=== PATIENT | male | born 1945 | race Caucasian/White ===

== ENCOUNTER → 2017-11-20 11:55 | Day surgery (SDC) | payer MEDICARE ==
[~2017-11-20 11:55] MED LIST: Acetaminophen TAB* 325 MG PO PRN; Flumazenil* 0.1 MG/ML 5 ML MDV ONE; Lidocaine 1% INJ* 10 MG/ML 30 ML SDV ONE; Midazolam* 1 MG/ML 5 ML VIAL (5 MG) ONE; Naloxone* 0.4 MG/ML 1 ML VIAL ONE; ceFAZolin 2 GM in NS 0.9% 100 ml IVPB ONE; ceFAZolin VIAL 1 GM in NS *SYRINGE * * 10 ML ONE; fentaNYL* 50 MCG/ML 2 ML VIAL (100 MCG VIAL) ONE
--- NOTE | 2017-11-21 00:26 | OP ---
CC: Philomena Lyle MD * DATE OF OPERATION: 11/20/17 - [facility] CATH DATE OF : 47 SURGEON: Italo Huff MD ANESTHESIA: Local anesthesia with conscious sedation. PRE-OP DIAGNOSIS: Nonischemic cardiomyopathy, ICD had elective replacement indicator. POST-OP DIAGNOSIS: Nonischemic cardiomyopathy, ICD had elective replacement indicator. OPERATIVE PROCEDURE: Dual chamber biventricular ICD generator change. ESTIMATED BLOOD LOSS: Nil. COMPLICATIONS: None. INDICATIONS: The patient is a 72-year-old gentleman with history of aortic valve replacement, history of nonischemic cardiomyopathy, who had an ICD placed back in 2010. The patient has been followed closely in my office. His ICD reached elective replacement indicator, and generator change was recommended. DESCRIPTION OF PROCEDURE: The patient was brought to the procedure room in a fasting state. Informed consent had been obtained prior to the procedure. All labs had been reviewed. The patient remained on anticoagulation for the procedure. The patient's anterior chest was prepped and draped in the usual fashion. 1% lidocaine was used for local anesthesia. A 5 cm incision was made above the previous incision line near the ICD itself. Blunt dissection was carried down to the fiber sheath. The fiber sheath was opened and the ICD was removed from the pocket. The ICD was detached from all leads including atrial, biventricular and shock leads. A new generator was attached appropriately to the atrial and ventricular leads and tested. The explanted device is a [employer] model [id number]. The implanted device is a [employer] model [id number], serial #[id number]. P wave sensitivity was 5, impedance 560 ohms, threshold 0.75 volts at 0.5 milliseconds. Right ventricular lead had an impendence of 440 ohms, threshold 0.5 volts at 0.5 milliseconds. Left ventricular lead had an impedance of 660 ohms, threshold 0.75 volts at 1.5 milliseconds. The device was placed in the pocket. The surgical incision was closed in 3 layers. The patient tolerated the procedure well with no complications. [id number]/[facility] #: [id number] [facility]
== END | disposition home or self-care (01) ==
LOC: CHICATH 11:55
PROVIDERS: ATTEND Specialist
DX: Z45.02 Encounter for adjustment and management of automatic implantable cardiac defibrillator (principal); I42.9 Cardiomyopathy, unspecified; Z95.2 Presence of prosthetic heart valve; Z79.01 Long term (current) use of anticoagulants; E11.9 Type 2 diabetes mellitus without complications; Z79.4 Long term (current) use of insulin; J44.9 Chronic obstructive pulmonary disease, unspecified; I10 Essential (primary) hypertension; I50.9 Heart failure, unspecified; I47.2 Ventricular tachycardia
CPT/HCPCS: 33264; 88300; 99156; 99157; C1882; J0690; J2250; J2310; J3010

== ENCOUNTER 2018-06-27 18:26 | Emergency (ER) | payer MEDICARE ==
--- NOTE | 2018-06-27 18:49 | ED ---
Dizziness - HPI Summary HPI Summary: A 73 y/o M brought in by ambulance presents to ED with c/o dizziness onset this AM. Yesterday, he was at baseline. He's lost about 30 lbs and kept it off, and has been managing his sugars. His blood sugar this AM was 93-96. As he's walking around his house in the AM, about 10 ft, he became dizzy, described as room-spinning. The dizziness didn't subside throughout the day. Temp in ED is 100.1 F. He notes some medication changes in Feb 2018. He's had episodes of dizziness since the first of the year but not as bad today. The ambulance was called by [facility]. He was there to procure a wheelchair and to have the dizziness evaluated. Echo scheduled for next week, by Dr. Huff, cardio. Pt has a pacemaker. 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 - Onset/Duration: Still Present Timing: Hours Severity Initially: Moderate Severity Currently: Moderate Character: Room Spinning Alleviating Factor(s): Closing Eyes Associated Signs And Symptoms: Positive: Unsteady Gait - Allergies/Home Medications Allergies/Adverse Reactions: Allergies Allergy/AdvReac Type Severity Reaction Status Date / Time No Known Allergies Allergy Verified 06/18/18 10:35 Home Medications: Home Medications Empagliflozin [Jardiance] 10 mg PO DAILY 06/27/18 [History Confirmed 06/27/18] Insulin Glargine/Lixisenatide [Soliqua 100 Unit-33 Mcg/ml Pen] 06/27/18 [ History] PMH/Surg Hx/FS Hx/Imm Hx Previously Healthy: No Endocrine/Hematology History: Reports: Hx Diabetes Cardiovascular History: Reports: Hx Congestive Heart Failure, Hx Hypercholesterolemia, Hx Hypertension, Hx Pacemaker/ICD - X2, Hx Valvular Heart Disease - aortic valve replacement, Other Cardiovascular Problems/Disorders - HX CARDIOMYOPATHY Respiratory History: Reports: Hx Chronic Obstructive Pulmonary Disease (COPD), Hx Sleep Apnea - evaluation for 06/2013, Other Respiratory Problems/Disorders - dyspnea, hypoxemia History: Denies: Hx Renal Disease Musculoskeletal History: Reports: Other Musculoskeletal History - obesity Sensory History: Reports: Hx Cataracts - BILATERAL, Hx Contacts or Glasses - GLASSES Denies: Hx Hearing Aid Opthamlomology History: Reports: Hx Cataracts - BILATERAL, Hx Contacts or Glasses - GLASSES - Cancer History Cancer Type, Location and Year: skin CA - Surgical History Surgery Procedure, Year, and Place: Pacemaker insertion 2010 [facility], vasectomy , tonsillectomy as a child, Aortic valve replacement 2006 [facility] with aneurysm repair Hx Anesthesia Reactions: No - Immunization History Date of Tetanus Vaccine: Unknown Date of Influenza Vaccine: 2012 Infectious Disease History: No Infectious Disease History: Denies: Traveled Outside the [place] in Last 30 Days - Family History Known Family History: Positive: Other - neg: anaesthesia reaction - Social History Occupation: Retired Lives: With Family Alcohol Use: None Hx Substance Use: No Substance Use Type: Reports: None Hx Tobacco Use: No Smoking Status (MU): Never Smoked Tobacco Have You Smoked in the Last Year: No Review of Systems Positive: Fever Neurological: Other - pos: dizziness, unsteady gait All Other Systems Reviewed And Are Negative: Yes Physical Exam - Summary Physical Exam Summary: Appearance: Well-appearing, Obese male lying in bed comfortably Skin: Warm, dry, no obvious rash Eyes: sclera anicteric, no conjunctival pallor ENT: mucous membranes moist, pharynx appears normal Neck: Supple, nontender Respiratory: Clear to auscultation, no signs of respiratory distress Cardiovascular: Normal S1, S2. No murmurs. Normal distal pulses in tibial and radial bilaterally. Abdomen: Soft, nontender, normal active bowel sounds present Musculoskeletal: Normal, Strength/ROM Intact Neurological: A&Ox3, awake and alert, mentation is normal, speech is fluent and appropriate Psychiatric: affect is normal, does not appear anxious or depressed Triage Information Reviewed: Yes Vital Signs On Initial Exam: Initial Vitals Temp Pulse Resp BP Pulse Ox 100.1 F 87 20 105/73 95 06/27/18 18:36 06/27/18 18:36 06/27/18 18:36 06/27/18 18:36 06/27/18 18:36 Vital Signs Reviewed: Yes Diagnostics - Vital Signs Vital Signs Temp Pulse Resp BP Pulse Ox 06/27/18 18:36 100.1 F 87 20 105/73 95 - Laboratory Result Diagrams: 06/27/18 19:09 06/27/18 19:09 Lab Statement: Any lab studies that have been ordered have been reviewed, and results considered in the medical decision making process. - EKG 1954 Cardiac Rate: NL - 82 bpm Summary of EKG Findings: Atrial-sensed ventricular-paced rhythm. No further analysis due to paced rhythm. Dizzy Course/Dx - Course Course Of Treatment: Pt is an obese 73 y/o M presenting with dizziness onset this AM. UA shows 3+ glucose. EKG is paced. Will discharge patient home. Called patient at home after discharge, spoke to his about the abnormalities on his CBC. I also spoke to Dr. Bo, oncology. Dr. Bo felt that as long as the patient was not febrile or bleeding he could be evaluated in the office during the day. Told pt's that he should follow up in office in the next day or two. Cautioned to return to ED if pt experiences fever or bleeding. - Diagnoses Provider Diagnoses: Thrombocytopenia, Weakness, Anemia Discharge - Sign-Out/Discharge Documenting (check all that apply): Patient Departure - DC Patient Received Moderate/Deep Sedation with Procedure: No - Discharge Plan Condition: Good Disposition: HOME Patient Education Materials: Vertigo (ED) Referrals: Philomena Guadalupe MD [Primary Care Provider] - 1 Day Additional Instructions: The tests we did today did not show a cause for your vertigo, but we did notice that you have developed anemia, a drop in your red blood cell count, since the last time we have blood work on you here. This would not cause vertigo but it could cause you to feel weak. It is not bad enough to require a transfusion, but you should speak with your regular doctor about this, and he or she will likely order more tests to find out why you are anemic . - Billing Disposition and Condition Condition: GOOD Disposition: Home - Attestation Statements Document Initiated by Dilip: Yes Documenting Scribe: Carlos Mills Provider For Whom Dilip is Documenting (Include Credential): MD Claudio Sanchezibe Attestation: I, chinmay Blaired for Dr. Gareth Freeman MD on 06/30/18 at 0642. Scribe Documentation Reviewed: Yes Provider Attestation: The documentation as recorded by the Carlos corey accurately reflects the service I personally performed and the decisions made by me, Dr. Gareth Freeman MD Status of Scribe Document: Viewed
--- OUTSIDE RECORDS SUMMARY | 2018-06-27 18:49 | XMS REPORT | Continuity of Care Document ---
:1945 External Reference #:[id number] Author Name Morro Evans MD Address [address] [place] [address] Care Team Providers Name Role Phone Philomena Lyle M.D., R.D. Care Team Information Construction Checker Unavailable Philomena Lyle M.D. RHerb Primary Care Physician Unavailable Payers Date Identification Numbers Payment Provider Subscriber Effective: 2018 Policy Number: [id number] [employer] Luna PayID: [id number] [address] [address] [place] [address] Advance Directives Description No Information Available Problems Date Description Provider Status Onset: 05/17/2018 Chronic rhinitis Morro Evans MD Active Onset: 05/17/2018 Impacted cerumen Morro Evans MD Active Onset: 05/17/2018 Sensorineural hearing loss Morro Evans MD Active Family History Date Family Member(s) Observation Comments General Cancer General Diabetes General Hearing Loss General Vertigo Social History Type Date Description Comments Sex Unknown Occupation Retired Tobacco Use Start: Unknown Never Smoked Cigarettes Tobacco Use Start: Unknown Never Smoked Cigars Tobacco Use Start: Unknown Never Smoked A Pipe Smokeless Tobacco Never Used Smokeless Tobacco ETOH Use Does not drink alcohol Allergies, Adverse Reactions, Alerts Description No Known Drug Allergies Medications Medication Date Status Form Strength Qnty SIG Indications Ordering Provider Amiodarone HCL 00// Active Tablets 100mg by mouth Unknown 0000 every day Aspirin 81 Low 00/00/ Active Chewtabs 81mg daily Unknown Dose 0000 Carvedilol 00/00/ Active Tablets 12.5mg bid Unknown 0000 Coq-10 00/ Active Capsules 200mg 1 by Unknown 0000 mouth every day Vicks Dayquil 0000/ Active Tablets bid Unknown Severe Cold & Flu 0000 Furosemide / Active Tablets 40mg bid Unknown 0000 Ibuprofen / Active Tablets 200mg 2-4 daily Unknown Jardiance / Active Tablets 10mg qam Unknown Klor-Con M20 / Active Tablets ER 20Meq daily Unknown 0000 Lovastatin / Active Tablets 40mg daily Unknown 0000 Multi For Him 50+ / Active Tablets once Unknown 0000 daily Soliqua / Active Solution 100-33Unt- 55 units Unknown 0000 Pen-Inject mcg/ML QHS Diphenhydramine / Active Capsules 25mg as Unknown HCL 0000 directed Warfarin Sodium / Active Tablets 3mg 3 mg 6 Unknown 0000 days a week, 2mg one day a week Immunizations Description No Information Available Vital Signs Date Vital Result Comment 06/14/2018 9:39am Weight 300.00 lb Weight 136.080 kg Height 72 inches 6'0" Height in cm's 182.9 cm BMI (Body Mass Index) 40.7 kg/m2 05/17/2018 9:56am Weight 300.00 lb Weight 136.080 kg Height 72 inches 6'0" Height in cm's 182.9 cm BMI (Body Mass Index) 40.7 kg/m2 Results Description No Information Available Procedures Date Code Description Status 05/17/2018 80156 Tympanometry Completed 05/17/2018 98863 Removal Wax Impaction Completed 05/08/2018 32019 Tympanometry Completed 05/08/2018 83827 Comprehensive Audiogram Completed Encounters Type Date Location Provider Dx Diagnosis Office Visit 06/14/2018 [place] Morro Evans H90.5 Unspecified 9:30a 03/13/07 sensorineural hearing loss Office Visit 05/17/2018 [place] Morro Evans J31.0 Chronic rhinitis 10:00a 03/13/07 H61.23 Impacted cerumen, bilateral H90.5 Unspecified sensorineural hearing loss Plan of Treatment Future Appointment(s):07/02/2018 9:45 am - Morro Evans MD at [place] - Morro Evans MDH90.5 Unspecified sensorineural hearing lossNew Labs:Blood Urea Nitrogen BUN, Ordered: 06/14/18Creatinine, Ordered: 06/29Comments:Asymmetrical hearing loss with syncopal episode I am going to order an MRI but if this is normal I think he needs to follow-up with his primary care/cardiology for further management of his syncope
--- OUTSIDE RECORDS SUMMARY | 2018-06-27 18:52 | XMS REPORT | Continuity of Care Document ---
:1945 External Reference #:[id number] Author Name Nya Thayer Care Team Providers Name Role Phone Philomena Lyle MD Primary Care Physician Unavailable Payers Date Identification Numbers Payment Provider Subscriber Effective: 2009 Policy Number: [id number] [facility] [employer] Jon Villanueva Group Number: [id number] [address] [address] PayID: [id number] [place] [address] Advance Directives Description No Information Available Problems Date Description Provider Status Onset: 04/04/2013 Paroxysmal ventricular Ervin Huff M.D. Active tachycardia Onset: 04/04/2013 Primary cardiomyopathy Ervin Huff M.D. Active Onset: 04/04/2013 Aortic valve disorder Ervin Huff M.D. Active Onset: 04/04/2013 Congestive heart failure Ervin Huff M.D. Active Onset: 07/08/2013 Obstructive sleep apnea of adult Carmen Baig DNP, RN, Active [employer] Onset: 01/23/2015 Chronic combined systolic and Ervin Huff M.D. 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 Smoking Status Reviewed: 05/30/18 Never Smoked Cigarettes Former cigar smoker over 35 years ago, denies smoking pipe, e-cigarettes, or using chewing tobacco. ETOH Use Denies alcohol use Tobacco Use Start: Unknown Patient has never smoked Recreational Drug Use Never Used Drugs Exercise Type/Frequency Does not exercise Allergies, Adverse Reactions, Alerts Description No Known Drug Allergies Medications Medication Date Status Form Strength Qnty SIG Indications Ordering Provider Jardiance 05/30 Active Tablets 25mg 30tab Take one E11.65 Coulter s tablet by MD Praveen mouth daily. Soliqua 02/28 Active Solution 100-33Unt 30ml 60 units E11.65 Coulter Pen-Inject -mcg/ML once daily MD Praveen at night Amiodarone HCL 08/28 Active Tablets 200mg 45tab /2 by Ervin s mouth every D. johnathan Huff M.D. Coreg 10/29 Active Tablets 12.5mg 180ta 1 by mouth Ervin bs twice a day Winston Huff M.D. Nebulizer 08/04 Active Kit 1unit use as R06.02 Flores Compressor/Dualf /2015 s directed sudheer Brar/7' Tubing/Aerosol T/Mthpiece Aspirin Active Tablets DR 81mg 1 po qd Unknown /0000 Coq-10 Active Capsules 200mg 1 po qd Unknown /0000 Furosemide Active Tablets 40mg 1 po bid Unknown /0000 Am/Noon Lovastatin Active Tablets 40mg 90tab 1 po qhs Unknown / s Multi For Him Active Tablets 1 po qd Unknown 50+ /0000 Warfarin Sodium Active Tablets 3mg 5tabs 3 mg 6 days Valdo, / per week, 2 Philomena C., mg 1 day a week as directed [facility] Cpap With O2 Active Device nightly Unknown /0000 Acetaminophen 00 Active Tablets 500mg 2 tablets Unknown /0000 every 6 hours as needed for pain Potassium 00 Active Tablets ER 20Meq 1 tablet po Unknown Chloride Shannan ER /0000 daily Sleep Aid 00 Active as needed Unknown /0000 Fluticasone Active Suspension 50mcg/Act 2 sprays Unknown Propionate /0000 each nostril qd.as needed Diphenhydramine 00 Active Capsules 25mg one my Unknown HCL /0000 nouth every 6 hours as needed for sleep Ibuprofen 00 Active Tablets 200mg 2 tabs by Unknown /0000 mouth at bedtime for sleep aid Vicks Dayquil Active Capsules as needed Unknown Cold & Flu /0000 Multi-Symptom Relief Echinacea Active Capsules 400mg 2 cap by Unknown /0000 mouth every day Jardiance 02/28 Hx Tablets 10mg 30tab 10mg by E11.65 Coulter s mouth daily MD Praveen - 05/30 Cefadroxil 11/20 Hx Capsules 500mg 6caps 2 times a Ervin day DJustice Baer M.Winston 11/24 Amiodarone HCL 12/02 Hx Tablets 100mg 90tab 1 by mouth Ervin s every day Justice Cortez.Winston 08/28 Amiodarone HCL 05/31 Hx Tablets 200mg 1/2 by Ervin mouth every D. Refugio, - day M.DVictorino 12/02 Amiodarone HCL 10/25 Hx Tablets 100mg 90tab 1 by mouth Ervin s every day DJustice Baer M.Winston 05/31 Symbicort 09/01 Hx Aerosol 160-4.5mc 30.6g 2 puff Flores g/Act m twice a day Justice Brar MD 11/27 Ipratropium 08/04 Hx Solution 0.02% 125ml 1 vial in R06.02 Flores nebulizer 2 Zonia - times a day 11/27 as needed /2017 Coreg 06/18 Hx Tablets 25mg 180ta 1 by mouth Ervin bs twice a day Justice Cortez M.D. 10/29 Metoprolol 05/12 Hx Tablets ER 50mg 90tab tid Ervin Succinate ER 24HR s DJustice Baer M.D. 06/17 Amiodarone HCL 07/25 Hx Tablets 200mg 90tab 1/2 by Ervin s mouth every DVictorino Huff - day Melinda 10/25 Metoprolol 06/12 Hx Tablets ER 50mg 270ta 1 tab by Ervin Succinate ER /2012 24HR bs mouth three D. Brand, - times a day M.D. 05/12 Glyburide Hx Tablets 5mg 30tab 2 tab po Unknown /0000 s bid - 04/03 Hydrocodone/Acet 0000 Hx prn Unknown aminophen /0000 - 04/03 Lantus Insulin Hx 49 units Valdo, /0000 am, 49units Philomena Pavon, - pm 02/28 Magnesium Hx Solution 5 oz. as Unknown Citrate /0000 needed - 04/03 Methocarbamol Hx Tablets 750mg 120ta 1 by mouth Unknown /0000 bs tid as - needed 04/03 Potassium Hx Tablets ER 10Meq 30tab 1 po qd Valdo, Chloride CR /0000 s Justice Mcpherson MD 07/22 Senna Plus Hx Tablets 8.6-50mg 30tab 2 tab po Unknown /0000 s bid prn - constipatio 07/18 Trazodone HCL Hx Tablets 50mg 30tab 1 tablet at Unknown /0000 s bedtime as - needed 04/03 Glipizide Hx Tablets 10mg 180ta 1 po bid Valdo, /0000 bs Justice Mcpherson MD 02/28 Hydrocodone/Acet 00 Hx Tablets 5-500mg 1 every 4 Unknown aminophen /0000 hours as - needed for 04/03 Metolazone Hx Tablets 5mg 1 tab po Unknown /0000 every 3rd - day 07/17 Nitrostat Hx Tablets Sub 0.4mg Unknown /0000 - 07/18 Oxygen 00/00 Hx Misc 1unit 2.5 l nc Unknown /0000 s used all - day 04/03 Albuterol 00/ Hx prn Unknown Sulfate /0000 - 11/23 Linzess 00 Hx Capsules 290mcg by mouth Unknown /0000 every day - 11/23 Hydrocodone-Acet 00 Hx Tablets 5-325mg 1 by mouth Unknown aminophen /0000 every 4-6 - hours prn. 07/22 Amitiza Hx Capsules 8mcg 24 mcg Unknown /0000 total daily - as needed 11/30 Tramadol HCL Hx Tablets 50mg 1-2 tablets Unknown /0000 every 6 - hours as 07/22 Daytime Cold Hx prn Unknown - 09/11 Echinacea Hx as needed Unknown /0000 (3xs daily) - 10/01 Fluticasone Hx Suspension 50mcg/Act 2 sprays Unknown each - nostril qd. 11/27 Amoxicillin 00 Hx Tablets 875mg 1 tablet po Unknown / twice daily - x 10 days 05/29 Immunizations Description No Information Available Vital Signs Date Vital Result Comment 05/30/2018 9:15am Height 72 inches 6'0" Weight 301.00 lb w/ shoes Heart Rate 88 /min BP Systolic Sitting 132 mmHg BP Diastolic Sitting 74 mmHg BMI (Body Mass Index) 40.8 kg/m2 04/04/2018 1:12pm Height 72 inches 6'0" Weight 307.00 lb w/ shoes Heart Rate 92 /min BP Systolic Sitting 120 mmHg Rue lg cuff BP Diastolic Sitting 75 mmHg Rue lg cuff BP Systolic Standing 115 mmHg Rue lg cuff BP Diastolic Standing 70 mmHg Rue lg cuff Respiratory Rate 17 /min BMI (Body Mass Index) 41.6 kg/m2 Ejection Fraction 35-40 % 08/07/14 echo 02/28/2018 9:27am Height 72 inches 6'0" Weight 324.00 lb w/ shoes Heart Rate 85 /min BP Systolic Sitting 147 mmHg BP Diastolic Sitting 91 mmHg BMI (Body Mass Index) 43.9 kg/m2 12/05/2017 1:43pm Height 72 inches 6'0" Weight 323.38 lb Heart Rate 70 /min BP Systolic Sitting 124 mmHg Lue large cuff BP Diastolic Sitting 74 mmHg Lue large cuff Respiratory Rate 20 /min O2 % BldC Oximetry 94 % BMI (Body Mass Index) 43.9 kg/m2 12/01/2017 12:07pm Height 72 inches 6'0" Weight 226.00 lb Heart Rate 84 /min BP Systolic 112 mmHg lue lg cuff BP Diastolic 62 mmHg lue lg cuff Respiratory Rate 24 /min O2 % BldC Oximetry 94 % BMI (Body Mass Index) 30.6 kg/m2 Ejection Fraction 35-40% 08/07/14 echo 11/28/2017 1:18pm Height 72 inches 6'0" Weight 323.00 lb Heart Rate 78 /min BP Systolic Sitting 118 mmHg BP Diastolic Sitting 7428 mmHg O2 % BldC Oximetry 94 % at rest on room air BMI (Body Mass Index) 43.8 kg/m2 Ejection Fraction 35-40% 08-07-2014 echo 11/24/2017 11:15am Height 72 inches 6'0" Weight 324.00 lb Heart Rate 80 /min BP Systolic Sitting 112 mmHg BP Diastolic Sitting 60 mmHg Respiratory Rate 20 /min BMI (Body Mass Index) 43.9 kg/m2 Ejection Fraction 35-40% 08/07/14 echo 11/01/2017 3:17pm Height 72 inches 6'0" Weight 318.00 lb Heart Rate 80 /min BP Systolic Sitting 134 mmHg Rue lg cuff BP Diastolic Sitting 80 mmHg Rue lg cuff Respiratory Rate 24 /min BMI (Body Mass Index) 43.1 kg/m2 Ejection Fraction 35-40% as of 07/2014 echo 06/23/2017 7:56am Height 72 inches 6'0" Weight 304.50 lb Heart Rate 68 /min BP Systolic Sitting 108 mmHg BP Diastolic Sitting 62 mmHg BP Systolic Standing 112 mmHg BP Diastolic Standing 62 mmHg Respiratory Rate 19 /min BMI (Body Mass Index) 41.3 kg/m2 Ejection Fraction 35-40% 08/07/2014 echo 05/03/2017 9:20am Height 72 inches 6'0" Heart Rate 48 /min BP Systolic Sitting 118 mmHg Rue lg cuff BP Diastolic Sitting 72 mmHg Rue lg cuff BP Systolic Standing 112 mmHg Rue lg cuff BP Diastolic Standing 70 mmHg Rue lg cuff Ejection Fraction 08/07/2014 08/07/2014-echo 11/09/2016 11:41am Height 72 inches 6'0" Weight 323.25 lb with shoes Heart Rate 76 /min BP Systolic Sitting 114 mmHg Lue lrg cuff BP Diastolic Sitting 74 mmHg Lue lrg cuff BP Systolic Standing 116 mmHg Lue lrg cuff BP Diastolic Standing 80 mmHg Lue lrg cuff Respiratory Rate 16 /min BMI (Body Mass Index) 43.8 kg/m2 Ejection Fraction 35-40% 08/07/2014-echo 04/15/2016 1:17pm Height 72 inches 6'0" Weight 319.00 lb Heart Rate 64 /min BP Systolic Sitting 114 mmHg Rue large cuff BP Diastolic Sitting 84 mmHg Rue large cuff BP Systolic Standing 108 mmHg Rue BP Diastolic Standing 76 mmHg Rue Respiratory Rate 16 /min BMI (Body Mass Index) 43.3 kg/m2 Ejection Fraction 35-40% 08/07/14 01/13/2016 1:24pm Height 72 inches 6'0" Weight 320.00 lb with shoes Heart Rate 72 /min BP Systolic Sitting 114 mmHg Rue large cuff BP Diastolic Sitting 72 mmHg Rue large cuff BP Systolic Standing 114 mmHg Rue large cuff BP Diastolic Standing 70 mmHg Rue large cuff Respiratory Rate 20 /min BMI (Body Mass Index) 43.4 kg/m2 09/03/2015 1:43pm Height 72 inches 6'0" Weight 320.00 lb Heart Rate 78 /min BP Systolic Sitting 136 mmHg BP Diastolic Sitting 70 mmHg Respiratory Rate 18 /min O2 % BldC Oximetry 95 % BMI (Body Mass Index) 43.4 kg/m2 08/05/2015 11:47am Height 72 inches 6'0" Weight 317.00 lb Heart Rate 74 /min BP Systolic Sitting 134 mmHg BP Diastolic Sitting 72 mmHg Respiratory Rate 22 /min O2 % BldC Oximetry 97 % BMI (Body Mass Index) 43.0 kg/m2 07/24/2015 2:18pm Height 71 inches 5'11" Weight 318.00 lb Heart Rate 80 /min BP Systolic Sitting 112 mmHg Lg cuff BP Diastolic Sitting 78 mmHg Lg cuff BP Systolic Standing 110 mmHg Lg cuff BP Diastolic Standing 70 mmHg Lg cuff Respiratory Rate 17 /min BMI (Body Mass Index) 44.3 kg/m2 Ejection Fraction 35-40% date 08/07/14 ECHO 01/23/2015 11:27am Height 71 inches 5'11" Weight 322.00 lb w/ shoes Heart Rate 72 /min reg BP Systolic Sitting 116 mmHg Lue, lg cuff BP Diastolic Sitting 76 mmHg Lue, lg cuff BP Systolic Standing 112 mmHg Lue BP Diastolic Standing 76 mmHg Lue Respiratory Rate 18 /min BMI (Body Mass Index) 44.9 kg/m2 Ejection Fraction 35-40% as of 08/07/14 echo 12/10/2014 11:19am Height 71 inches 5'11" Weight 331.00 lb Pain Level 8 BMI (Body Mass Index) 46.2 kg/m2 08/01/2014 3:17pm Height 71 inches 5'11" Weight 330.00 lb w/ shoes Heart Rate 64 /min reg BP Systolic Sitting 110 mmHg Ra, reg cuff BP Diastolic Sitting 60 mmHg Ra, reg cuff BP Systolic Standing 106 mmHg Ra BP Diastolic Standing 68 mmHg Ra Respiratory Rate 18 /min BMI (Body Mass Index) 46.0 kg/m2 Ejection Fraction 35-40% as of 11/16/11 echo 04/02/2014 11:55am Height 71 inches 5'11" Weight 327.00 lb Heart Rate 61 /min BP Systolic Sitting 134 mmHg BP Diastolic Sitting 78 mmHg Respiratory Rate 22 /min Body Temperature 97.8 F O2 % BldC Oximetry 97 % BMI (Body Mass Index) 45.6 kg/m2 01/15/2014 11:27am Height 72 inches 6'0" Weight 329.25 lb w/shoes Heart Rate 66 /min BP Systolic Sitting 136 mmHg LA lg cuff BP Diastolic Sitting 80 mmHg LA lg cuff BP Systolic Standing 130 mmHg LA lg cuff BP Diastolic Standing 80 mmHg LA lg cuff Respiratory Rate 20 /min BMI (Body Mass Index) 44.6 kg/m2 08/09/2013 11:39am Weight 337.00 lb Heart Rate 64 /min BP Systolic Sitting 128 mmHg LA large cuff BP Diastolic Sitting 82 mmHg LA large cuff BP Systolic Standing 122 mmHg LA BP Diastolic Standing 78 mmHg LA Respiratory Rate 16 /min 05/08/2013 10:37am Height 73 inches 6'1" Weight 325.00 lb with shoes Heart Rate 70 /min sit and reg BP Systolic Sitting 118 mmHg LA Lg cuff BP Diastolic Sitting 72 mmHg LA Lg cuff BP Systolic Standing 120 mmHg LA lg cuff BP Diastolic Standing 70 mmHg LA lg cuff Respiratory Rate 17 /min BMI (Body Mass Index) 42.9 kg/m2 04/04/2013 9:56am Height 73 inches 6'1" Weight 318.75 lb with shoes Heart Rate 72 /min sit and reg BP Systolic Sitting 110 mmHg LA Lg cuff BP Diastolic Sitting 70 mmHg LA Lg cuff BP Systolic Standing 108 mmHg LA Lg cuff BP Diastolic Standing 70 mmHg LA Lg cuff Respiratory Rate 17 /min BMI (Body Mass Index) 42.0 kg/m2 Results Test Date Facility Test Result H/L Range Note Laboratory test finding 05/30/2018 [facility] Glucose Random 205 Hemoglobin A1c 9.0 High 5-7 Laboratory test finding 02/28/2018 [facility] Glucose Random 301 Ketones 0.2 Hemoglobin A1c 9.4 High 5-7 Laboratory test 11/20/2017 [facility] Surgical SEE RESULT [address] Pathology BELOW [place], [place] [id number] [phone] Basic Metabolic 11/17/2017 [facility] Sodium 138 mmol/L N 135- [address] [place], [place] [id number] [phone] Potassium 4.2 mmol/L N 3.5-5.0 Chloride 103 mmol/L N 101-111 Co2 Carbon Dioxide 26 mmol/L N 22-32 Anion Gap 9 mmol/L N 2-11 Glucose 260 mg/dL High 70-100 Blood Urea Nitrogen 27 mg/dL High 6-24 Creatinine 1.56 mg/dL High 0.67-1.17 BUN/Creatinine Ratio 17.3 N 8-20 Calcium 8.7 mg/dL N 8.6-10.3 Egfr Non- 44.1 >60 Egfr 53.4 >60 2 Pre Cath 11/17/2017 [facility] Partial 40.7 seconds High 26.0- 36.[address] [place] [address] PTT [phone] CBC Auto 11/17/2017 [facility] White Blood 7.1 10^3/uL N 3.5- 10.[address] [place] [address] [phone] Red Blood Count 4.94 10^6/uL N 4.00-5.40 Hemoglobin 16.0 g/dL N 14.0-18.0 Hematocrit 47 % N 42-52 Mean Corpuscular Volume 96 fL High 80-94 Mean Corpuscular Hemoglobin 33 pg High 27-31 Mean Corpuscular HGB Conc 34 g/dL N 31-36 Red Cell Distribution Width 19 % High 10.5-15 Platelet Count 108 10^3/uL Low 150-450 Mean Platelet Volume 9.4 um3 N 7.4-10.4 Abs Neutrophils 5.0 10^3/uL N 1.5-7.7 Abs Lymphocytes 1.0 10^3/uL N 1.0-4.8 Abs Monocytes 1.0 10^3/uL High 0-0.8 Abs Eosinophils 0.1 10^3/uL N 0-0.6 Abs Basophils 0.1 10^3/uL N 0-0.2 Abs Nucleated RBC 0 10^3/uL Granulocyte % 69.5 % N 38-83 Lymphocyte % 13.7 % Low 25-47 Monocyte % 13.9 % High 0-7 Eosinophil % 1.8 % N 0-6 Basophil % 1.1 % N 0-2 Nucleated Red Blood Cells % 0.3 Inr/Protime 11/17/2017 [facility] Inr 2.55 High 0.77-1.[address] [place], [place] [id number] [phone] Laboratory test 06/27/2017 [facility] TSH 1.38 N 0.34-5.[address] (Thyroid mcIU/[place] [address] Btsa Dgsi) [phone] Inr/Protime 05/30/2017 [facility] Inr 2.76 High 0.77-1.[address] [place], [place] [address] [phone] CBC Auto Diff 02/10/2017 [facility] White Blood 8.2 N 3.5- 10.[address] Count 10^3/uL [place], [place] [address] [phone] Red Blood Count 4.64 10^6/uL N 4.0-5.4 Hemoglobin 14.8 g/dL N 14.0-18.0 Hematocrit 45 % N 42-52 Mean Corpuscular Volume 96 fL High 80-94 Mean Corpuscular Hemoglobin 32 pg High 27-31 Mean Corpuscular HGB Conc 33 g/dL N 31-36 Red Cell Distribution Width 19 % High 10.5-15 Platelet Count 118 10^3/uL Low 150-450 Mean Platelet Volume 9 um3 N 7.4-10.4 Abs Neutrophils 6.1 10^3/uL N 1.5-7.7 Abs Lymphocytes 0.9 10^3/uL Low 1.0-4.8 Abs Monocytes 0.9 10^3/uL High 0-0.8 Abs Eosinophils 0.2 10^3/uL N 0-0.6 Abs Basophils 0.1 10^3/uL N 0-0.2 Abs Nucleated RBC 0.01 10^3/uL Granulocyte % 74.9 % N 38-83 Lymphocyte % 10.7 % Low 25-47 Monocyte % 11.0 % High 1-9 Eosinophil % 2.3 % N 0-6 Basophil % 1.1 % N 0-2 Nucleated Red Blood Cells % 0.1 Comp Metabolic Panel 02/10/2017 [facility] Sodium 138 mmol/L N 133-[address] [place] [address] [phone] Potassium 4.5 mmol/L N 3.5-5.0 Chloride 105 mmol/L N 101-111 Co2 Carbon Dioxide 25 mmol/L N 22-32 Anion Gap 8 mmol/L N 2-11 Glucose 205 mg/dL High 70-100 Blood Urea Nitrogen 31 mg/dL High 6-24 Creatinine 1.49 mg/dL High 0.67-1.17 BUN/Creatinine Ratio 20.8 High 8-20 Calcium 8.6 mg/dL N 8.6-10.3 Total Protein 6.5 g/dL N 6.4-8.9 Albumin 3.9 g/dL N 3.2-5.2 Globulin 2.6 g/dL N 2-4 Albumin/Globulin Ratio 1.5 N 1-3 Total Bilirubin 0.60 mg/dL N 0.2-1.0 Alkaline Phosphatase 30 U/L Low 34-104 Alt 17 U/L N 7-52 Ast 17 U/L N 13-39 Egfr Non- 46.6 >60 Egfr 60.0 >60 4 Lipid Profile 02/10/2017 [facility] Triglycerides 221 mg/dL 5 (Trig/Chol/HDL) [address] [place] [address] [phone] Cholesterol 112 mg/dL 6 HDL Cholesterol 31.5 mg/dL 7 LDL Cholesterol 36 mg/dL 8 Laboratory test 02/10/2017 [facility] Magnesium 2.4 mg/dL N 1.9-2.[address] [place] [address] [phone] Creatine Kinase(CK) 229 U/L High 10-223 10 TSH (Thyroid Stim Horm) 1.96 mcIU/mL N 0.34-5.60 11 Laboratory 11/11/2015 [facility] TSH (Thyroid 1.50 N 0.34- 5.60 [address] Stim Horm) mcIU/[place] [address] [phone] Inr/Protime 11/09/2015 [facility] Inr 2.01 High 0.89-1.11 [address] [place] [address] [phone] Laboratory 08/08/2014 [facility] TSH (Thyroid 1.54 N 0.34- 5.60 test finding [address] [place] [address] Stimulating ?IU/[place] [address] Horm) [phone] Basic 08/08/2014 [facility] Sodium 136 mmol/L N 133-145 Metabolic [address] [facility] [address] [phone] Potassium 4.3 mmol/L N 3.5-5.0 Chloride 102 mmol/L N 101-111 Co2 Carbon Dioxide 27 mmol/L N 22-32 Anion Gap 7 mmol/L N 2-11 Glucose 209 mg/dL High 70-100 Blood Urea Nitrogen 43 mg/dL High 6-24 Creatinine 2.64 mg/dL High 0.67-1.17 BUN/Creatinine Ratio 16.3 N 8-20 Calcium 9.2 mg/dL N 8.6-10.3 Egfr Non- 24.2 N >60 Egfr 31.2 N >60 13 Laboratory test 04/01/2013 [facility] Inr 2.38 High 0.85-1.[address] [place] [phone] Laboratory test 10/12/2012 [facility] Free T4 1.16 ng/mL 0.61 -1.[address] [place] [address] [phone] TSH (Thyroid Stimulating Horm) 1.24 miu/mL 0.34-5.60 MRSA/Vre Screen 01/28/2010 [facility] MRSA/Vre Culture [facility] [address] [place] [address] [phone] 1 SEE RESULT BELOW Name: JON VILLANUEVA : [address]: Ervin Huff MD Acct: [id number] Unit: [id number] AGE: 72 Location: [facility] Re11/20/17 SEX: M Status: REG SDC SPEC: [id number] ARYAN: 11/20/17- SUBM DR: Ervin Huff MD REQ: [id number] RECD: 11/20/17 STATUS: SOUT _ ORDERED: LEVEL 1 FINAL DIAGNOSIS Event monitor: Foreign body (ICD generator) (gross diagnosis) PRE-OPERATIVE DIAGNOSIS Cardiomyopathy GROSS DESCRIPTION The specimen is received fresh with no source identified and a requisition labeled, ICD Generator, and consists of a 7.7 x 4.0 x 1.4 cm neri metallic medical office administrator. The following inscription is identified: [facility] [employer] Model HS9615 -40 High Voltage Can VVED DDDRV S/N [id number]. Per established hospital medical staff protocol, no tissue is submitted. Gross only. Signed by and Reported on: Linda Jean Baptiste MD 11/23/17 1113 END OF REPORT DEPARTMENT OF PATHOLOGY, [address] [place] [address] Mahamed Bailon M.D. Director [facility] # [id number] 2 Because ethnic data is not always readily available, this report includes an eGFR for both -Americans and non- Americans. The National Kidney Disease Education Program (NKDEP) does not endorse the use of the MDRD equation for patients that are not between the ages of 18 and 70, are , have extremes of body size, muscle mass, or nutritional status, or are non- or non-. According to the National Kidney Foundation, irrespective of diagnosis, the stage of the disease is based on the level of kidney function: Stage Description GFR(mL/min/1.73 m(2)) 1 Kidney damage with normal or decreased GFR 90 2 Kidney damage with mild decrease in GFR 60-89 3 Moderate decrease in GFR 30-59 4 Severe decrease in GFR 15-29 5 Kidney failure <15 (or dialysis) 3 CALL CRITICAL RESULT [id number] 4 Because ethnic data is not always readily available, this report includes an eGFR for both -Americans and non- Americans. The National Kidney Disease Education Program (NKDEP) does not endorse the use of the MDRD equation for patients that are not between the ages of 18 and 70, are , have extremes of body size, muscle mass, or nutritional status, or are non- or non-. According to the National Kidney Foundation, irrespective of diagnosis, the stage of the disease is based on the level of kidney function: Stage Description GFR(mL/min/1.73 m(2)) 1 Kidney damage with normal or decreased GFR 90 2 Kidney damage with mild decrease in GFR 60-89 3 Moderate decrease in GFR 30-59 4 Severe decrease in GFR 15-29 5 Kidney failure <15 (or dialysis) 5 Desirable: <150 Borderline High: 150-199 High: 200-499 Very High: >500 6 Desirable: <200 Borderline High: 200-239 High: >239 7 Low: <40 Desirable: 40-60 High: >60 8 Desirable: <100 Near Optimal: 100-129 Borderline High: 130-159 High: 160-189 Very High: >189 9 [id number] Copy Result to: ERVIN HUFF ([id number]) 10 [id number] Copy Result to: ERVIN HUFF ([id number]) 11 [id number] Copy Result to: ERVIN HUFF ([id number]) 12 Copy Result to: ERVIN HUFF ([id number]) [facility] [id number] 13 Because ethnic data is not always readily available, this report includes an eGFR for both -Americans and non- Americans. The National Kidney Disease Education Program (NKDEP) does not endorse the use of the MDRD equation for patients that are not between the ages of 18 and 70, are , have extremes of body size, muscle mass, or nutritional status, or are non- or non-. According to the National Kidney Foundation, irrespective of diagnosis, the stage of the disease is based on the level of kidney function: Stage Description GFR(mL/min/1.73 m(2)) 1 Kidney damage with normal or decreased GFR 90 2 Kidney damage with mild decrease in GFR 60-89 3 Moderate decrease in GFR 30-59 4 Severe decrease in GFR 15-29 5 Kidney failure <15 (or dialysis) 14 NO MRSA ISOLATED Procedures Date Code Description Status 04/04/2018 50748 Interrogation Implant Cardiovasc Monitor System Incl Completed Analysis Int 04/04/2018 95653 Interrogation Implant Cardiovasc Monitor System Incl Completed Analysis Int 04/04/2018 70602 Icd Eval With Iterative Adjustmt Multiple Lead System Completed 04/04/2018 25079 Icd Eval With Iterative Adjustmt Multiple Lead System Completed 11/20/2017 72938 Insert/Replace Icd W/Generator Completed 11/01/2017 68449 EKG Tracing & Interpretation Completed 08/25/2017 33628 Interrogation Implant Cardiovasc Monitor System Incl Completed Analysis Int 08/25/2017 37167 Interrogation Implant Cardiovasc Monitor System Incl Completed Analysis Int 08/25/2017 85533 Icd Eval With Iterative Adjustmt Multiple Lead System Completed 08/25/2017 02966 Icd Eval With Iterative Adjustmt Multiple Lead System Completed 06/23/2017 47526 EKG Tracing & Interpretation Completed 05/30/2017 06742 Cardioversion Completed 05/03/2017 78165 Icd Eval With Iterative Adjustmt Multiple Lead System Completed 05/03/2017 69889 Icd Eval With Iterative Adjustmt Multiple Lead System Completed 05/03/2017 62244 Interrogation Implant Cardiovasc Monitor System Incl Completed Analysis Int 05/03/2017 84605 Interrogation Implant Cardiovasc Monitor System Incl Completed Analysis Int 12/22/2016 99994 Interrogation Implant Cardiovasc Monitor System Incl Completed Analysis Int 12/22/2016 61843 Icd Eval With Iterative Adjustmt Multiple Lead System Completed 11/09/2016 25251 EKG Tracing & Interpretation Completed 11/01/2016 32621 Interrogation Implant Cardiovasc Monitor System Incl Completed Analysis Int 11/01/2016 79513 Icd Eval With Iterative Adjustmt Multiple Lead System Completed 06/28/2016 08058 Icd Eval With Inerative Adjustmt Dual Lead System Completed 02/25/2016 00404 Icd Eval With Inerative Adjustmt Dual Lead System Completed 02/01/2016 81791 Icd Eval Sing,Dual,Multi Lead Remote Recpt Transm Tech Rev Completed Tech S 02/01/2016 33829 Icd Check Remote Up To 90 Days Single,Dual,Multiple Lead Completed 01/13/2016 41857 Icd Check Single,Dual Or Multiple In Person W/ Incl Completed Heart Rhyth 10/26/2015 53766 Interrogation Implant Cardiovasc Monitor System Incl Completed Analysis Int 10/26/2015 47514 Icd Eval With Iterative Adjustmt Multiple Lead System Completed 08/11/2015 09633 Pulmonary Function><Bronchodil Completed 08/11/2015 34177 Plethysmography Determination Lung Volumes & Per Airway Completed Resist 08/11/2015 34991 Diffusing Capacity Completed 07/24/2015 89971 EKG Tracing & Interpretation Completed 07/01/2015 45239 Interrogation Implant Cardiovasc Monitor System Incl Completed Analysis Int 07/01/2015 23871 Icd Eval With Iterative Adjustmt Multiple Lead System Completed 03/02/2015 89291 Interrogation Implant Cardiovasc Monitor System Incl Completed Analysis Int 03/02/2015 76749 Icd Eval With Iterative Adjustmt Multiple Lead System Completed 10/30/2014 77192 Interrogation Implant Cardiovasc Monitor System Incl Completed Analysis Int 10/30/2014 42044 Icd Check Single,Dual Or Multiple In Person W/DR Incl Completed Heart Rhyth 08/07/2014 63362 ECHO Transthoracic, Real-Time 2D With Doppler And Color Completed Flow 08/01/2014 84568 EKG Tracing & Interpretation Completed 07/29/2014 43449 Icd Check Single,Dual Or Multiple In Person W/DR Incl Completed Heart Rhyth 04/22/2014 03407 Interrogation Implant Cardiovasc Monitor System Incl Completed Analysis Int 04/22/2014 44864 Icd Eval With Iterative Adjustmt Multiple Lead System Completed 12/18/2013 31947 Icd Eval With Iterative Adjustmt Multiple Lead System Completed 12/18/2013 35128 Interrogation Implant Cardiovasc Monitor System Incl Completed Analysis Int 07/30/2013 73145 Interrogation Implant Cardiovasc Monitor System Incl Completed Analysis Int 07/30/2013 03906 Icd Check Single,Dual Or Multiple In Person W/DR Incl Completed Heart Rhyth 07/22/2013 31180 Polysomnography Sleep Staging 4+ Parameters W/Cpap Completed 07/08/2013 71391 Polysomnography Sleep Staging 4+ Parameters W/Cpap Completed 04/04/2013 18567 Icd Eval With Iterative Adjustmt Multiple Lead System Completed 12/18/2012 27932 Interrogation Implant Cardiovasc Monitor System Incl Completed Analysis Int 12/18/2012 30337 Icd Eval With Iterative Adjustmt Multiple Lead System Completed 10/12/2012 29419 EKG Tracing & Interpretation Completed 08/31/2012 77766 Icd Eval With Iterative Adjustmt Multiple Lead System Completed 04/11/2012 04383 Icd Eval With Iterative Adjustmt Multiple Lead System Completed 02/01/2012 73162 Icd Eval With Iterative Adjustmt Multiple Lead System Completed 01/30/2012 86111 Interrogation Implant Cardiovasc Monitor System Incl Completed Analysis Int 01/30/2012 06046 Icd Check Single,Dual Or Multiple In Person W/DR Incl Completed Heart Rhyth Encounters Type Date Location Provider Dx Diagnosis Office Visit 04/04/2018 [facility] Ervin Montero I42.9 Cardiomyopathy, 1:30p Of Katelyn Huff M.D. unspecified Z95.810 Presence of automatic (implantable) cardiac defibrillator I47.2 Ventricular tachycardia Z95.2 Presence of prosthetic heart valve Office Visit 02/28/2018 10:00a [place] [facility] Yfn Morton, Z79.4 longterm Endocrinology of Katelyn HOLLAND (current) use of insulin E11.65 Type 2 diabetes mellitus with hyperglycemia I48.92 Unspecified atrial flutter Z68.41 Body mass index (BMI) 40.0-44.9, adult E66.01 Morbid (severe) obesity due to excess calories Office Visit 11/01/2017 Yee Montero I42.9 Cardiomyopathy, 3:15p Cardiology Of [place]inda Huff unspecified Katelyn I48.3 Typical atrial flutter Z95.2 Presence of prosthetic heart valve Z95.810 Presence of automatic (implantable) cardiac defibrillator Office Visit 06/23/2017 Yee Montero I42.9 Cardiomyopathy, 8:30a Cardiology Of [place] Huff unspecified Katelyn Z95.810 Presence of automatic (implantable) cardiac defibrillator I47.2 Ventricular tachycardia I48.3 Typical atrial flutter Office Visit 05/03/2017 Yee Montero Z95.810 Presence of 9:45a Cardiology Erin Huff M.D. automatic Senior Safety Management Consultant (implantable) cardiac defibrillator I42.9 Cardiomyopathy, unspecified Z95.2 Presence of prosthetic heart valve I48.92 Unspecified atrial flutter Office Visit 11/09/2016 Yee Montero I42.9 Cardiomyopathy, 11:30a Cardiology Erin Huff M.D. unspecified Katelyn Z95.810 Presence of automatic (implantable) cardiac defibrillator I47.2 Ventricular tachycardia Z95.2 Presence of prosthetic heart valve Office Visit 04/15/2016 1:30p [facility] Ervin Montero I47.2 Ventricular Of Katelyn Huff M.D. tachycardia Z95.2 Presence of prosthetic heart valve I42.9 Cardiomyopathy, unspecified Z95.810 Presence of automatic (implantable) cardiac defibrillator Office Visit 01/13/2016 [place] Ervin Montero Z95.810 Presence of 1:30p Cardiology Erin Huff M.D. automatic Katelyn (implantable) cardiac defibrillator I47.2 Ventricular tachycardia Z95.2 Presence of prosthetic heart valve Office Visit 09/03/2015 1:30p Pulmonology And Flores J44.9 Chronic Sleep Services Of MD Zonia obstructive Senior Safety Management Consultant pulmonary disease, unspecified E66.01 Morbid (severe) obesity due to excess calories Office Visit 08/05/2015 11:45a Pulmonology And [place] R06.02 Shortness of Sleep Services Of MD Zonia breath Senior Safety Management Consultant J44.9 Chronic obstructive pulmonary disease, unspecified Office Visit 07/24/2015 [place] Z95.810 Presence of 2:30p Cardiology Erin Huff M.D. automatic Senior Safety Management Consultant (implantable) cardiac defibrillator I47.2 Ventricular tachycardia I35.0 Nonrheumatic aortic (valve) stenosis I48.0 Paroxysmal atrial fibrillation Z95.2 Presence of prosthetic heart valve I42.9 Cardiomyopathy, unspecified Office Visit 01/23/2015 11:45a [place] Zak Montero I47.2 Ventricular Of Katelyn Huff M.D. tachycardia I35.0 Nonrheumatic aortic (valve) stenosis I50.42 Chronic combined systolic and diastolic hrt fail Office Visit 12/10/2014 Orthopedic Dirk Sg, M16.12 Unilateral primary 11:00a Services Of Melinda osteoarthritis, left C.M.A. hip Office Visit 08/01/2014 Yee Montero 427.1 Paroxysmal 3:30p Cardiology Erin Huff M.D. Ventricular Senior Safety Management Consultant Tachycardia 424.1 Aortic Valve Disorder 425.4 Cardiomyopathy Other Prim Office Visit 04/02/2014 Pulmonology And Carmen 327.23 Obstructive Sleep 11:30a Sleep Services Of BENOIT Baig, RN, Apnea Adult & [facility] [employer]NAGER- Pediatric Office Visit 01/15/2014 [place] Zak Montero 427.1 Paroxysmal 11:15a Of Katelyn Huff M.D. Ventricular Tachycardia 424.1 Aortic Valve Disorder 428.0 Congestive Heart Failure Unspecified Office Visit 08/09/2013 11:30a [place] Zak Montero 424.1 Aortic Valve Of Katelyn Huff M.D. Disorder 428.0 Congestive Heart Failure Unspecified 427.1 Paroxysmal Ventricular Tachycardia 427.31 Atrial Fibrillation Office Visit 06/14/2013 10:45a Sleep Disorder [place]. 780.59 Sleep Disturbances Center Melinda Hanna Other 794.2 Pulmonary Study Abnormal Office Visit 05/08/2013 10:15a Yee Montero 425.4 Cardiomyopathy Other Cardiology Of Melinda Huff Prim Senior Safety Management Consultant 424.1 Aortic Valve Disorder 427.1 Paroxysmal Ventricular Tachycardia Office Visit 04/04/2013 9:45a [place] Zak Puckett Winston 427.1 Paroxysmal Of Katelyn Huff M.D. Ventricular Tachycardia 425.4 Cardiomyopathy Other Prim 424.1 Aortic Valve Disorder 428.0 Congestive Heart Failure Unspecified Office Visit 02/26/2013 8:48a [facility] Edmond Vergara 428.0 [facility] Steph Antonio, Failure Hospitalists MHerb Unspecified 289.0 Polycythemia Secondary 799.02 Hypoxemia 401.9 Hypertension Unspec Office Visit 10/12/2012 11:30a [facility] Ervin Winston 424.1 Aortic Valve Of Katelyn Huff M.D. Disorder 425.4 Cardiomyopathy Other Prim 427.1 Paroxysmal Ventricular Tachycardia Office Visit 04/11/2012 2:30p [place] Ervin D. 425.4 Cardiomyopathy Other Cardiology Of Melinda Huff Prim Senior Safety Management Consultant 424.1 Aortic Valve Disorder Office Visit 02/01/2012 9:15a [facility] Ervin Winston 427.1 Paroxysmal Of Katelyn Huff M.D. Ventricular Tachycardia 780.2 Syncope & Collapse Plan of Treatment Future Appointment(s):08/30/2018 9:40 am - Yfn Morton MD at [place] [facility]05/30/2018 - Yfn Morton MDZ68.41 Body mass index (BMI ) 40.0-44.9, kqkrcS06.4 consumer safety inspector (current) use of naccagyN30.65 Type 2 diabetes mellitus with hyperglycemiaNew Medication:Jardiance 25 mg - Take one tablet by mouth daily.Follow up:3 monthsRecommendations:Wear shoes such as house slippers to protect feet at home. Increase Jardiance to 25 mg daily. I havesent in a new prescription. Continue your good work in reducing carbohydrates in foods and drinks. See you back in 3 months.E11.65 Type 2 diabetes mellitus with hyperglycemiaNew Medication:Jardiance 25 mg - Take one tablet by mouth daily.Follow up:3 monthsRecommendations:Wear shoes such as house slippers to protect feet at home. Increase Jardiance to 25 mg daily. I havesent in a new prescription. Continue your good work in reducing carbohydrates in foods and drinks. See you back in 3 months.
[2018-06-27 19:20] LABS: Hematocrit 30 % (36-46); Hemoglobin 9.8 g/dL (14.0-18.0); Mean Corpuscular HGB Conc 33 g/dL (31-36); Mean Corpuscular Hemoglobin 33 pg (27-31); Mean Corpuscular Volume 101 fL (80-94); Red Blood Count 2.98 10^6 /uL (4.18-5.48); Red Cell Distribution Width 22 % (10.5-15); White Blood Count 4.8 10^3/uL (3.5-10.8)
[2018-06-27 19:34] LABS: Albumin/Globulin Ratio 1.5 (1-3); BUN/Creatinine Ratio 17.8 (8-20); Calcium 9.2 mg/dL (8.6-10.3); EGFR African American 50.6 (>60); EGFR Non-African American 41.8 (>60); Globulin 2.6 g/dL (2-4); Potassium 4.3 mmol/L (3.5-5.0); Total Bilirubin 1.1 mg/dL (0.2-1.0); Total Protein 6.6 g/dL (6.4-8.9)
[2018-06-27 19:58] LABS: Urine Appearance Clear; Urine Bilirubin Negative (Negative); Urine Blood Negative (Negative); Urine Color Yellow; Urine Glucose 3+(>=500 mg/dL) (Negative); Urine Ketones Negative (Negative); Urine Nitrite Negative (Negative); Urine Protein Negative (Negative); Urine Specific Gravity 1.013 (1.010-1.030); Urine Urobilinogen Negative (Negative)
[2018-06-27 20:19] LABS: Immature Granulocytes 4 % (0-9); Lymphocytes % 33 %; Monocytes % 27 %; Myelocytes % 2 % (0-1); Neutrophil % 23 %; Nucleated Red Blood Cells/100 22 (0-0); Variant Lymph % 1 % (0-6)
[2018-06-27 20:20] LABS: Polychromasia 1+
[2018-06-27 20:23] LABS: ABS Neutrophils 1.3 10^3/ul (1.5-7.7)
[2018-06-27 20:24] LABS: ABS Basophils 0 10^3/ul (0-0.2)
[2018-06-27 20:26] VITALS: BP 107/71
[2018-06-27 20:30] LABS: Mean Platelet Volume 8.2 fL (7.4-10.4); Platelet Count 26 10^3/uL (150-450)
[2018-07-02 11:09] LABS: PML/RARA Specimen Type Whole Blood
== END 2018-06-27 20:25 | disposition home or self-care (01) ==
LOC: ED 18:26
DX: D69.6 Thrombocytopenia, unspecified (principal); R53.1 Weakness; D64.9 Anemia, unspecified; I11.0 Hypertensive heart disease with heart failure; I50.9 Heart failure, unspecified; E78.00 Pure hypercholesterolemia, unspecified; E11.9 Type 2 diabetes mellitus without complications; J44.9 Chronic obstructive pulmonary disease, unspecified; R06.00 Dyspnea, unspecified; R09.02 Hypoxemia; R94.31 Abnormal electrocardiogram [ECG] [EKG]; E66.9 Obesity, unspecified; Z79.84 Long term (current) use of oral hypoglycemic drugs; Z95.810 Presence of automatic (implantable) cardiac defibrillator; Z95.2 Presence of prosthetic heart valve; Z85.828 Personal history of other malignant neoplasm of skin; Z68.39 Body mass index [BMI] 39.0-39.9, adult
CPT/HCPCS: 36415; 80053; 81003; 81315; 83605; 85025; 85060; 93005; 99283

== ENCOUNTER 2018-07-23 19:44 | Emergency (ER) | payer MEDICARE ==
--- OUTSIDE RECORDS SUMMARY | 2018-07-23 19:58 | XMS REPORT | Continuity of Care Document ---
:1945 External Reference #:[id number] Author Name Nya Thayer Care Team Providers Name Role Phone Philomena Lyle MD Primary Care Physician Unavailable Payers Date Identification Numbers Payment Provider Subscriber Effective: 2009 Policy Number: [id number] [facility] Medicare Solutions Jon Villanueva Group Number: [id number] [address] [address] PayID: [id number] [place] [address] Advance Directives Description No Information Available Problems Active Problems Provider Date Paroxysmal ventricular tachycardia Ervin Huff M.D. Onset: 04/04/2013 Primary cardiomyopathy Ervin Huff M.D. Onset: 04/04/2013 Aortic valve disorder Ervin Huff M.D. Onset: 04/04/2013 Congestive heart failure Ervin Huff M.D. Onset: 04/04/2013 Obstructive sleep apnea of adult Carmen Baig DNP RN, Onset: 07/08/2013 [facility] Chronic combined systolic and Ervin Huff M.D. 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 Smoking Status Reviewed: 07/10/18 Never Smoked Cigarettes Former cigar smoker over 35 years ago, denies smoking pipe, e-cigarettes, or using chewing tobacco. ETOH Use Denies alcohol use Tobacco Use Start: Unknown Patient has never smoked Recreational Drug Use Never Used Drugs Exercise Type/Frequency Does not exercise Allergies, Adverse Reactions, Alerts Description No Known Drug Allergies Medications Active Medications SIG Qnty Indications Ordering Date Provider Macarena Ferrell 60 units at 15ml E11.9 Yfn Morton MD 07/10/2018 100Unit/ML bedtime, mdd 70 Solution Pen-Inject units Amiodarone HCL 1/2 by mouth 45tabs Ervin Montero 08/28/2017 200mg every day BrandMelinda Tablets Coreg 1 by mouth twice 180tabs Ervin Montero 10/30/2015 12.5mg Tablets a day Melinda Huff Nebulizer use as directed 1units R06.02 Flores Brar, 08/05/2015 Compressor/Dualfilter/7 ' Tubing/Aerosol T/Mthpiece Kit Glipizide 1 by mouth twice Unknown 10mg Tablets a day Levaquin 1 by mouth every Unknown 500mg Tablets day Allopurinol 1 by mouth every Unknown 300mg Tablets day Ondansetron HCL one pill twice a Unknown 8mg Tablets day as needed for nausea Prochlorperazine Unknown Maleate 10mg Tablets Echinacea 2 cap by mouth Unknown 400mg Capsules every day Vicks Dayquil Cold & as needed Unknown Flu Multi-Symptom Relief Capsules Ibuprofen 2 tabs by mouth Unknown 200mg Tablets at bedtime for sleep aid Diphenhydramine HCL one my mouth Unknown 25mg every 6 hours as Capsules needed for sleep Fluticasone Propionate 2 sprays each Unknown nostril qd.as 50mcg/Act Suspension needed Sleep Aid as needed Unknown Potassium Chloride Shannan currently not Unknown ER taking 20Meq Tablets ER Acetaminophen 2 tablets every Unknown 500mg Tablets 6 hours as needed for pain Cpap With O2 nightly Unknown Device Warfarin Sodium currently no 5tabs Philomena Lyle 3mg Tablets taking MD Juan Pavon For Him 50+ 1 po qd Unknown Tablets Lovastatin 1 po qhs 90tabs Unknown 40mg Tablets Furosemide 1 po bid Am/Noon Unknown 40mg Tablets Coq-10 1 po qd Unknown 200mg Capsules Aspirin 1 po qd Unknown 81mg Tablets DR Shira Medications Jardiance take one tablet by 30tabs E11.65 Yfn Morton, 05/30/2018 - 25mg mouth daily. 07/09/2018 Tablets Soliqua 60 units once daily 30ml E11.9 Yfn Morton, 02/28/2018 - at night 07/10/2018 288-25Aiq-tjf/ML Solution Pen-Inject Jardiance 10mg by mouth daily 30tabs E11.65 Yfn Morton 02/28/2018 - 10mg 05/30/2018 Tablets Cefadroxil 2 times a day 6caps Ervin Montero 11/20/2017 - 500mg Melinda Huff 11/24/2017 Capsules Amiodarone HCL 1 by mouth every 90tabs Ervin Montero 12/02/2016 - 100mg day Melinda Huff 08/28/2017 Tablets Amiodarone HCL 1/2 by mouth every Ervin Montero 05/31/2016 - 200mg day Melinda Huff 12/02/2016 Tablets Amiodarone HCL 1 by mouth every 90tabs Ervin Montero 10/26/2015 - 100mg day Melinda Huff 05/31/2016 Tablets Symbicort 2 puff twice a day 30.6gm Flores 09/02/2015 - MD Zonia 11/27/2017 160-4.5mcg/Act Aerosol Ipratropium [place] 1 vial in nebulizer 125ml R06.02 Flores 08/05/2015 - 2 times a day as MD Zonia 11/27/2017 0.02% Solution needed Coreg 1 by mouth twice a 180tabs Ervin Montero 06/18/2013 - 25mg Tablets day Melinda Huff 10/30/2015 Metoprolol Succinate tid 90tabs Ervin Montero 05/12/2013 - ER Refugio JyotsnaHerb 06/17/2013 50mg Tablets ER 24HR Amiodarone HCL 1/2 by mouth every 90tabs Ervin Montero 07/25/2012 - 200mg day Camilla HuffWinston 10/26/2015 Tablets Metoprolol Succinate 1 tab by mouth 270tabs Ervin Montero 06/12/2012 - ER three times a day Refugio JyotsnaHerb 05/12/2013 50mg Tablets ER 24HR Nitrostat Unknown - 0.4mg 07/18/2013 Tablets Sub Oxygen 2.5 l nc used all 1units Unknown - Misc day 04/03/2014 Albuterol Sulfate prn Unknown - 11/23/2014 Linzess by mouth every day Unknown - 290mcg 11/23/2014 Capsules Hydrocodone-Acetamin 1 by mouth every Unknown - ophen 4-6 hours prn. 07/23/2015 5-325mg Tablets Amitiza 24 mcg total daily Unknown - 8mcg Capsules as needed 11/30/2017 Tramadol HCL 1-2 tablets every 6 Unknown - 50mg hours as needed 07/23/2015 Tablets Daytime Cold prn Unknown - Medicine 09/12/187 Echinacea as needed (3xs Unknown - daily) 10/01/2017 Fluticasone 2 sprays each Unknown - Propionate nostril qd. 11/27/2017 50mcg/Act Suspension Amoxicillin 1 tablet po twice Unknown - 875mg daily x 10 days 05/29/2018 Tablets Metolazone 1 tab po every 3rd Unknown - 5mg day 07/17/2013 Tablets Hydrocodone/Acetamin 1 every 4 hours as Unknown - ophen needed for pain 04/03/2013 5-500mg Tablets Glipizide 1 po bid 180tabs Valdo, - 10mg Philomena Pavon MD 02/28/2018 Tablets Trazodone HCL 1 tablet at bedtime 30tabs Unknown - 50mg as needed 04/03/2013 Tablets Senna Plus 2 tab po bid prn 30tabs Unknown - 8.6-50mg constipation 07/18/2013 Tablets Potassium Chloride 1 po qd 30tabs Valdo, - CR Philomena Pavon MD 07/23/2015 10Meq Tablets ER Methocarbamol 1 by mouth tid as 120tabs Unknown - 750mg needed 04/03/2013 Tablets Magnesium Citrate 5 oz. as needed Unknown - 04/03/2013 Solution Lantus Insulin 49 units am, Valdo, - 49units pm Philomena Pavon MD 02/28/2018 Hydrocodone/Acetamin prn Unknown - ophen 04/03/2013 Glyburide 2 tab po bid 30tabs Unknown - 5mg Tablets 04/03/2013 Immunizations Description No Information Available Vital Signs Date Vital Result Comment 07/10/2018 1:34pm Height 72 inches 6'0" Weight 288.00 lb with shoes Heart Rate 80 /min BP Systolic Sitting 100 mmHg Lue, regular cuff BP Diastolic Sitting 58 mmHg Lue, regular cuff BMI (Body Mass Index) 39.1 kg/m2 05/30/2018 9:15am Height 72 inches 6'0" Weight [...] Date Facility Test Result H/L Range Note CBC Auto Diff 07/09/2018 [facility] White Blood 7.6 10^3/uL N 3.5-10.[address] [place] [address] [phone] Red Blood Count 2.65 10^6/uL Low 4.18-5.48 Hemoglobin 8.6 g/dL Low 14.0-18.0 Hematocrit 26 % Low 36-46 Mean Corpuscular Volume 99 fL High 80-94 Mean Corpuscular Hemoglobin 33 pg High 27-31 Mean Corpuscular HGB Conc 33 g/dL N 31-36 Red Cell Distribution Width 26 % High 10.5-15 1 Abs Neutrophils 0.3 10^3/uL Low 1.5-7.7 2 Platelet Count 20 10^3/uL Low 150-450 Mean Platelet Volume 8.1 fL N 7.4-10.4 Manual Differential 07/09/2018 [facility] Immature 19 % High 0 -[address] [place] [address] [phone] Neutrophil % 38 % Band % 6 % N 0-8 Lymphocytes % 13 % Monocytes % 8 % Eosinophils % 1 % Basophil % 11 % Metamyelocytes % 2 % N 0-2 Myelocytes % 9 % High 0-1 Promyelocytes % 2 % Blast % 10 % High 3 Nucleated Red Blood Cells/100 17 High 0-0 RBC Morphology Normal Normal Comp Metabolic Panel 07/09/2018 [facility] Sodium 137 mmol/L N 135-[address] [place] [address] [phone] Potassium 4.1 mmol/L N 3.5-5.0 Chloride 103 mmol/L N 101-111 Co2 Carbon Dioxide 29 mmol/L N 22-32 Anion Gap 5 mmol/L N 2-11 Glucose 178 mg/dL High 70-100 Blood Urea Nitrogen 26 mg/dL High 6-24 Creatinine 1.52 mg/dL High 0.67-1.17 BUN/Creatinine Ratio 17.1 N 8-20 Calcium 8.7 mg/dL N 8.6-10.3 Total Protein 6.6 g/dL N 6.4-8.9 Albumin 3.8 g/dL N 3.2-5.2 Globulin 2.8 g/dL N 2-4 Albumin/Globulin Ratio 1.4 N 1-3 Total Bilirubin 0.80 mg/dL N 0.2-1.0 Alkaline Phosphatase 46 U/L N 34-104 Alt 15 U/L N 7-52 Ast 20 U/L N 13-39 Egfr Non- 45.3 >60 Egfr 54.8 >60 4 CBC Auto Diff 07/05/2018 [facility] White Blood 6.3 10^3/uL N 3.5-10.[address] [place] [address] [phone] Red Blood Count 2.77 10^6/uL Low 4.18-5.48 Hemoglobin 9.2 g/dL Low 14.0-18.0 Hematocrit 28 % Low 36-46 Mean Corpuscular Volume 100 fL High 80-94 Mean Corpuscular Hemoglobin 33 pg High 27-31 Mean Corpuscular HGB Conc 33 g/dL N 31-36 Red Cell Distribution Width 25 % High 10.5-15 Platelet Count 24 10^3/uL Low 150-450 5 Mean Platelet Volume 8.1 fL N 7.4-10.4 Manual Differential 07/05/2018 [facility] Immature 18 % High 0 -[address] [place] [address] [phone] Neutrophil % 29 % Band % 8 % N 0-8 Lymphocytes % 19 % Monocytes % 12 % Eosinophils % 2 % Basophil % 7 % Variant Lymph % 1 % N 0-6 Metamyelocytes % 4 % High 0-2 Myelocytes % 4 % High 0-1 Promyelocytes % 2 % Blast % 12 % High Nucleated Red Blood Cells/100 9 High 0-0 Macrocytosis 1+ Anisocytosis 2+ Abs Neutrophils 3.0 10^3/uL N 1.5-7.7 Abs Lymphocytes 1.2 10^3/uL N 1.0-4.8 Abs Monocytes 0.7 10^3/uL N 0-0.8 Abs Eosinophils 0.1 10^3/uL N 0-0.6 Abs Basophils 0.4 10^3/uL High 0-0.2 Comp Metabolic Panel 07/05/2018 [facility] Sodium 141 mmol/L N 135-[address] [place] [address] [phone] Potassium 4.7 mmol/L N 3.5-5.0 Chloride 109 mmol/L N 101-111 Co2 Carbon Dioxide 27 mmol/L N 22-32 Anion Gap 5 mmol/L N 2-11 Glucose 117 mg/dL High 70-100 Blood Urea Nitrogen 27 mg/dL High 6-24 Creatinine 1.47 mg/dL High 0.67-1.17 BUN/Creatinine Ratio 18.4 N 8-20 Calcium 8.8 mg/dL N 8.6-10.3 Total Protein 6.3 g/dL Low 6.4-8.9 Albumin 3.7 g/dL N 3.2-5.2 Globulin 2.6 g/dL N 2-4 Albumin/Globulin Ratio 1.4 N 1-3 Total Bilirubin 1.30 mg/dL High 0.2-1.0 Alkaline Phosphatase 41 U/L N 34-104 Alt 14 U/L N 7-52 Ast 18 U/L N 13-39 Egfr Non- 47.1 >60 Egfr 57.0 >60 6 Laboratory test 07/05/2018 [facility] Pathologist Review (SEE NOTE) [address] [place] [address] [phone] Hepatitis C 06/28/2018 [facility] HCV Index 0.0 Index Antibody [address] [place] [address] [phone] Hepatitis C Antibody Nonreactive Nonreactive Laboratory 06/28/2018 [facility] Hepatitis B Nonreactive Nonreactive [address] [place] [address] [phone] Hepatitis B 06/28/2018 [facility] Hepatitis B Not Immune Abnormal Immune Betty AB Titer [address] [place] [address] [phone] Hep B Surf AB Level < 3.10 mIU/mL >12 Laboratory test 06/28/2018 [facility] Erythrocyte Sed 49 mm/Hr High 0-[address] [place] [address] [phone] Pathologist Review (SEE NOTE) 9 Hepatitis B Surface Ag Nonreactive Nonreactive 10 Manual Differential 06/28/2018 [facility] Immature 14 % High 0 -[address] [place] [address] [phone] Neutrophil % 35 % Band % 7 % N 0-8 Lymphocytes % 16 % Monocytes % 21 % Eosinophils % 1 % Variant Lymph % 1 % N 0-6 Metamyelocytes % 1 % N 0-2 Myelocytes % 6 % High 0-1 Blast % 10 % High 11 Nucleated Red Blood Cells/100 15 High 0-0 RBC Morphology Normal Normal Abs Neutrophils 2.0 10^3/uL N 1.5-7.7 Abs Lymphocytes 0.7 10^3/uL Low 1.0-4.8 Abs Monocytes 0.9 10^3/uL High 0-0.8 Abs Eosinophils 0.04 10^3/uL N 0-0.6 Retic Count 06/28/2018 [facility] Retic Count 3.5 % High 0.5- 1.[address] [place] [address] [phone] Mean Retic Volume 113.1 Immature Retic Fraction 0.35 RBC Retic Count 2.89 10^6/uL Low 4.18-5.48 Corrected Retic Count 2.3 % High 0.5-1.5 Maturation Factor Retic 2.0 Retic Index 1.20 Hematocrit for Retic CNT 29 % Low 36-46 CBC Auto 06/28/2018 [facility] Red Blood 2.89 10^6/uL Low 4.18 -5.[address] [place] [address] [phone] Hemoglobin 9.8 g/dL Low 14.0-18.0 Hematocrit 29 % Low 36-46 Mean Corpuscular Volume 102 fL High 80-94 Mean Corpuscular Hemoglobin 34 pg High 27-31 Mean Corpuscular HGB Conc 33 g/dL N 31-36 Red Cell Distribution Width 22 % High 10.5-15 Abs Neutrophils 2.5 10^3/uL N 1.5-7.7 White Blood Count 4.1 10^3/uL N 3.5-10.8 Platelet Count 28 10^3/uL Low 150-450 12 Mean Platelet Volume 8.1 fL N 7.4-10.4 Laboratory test finding 06/28/2018 [facility] LDH 261 U/L N 140-[address] [place] [address] [phone] Vitamin B12 471 pg/mL N 180-914 13 Comp Metabolic Panel 06/28/2018 [facility] Sodium 140 mmol/L N 135-145 [address] [place] [address] [phone] Potassium 4.2 mmol/L N 3.5-5.0 Chloride 104 mmol/L N 101-111 Co2 Carbon Dioxide 29 mmol/L N 22-32 Anion Gap 7 mmol/L N 2-11 Glucose 195 mg/dL High 70-100 Blood Urea Nitrogen 34 mg/dL High 6-24 Creatinine 1.61 mg/dL High 0.67-1.17 BUN/Creatinine Ratio 21.1 High 8-20 Calcium 9.1 mg/dL N 8.6-10.3 Total Protein 6.8 g/dL N 6.4-8.9 Albumin 4.0 g/dL N 3.2-5.2 Globulin 2.8 g/dL N 2-4 Albumin/Globulin Ratio 1.4 N 1-3 Total Bilirubin 1.10 mg/dL High 0.2-1.0 Alkaline Phosphatase 46 U/L N 34-104 Alt 17 U/L N 7-52 Ast 19 U/L N 13-39 Egfr Non- 42.4 >60 Egfr 51.3 >60 14 Inr/Protime 06/28/2018 [facility] Inr 2.05 High 0.77-1.02 [address] [place] [address] [phone] CBC Auto Diff 06/27/2018 [facility] White Blood 4.8 N 3.5- 10.8 [address] [facility] Count 10^3/[place] [address] [phone] Red Blood Count 2.98 10^6/uL Low 4.18-5.48 Hemoglobin 9.8 g/dL Low 14.0-18.0 Hematocrit 30 % Low 36-46 Mean Corpuscular Volume 101 fL High 80-94 Mean Corpuscular Hemoglobin 33 pg High 27-31 Mean Corpuscular HGB Conc 33 g/dL N 31-36 Red Cell Distribution Width 22 % High 10.5-15 Platelet Count 26 10^3/uL Low 150-450 15 Mean Platelet Volume 8.2 fL N 7.4-10.4 Manual Differential 06/27/2018 [facility] Immature 4 % N 0-[address] [place] [address] [phone] Neutrophil % 23 % Band % 2 % N 0-8 Lymphocytes % 33 % Monocytes % 27 % Basophil % 1 % Variant Lymph % 1 % N 0-6 Myelocytes % 2 % High 0-1 Blast % 11 % High 16 Nucleated Red Blood Cells/100 22 High 0-0 Macrocytosis 1+ Polychromasia 1+ Anisocytosis 2+ Abs Neutrophils 1.3 10^3/uL Low 1.5-7.7 Abs Lymphocytes 1.6 10^3/uL N 1.0-4.8 Abs Monocytes 1.3 10^3/uL High 0-0.8 Abs Basophils 0 10^3/uL N 0-0.2 Laboratory test 06/27/2018 [facility] Pathologist (SEE NOTE) [address] Review [place] [id number] [phone] PML/Regino 06/27/2018 [facility] PML/Regino Result see interpretati 18 Quantitative PCR [address] <SEE NOTE> [place] [id number] [phone] PML/Regino Specimen Type Whole Blood PML/Regino Final Diagnosis See Comment 19 Laboratory test finding 05/30/2018 [facility] Glucose Random 205 Hemoglobin A1c 9.0 High 5-7 Laboratory test finding 02/28/2018 [facility] House Glucose Random 301 Ketones 0.2 Hemoglobin A1c 9.4 High 5-7 Laboratory test 11/20/2017 [facility] Surgical SEE RESULT [address] Pathology BELOW [place], [place] [id number] [phone] Pre Cath Panel 11/17/2017 [facility] Partial 40.7 seconds High 26.0- [address] Thrombo Time 36.3 [place] [address] PTT [phone] CBC Auto Diff 11/17/2017 [facility] White Blood 7.1 10^3/uL N 3.5-[address] Count 0.8 [place] [address] [phone] Red Blood Count 4.94 10^6/uL N 4.00-5.40 [...] Red Blood Cells % 0.3 Inr/Protime 11/17/2017 [facility] Inr 2.55 High 0.77-1.02 [address] [place] [address] [phone] Basic Metabolic 11/17/2017 [facility] Sodium 138 mmol/L N 135- 145 Panel [address] [place] [address] [phone] Potassium 4.2 mmol/L N 3.5-5.0 Chloride 103 mmol/L N 101-111 Co2 Carbon Dioxide 26 mmol/L N 22-32 Anion Gap 9 mmol/L N 2-11 Glucose 260 mg/dL High 70-100 Blood Urea Nitrogen 27 mg/dL High 6-24 Creatinine 1.56 mg/dL High 0.67-1.17 BUN/Creatinine Ratio 17.3 N 8-20 Calcium 8.7 mg/dL N 8.6-10.3 Egfr Non- 44.1 >60 Egfr 53.4 >60 21 Laboratory test 06/27/2017 [facility] TSH (Thyroid 1.38 N 0.34 -5.[address] Stim Horm) mcIU/[place] [address] [phone] Inr/Protime 05/30/2017 [facility] Inr 2.76 High 0.77-1.[address] [place] [address] [phone] CBC Auto Diff 02/10/2017 [facility] White Blood 8.2 10^3/uL N 3.5-10.[address] [place] [address] [phone] Red Blood Count 4.64 10^6/uL N 4.0-5.4 [...] Cells % 0.1 Comp Metabolic Panel 02/10/2017 [facility] Sodium 138 mmol/L N 133-[address] [place] [address] [phone] Potassium 4.5 mmol/L N 3.5-5.0 Chloride 105 [...] Egfr Non- 46.6 >60 Egfr 60.0 >60 23 Lipid Profile 02/10/2017 [facility] Triglycerides 221 mg/dL 24 (Trig/Chol/HDL) [address] [place] [address] [phone] Cholesterol 112 mg/dL 25 HDL Cholesterol 31.5 mg/dL 26 LDL Cholesterol 36 mg/dL 27 Laboratory test 02/10/2017 [facility] Magnesium 2.4 mg/dL N 1.9-2.7 28 finding [address] [place], [place] [phone] Creatine Kinase(CK) 229 U/L High 10-223 29 TSH (Thyroid Stim Horm) 1.96 mcIU/mL N 0.34-5.60 30 Laboratory 11/11/2015 [facility] TSH (Thyroid 1.50 N 0.34- 5.60 31 test finding [address] [place] [address] Stim Horm) mcIU/[place] [address] [phone] Inr/Protime 11/09/2015 [facility] Inr 2.01 High 0.89-1.11 [address] [place] [address] [phone] Laboratory 08/08/2014 [facility] TSH (Thyroid 1.54 N 0.34- 5.60 test finding [address] [place] [address] Stimulating ?IU/[place] [address] Horm) [phone] Basic 08/08/2014 [facility] Sodium 136 mmol/L N 133-145 Metabolic 101 [facility] [place] [address] [phone] Potassium 4.3 mmol/L N 3.5-5.0 Chloride 102 mmol/L N 101-111 Co2 Carbon Dioxide 27 mmol/L N 22-32 Anion Gap 7 mmol/L N 2-11 Glucose 209 mg/dL High 70-100 Blood Urea Nitrogen 43 mg/dL High 6-24 Creatinine 2.64 mg/dL High 0.67-1.17 BUN/Creatinine Ratio 16.3 N 8-20 Calcium 9.2 mg/dL N 8.6-10.3 Egfr Non- 24.2 N >60 Egfr 31.2 N >60 32 Laboratory test 04/01/2013 [facility] Inr 2.38 High 0.85-1.[address] [place] [address] [phone] Laboratory test 10/12/2012 [facility] Free T4 1.16 ng/mL 0.61 -1.24 finding [address] [place] [address] [phone] TSH (Thyroid Stimulating Horm) 1.24 miu/mL 0.34-5.60 MRSA/Vre Screen 01/28/2010 [facility] MRSA/Vre Culture [facility] [address] [place] [address] [phone] 1 Consistent with Previous Results Reported on 07/05/18. 2 Consistent with Previous Results Reported on 07/05/18. 3 Verbal to [id number] by ERROL at 1612 on 07/09/18. Results read back accurately. 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 Findings are consistent with prior results. Additional studies as clinically warranted. Reviewed by Dr. Bailon 8 06/28/18 9 Compatible with previous. Reviewed by Linda Jean Baptiste MD 10 06/28/[address] Wallace by [email or web address] at 1149 on 06/28/18. Results read back accurately. 12 Platelet count confirmed by estimate 13 Normal Range 180 to 914 Indeterminate Range 145 to 180 Deficient Range <145 14 Because ethnic data is not always readily [...] 15-29 5 Kidney failure <15 (or dialysis) 15 Platelet count confirmed by smear estimate. 16 Verbal to [id number] by [email or web address] at 2022 on 06/27/18. Results read back accurately. 17 Compatible with previous. Reviewed by Linda Jean Baptiste MD 18 see interpretation 19 Peripheral blood, PML/REGINO mRNA analysis: Negative. No PML/REGINO mRNA transcripts detected. Signing Pathologist: Jonathan Palomino M.D. ADDITIONAL INFORMATION Method Summary - PML/REGINO: PML/REGINO mRNA level was evaluated using quantitative, reverse administrative fellow PCR. The analytical sensitivity of this assay has been determined at 0.1% (see [facility] Interpretive Handbook for method details). This test can be used at diagnosis to confirm the presence of the t(15;17)/PML-REGINO fusion in patients with acute promyelocytic leukemia (APL) and for minimal residual disease monitoring after treatment. Rare cases of APL may have PML breakpoints that would not be identified by this assay, or rare variant translocations involving REGINO and a gene locus other than PML (e.g. ZBTB16 (PLZF), NUMA1, etc.) that this assay would not detect. The reproducibility of this assay is such that significant changes in result status during monitoring (e.g. change from negativity to positivity) should be verified with a subsequent specimen. This test was developed and its performance characteristics determined by [facility] in a manner consistent with CLIA requirements. This test has not been cleared or approved by the U.S. Food and Drug Administration. Test Performed by: [facility] - [address] [address] 20 SEE RESULT BELOW Name: JON VILLANUEVA : [address]: Ervin Huff MD Acct: [id number] Unit: [id number] AGE: 72 Location: [facility] Re11/20/17 SEX: M Status: REG [facility] [place] SPEC: [id number] ARYAN: 11/20/17- [facility] DR: Ervin Huff MD REQ: [id number] RECD: 11/20/17 STATUS: SOUT _ ORDERED: LEVEL 1 FINAL DIAGNOSIS Event monitor: Foreign body (ICD generator) (gross diagnosis) PRE-OPERATIVE DIAGNOSIS Cardiomyopathy GROSS DESCRIPTION The specimen is received fresh with no source identified and a requisition labeled, ICD Generator, and consists of a 7.7 x 4.0 x 1.4 cm neri metallic medical language specialist. The following inscription is identified: [facility] UNIFY Model [id number] -40 High Voltage Can VVED DDDRV S/N [id number]. Per established hospital medical staff protocol, no tissue is submitted. Gross only. Signed by and Reported on: Linda Jean Baptiste MD 11/23/17 1113 END OF REPORT DEPARTMENT OF PATHOLOGY, [address] [place] [address] Mahamed Bailon M.D. Director [facility] # [id number] 21 Because ethnic data is not always readily [...] 15-29 5 Kidney failure <15 (or dialysis) 22 CALL CRITICAL RESULT [id number] 23 Because ethnic data is not always readily [...] 15-29 5 Kidney failure <15 (or dialysis) 24 Desirable: <150 Borderline High: 150-199 High: 200-499 Very High: >500 25 Desirable: <200 Borderline High: 200-239 High: >239 26 Low: <40 Desirable: 40-60 High: >60 27 Desirable: <100 Near Optimal: 100-129 Borderline High: 130-159 High: 160-189 Very High: >189 28 [id number] Copy Result to: ERVIN HUFF ([id number]) 29 [id number] Copy Result to: ERVIN HUFF ([id number]) 30 [id number] Copy Result to: ERVIN HUFF ([id number]) 31 Copy Result to: ERVIN HUFF ([id number]) [facility] [id number] 32 Because ethnic data is not always readily [...] 15-29 5 Kidney failure <15 (or dialysis) 33 NO MRSA ISOLATED Procedures Date Code Description Status 06/20/2018 33331 Interrogation Implant Cardiovasc Monitor System Incl Completed Analysis Int 06/20/2018 24704 Interrogation Implant Cardiovasc Monitor System Incl Completed Analysis Int 06/20/2018 40317 Icd Eval With Iterative Adjustmt Multiple Lead System Completed 06/20/2018 07327 Icd Eval With Iterative Adjustmt Multiple Lead System Completed 05/25/2018 55273 Interrogation Implant Cardiovasc Monitor System Incl Completed Analysis Int 05/25/2018 22571 Interrogation Implant Cardiovasc Monitor System Incl Completed Analysis Int 05/25/2018 85268 Icd Eval With Iterative Adjustmt Multiple Lead System Completed 05/25/2018 55456 Icd Eval With Iterative Adjustmt Multiple Lead System Completed 04/04/2018 69300 Interrogation Implant Cardiovasc Monitor System Incl Completed Analysis Int 04/04/2018 43861 Interrogation Implant Cardiovasc Monitor System Incl Completed Analysis Int 04/04/2018 10663 Icd Eval With Iterative Adjustmt Multiple Lead System Completed 04/04/2018 46915 Icd Eval With Iterative Adjustmt Multiple Lead System Completed 11/20/2017 90717 Insert/Replace Icd W/Generator Completed 11/01/2017 80905 EKG Tracing & Interpretation Completed 08/25/2017 78757 Icd Eval With Iterative Adjustmt Multiple Lead System Completed 08/25/2017 14186 Icd Eval With Iterative Adjustmt Multiple Lead System Completed 08/25/2017 34224 Interrogation Implant Cardiovasc Monitor System Incl Completed Analysis Int 08/25/2017 70818 Interrogation Implant Cardiovasc Monitor System Incl Completed Analysis Int 06/23/2017 22054 EKG Tracing & Interpretation Completed 05/30/2017 22630 Cardioversion Completed 05/03/2017 68234 Interrogation Implant Cardiovasc Monitor System Incl Completed Analysis Int 05/03/2017 71668 Interrogation Implant Cardiovasc Monitor System Incl Completed Analysis Int 05/03/2017 35509 Icd Eval With Iterative Adjustmt Multiple Lead System Completed 05/03/2017 94959 Icd Eval With Iterative Adjustmt Multiple Lead System Completed 12/22/2016 76216 Icd Eval With Iterative Adjustmt Multiple Lead System Completed 12/22/2016 06276 Interrogation Implant Cardiovasc Monitor System Incl Completed Analysis Int 11/09/2016 63703 EKG Tracing & Interpretation Completed 11/01/2016 60521 Interrogation Implant Cardiovasc Monitor System Incl Completed Analysis Int 11/01/2016 16332 Icd Eval With Iterative Adjustmt Multiple Lead System Completed 06/28/2016 70202 Icd Eval With Inerative Adjustmt Dual Lead System Completed 02/25/2016 41416 Icd Eval With Inerative Adjustmt Dual Lead System Completed 02/01/2016 52438 Icd Eval Sing,Dual,Multi Lead Remote Recpt Transm Tech Rev Completed Tech S 02/01/2016 85502 Icd Check Remote Up To 90 Days Single,Dual,Multiple Lead Completed 01/13/2016 47821 Icd Check Single,Dual Or Multiple In Person W/DR Incl Completed Heart Rhyth 10/26/2015 76151 Interrogation Implant Cardiovasc Monitor System Incl Completed Analysis Int 10/26/2015 08046 Icd Eval With Iterative Adjustmt Multiple Lead System Completed 08/11/2015 12652 Diffusing Capacity Completed 08/11/2015 51277 Plethysmography Determination Lung Volumes & Per Airway Completed Resist 08/11/2015 82686 Pulmonary Function><Bronchodil Completed 07/24/2015 09294 EKG Tracing & Interpretation Completed 07/01/2015 62618 Icd Eval With Iterative Adjustmt Multiple Lead System Completed 07/01/2015 91735 Interrogation Implant Cardiovasc Monitor System Incl Completed Analysis Int 03/02/2015 92149 Interrogation Implant Cardiovasc Monitor System Incl Completed Analysis Int 03/02/2015 27660 Icd Eval With Iterative Adjustmt Multiple Lead System Completed 10/30/2014 87385 Interrogation Implant Cardiovasc Monitor System Incl Completed Analysis Int 10/30/2014 38275 Icd Check Single,Dual Or Multiple In Person W/DR Incl Completed Heart Rhyth 08/07/2014 79144 ECHO Transthoracic, Real-Time 2D With Doppler And Color Completed Flow 08/01/2014 65620 EKG Tracing & Interpretation Completed 07/29/2014 46141 Icd Check Single,Dual Or Multiple In Person W/DR Incl Completed Heart Rhyth 04/22/2014 12480 Icd Eval With Iterative Adjustmt Multiple Lead System Completed 04/22/2014 69668 Interrogation Implant Cardiovasc Monitor System Incl Completed Analysis Int 12/18/2013 97983 Interrogation Implant Cardiovasc Monitor System Incl Completed Analysis Int 12/18/2013 42295 Icd Eval With Iterative Adjustmt Multiple Lead System Completed 07/30/2013 88324 Interrogation Implant Cardiovasc Monitor System Incl Completed Analysis Int 07/30/2013 44193 Icd Check Single,Dual Or Multiple In Person W/DR Incl Completed Heart Rhyth 07/22/2013 00111 Polysomnography Sleep Staging 4+ Parameters W/Cpap Completed 07/08/2013 89949 Polysomnography Sleep Staging 4+ Parameters W/Cpap Completed 04/04/2013 30197 Icd Eval With Iterative Adjustmt Multiple Lead System Completed 12/18/2012 57254 Interrogation Implant Cardiovasc Monitor System Incl Completed Analysis Int 12/18/2012 67480 Icd Eval With Iterative Adjustmt Multiple Lead System Completed 10/12/2012 98653 EKG Tracing & Interpretation Completed 08/31/2012 32906 Icd Eval With Iterative Adjustmt Multiple Lead System Completed 04/11/2012 77271 Icd Eval With Iterative Adjustmt Multiple Lead System Completed 02/01/2012 08534 Icd Eval With Iterative Adjustmt Multiple Lead System Completed 01/30/2012 33821 Interrogation Implant Cardiovasc Monitor System Incl Completed Analysis Int 01/30/2012 52502 Icd Check Single,Dual Or Multiple In Person W/DR Incl Completed Heart Rhyth Encounters Type Date Location Provider Dx Diagnosis Office Visit 04/04/2018 [place] Zak Montero I42.9 Cardiomyopathy, 1:30p Of Katelyn Huff M.D. unspecified Z95.810 Presence of automatic (implantable) cardiac defibrillator I47.2 Ventricular tachycardia Z95.2 Presence of prosthetic heart valve Office Visit 02/28/2018 10:00a [facility] Yfn Coch, Z79.4 senior living Endocrinology of Katelyn HOLLAND (current) use of insulin E11.65 Type 2 diabetes mellitus with hyperglycemia I48.92 Unspecified atrial flutter Z68.41 Body mass index (BMI) 40.0-44.9, adult E66.01 Morbid (severe) obesity due to excess calories Office Visit 11/01/2017 Yee Montero I42.9 Cardiomyopathy, 3:15p Cardiology Erin Huff M.D. unspecified Katelyn I48.3 Typical atrial flutter Z95.2 Presence of prosthetic heart valve Z95.810 Presence of automatic (implantable) cardiac defibrillator Office Visit 06/23/2017 Yee Montero I42.9 Cardiomyopathy, 8:30a Cardiology Erin Huff M.D. unspecified Vibratory Pile Driver Z95.810 Presence of automatic (implantable) cardiac defibrillator I47.2 Ventricular tachycardia I48.3 Typical atrial flutter Office Visit 05/03/2017 Yee Montero Z95.810 Presence of 9:45a Cardiology Erin Huff M.D. automatic Vibratory Pile Driver (implantable) cardiac defibrillator I42.9 Cardiomyopathy, unspecified Z95.2 Presence of prosthetic heart valve I48.92 Unspecified atrial flutter Office Visit 11/09/2016 Yee Montero I42.9 Cardiomyopathy, 11:30a Cardiology Erin Huff M.D. unspecified Vibratory Pile Driver Z95.810 Presence of automatic (implantable) cardiac defibrillator I47.2 Ventricular tachycardia Z95.2 Presence of prosthetic heart valve Office Visit 04/15/2016 1:30p Yee Montero I47.2 Ventricular Of Katelyn Huff M.D. tachycardia Z95.2 Presence of prosthetic heart valve I42.9 Cardiomyopathy, unspecified Z95.810 Presence of automatic (implantable) cardiac defibrillator Office Visit 01/13/2016 Yee Montero Z95.810 Presence of 1:30p Cardiology Camilla SandersonD. automatic Katelyn (implantable) cardiac defibrillator I47.2 Ventricular tachycardia Z95.2 Presence of prosthetic heart valve Office Visit 09/03/2015 1:30p Pulmonology And Flores J44.9 Chronic Sleep Services Of MD Zonia obstructive Vibratory Pile Driver pulmonary disease, unspecified E66.01 Morbid (severe) obesity due to excess calories Office Visit 08/05/2015 11:45a Pulmonology And [place] R06.02 Shortness of Sleep Services Of MD Zonia breath Vibratory Pile Driver J44.9 Chronic obstructive pulmonary disease, unspecified Office Visit 07/24/2015 [place] Montero Z95.810 Presence of 2:30p Cardiology Of Melinda Huff automatic Katelyn (implantable) cardiac defibrillator I47.2 Ventricular tachycardia I35.0 Nonrheumatic aortic (valve) stenosis I48.0 Paroxysmal atrial fibrillation Z95.2 Presence of prosthetic heart valve I42.9 Cardiomyopathy, unspecified Office Visit 01/23/2015 11:45a [place] Zak Montero I47.2 Ventricular Of Katelyn Huff M.D. tachycardia I35.0 Nonrheumatic aortic (valve) stenosis I50.42 Chronic combined systolic and diastolic hrt fail Office Visit 12/10/2014 Orthopedic Dirk Sg, M16.12 Unilateral primary 11:00a Services Of Melinda osteoarthritis, left C.M.A. hip Office Visit 08/01/2014 [place] Montero 427.1 Paroxysmal 3:30p Cardiology Erin Huff M.D. Ventricular Vibratory Pile Driver Tachycardia 424.1 Aortic Valve Disorder 425.4 Cardiomyopathy Other Prim Office Visit 04/02/2014 Pulmonology And Carmen 327.23 Obstructive Sleep 11:30a Sleep Services Of BENOIT Baig, RN, Apnea Adult & [facility] RENTAL COUNTER CLERK-BC Pediatric Office Visit 01/15/2014 [place] Zak Montero 427.1 Paroxysmal 11:15a Of Katelyn Huff M.D. Ventricular Tachycardia 424.1 Aortic Valve Disorder 428.0 Congestive Heart Failure Unspecified Office Visit 08/09/2013 11:30a [place] Zak Montero 424.1 Aortic Valve Of Katelyn Huff M.D. Disorder 428.0 Congestive Heart Failure Unspecified 427.1 Paroxysmal Ventricular Tachycardia 427.31 Atrial Fibrillation Office Visit 06/14/2013 10:45a Sleep Disorder [place]. 780.59 Sleep Disturbances Center Melinda Hanna Other 794.2 Pulmonary Study Abnormal Office Visit 05/08/2013 10:15a Yee Montero 425.4 Cardiomyopathy Other Cardiology Of Melinda Huff Prim Vibratory Pile Driver 424.1 Aortic Valve Disorder 427.1 Paroxysmal Ventricular Tachycardia Office Visit 04/04/2013 9:45a [facility] Ervin Montero 427.1 Paroxysmal Of Katelyn Huff M.D. 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 Disorder 425.4 Cardiomyopathy Other Prim 427.1 Paroxysmal Ventricular Tachycardia Office Visit 04/11/2012 2:30p Yee Montero 425.4 Cardiomyopathy Other Cardiology Of Melinda Huff Prim Vibratory Pile Driver 424.1 Aortic Valve Disorder Office Visit 02/01/2012 9:15a [facility] Ervin Montero 427.1 Paroxysmal Of Katelyn Huff M.D. Ventricular Tachycardia 780.2 Syncope & Collapse Plan of Treatment Future Appointment(s):08/30/2018 9:40 am - Yfn Morton MD at [facility]07/10/2018 - Yfn Morton MDE11.9 Type 2 diabetes mellitus without complicationsNew Medication:Basaglar Kwikpen 100 Unit/ML - 60 units at bedtime, mdd 70 unitsFollow up:2 monthsInstructions:1. Stop Jardiance. 2. Stop Soliqua. 3. Start Lantus/Basaglar 60 units every day at bedtime. 4. Continue glipizide 10mg twice daily. 5. If you are seeing blood glucose over 200 , call back for instructions. 6. Check blood glucose in the morning and afternoon before you eat. 7. We will consider addition of mealtime insulin in place of glipizide. 8. Drop off your blood glucose results in 2-3 weeks. 9. Return in 2 months for a follow-up visit.C95.00 Acute leukemia of unspecified cell type not having achieved
--- NOTE | 2018-07-23 23:16 | ED ---
GI/ HPI - HPI Summary HPI Summary: Pt is a 73 y/o male who presents to the ED c/o constipation. 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 Pt is receiving chemotherapy. Today around 13:00 he had bloodwork done and his platelets were low. He subsequently received a blood transfusion. Pt has been having issues with constipation for the past few weeks, and again was constipated today after the transfusion. He currently c/o lower abdominal pain, rated a 5/10 in severity. Pt denies any fever or hematochezia. - History of Current Complaint Chief Complaint: EDAbdPain Time Seen by Provider: 07/23/18 22:53 Stated Complaint: INTESTINAL BLOCKAGE PROBLEMS PER PT Hx Obtained From: Patient Onset/Duration: Started Weeks Ago - 2-3, Still Present Timing: Constant Current Severity: Moderate Pain Intensity: 5 Location of Pain: Other - lower Associated Signs and Symptoms: Positive: Constipation, Abdominal Pain. Negative : Fever - Allergy/Home Medications Allergies/Adverse Reactions: Allergies Allergy/AdvReac Type Severity Reaction Status Date / Time No Known Allergies Allergy Verified 07/23/18 19:52 PMH/Surg Hx/FS Hx/Imm Hx Endocrine/Hematology History: Reports: Hx Diabetes Cardiovascular History: Reports: Hx Congestive Heart Failure, Hx Hypercholesterolemia, Hx Hypertension, Hx Pacemaker/ICD - X2, Hx Valvular Heart Disease - aortic valve replacement, Other Cardiovascular Problems/Disorders - HX CARDIOMYOPATHY Respiratory History: Reports: Hx Chronic Obstructive Pulmonary Disease (COPD), Hx Sleep Apnea - evaluation for 06/2013, Other Respiratory Problems/Disorders - dyspnea, hypoxemia History: Denies: Hx Renal Disease Musculoskeletal History: Reports: Other Musculoskeletal History - obesity Sensory History: Reports: Hx Cataracts - BILATERAL, Hx Contacts or Glasses - GLASSES Denies: Hx Hearing Aid Opthamlomology History: Reports: Hx Cataracts - BILATERAL, Hx Contacts or Glasses - GLASSES - Cancer History Cancer Type, 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 Hx Anesthesia Reactions: No - Immunization History Date of Tetanus Vaccine: Unknown Date of Influenza Vaccine: 2012 Infectious Disease History: No Infectious Disease History: Denies: Traveled Outside the [place] in Last 30 Days - Family History Known Family History: Positive: Other - neg: anaesthesia reaction - Social History Alcohol Use: None Hx Substance Use: No Substance Use Type: Reports: None Hx Tobacco Use: No Smoking Status (MU): Never Smoked Tobacco Have You Smoked in the Last Year: No Review of Systems Negative: Fever Positive: Abdominal Pain - lower, Other - constipation All Other Systems Reviewed And Are Negative: Yes Physical Exam - Summary Physical Exam Summary: Appearance: well appearing, no pain distress Skin: warm, dry, pallor, petechiae on BLE Head/face: normal Eyes: EOMI, MARISA ENT: mucous membranes moist Neck: supple, non-tender Respiratory: CTA, breath sounds present Cardiovascular: RRR, pulses symmetrical Abdomen: non-tender, soft Bowel Sounds: present Musculoskeletal: normal, strength/ROM intact Neuro: normal, sensory motor intact, A&Ox3 Rectal: soft stool in rectal vault Triage Information Reviewed: Yes Vital Signs On Initial Exam: Initial Vitals Temp Pulse Resp BP Pulse Ox 99.1 F 79 16 114/56 95 07/23/18 19:48 07/23/18 19:48 07/23/18 19:48 07/23/18 19:48 07/23/18 19:48 Vital Signs Reviewed: Yes Diagnostics - Vital Signs Vital Signs Temp Pulse Resp BP Pulse Ox 07/23/18 21:51 99.4 F 76 18 121/83 98 07/23/18 19:48 99.1 F 79 16 114/56 95 - Laboratory Lab Statement: Any lab studies that have been ordered have been reviewed, and results considered in the medical decision making process. - Radiology Abdomen XR Radiology Interpretation Completed By: ED Physician Summary of Radiographic Findings: Non-obstructive bowel gas pattern. Stool seen in left colon. Pending official radiology report. GIGU Course/Dx - Course Course Of Treatment: Nurse's notes reviewed. Prior laboratories from earlier today reviewed. Patient was recently transfused. He is having mild discomfort in his lower abdomen which has now resolved. He has had some constipation and x -ray here shows some left-sided stool. There is no obstruction pattern on x- rays. He was treated with MiraLAX and suppository and will follow-up with his cancer doctors. - Diagnoses Differential Diagnoses - Male: Other - Colitis, UTI, bowel obstruction, constipation Provider Diagnoses: History of acute lymphoblastic leukemia (ALL), Constipation Discharge - Sign-Out/Discharge Documenting (check all that apply): Patient Departure - Discharge Patient Received Moderate/Deep Sedation with Procedure: No - Discharge Plan Condition: Improved Disposition: HOME Prescriptions: Bisacodyl SUPP* [Dulcolax Supp*] 10 mg PO DAILY PRN #5 supp PRN Reason: Constipation Patient Education Materials: Constipation (DC), High Fiber Diet (ED), Acute Lymphocytic Leukemia (DC) Referrals: Kimmy Wallace MD [Medical Doctor] - Philomena Guadalupe MD [Primary Care Provider] - Additional Instructions: Use MiraLAX up to 3 times daily until bowel movements are soft. Return with abdominal pain despite improved constipation, fever, vomiting, worse or other concerns. Call your doctor first thing in tomorrow to schedule follow-up. - Billing Disposition and Condition Condition: IMPROVED Disposition: Home - Attestation Statements Document Initiated by Dilip: Yes Documenting Scribe: Monica Lion Provider For Whom Dilip is Documenting (Include Credential): Chidi Dhaliwal MD Scribe Attestation: IMonica, scribed for Chidi Dhaliwal MD on 07/24/18 at 0547. Scribe Documentation Reviewed: Yes Provider Attestation: The documentation as recorded by the Monica corey accurately reflects the service I personally performed and the decisions made by , Chidi Dhaliwal MD Status of Scribe Document: Viewed
[2018-07-24 00:02] VITALS: BP 117/61
== END 2018-07-23 23:30 | disposition home or self-care (01) ==
LOC: ED 19:44
DX: K59.00 Constipation, unspecified (principal); E78.00 Pure hypercholesterolemia, unspecified; I50.9 Heart failure, unspecified; I10 Essential (primary) hypertension; Z95.0 Presence of cardiac pacemaker; Z85.6 Personal history of leukemia; Z95.2 Presence of prosthetic heart valve
CPT/HCPCS: 74019; 99282

== ENCOUNTER 2018-07-25 13:01 | Inpatient (IN) | payer MEDICARE ==
[2018-07-25] MEDS ORDERED: NS 0.9% 1000 ML** 1,000 ML IV.FLUID IV ONE (13:21)
--- NOTE | 2018-07-25 13:31 | ED ---
HPI Febrile Illness - HPI Summary HPI Summary: A 73 y/o male brought in by [facility] accompanied by his presents to [facility] with a chief complaint of a febrile illness today. Temperature at triage noted to be 102.1 and the patient reports abdominal pain and N/V. The patient also c/o weakness, SOB and cough. He also reports falling on not being able to get back up today. Per , the patient was eating normally yesterday and had a BM. The patient is undergoing chemotherapy for Leukemia and had his last RBC transfusion two days ago. He is on O2 at night for his COPD. - History of Current Complaint Chief Complaint: EDFever Time Seen by Provider: 07/25/18 13:21 Hx Obtained From: Patient, Family/Convertible Sofa Bedspring Tester Onset/Duration: Started Hours Ago, Still Present Timing: Constant, Lasting Hours Initial Severity: Moderate Current Severity: Moderate Pain Intensity: 4 Pain Scale Used: 0-10 Numeric Aggravating Factors: Nothing Alleviating Factors: Nothing Associated Signs and Symptoms: Nausea, SOB, Vomiting, Weakness - Allergy/Home Medications Allergies/Adverse Reactions: Allergies Allergy/AdvReac Type Severity Reaction Status Date / Time No Known Allergies Allergy Verified 07/23/18 19:52 Home Medications: Home Medications Allopurinol TAB* [Zyloprim 300 MG TAB*] 300 mg PO DAILY 07/25/18 [History Confirmed 07/25/18] Dm/Pseudoephed/Acetaminophen [Day-Time Multi-Symptom Co] 1 cap PO BID PRN [History Confirmed 07/25/18] Doxylamine Succinate [Sleep Aid] 25 - 50 mg PO BEDTIME PRN 07/25/18 [History Confirmed 07/25/18] Insulin GLARGINE(*) [Lantus(*)] 60 units SUBCUT QPM 07/25/18 [History Confirmed 07/25/18] Levofloxacin TAB* [Levaquin 500 Tab*] 500 mg PO DAILY 07/25/18 [History Confirmed 07/25/18] Levofloxacin TAB* [Levaquin TAB*] 500 mg PO DAILY 07/25/18 [History Confirmed ] Lovastatin (NF) [Mevacor (NF)] 40 mg PO QPM 07/25/18 [History Confirmed 07/25/18 ] Multivitamins/Minerals TAB* [Theragran/minerals TAB*] 1 tab PO QAM 07/25/18 [ History Confirmed 07/25/18] Polyethylene Glycol 3350* [Miralax*] 17 gm PO DAILY PRN 07/25/18 [History Confirmed 07/25/18] Senna TAB* [Senokot TAB*] 1 tab PO DAILY PRN 07/25/18 [History Confirmed ] Ubidecarenone [Co Q-10] 200 mg PO DAILY 07/25/18 [History Confirmed 07/25/18] Venetoclax [Venclexta] 200 mg PO DAILY WITH MEAL 07/25/18 [History Confirmed ] PMH/Surg Hx/FS Hx/Imm Hx Endocrine/Hematology History: Reports: Hx Diabetes Cardiovascular History: Reports: Hx Congestive Heart Failure, Hx Hypercholesterolemia, Hx Hypertension, Hx Pacemaker/ICD - X2, Hx Valvular Heart Disease - aortic valve replacement, Other Cardiovascular Problems/Disorders - HX CARDIOMYOPATHY Respiratory History: Reports: Hx Chronic Obstructive Pulmonary Disease (COPD), Hx Sleep Apnea - evaluation for 06/2013, Other Respiratory Problems/Disorders - dyspnea, hypoxemia History: Denies: Hx Renal Disease Musculoskeletal History: Reports: Other Musculoskeletal History - obesity Sensory History: Reports: Hx Cataracts - BILATERAL, Hx Contacts or Glasses - GLASSES Denies: Hx Hearing Aid Opthamlomology History: Reports: Hx Cataracts - BILATERAL, Hx Contacts or Glasses - GLASSES - Cancer History Cancer Type, 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 [place], vasectomy , tonsillectomy as a child, Aortic valve replacement 2006 [facility] with aneurysm repair Hx Anesthesia Reactions: No - Immunization History Date of Tetanus Vaccine: Unknown Date of Influenza Vaccine: 2012 Infectious Disease History: No Infectious Disease History: Denies: Traveled Outside the [place] in Last 30 Days - Family History Known Family History: Positive: Other - neg: anaesthesia reaction - Social History Alcohol Use: None Hx Substance Use: No Substance Use Type: Reports: None Hx Tobacco Use: No Smoking Status (MU): Never Smoked Tobacco Have You Smoked in the Last Year: No Review of Systems Positive: Fever - 102.1 at triage Positive: Shortness Of Breath, Cough Positive: Abdominal Pain, Vomiting, Nausea Positive: Weakness All Other Systems Reviewed And Are Negative: Yes Physical Exam - Summary Physical Exam Summary: Appearance: Ill-appearing obese male, mild respiratory distress noted, Vital signs notable for low O2 Sat, tachycardia and fever. Skin: Warm, dry, no obvious rash Eyes: sclera anicteric, no conjunctival pallor ENT: mucous membranes moist, pharynx appears normal Neck: Supple, nontender Respiratory: Clear to auscultation, no signs of respiratory distress Cardiovascular: Normal S1, S2. No murmurs. Normal distal pulses in tibial and radial bilaterally. Abdomen: Soft, nontender, normal active bowel sounds present Musculoskeletal: Normal, Strength/ROM Intact, Petechiae in legs. Neurological: A&Ox3, awake and alert, mentation is normal, speech is fluent and appropriate Psychiatric: affect is normal, does not appear anxious or depressed Triage Information Reviewed: Yes Vital Signs On Initial Exam: Initial Vitals Temp Pulse Resp BP Pulse Ox 102.1 F 92 18 105/57 87 07/25/18 13:06 07/25/18 13:06 07/25/18 13:06 07/25/18 13:06 07/25/18 13:06 Vital Signs Reviewed: Yes Diagnostics - Vital Signs Vital Signs Temp Pulse Resp BP Pulse Ox 07/25/18 13:06 102.1 F 92 18 105/57 87 - Laboratory Result Diagrams: 07/27/18 05:50 07/27/18 05:50 Lab Statement: Any lab studies that have been ordered have been reviewed, and results considered in the medical decision making process. - Radiology CXR Radiology Interpretation Completed By: Radiologist Summary of Radiographic Findings: CARDIOMEGALY. COPD. ED physician has reviewed this imaging report. - CT chest/thorax CT Interpretation Completed By: Radiologist Summary of CT Findings: 1. NO PULMONARY ARTERIAL FILLING DEFECT TO SUGGEST PULMONARY EMBOLISM. 2. ATHEROSCLEROSIS. 3. SMALL PERICARDIAL EFFUSION. ED physician has reviewed this imaging report. - EKG 15:35 Cardiac Rate: Other Rate - Ventrcular paced complexes at 86 bpm Summary of EKG Findings: Ventricular-paced complexes at 86bpm, other complexes also detected. Course/Dx - Course Course Of Treatment: A 73 y/o male brought in by [facility] accompanied by his presents to [facility] with a chief complaint of a febrile illness today. The patient is undergoing chemotherapy for Leukemia and had his last RBC transfusion two days ago. The physical exam revealed that the patient is an Ill appearing obese male, mild respiratory distress noted, Vital signs notable for low O2 Sat, tachycardia and fever. Petechiae in legs. In the ED course the patient was given sodium chloride and Iodixanol IV. CXR impression: CARDIOMEGALY. COPD. Chest/thorax CTA impression: 1. NO PULMONARY ARTERIAL FILLING DEFECT TO SUGGEST PULMONARY EMBOLISM. 2. ATHEROSCLEROSIS. 3. SMALL PERICARDIAL EFFUSION.Bloodwork and chemistries obtained. Plt count 13, Abs Neuts 0.5, Troponin 0.75. EKG showed Ventricular-paced complexes at 86bpm, other complexes also detected. Case discussed with Dr. Wallace who recommends Cefepime and agrees with sepsis workup, she is willing to admit the patient. The patient is agreeable with admission. - Diagnoses Provider Diagnoses: Sepsis, Fever, Neutropenic - Provider Notifications Discussed Care Of Patient With: Kimmy Wallace Time Discussed With Above Provider: 13:38 Instructed by Provider To: Other - recommends Cefepime and agrees with sepsis workup, willing to admit the patient. - Critical Care Time Critical Care Time: 30-74 min Discharge - Sign-Out/Discharge Documenting (check all that apply): Patient Departure - admit All imaging exams completed and their final reports reviewed: Yes Patient Received Moderate/Deep Sedation with Procedure: No - Discharge Plan Condition: Fair Disposition: ADMITTED TO [facility] - Billing Disposition and Condition Condition: FAIR Disposition: Admitted to [facility] - Attestation Statements Document Initiated by Dilip: Yes Documenting Scribe: Jim Quintanilla Provider For Whom Dilip is Documenting (Include Credential): Gareth Freeman MD Scribe Attestation: Jim Gonzáles, scribed for Gareth Freeman MD on 07/27/18 at 1049. Scribe Documentation Reviewed: Yes Provider Attestation: The documentation as recorded by the Jim corey accurately reflects the service I personally performed and the decisions made by me, Gareth Freeman MD Status of Scrcari Document: Viewed
[2018-07-25] MEDS ORDERED: Cefepime 2 GM in Dextrose(*) 2 GM/50 ML BAG IV SCH (14:00)
[2018-07-25 14:25] LABS: Activated Partial Thrombo Time 25.6 seconds (26.0-36.3); Hematocrit 23 % (42-52); Hemoglobin 8.1 g/dL (14.0-18.0); INR 1.38 (0.82-1.09); Mean Corpuscular HGB Conc 34 g/dL (31-36); Mean Corpuscular Hemoglobin 32 pg (27-31); Mean Corpuscular Volume 92 fL (80-94); Red Blood Count 2.54 10^6 /uL (4.18-5.48); Red Cell Distribution Width 25 % (10.5-15)
[2018-07-25 14:45] LABS: Platelet Count 13 10^3/uL (150-450)
[2018-07-25 14:56] LABS: ABS Basophils 0.1 10^3/ul (0-0.2); ABS Neutrophils 0.5 10^3/ul (1.5-7.7); Polychromasia 1+
[2018-07-25 15:05] LABS: Troponin I 0.75 ng/mL (<0.04)
[2018-07-25 15:36] LABS: Albumin 3.4 g/dL (3.2-5.2); Albumin/Globulin Ratio 1.2 (1-3); BUN/Creatinine Ratio 16.9 (8-20); Calcium 8.5 mg/dL (8.6-10.3); EGFR African American 59.3 (>60); Globulin 2.8 g/dL (2-4); Potassium 4.5 mmol/L (3.5-5.0); Total Bilirubin 1.3 mg/dL (0.2-1.0); Total Protein 6.2 g/dL (6.4-8.9)
[2018-07-25] MEDS ORDERED: Ondansetron INJ* 2 MG/ML VIAL IV PRN (15:57)
[2018-07-25] MEDS ORDERED: NS 0.9% 1000 ML** 1,000 ML IV SCH (16:00)
[2018-07-25] MEDS ORDERED: Dextrose 50% Syringe 50 ML* 25 GM/50 ML SYRINGE IV PUSH PRN (16:04)
[2018-07-25] MEDS ORDERED: Iodixanol* (CONTRAST) 320 MG/ML 100 ML SDV IV ONE (16:28)
[2018-07-25] MEDS: Acetaminophen TAB* 325 MG PO PRN (17:49)
[2018-07-25] MEDS: Senna TAB PO SCH (17:49)
[2018-07-25] MEDS: Polyethylene Glycol 3350* 17 GM PACKET PO SCH (17:50)
[2018-07-25 18:12] LABS: Troponin I 0.37 ng/mL (<0.04)
[2018-07-25] MEDS: Insulin GLARGINE(*) 1 UNITS UNIT SUBCUT SCH (18:25)
[2018-07-25] MEDS: Insulin LISPRO* 1 UNITS UNIT SUBCUT SCH ×2 (18:26→20:42)
[2018-07-25] MEDS: VENETOCLAX 200 MG PO SCH (19:00)
[2018-07-25] MEDS: NS 0.9% 1000 ML** 1,000 ML IV SCH (19:31)
[2018-07-25 20:33] LABS: Troponin I 0.31 ng/mL (<0.04)
[2018-07-25] MEDS: guaiFENesin ER TAB 600 MG PO SCH (20:42)
[2018-07-25] MEDS ORDERED: Carvedilol TAB* 6.25 MG PO SCH (21:00)
[2018-07-26] MEDS: Acetaminophen TAB* 325 MG PO PRN ×4 (01:43→20:16)
[2018-07-26] MEDS: Cefepime 2 GM in Dextrose(*) 2 GM/50 ML BAG IV SCH ×2 (01:44→16:08)
[2018-07-26] MEDS ORDERED: NS 0.9% 1000 ML/HR X 1 BAG (TOTAL 1000 ML) IV ONE (02:00)
[2018-07-26 02:47] LABS: Troponin I 0.18 ng/mL (<0.04)
[2018-07-26] MEDS: NS 0.9% 1000 ML** 1,000 ML IV SCH ×3 (03:13→13:30)
[2018-07-26 06:47] LABS: Albumin 3.1 g/dL (3.2-5.2); Albumin/Globulin Ratio 1.1 (1-3); BUN/Creatinine Ratio 17.4 (8-20); Calcium 7.7 mg/dL (8.6-10.3); EGFR African American 61.3 (>60); EGFR Non-African American 50.6 (>60); Globulin 2.7 g/dL (2-4); Potassium 4.5 mmol/L (3.5-5.0); Total Bilirubin 0.8 mg/dL (0.2-1.0); Total Protein 5.8 g/dL (6.4-8.9)
--- NOTE | 2018-07-26 07:55 | PN ---
Progress Note - Progress Note Date of Service: 07/26/18 SOAP: Subjective: feels "terrible". chest pain radiating to the back. cough p/o frothy sputum. gags on the mucinex. Objective: Vital Signs Temp Pulse Resp BP Pulse Ox 99.6 F 98 20 92/54 97 07/26/18 07:00 07/26/18 07:00 07/26/18 07:29 07/26/18 07:00 07/26/18 07:28 ill appearing dry OP CTA s1 s2 nl obese nt +bs trace LE edema scattered ecchymoses globally weak, grossly nonfocal Laboratory Results - last 24 hr 07/25/18 07/25/18 07/25/18 13:58 13:58 13:58 WBC 1.0 L RBC 2.54 L Hgb 8.1 L Hct 23 L MCV 92 MCH 32 H MCHC 34 RDW 25 H Plt Count 13 L* MPV Not Reportable Neut % (Auto) Not Reportable Lymph % (Auto) Not Reportable Swift % (Auto) Not Reportable Eos % (Auto) Not Reportable Baso % (Auto) Not Reportable Absolute Neuts (auto) Not Reportable Absolute Lymphs (auto) Not Reportable Absolute Monos (auto) Not Reportable Absolute Eos (auto) Not Reportable Absolute Basos (auto) Not Reportable Absolute Nucleated RBC Not Reportable Neutrophils % 51.0 Lymphocytes % 32.0 Monocytes % 10.0 Eosinophils % 0.0 Basophils % 7.0 Nucleated RBC % Not Reportable Abs Neuts (Manual) 0.5 L* Abs Lymphs (Manual) 0.3 L Abs Monocytes (Manual) 0.1 Absolute Eos (Manual) 0.0 Abs Basophils (Manual) 0.1 Nucleated RBCs/100 WBC 48.0 H Normal RBC Morphology Not Reportable Polychromasia 1+ Hypochromasia 1+ Anisocytosis 2+ INR (Anticoag Therapy) 1.38 H APTT 25.6 L Sodium 138 Potassium 4.5 Chloride 106 Carbon Dioxide 24 Anion Gap 8 BUN 24 Creatinine 1.42 H Est GFR ( Amer) 59.3 Est GFR (Non-Af Amer) 49.0 BUN/Creatinine Ratio 16.9 Glucose 203 H POC Glucose (mg/dL) Lactic Acid Calcium 8.5 L Total Bilirubin 1.30 H AST 15 ALT 12 Alkaline Phosphatase 49 Troponin I 0.75 H* Total Protein 6.2 L Albumin 3.4 Globulin 2.8 Albumin/Globulin Ratio 1.2 07/25/18 07/25/18 07/25/18 13:58 17:36 17:36 WBC RBC Hgb Hct MCV MCH MCHC RDW Plt Count MPV Neut % (Auto) Lymph % (Auto) Swift % (Auto) Eos % (Auto) Baso % (Auto) Absolute Neuts (auto) Absolute Lymphs (auto) Absolute Monos (auto) Absolute Eos (auto) Absolute Basos (auto) Absolute Nucleated RBC Neutrophils % Lymphocytes % Monocytes % Eosinophils % Basophils % Nucleated RBC % Abs Neuts (Manual) Abs Lymphs (Manual) Abs Monocytes (Manual) Absolute Eos (Manual) Abs Basophils (Manual) Nucleated RBCs/100 WBC Normal RBC Morphology Polychromasia Hypochromasia Anisocytosis INR (Anticoag Therapy) APTT Sodium Potassium Chloride Carbon Dioxide Anion Gap BUN Creatinine Est GFR ( Amer) Est GFR (Non-Af Amer) BUN/Creatinine Ratio Glucose POC Glucose (mg/dL) Lactic Acid 2.0 1.5 Calcium Total Bilirubin AST ALT Alkaline Phosphatase Troponin I 0.37 H* Total Protein Albumin Globulin Albumin/Globulin Ratio 07/25/18 07/25/18 07/25/18 17:37 20:05 20:29 WBC RBC Hgb Hct MCV MCH MCHC RDW Plt Count MPV Neut % (Auto) Lymph % (Auto) Swift % (Auto) Eos % (Auto) Baso % (Auto) Absolute Neuts (auto) Absolute Lymphs (auto) Absolute Monos (auto) Absolute Eos (auto) Absolute Basos (auto) Absolute Nucleated RBC Neutrophils % Lymphocytes % Monocytes % Eosinophils % Basophils % Nucleated RBC % Abs Neuts (Manual) Abs Lymphs (Manual) Abs Monocytes (Manual) Absolute Eos (Manual) Abs Basophils (Manual) Nucleated RBCs/100 WBC Normal RBC Morphology Polychromasia Hypochromasia Anisocytosis INR (Anticoag Therapy) APTT Sodium Potassium Chloride Carbon Dioxide Anion Gap BUN Creatinine Est GFR ( Amer) Est GFR (Non-Af Amer) BUN/Creatinine Ratio Glucose POC Glucose (mg/dL) 201 H 241 H Lactic Acid Calcium Total Bilirubin AST ALT Alkaline Phosphatase Troponin I 0.31 H* Total Protein Albumin Globulin Albumin/Globulin Ratio 07/26/18 07/26/18 07/26/18 01:28 02:07 05:37 WBC RBC Hgb Hct MCV MCH MCHC RDW Plt Count MPV Neut % (Auto) Lymph % (Auto) Swift % (Auto) Eos % (Auto) Baso % (Auto) Absolute Neuts (auto) Absolute Lymphs (auto) Absolute Monos (auto) Absolute Eos (auto) Absolute Basos (auto) Absolute Nucleated RBC Neutrophils % Lymphocytes % Monocytes % Eosinophils % Basophils % Nucleated RBC % Abs Neuts (Manual) Abs Lymphs (Manual) Abs Monocytes (Manual) Absolute Eos (Manual) Abs Basophils (Manual) Nucleated RBCs/100 WBC Normal RBC Morphology Polychromasia Hypochromasia Anisocytosis INR (Anticoag Therapy) APTT Sodium 141 Potassium 4.5 Chloride 109 Carbon Dioxide 24 Anion Gap 8 BUN 24 Creatinine 1.38 H Est GFR ( Amer) 61.3 Est GFR (Non-Af Amer) 50.6 BUN/Creatinine Ratio 17.4 Glucose 172 H POC Glucose (mg/dL) 144 H Lactic Acid Calcium 7.7 L Total Bilirubin 0.80 AST 13 ALT 11 Alkaline Phosphatase 42 Troponin I 0.18 H* Total Protein 5.8 L Albumin 3.1 L Globulin 2.7 Albumin/Globulin Ratio 1.1 Acetaminophen (Tylenol Tab*) 650 mg PO Q4H PRN PRN Reason: FEVER/PAIN Last Admin: 07/26/18 05:55 Dose: 650 mg Allopurinol (Zyloprim Tab*) 300 mg PO DAILY [facility] Amiodarone HCl (Cordarone Tab*) 100 mg PO QAM [facility] Carvedilol (Coreg Tab*) 6.25 mg PO BID [facility] Dextrose (D50w Syringe 50 Ml*) 12.5 gm IV PUSH .FOR FS < 60 - SS PRN PRN Reason: FS < 60 Guaifenesin (Mucinex*) 600 mg PO BID [facility] Last Admin: 07/25/18 20:42 Dose: 600 mg Sodium Chloride (Ns 0.9% 1000 Ml) 1,000 mls @ 100 mls/hr IV PER RATE [facility] Last Admin: 07/26/18 03:13 Dose: 100 mls/hr Cefepime HCl (Maxipime 2 Gm In Dextrose Duplex (*)) 2 gm in 50 mls @ 100 mls/ hr IV Q12H [facility] Last Admin: 07/26/18 01:44 Dose: 100 mls/hr Sodium Chloride (Ns 0.9% 500 Ml*) 500 mls @ 1,000 mls/hr IV ONCE ONE Stop: 07/26/18 08:32 Last Admin: 07/26/18 08:15 Dose: 1,000 mls/hr Insulin Glargine (Lantus(*)) 60 units SUBCUT QPM [facility] Last Admin: 07/25/18 18:25 Dose: 60 units Insulin Human Lispro (Humalog*) 0 units SUBCUT ACHS [facility]; Protocol Last Admin: 07/25/18 20:42 Dose: 4 units Pto:* (Venetoclax [ (Venclexta] 200 Mg)) 200 mg PO DAILY@1700 [facility] Last Admin: 07/25/18 19:00 Dose: 200 mg Ondansetron HCl (Zofran Inj*) 4 mg IV Q4H PRN PRN Reason: NAUSEA/VOMITING Polyethylene Glycol/Electrolytes (Miralax*) 17 gm PO DAILY [facility] Last Admin: 07/25/18 17:50 Dose: 17 gm Potassium Chloride (Klor Con Er Tab*) 20 meq PO DAILY [facility] Senna (Senokot Tab*) 1 tab PO DAILY [facility] Last Admin: 07/25/18 17:49 Dose: 1 tab Assessment: 73 yo M w multiple medical comorbidities and newly diagnosed AML on cycle 1 of azacitidine and venetoclax admitted with febrile neutropenia, sepsis with unclear source, and chest pain. Plan: Febrile neutropenia/sepsis: unclear source cultures pending cefepime 2g IV q8 hr fluid bolus, making urine chest pain/hypotension: small pericardial effusion on CT, will get echo and cardiology consult, particularly in light of the positive troponin, though I suspect that this is demand ischemia. PE still on the differential, however with platelets of 13k we would not be able to anticoagulate AML: on AZA and venetoclax, t3C43--lnt protocol will not hold no growth factor support transfuse Hb <8, plts <10 DM: cont lantus and sliding scale no DVT prophylaxis given thrombocytopenia full code--discussed at length
[2018-07-26] MEDS ORDERED: NS 0.9% 500 ML* 500 ML IV ONE (08:03)
[2018-07-26 08:25] LABS: Albumin 2.8 g/dL (3.2-5.2); Albumin/Globulin Ratio 1.2 (1-3); BUN/Creatinine Ratio 16.7 (8-20); Calcium 7.4 mg/dL (8.6-10.3); EGFR African American 61.3 (>60); EGFR Non-African American 50.6 (>60); Globulin 2.4 g/dL (2-4); Potassium 4.3 mmol/L (3.5-5.0); Total Bilirubin 0.7 mg/dL (0.2-1.0); Total Protein 5.2 g/dL (6.4-8.9)
[2018-07-26] MEDS: Insulin LISPRO* 1 UNITS UNIT SUBCUT SCH ×4 (08:27→21:24)
[2018-07-26 08:30] LABS: Hematocrit 18 % (42-52); Hemoglobin 5.9 g/dL (14.0-18.0); Mean Corpuscular HGB Conc 33 g/dL (31-36); Mean Corpuscular Hemoglobin 31 pg (27-31); Mean Corpuscular Volume 94 fL (80-94); Red Blood Count 1.89 10^6 /uL (4.18-5.48); Red Cell Distribution Width 24 % (10.5-15); White Blood Count 0.5 10^3/uL (3.5-10.8)
[2018-07-26 09:23] LABS: Mean Platelet Volume 9.7 fL (7.4-10.4); Platelet Count 17 10^3/uL (150-450)
[2018-07-26 09:25] LABS: ABS Neutrophils 0.2 10^3/ul (1.5-7.7)
[2018-07-26 09:26] LABS: Polychromasia 2+
[2018-07-26] MEDS: Carvedilol TAB* 6.25 MG PO SCH ×2 (11:10→21:17)
--- NOTE | 2018-07-26 11:27 | ECHO ---
*[facility]* [place] [address] Fax #: [phone] Transthoracic Echocardiogram Patient: Cheryl, Height: 72 in / 182.9 Cyndi cm : 1945 Weight: 306.4 lb / Study Date: 07/26/2018 139.3 kg Age: 73 BP: 92 / 54 Gender: M BMI/BSA: 41.6 kg/m^2 / HR: 89 bpm 2.56 m^2 *Civilian Technician: * Sena Gregory [facility] *Referring Physician: * Kimmy Wallace *Reading Physician: * Gage Hartmann MD Conclusions Summary: 1. Left ventricle: Not well visualized. The cavity size is normal. Wall thickness is mildly increased. Systolic function is mildly to moderately reduced. 2. Right ventricle: The cavity size is normal. Pacer wire noted in the right ventricle. Systolic function is reduced. 3. Ventricular septum: There is abnormal interventricular septal wall motion consistent with an RV pacemaker. 4. Aortic valve: Not well visualized. There is a bioprosthetic valve. There is no significant regurgitation. The peak systolic velocity is 2.53 m/sec. The mean systolic gradient is 17.0 mm Hg. Doppler velocity/gradient grossly unchanged from 07/2014 suggesting no significant stenosis. 5. Tricuspid valve: Not well visualized. 6. Pericardium, extracardiac: There is no pericardial effusion. Recommendations: Study is non-diagnostic to evaluate LVEF and for segmental wall motion abnormalities due to poor apical endocardial visualization. Patient declined IV definity echocardiogram imaging enhancement agent. Study data: Transthoracic echocardiogram. Procedure: Transthoracic echocardiography was performed. Image quality was poor. The study was technically limited due to poor acoustic window availability. Complete 2D, spectral Doppler, and color flow Doppler. Patient status: Inpatient. Patient room number: 434. Rhythm: Paced rhythm. Findings Left ventricle: Not well visualized. The cavity size is normal. Wall thickness is mildly increased. Systolic function is mildly to moderately reduced. Left ventricular diastolic function parameters are indeterminate. Right ventricle: Not well visualized. The cavity size is normal. Pacer wire noted in the right ventricle. Systolic function is reduced. Ventricular septum: There is abnormal interventricular septal wall motion consistent with an RV pacemaker. Left atrium: The atrium is normal in size. Right atrium: Not well visualized. Pacer wire noted in right atrium. Mitral valve: The leaflets are mildly thickened. There is no evidence of stenosis. There is trivial regurgitation. Aortic valve: Not well visualized. There is a bioprosthetic valve. The leaflets are normal thickness. There is no significant regurgitation. Velocity/gradients grossly unchanged from 07/2014 no significant stenosis suspected. Tricuspid valve: Not well visualized. Pulmonic valve: Not well visualized. There is no evidence of stenosis. There is no significant regurgitation. Aorta: The aorta is well visualized. Pericardium: There is no pericardial effusion. Pulmonary arteries: Not well visualized. Systemic veins: Not well visualized. Pulmonary veins: Not well visualized. Measurements Left ventricle Value Ref Aortic valve Value Ref ROBBIN, LAX 4.8 cm 4.2 - 5.8 Thais diam, ED 2.5 cm ---- ESD, LAX (H) 4.6 cm 2.5 - 4.0 Thais diam/bsa, ED 1.0 cm/m^2 ---- FS, LAX (L) 5 % 25 - Peak v, S 2.53 m/sec ---- PW, ED, LAX (H) 1.3 cm 0.6 - 1.0 VTI, S 53.2 cm ---- FS (L) 5 % 25 - Mean grad, S 17.0 mm Hg ---- Mid-wall FS 2 % --------- Peak grad, S 26.0 mm Hg ---- PW, ED (H) 1.3 cm 0.6 - 1.0 LVOT/AV, VTI ratio 0.23 ---- PW/ID, ED 0.27 --------- SANJANA, VTI 0.96 cm^2 ---- E', lat thais, TDI (L) 6.8 cm/sec >=10.0 SANJANA, Vmax 0.36 cm^2 -- -- E/e', lat thais, TDI 19 --------- E', med thais, TDI (L) 4.9 cm/sec >=7.0 Mitral valve Value Re f E/e', med thais, TDI 27 --------- Peak E 1.3 m/sec ---- E', avg, TDI 5.9 cm/sec --------- Peak A 1.06 m/sec ---- E/e', avg, TDI (H) 22 <=14 Decel time 158 ms -- -- Peak grad, D 6.8 mm Hg ---- LVOT Value Ref Peak E/A ratio 1.2 ---- Diam, S 2.30 cm --------- Area 4.2 cm^2 --------- Pulmonic valve Value Ref Peak gildardo, S 0.22 m/sec --------- Peak v, S 0.77 m/sec ---- VTI, S 12.3 cm --------- Peak grad, S 2.0 mm Hg ---- Mean grad, S 1 mm Hg --------- SV 51 ml --------- Aortic root Value Ref SV/bsa 20 ml/m^2 --------- Root diam 4.2 cm <4.6 Root max diam, ED 4.2 cm <4.6 Ventricular septum Value Ref IVS, ED (H) 1.2 cm 0.6 - 1.0 Ascending aorta Value Ref AAo AP diam, S 4.4 cm ---- Right ventricle Value Ref AAo AP diam/bsa, S 1.7 cm/m^2 ---- ROBBIN, LAX 3.5 cm --------- Legend: (L) and (H) cyndi values outside specified reference range. Prepared and electronically signed by Gage Hartmann MD 07/26/2018 11:27
--- NOTE | 2018-07-26 11:40 | CONSULT ---
Subjective Date of Service: 07/26/18 Interval History: Date of admission: 07/25/2018 Date of consult 07/26/2018 service: Heme/Onc pmd: Dr. Lyle dairy equipment mechanic: Dr. Huff CC: near syncope reason for consult: chest pain, abnormal troponin HPI: Rodolfo Luna is a 73 year old man admitted with weakness and lightheadedness. He is a reluctant historian in his current acute medical state and his at bedside helps with this. He has AML and neutropenic fever. His initial CT scan showed a small pericardial effusion that was not confirmed on echocardiogram (appeared to be fat pad). He has vague central chest discomfort that he states has been there since March. It is not clearly pleuritic but may be made worse by exertion. It was not the reason for admission. It is not any worse than it has been the last 5 months from what I can collect from history. His troponin was abnormal. I think the symptoms and troponin level may not be related. PMhx: bioprosthetic aortic valve replacement and aortic aneurysm repair NICM ventricular tachycardia on amiodarone biv-icd CHF, class III chronic dmII obesity sleep apnea AML pshx relevant cardiac Cardiac Procedures: Pacemaker Implantation - (11/20/2017) BIV ICD generator change [facility] Cardiac Catheterization - (07/04/2006) PASP 48/21, SANJANA 1.0 cm2, LV: dilatedLV EF 35%, Global HK, LM: Normal LAD: normal , LCx: Normal, RCA: normal Aortic Valve Replacement - (02/2007) Bioprothetic valve and asc aorta repair Pacemaker Implantation - (01/28/2010) Dual chamber Pacer, Med[employer]onic [id number] ICD Implantation - (04/12/2010) Up grade of pacer to a BiV ICD, [facility] [id number] Allergies: No Known Drug Allergy 02/01/12 allergy list reviewed on FH: Cancer. Father: pt not sure what type of cancer his dad had. Mother: Stroke. Siblings:1, alive. SH: Lives With: .Occupation: [employer]. Personal Habits: Smoking: Patient has never smoked.Cigarette Use: Never Smoked Cigarettes - Former cigar smoker over 35 years ago, denies smoking pipe, e- cigarettes, or using chewing tobacco..Alcohol: Denies alcohol use.Drug Use: Never Used Drugs.Daily Caffeine: Consumes on average 16oz per day.Exercise Type : Does not exercise. Medications Active Medications: Acetaminophen (Tylenol Tab*) 650 mg PO Q4H PRN PRN Reason: FEVER/PAIN Last Admin: 07/26/18 05:55 Dose: 650 mg Allopurinol (Zyloprim Tab*) 300 mg PO DAILY [facility] Amiodarone HCl (Cordarone Tab*) 100 mg PO QAM [facility] Carvedilol (Coreg Tab*) 6.25 mg PO BID [facility] Last Admin: 07/26/18 11:10 Dose: Not Given Dextrose (D50w Syringe 50 Ml*) 12.5 gm IV PUSH .FOR FS < 60 - SS PRN PRN Reason: FS < 60 Guaifenesin (Mucinex*) 600 mg PO BID [facility] Last Admin: 07/25/18 20:42 Dose: 600 mg Sodium Chloride (Ns 0.9% 1000 Ml) 1,000 mls @ 100 mls/hr IV PER RATE [facility] Last Admin: 07/26/18 03:13 Dose: 100 mls/hr Cefepime HCl (Maxipime 2 Gm In Dextrose Duplex (*)) 2 gm in 50 mls @ 100 mls/ hr IV Q12H [facility] Last Admin: 07/26/18 01:44 Dose: 100 mls/hr Insulin Glargine (Lantus(*)) 60 units SUBCUT QPM [facility] Last Admin: 07/25/18 18:25 Dose: 60 units Insulin Human Lispro (Humalog*) 0 units SUBCUT ACHS [facility]; Protocol Last Admin: 07/26/18 08:27 Dose: 6 units Pto:* (Venetoclax [ (Venclexta] 200 Mg)) 200 mg PO DAILY@1700 [facility] Last Admin: 07/25/18 19:00 Dose: 200 mg Ondansetron HCl (Zofran Inj*) 4 mg IV Q4H PRN PRN Reason: NAUSEA/VOMITING Polyethylene Glycol/Electrolytes (Miralax*) 17 gm PO DAILY [facility] Last Admin: 07/25/18 17:50 Dose: 17 gm Potassium Chloride (Klor Con Er Tab*) 20 meq PO DAILY [facility] Senna (Senokot Tab*) 1 tab PO DAILY [facility] Last Admin: 07/25/18 17:49 Dose: 1 tab Home Medications: Furosemide TAB* [Lasix TAB*] 40 mg PO BID 07/27/12 [History Confirmed 07/25/18] Amiodarone TAB* [Cordarone Tab*] 100 mg PO QAM 02/26/13 [History Confirmed 07/25] glipiZIDE TAB* [Glucotrol TAB*] 10 mg PO BID 02/26/13 [History Confirmed ] Carvedilol TAB* [Coreg TAB*] 12.5 mg PO BID 09/03/13 [History Confirmed 07/25/18 ] Potassium Chlor TAB* [Potassium Chlor TAB 20 MEQ*] 20 meq PO DAILY 05/29/17 [ History Confirmed 07/25/18] Allopurinol TAB* [Zyloprim 300 MG TAB*] 300 mg PO DAILY 07/25/18 [History Confirmed 07/25/18] Dm/Pseudoephed/Acetaminophen [Day-Time Multi-Symptom Co] 1 cap PO BID PRN [History Confirmed 07/25/18] Doxylamine Succinate [Sleep Aid] 25 - 50 mg PO BEDTIME PRN 07/25/18 [History Confirmed 07/25/18] Insulin GLARGINE(*) [Lantus(*)] 60 units SUBCUT QPM 07/25/18 [History Confirmed 07/25/18] Levofloxacin TAB* [Levaquin 500 Tab*] 500 mg PO DAILY 07/25/18 [History Confirmed 07/25/18] Levofloxacin TAB* [Levaquin TAB*] 500 mg PO DAILY 07/25/18 [History Confirmed ] Lovastatin (NF) [Mevacor (NF)] 40 mg PO QPM 07/25/18 [History Confirmed 07/25/18 ] Multivitamins/Minerals TAB* [Theragran/minerals TAB*] 1 tab PO QAM 07/25/18 [ History Confirmed 07/25/18] Polyethylene Glycol 3350* [Miralax*] 17 gm PO DAILY PRN 07/25/18 [History Confirmed 07/25/18] Senna TAB* [Senokot TAB*] 1 tab PO DAILY PRN 07/25/18 [History Confirmed ] Ubidecarenone [Co Q-10] 200 mg PO DAILY 07/25/18 [History Confirmed 07/25/18] Venetoclax [Venclexta] 200 mg PO DAILY WITH MEAL 07/25/18 [History Confirmed ] Review of Systems - Measurements Intake and Output: Intake and Output Last 24 Hours 07/24/18 07/25/18 07/26/18 07/27/18 06:59 06:59 06:59 06:59 Intake Total 5300 400 Output Total 830 Balance 4470 400 Weight 302 lb Intake: IV Fluids 5300 NS (0.9%) 1250 Oral 0 400 Output: Urine 830 - Review of Systems Constitutional Symptoms: Positive: Weight Loss, Weakness, Fatigue, Fever Negative: Weight Gain Dermatology: Negative: Rash, Skin Lesions HEENT: Negative: Change in Hearing, Vertigo Eyes: Negative: Change in Vision, Double Vision Thyroid: Positive: Weight Loss Negative: Cold Intolerance, Heat Intolerance, Weight Gain, Radiation Exposure Pulmonary: Positive: Shortness of Breath, Exercise Intolerance Negative: Hemoptysis, Respiratory Distress, COPD, Asthma, Home Oxygen Cardiology: Positive: Chest Pain, Shortness of Breath, Swelling of Ankles, Edema , Faintness Negative: Palpitations, Peripheral Vascular Dis, Syncope, Paroxysmal Nocturnal Dyspnea, Orthopnea Gastroenterology: Positive: Anorexia Negative: Nausea, Vomiting, Blood in Stools, Haematemesis, Melena Genital - Urinary: Negative: Dysuria, Hematuria Musculoskeletal: Negative: Joint Pain, Joint Stiffness Endocrinology: Positive: Obesity, Diabetes Negative: Polydipsia, Polyuria Hematologic/Lymphatic: Positive: Anemia, Hx Leukemia Negative: Use of Anticoagulant, Use of Antiplatelet Drugs Neurology: Negative: Change in Speech, Change in Sphincter Function Psychiatry: Negative: Unusual Anxiety, Suicidal Ideation Allergic/Immunologic: Positive: Immunocompromise Negative: Hx HIV Review of Systems Statement: All other review of systems negative, unless stated above. Objective Vital Signs: Temp Pulse Resp BP Pulse Ox 100 F 94 24 92/48 96 07/26/18 10:45 07/26/18 10:45 07/26/18 10:45 07/26/18 10:45 07/26/18 10:45 Oxygen Devices in Use Now: Nasal Cannula Appearance: mildly ill appearing, able to answer questions Ears/Nose/Mouth/Throat: Clear Oropharnyx Neck: Trachea Midline - uncertain jvp Respiratory: Symmetrical Chest Expansion and Respiratory Effort, Clear to Auscultation Cardiovascular: RRR, - - distant, no obvious murmur, scar noted Abdominal: - Extremities: No Clubbing, Cyanosis, - - 1+ edema Skin: No Rash or Ulcers, - - pale skin Neurological: Alert and Oriented x 3 Laboratory Results: 07/26/18 07:50 07/26/18 07:50 INR (Anticoag Therapy) 1.38 (0.82-1.09) H 07/25/18 13:58 APTT 25.6 seconds (26.0-36.3) L 07/25/18 13:58 Total Bilirubin 0.70 mg/dL (0.2-1.0) 07/26/18 07:50 AST 11 U/L (13-39) L 07/26/18 07:50 ALT 10 U/L (7-52) 07/26/18 07:50 Alkaline Phosphatase 38 U/L (34-104) 07/26/18 07:50 Total Protein 5.2 g/dL (6.4-8.9) L 07/26/18 07:50 Albumin 2.8 g/dL (3.2-5.2) L 07/26/18 07:50 Globulin 2.4 g/dL (2-4) 07/26/18 07:50 Albumin/Globulin Ratio 1.2 (1-3) 07/26/18 07:50 07/25/18 07/25/18 07/25/18 13:58 17:36 20:05 Troponin I 0.75 H* 0.37 H* 0.31 H* 07/26/18 02:07 Troponin I 0.18 H* Diagnostic Imaging: Study Date: 07/26/2018 1. Left ventricle: Not well visualized. The cavity size is normal. Wall thickness is mildly increased. Systolic function is mildly to moderately reduced. 2. Right ventricle: The cavity size is normal. Pacer wire noted in the right ventricle. Systolic function is reduced. 3. Ventricular septum: There is abnormal interventricular septal wall motion consistent with an RV pacemaker. 4. Aortic valve: Not well visualized. There is a bioprosthetic valve. There is no significant regurgitation. The peak systolic velocity is 2.53 m/sec. The mean systolic gradient is 17.0 mm Hg. Doppler velocity/gradient grossly unchanged from 07/2014 suggesting no significant stenosis. 5. Tricuspid valve: Not well visualized. 6. Pericardium, extracardiac: There is no pericardial effusion. Aorta: The aorta is well visualized. Exam Date: 07/25/18 1557 ADM Status: ADM IN FINDINGS: Evaluation is limited due to suboptimal contrast opacification. The attenuation of the main pulmonary artery is between 200-250 Hounsfield units, which is considered borderline, but diagnostic, for the detection of pulmonary embolism. HEART AND PERICARDIUM: Coronary and valvular cardiac calcifications are noted. There is a small pericardial effusion. AORTA AND PULMONARY VASCULATURE: Evaluation is limited by suboptimal contrast opacification of the pulmonary artery. There is no appreciable pulmonary arterial filling defect to suggest pulmonary was. LUNG PARENCHYMA: There is minimal dependent atelectasis of the lung bases bilaterally. PLEURA: No pleural abnormalities are noted. Echocardiogram - (08/07/2014) [facility] Moderate LV dysfunction EF 35-40% Bioprosthetic AVR with normal function No AR Mild MR and TR EKG Data: ekg 07/25 and 07/26: sinus rhythm, vpaced Assessment/Plan Reason for consult 1. Chest pain - Unsure cause - It has been relatively stable for 5 months per his account 2. Abnormal troponin - Suspect myocyte injury related to acute medical illness and also renal insufficiency. type 2 CO appears less likely but possible. it is not clearly related to #1 Unclear why he was on warfarin but this is now d/c'd, has severe pancytopenia Would check TSH with tomorrow labs while on amiodarone (ordered) Continue BB and amiodarone Lasix held Agree with Hematology and sepsis focused treatment as is being done Thank you for allowing me to participate in the cardiovascular care of this patient. Please do not hesitate to contact me with questions or concerns.
[2018-07-26] MEDS: Potassium Chlor TAB* 20 MEQ TAB.ER PO SCH (11:41)
[2018-07-26] MEDS: guaiFENesin ER TAB 600 MG PO SCH ×2 (11:41→21:23)
[2018-07-26] MEDS: Senna TAB PO SCH (11:41)
[2018-07-26] MEDS: Amiodarone TAB* 200 MG PO SCH (11:42)
[2018-07-26] MEDS: Allopurinol TAB* 300 MG PO SCH (11:42)
[2018-07-26] MEDS: Polyethylene Glycol 3350* 17 GM PACKET PO SCH (16:27)
[2018-07-26] MEDS: VENETOCLAX 200 MG PO SCH (16:28)
[2018-07-26] MEDS: Insulin GLARGINE(*) 1 UNITS UNIT SUBCUT SCH (17:45)
[2018-07-26] MEDS ORDERED: MELATONIN 5 MG TABLETS PO PRN (21:30)
[2018-07-26] MEDS: Melatonin 3 MG TAB PO PRN (22:35)
[2018-07-27] MEDS: Acetaminophen TAB* 325 MG PO PRN ×4 (00:29→21:14)
[2018-07-27] MEDS: Cefepime 2 GM in Dextrose(*) 2 GM/50 ML BAG IV SCH ×2 (02:24→15:52)
[2018-07-27] MEDS: NS 0.9% 1000 ML** 1,000 ML IV SCH (02:24)
[2018-07-27 06:27] LABS: Hematocrit 20 % (42-52); Hemoglobin 6.5 g/dL (14.0-18.0); Mean Corpuscular HGB Conc 33 g/dL (31-36); Mean Corpuscular Hemoglobin 31 pg (27-31); Mean Corpuscular Volume 94 fL (80-94); Platelet Count 16 10^3/uL (150-450); Red Blood Count 2.08 10^6 /uL (4.18-5.48); Red Cell Distribution Width 22 % (10.5-15); White Blood Count 0.6 10^3/uL (3.5-10.8)
[2018-07-27 06:33] LABS: Albumin 2.9 g/dL (3.2-5.2); Albumin/Globulin Ratio 1.1 (1-3); BUN/Creatinine Ratio 16.4 (8-20); Calcium 7.5 mg/dL (8.6-10.3); EGFR African American 60.3 (>60); EGFR Non-African American 49.8 (>60); Globulin 2.7 g/dL (2-4); Potassium 4.5 mmol/L (3.5-5.0); Total Bilirubin 0.8 mg/dL (0.2-1.0); Total Protein 5.6 g/dL (6.4-8.9)
[2018-07-27 06:47] LABS: TSH (Thyroid Stimulating Horm) 1.4 mcIU/mL (0.34-5.60)
[2018-07-27 08:23] LABS: ABS Neutrophils 0.3 10^3/ul (1.5-7.7); Polychromasia 1+
[2018-07-27] MEDS: Polyethylene Glycol 3350* 17 GM PACKET PO SCH (09:12)
[2018-07-27] MEDS: Insulin LISPRO* 1 UNITS UNIT SUBCUT SCH ×4 (09:15→21:17)
[2018-07-27] MEDS: Allopurinol TAB* 300 MG PO SCH (09:17)
[2018-07-27] MEDS: Amiodarone TAB* 200 MG PO SCH (09:17)
[2018-07-27] MEDS: guaiFENesin ER TAB 600 MG PO SCH ×2 (09:17→21:14)
[2018-07-27] MEDS: Potassium Chlor TAB* 20 MEQ TAB.ER PO SCH (09:17)
[2018-07-27] MEDS: Senna TAB PO SCH (09:17)
[2018-07-27] MEDS: Carvedilol TAB* 6.25 MG PO SCH (09:17)
--- NOTE | 2018-07-27 09:52 | PN ---
Progress Note - Progress Note Date of Service: 07/27/18 SOAP: Subjective: [Some disorientation overnight. Reports feeling somewhat better this am. He ate a good breakfast this am, which is the most he has eaten in quite some time. No nausea or pain. Feeling dizzy when trying to stand. No BM since admission. No signs of bleeding. Some cough with clear sputum production.] Objective: [ Acetaminophen (Tylenol Tab*) 650 mg PO Q4H PRN PRN Reason: FEVER/PAIN Last Admin: 07/27/18 05:56 Dose: 650 mg Allopurinol (Zyloprim Tab*) 300 mg PO DAILY [facility] Last Admin: 07/27/18 09:17 Dose: 300 mg Amiodarone HCl (Cordarone Tab*) 100 mg PO QAM [facility] Last Admin: 07/27/18 09:17 Dose: 100 mg Carvedilol (Coreg Tab*) 6.25 mg PO BID [facility] Last Admin: 07/27/18 09:17 Dose: 6.25 mg Dextrose (D50w Syringe 50 Ml*) 12.5 gm IV PUSH .FOR FS < 60 - SS PRN PRN Reason: FS < 60 Guaifenesin (Mucinex*) 600 mg PO BID [facility] Last Admin: 07/27/18 09:17 Dose: 600 mg Heparin Sodium (Porcine) (Heparin Flush Picc/Ml/Cvc(*)) 1 - 3 ml FLUSH 0600, 1800 [facility]; Protocol Last Admin: 07/27/18 09:25 Dose: 1 ml Sodium Chloride (Ns 0.9% 1000 Ml) 1,000 mls @ 100 mls/hr IV PER RATE [facility] Last Admin: 07/27/18 02:24 Dose: 100 mls/hr Cefepime HCl (Maxipime 2 Gm In Dextrose Duplex (*)) 2 gm in 50 mls @ 100 mls/ hr IV Q12H [facility] Last Admin: 07/27/18 02:24 Dose: 100 mls/hr Insulin Glargine (Lantus(*)) 60 units SUBCUT QPM [facility] Last Admin: 07/26/18 17:45 Dose: 60 units Insulin Human Lispro (Humalog*) 0 units SUBCUT ACHS [facility]; Protocol Last Admin: 07/27/18 09:15 Dose: 4 units Melatonin (Melatonin) 3 mg PO BEDTIME PRN PRN Reason: SLEEP Last Admin: 07/26/18 22:35 Dose: 3 mg Pto:* (Venetoclax [ (Venclexta] 200 Mg)) 200 mg PO DAILY@1700 [facility] Last Admin: 07/26/18 16:28 Dose: 200 mg Ondansetron HCl (Zofran Inj*) 4 mg IV Q4H PRN PRN Reason: NAUSEA/VOMITING Polyethylene Glycol/Electrolytes (Miralax*) 17 gm PO DAILY [facility] Last Admin: 07/27/18 09:12 Dose: 17 gm Potassium Chloride (Klor Con Er Tab*) 20 meq PO DAILY [facility] Last Admin: 07/27/18 09:17 Dose: 20 meq Senna (Senokot Tab*) 1 tab PO DAILY [facility] Last Admin: 07/27/18 09:17 Dose: 1 tab Laboratory Results - last 24 hr 07/26/18 07/26/18 07/26/18 07:47 11:41 15:50 WBC RBC Hgb Hct MCV MCH MCHC RDW Plt Count MPV Neut % (Auto) Lymph % (Auto) [place] % (Auto) Eos % (Auto) Baso % (Auto) Absolute Neuts (auto) Absolute Lymphs (auto) Absolute Monos (auto) Absolute Eos (auto) Absolute Basos (auto) Absolute Nucleated RBC Neutrophils % Lymphocytes % Monocytes % Eosinophils % Basophils % Nucleated RBC % Abs Neuts (Manual) Abs Lymphs (Manual) Abs Monocytes (Manual) Absolute Eos (Manual) Abs Basophils (Manual) Normal RBC Morphology Polychromasia Anisocytosis Sodium Potassium Chloride Carbon Dioxide Anion Gap BUN Creatinine Est GFR ( Amer) Est GFR (Non-Af Amer) BUN/Creatinine Ratio Glucose POC Glucose (mg/dL) 188 H Calcium Total Bilirubin AST ALT Alkaline Phosphatase Total Protein Albumin Globulin Albumin/Globulin Ratio TSH Blood Type A Positive Antibody Screen Negative Crossmatch See Detail Transfusion React Rpt Donor Unit # [id number] Post-Trans Blood Type A Positive Post-Trans BRYAN Negative Reaction Interpretation 07/26/18 07/26/18 07/27/18 16:32 20:20 05:50 WBC 0.6 L RBC 2.08 L Hgb 6.5 L Hct 20 L MCV 94 MCH 31 MCHC 33 RDW 22 H Plt Count 16 L MPV 8.0 Neut % (Auto) Not Reportable Lymph % (Auto) Not Reportable [place] % (Auto) Not Reportable Eos % (Auto) Not Reportable Baso % (Auto) Not Reportable Absolute Neuts (auto) 0.3 L Absolute Lymphs (auto) Not Reportable Absolute Monos (auto) Not Reportable Absolute Eos (auto) Not Reportable Absolute Basos (auto) Not Reportable Absolute Nucleated RBC Not Reportable Neutrophils % 54.0 Lymphocytes % 42.0 Monocytes % 4.0 Eosinophils % 0.0 Basophils % 0.0 Nucleated RBC % Not Reportable Abs Neuts (Manual) 0.3 L Abs Lymphs (Manual) 0.3 L Abs Monocytes (Manual) 0.0 Absolute Eos (Manual) 0.0 Abs Basophils (Manual) 0.0 Normal RBC Morphology Not Reportable Polychromasia 1+ Anisocytosis 1+ Sodium Potassium Chloride Carbon Dioxide Anion Gap BUN Creatinine Est GFR ( Amer) Est GFR (Non-Af Amer) BUN/Creatinine Ratio Glucose POC Glucose (mg/dL) 212 H 261 H Calcium Total Bilirubin AST ALT Alkaline Phosphatase Total Protein Albumin Globulin Albumin/Globulin Ratio TSH Blood Type Antibody Screen Crossmatch Transfusion React Rpt Donor Unit # Post-Trans Blood Type Post-Trans [facility]AN Reaction Interpretation 07/27/18 07/27/18 05:50 08:59 WBC RBC Hgb Hct MCV MCH MCHC RDW Plt Count MPV Neut % (Auto) Lymph % (Auto) [place] % (Auto) Eos % (Auto) Baso % (Auto) Absolute Neuts (auto) Absolute Lymphs (auto) Absolute Monos (auto) Absolute Eos (auto) Absolute Basos (auto) Absolute Nucleated RBC Neutrophils % Lymphocytes % Monocytes % Eosinophils % Basophils % Nucleated RBC % Abs Neuts (Manual) Abs Lymphs (Manual) Abs Monocytes (Manual) Absolute Eos (Manual) Abs Basophils (Manual) Normal RBC Morphology Polychromasia Anisocytosis Sodium 138 Potassium 4.5 Chloride 111 Carbon Dioxide 23 Anion Gap 4 BUN 23 Creatinine 1.40 H Est GFR ( Amer) 60.3 Est GFR (Non-Af Amer) 49.8 BUN/Creatinine Ratio 16.4 Glucose 163 H POC Glucose (mg/dL) 226 H Calcium 7.5 L Total Bilirubin 0.80 AST 11 L ALT 12 Alkaline Phosphatase 39 Total Protein 5.6 L Albumin 2.9 L Globulin 2.7 Albumin/Globulin Ratio 1.1 TSH 1.40 Blood Type Antibody Screen Crossmatch Transfusion React Rpt Donor Unit # Post-Trans Blood Type Post-Trans BRYAN Reaction Interpretation Vital Signs: Temp Pulse Resp BP Pulse Ox 98.1 F 86 20 95/41 98 07/27/18 02:28 07/27/18 06:00 07/27/18 02:28 07/27/18 02:28 07/27/18 02:28 Exam: Gen: Ill appearing 73 yo male in NAD, sitting up at bedside HEENT: MMM CV: RRR, no murmurs appreciated Resp: few crackles at lung bases Abd: soft, nonTTP Ext: trace LE edema Skin: scattered bruises] [Assessment: 73 yo M w multiple medical comorbidities and newly diagnosed AML on cycle 1 of azacitidine and venetoclax admitted with febrile neutropenia, sepsis with unclear source. Plan: Febrile neutropenia/sepsis: unclear source cultures negative Tmax 101.3 at 1300 yesterday, no fevers since cont cefepime 2g IV q8 hr BP stable, UO appears adequate demand ischemia: small pericardial effusion on CT intermittent CP, cardiology input appreciated who does not believe his CP is related to elevated to troponin echocardiogram shows no pericardial effusion - likely a fat pad seen on CT AML: on AZA and venetoclax, [id number] protocol will not hold no growth factor support transfuse Hb <8, plts <10 giving additional 2U PRBCs today DM: cont lantus and sliding scale no DVT prophylaxis given thrombocytopenia FULL CODE
[2018-07-27] MEDS ORDERED: NS 0.9% 500 ML* 500 ML IV ONE (13:00)
[2018-07-27] MEDS ORDERED: NS 0.9% 1000 ML** 1,000 ML IV ONE (14:07)
[2018-07-27] MEDS ORDERED: Hydrocortisone INJ* 100 MG VIAL IV ONE (14:10)
[2018-07-27] MEDS: Insulin GLARGINE(*) 1 UNITS UNIT SUBCUT SCH (17:29)
[2018-07-27] MEDS: VENETOCLAX 200 MG PO SCH (17:29)
[2018-07-28] MEDS: NS 0.9% 1000 ML** 1,000 ML IV SCH ×2 (01:21→11:55)
[2018-07-28] MEDS: Cefepime 2 GM in Dextrose(*) 2 GM/50 ML BAG IV SCH ×2 (02:30→15:03)
[2018-07-28] MEDS: Acetaminophen TAB* 325 MG PO PRN (06:06)
[2018-07-28 06:20] LABS: ABS Lymphocytes 0.4 10^3/ul (1.0-4.8); ABS Neutrophils 0.4 10^3/ul (1.5-7.7); ABS Nucleated RBC 0.6 10^3/ul; Eosinophil % 0.3 %; Hematocrit 24 % (42-52); Hemoglobin 7.9 g/dL (14.0-18.0); Lymphocyte % 49.3 %; Mean Corpuscular HGB Conc 33 g/dL (31-36); Mean Corpuscular Hemoglobin 31 pg (27-31); Mean Corpuscular Volume 94 fL (80-94); Mean Platelet Volume 9.6 fL (7.4-10.4); Nucleated Red Blood Cells % 69.1; Platelet Count 39 10^3/uL (150-450); Red Blood Count 2.57 10^6 /uL (4.18-5.48); Red Cell Distribution Width 22 % (10.5-15); White Blood Count 0.8 10^3/uL (3.5-10.8)
[2018-07-28 06:44] LABS: Albumin 2.8 g/dL (3.2-5.2); BUN/Creatinine Ratio 20.1 (8-20); Calcium 7.6 mg/dL (8.6-10.3); EGFR African American 50.2 (>60); EGFR Non-African American 41.5 (>60); Globulin 2.9 g/dL (2-4); Potassium 4.8 mmol/L (3.5-5.0); Total Bilirubin 0.9 mg/dL (0.2-1.0); Total Protein 5.7 g/dL (6.4-8.9)
--- NOTE | 2018-07-28 08:04 | PN ---
Progress Note - Progress Note Date of Service: 07/28/18 SOAP: Subjective: feels better than yesterday. still no BM. still w cough, improved Objective: Vital Signs Temp Pulse Resp BP Pulse Ox 97.3 F 70 20 100/45 98 07/28/18 06:09 07/28/18 03:30 07/28/18 03:30 07/28/18 03:30 07/28/18 03:30 lying in bed in nad perr eomi op moist cta bl s1 s2 nl obese nt +bs trace LE edema scattered ecchymoses globally weak but grossly nonfocal Laboratory Results - last 24 hr 07/26/18 07/27/18 07/27/18 07:47 05:50 08:59 WBC 0.6 L RBC 2.08 L Hgb 6.5 L Hct 20 L MCV 94 MCH 31 MCHC 33 RDW 22 H Plt Count 16 L MPV 8.0 Neut % (Auto) Not Reportable Lymph % (Auto) Not Reportable [place] % (Auto) Not Reportable Eos % (Auto) Not Reportable Baso % (Auto) Not Reportable Absolute Neuts (auto) 0.3 L Absolute Lymphs (auto) Not Reportable Absolute Monos (auto) Not Reportable Absolute Eos (auto) Not Reportable Absolute Basos (auto) Not Reportable Absolute Nucleated RBC Not Reportable Neutrophils % 54.0 Lymphocytes % 42.0 Monocytes % 4.0 Eosinophils % 0.0 Basophils % 0.0 Nucleated RBC % Not Reportable Abs Neuts (Manual) 0.3 L Abs Lymphs (Manual) 0.3 L Abs Monocytes (Manual) 0.0 Absolute Eos (Manual) 0.0 Abs Basophils (Manual) 0.0 Normal RBC Morphology Not Reportable Polychromasia 1+ Anisocytosis 1+ Sodium Potassium Chloride Carbon Dioxide Anion Gap BUN Creatinine Est GFR ( Amer) Est GFR (Non-Af Amer) BUN/Creatinine Ratio Glucose POC Glucose (mg/dL) 226 H Calcium Total Bilirubin AST ALT Alkaline Phosphatase Total Protein Albumin Globulin Albumin/Globulin Ratio Blood Type A Positive Antibody Screen Negative Crossmatch See Detail Transfusion React Rpt Donor Unit # Post-Trans Blood Type Post-Trans [facility] Reaction Interpretation 07/27/18 07/28/18 07/28/18 20:17 06:00 06:00 WBC 0.8 L RBC 2.57 L Hgb 7.9 L Hct 24 L MCV 94 MCH 31 MCHC 33 RDW 22 H Plt Count 39 L D MPV 9.6 Neut % (Auto) 47.7 Lymph % (Auto) 49.3 [place] % (Auto) 0.7 Eos % (Auto) 0.3 Baso % (Auto) 2.0 Absolute Neuts (auto) 0.4 L Absolute Lymphs (auto) 0.4 L Absolute Monos (auto) 0.0 Absolute Eos (auto) 0.0 Absolute Basos (auto) 0.0 Absolute Nucleated RBC 0.6 Neutrophils % Lymphocytes % Monocytes % Eosinophils % Basophils % Nucleated RBC % 69.1 Abs Neuts (Manual) Abs Lymphs (Manual) Abs Monocytes (Manual) Absolute Eos (Manual) Abs Basophils (Manual) Normal RBC Morphology Polychromasia Anisocytosis Sodium 137 Potassium 4.8 Chloride 113 H Carbon Dioxide 20 L Anion Gap 4 BUN 33 H Creatinine 1.64 H Est GFR ( Amer) 50.2 Est GFR (Non-Af Amer) 41.5 BUN/Creatinine Ratio 20.1 H Glucose 190 H POC Glucose (mg/dL) 198 H Calcium 7.6 L Total Bilirubin 0.90 AST 144 H ALT 235 H Alkaline Phosphatase 48 Total Protein 5.7 L Albumin 2.8 L Globulin 2.9 Albumin/Globulin Ratio 1.0 Blood Type Antibody Screen Crossmatch Transfusion React Rpt Donor Unit # Post-Trans Blood Type Post-Trans [facility] Reaction Interpretation Acetaminophen (Tylenol Tab*) 650 mg PO Q4H PRN PRN Reason: FEVER/PAIN Last Admin: 07/28/18 06:06 Dose: 650 mg Allopurinol (Zyloprim Tab*) 300 mg PO DAILY [facility] Last Admin: 07/27/18 09:17 Dose: 300 mg Amiodarone HCl (Cordarone Tab*) 100 mg PO QAM [facility] Last Admin: 07/27/18 09:17 Dose: 100 mg Dextrose (D50w Syringe 50 Ml*) 12.5 gm IV PUSH .FOR FS < 60 - SS PRN PRN Reason: FS < 60 Guaifenesin (Mucinex*) 600 mg PO BID [facility] Last Admin: 07/27/18 21:14 Dose: 600 mg Heparin Sodium (Porcine) (Heparin Flush Picc/Ml/Cvc(*)) 1 - 3 ml FLUSH 0600, 1800 [facility]; Protocol Last Admin: 07/28/18 06:12 Dose: 1 ml Sodium Chloride (Ns 0.9% 1000 Ml) 1,000 mls @ 100 mls/hr IV PER RATE [facility] Last Admin: 07/28/18 01:21 Dose: 100 mls/hr Cefepime HCl (Maxipime 2 Gm In Dextrose Duplex (*)) 2 gm in 50 mls @ 100 mls/ hr IV Q12H [facility] Last Admin: 07/28/18 02:30 Dose: 100 mls/hr Insulin Glargine (Lantus(*)) 70 units SUBCUT QPM [facility] Insulin Human Lispro (Humalog*) 0 units SUBCUT ACHS [facility]; Protocol Last Admin: 07/27/18 21:17 Dose: 2 units Melatonin (Melatonin) 3 mg PO BEDTIME PRN PRN Reason: SLEEP Last Admin: 07/26/18 22:35 Dose: 3 mg Pto:* (Venetoclax [ (Venclexta] 200 Mg)) 200 mg PO DAILY@1700 [facility] Last Admin: 07/27/18 17:29 Dose: 200 mg Ondansetron HCl (Zofran Inj*) 4 mg IV Q4H PRN PRN Reason: NAUSEA/VOMITING Polyethylene Glycol/Electrolytes (Miralax*) 17 gm PO DAILY [facility] Last Admin: 07/27/18 09:12 Dose: 17 gm Senna (Senokot Tab*) 1 tab PO DAILY [facility] Last Admin: 07/27/18 09:17 Dose: 1 tab Assessment: 73 yo M w multiple medical comorbidities and newly diagnosed AML on cycle 1 of azacitidine and venetoclax admitted with febrile neutropenia, sepsis with unclear source. Plan: Febrile neutropenia/sepsis: unclear source cultures negative cont cefepime 2g IV q12 hr BP stable, UO appears adequate cont allopurinol through cycle 1 to protect against tumor lysis syndrome demand ischemia: stable, no chest pain transaminitis: suspect mild shock liver from hypotension yesterday, monitor closely AML: on AZA and venetoclax, [id number] protocol will not hold no growth factor support transfuse Hb <8, plts <10 giving additional 1U PRBC today counts improving, suspect some recover starting to occur DM: cont lantus and sliding scale, increase to 70 U constipation: add lactulose today deconditioning: OOB-->chair today PT/OT consult no DVT prophylaxis given thrombocytopenia FULL CODE
[2018-07-28] MEDS: Insulin LISPRO* 1 UNITS UNIT SUBCUT SCH ×4 (09:00→21:20)
[2018-07-28] MEDS: Polyethylene Glycol 3350* 17 GM PACKET PO SCH (09:01)
[2018-07-28] MEDS: Allopurinol TAB* 300 MG PO SCH (09:04)
[2018-07-28] MEDS: Senna TAB PO SCH (09:04)
[2018-07-28] MEDS: Amiodarone TAB* 200 MG PO SCH (09:05)
[2018-07-28] MEDS: guaiFENesin ER TAB 600 MG PO SCH ×2 (09:05→21:20)
[2018-07-28] MEDS ORDERED: Furosemide IV* 10 MG/ML 2 ML VIAL (20 MG) IV ONE (15:00)
[2018-07-28 15:54] LABS: Urine Appearance Cloudy; Urine Bacteria Absent (Absent); Urine Bilirubin Negative (Negative); Urine Blood 3+ (Negative); Urine Color Amber; Urine Glucose Negative (Negative); Urine Ketones Negative (Negative); Urine Nitrite Negative (Negative); Urine Protein 2+(100 mg/dL) (Negative); Urine Red Blood Cell 3+(>10/hpf) (Absent); Urine Specific Gravity 1.024 (1.010-1.030); Urine Urobilinogen Negative (Negative); Urine White Blood Cell 1+(6-10/hpf) (Absent)
[2018-07-28] MEDS ORDERED: Furosemide IV* 10 MG/ML VIAL (40 MG) IV ONE (17:00)
[2018-07-28] MEDS: VENETOCLAX 200 MG PO SCH (17:28)
[2018-07-28] MEDS: Insulin GLARGINE(*) 1 UNITS UNIT SUBCUT SCH (17:30)
[2018-07-29] MEDS: Melatonin 3 MG TAB PO PRN ×2 (00:04→21:19)
[2018-07-29] MEDS: Cefepime 2 GM in Dextrose(*) 2 GM/50 ML BAG IV SCH ×2 (02:19→14:00)
[2018-07-29 05:35] LABS: Albumin 2.6 g/dL (3.2-5.2); BUN/Creatinine Ratio 22.9 (8-20); Calcium 7.5 mg/dL (8.6-10.3); EGFR African American 49.5 (>60); EGFR Non-African American 40.9 (>60); Globulin 2.7 g/dL (2-4); Indirect Bilirubin 0.7 mg/dL (0.3-1.0); Potassium 4.1 mmol/L (3.5-5.0); Total Bilirubin 1.1 mg/dL (0.2-1.0); Total Protein 5.3 g/dL (6.4-8.9)
[2018-07-29 05:41] LABS: Eosinophil % 1.6 %; Hematocrit 24 % (42-52); Hemoglobin 8.1 g/dL (14.0-18.0); Lymphocyte % 45.7 %; Mean Corpuscular HGB Conc 34 g/dL (31-36); Mean Corpuscular Hemoglobin 31 pg (27-31); Mean Corpuscular Volume 92 fL (80-94); Mean Platelet Volume 9.5 fL (7.4-10.4); Platelet Count 52 10^3/uL (150-450); Red Blood Count 2.56 10^6 /uL (4.18-5.48); Red Cell Distribution Width 21 % (10.5-15); White Blood Count 0.5 10^3/uL (3.5-10.8)
[2018-07-29 06:14] LABS: ABS Lymphocytes 0.2 10^3/ul (1.0-4.8); ABS Monocytes 0.1 10^3/ul (0-0.8); ABS Neutrophils 0.2 10^3/ul (1.5-7.7); ABS Nucleated RBC 0.4 10^3/ul; Nucleated Red Blood Cells % 87.4
[2018-07-29] MEDS: Polyethylene Glycol 3350* 17 GM PACKET PO SCH (08:24)
[2018-07-29] MEDS: Allopurinol TAB* 300 MG PO SCH (08:25)
[2018-07-29] MEDS: Amiodarone TAB* 200 MG PO SCH (08:26)
[2018-07-29] MEDS: Senna TAB PO SCH (08:26)
[2018-07-29] MEDS: Insulin LISPRO* 1 UNITS UNIT SUBCUT SCH ×4 (08:27→21:19)
[2018-07-29] MEDS: guaiFENesin ER TAB 600 MG PO SCH ×2 (08:30→21:19)
--- NOTE | 2018-07-29 13:33 | PN ---
Subjective Date of Service: 07/29/18 Interval History: Mr. Luna reports that he doesn't feel well today but he hasn't felt well in a while. He feels that his breathing isn't any worse that yesterday. He denies chest pain. His feels that maybe he looks a little better today. She is happy that he had enough appetite to eat a banana. Objective Active Medications: Acetaminophen (Tylenol Tab*) 650 mg PO Q4H PRN Allopurinol (Zyloprim Tab*) 300 mg PO DAILY [facility] Amiodarone HCl (Cordarone Tab*) 100 mg PO QAM [facility] Dextrose (D50w Syringe 50 Ml*) 12.5 gm IV PUSH .FOR FS < 60 - SS PRN Guaifenesin (Mucinex*) 600 mg PO BID [facility] Heparin Sodium (Porcine) (Heparin Flush Picc/Ml/Cvc(*)) 1 - 3 ml FLUSH 0600, 1800 [facility]; Protocol Cefepime HCl (Maxipime 2 Gm In Dextrose Duplex (*)) 2 gm in 50 mls @ 100 mls/ hr IV Q12H [facility] Insulin Glargine (Lantus(*)) 70 units SUBCUT QPM [facility] Insulin Human Lispro (Humalog*) 0 units SUBCUT ACHS [facility]; Protocol Lactulose (Lactulose*) 30 ml PO TID [facility] Lorazepam (Ativan Tab(*)) 0.5 mg PO Q6H PRN Melatonin (Melatonin) 3 mg PO BEDTIME PRN Pto:* (Venetoclax [ (Venclexta] 200 Mg)) 200 mg PO DAILY@1700 [facility] Ondansetron HCl (Zofran Inj*) 4 mg IV Q4H PRN Polyethylene Glycol/Electrolytes (Miralax*) 17 gm PO DAILY [facility] Senna (Senokot Tab*) 1 tab PO DAILY [facility] Vital Signs: Temp Pulse Resp BP Pulse Ox 98.4 F 77 22 104/53 92 07/29/18 11:51 07/29/18 11:51 07/29/18 11:51 07/29/18 11:51 07/29/18 11:51 Oxygen Devices in Use Now: Nasal Cannula Appearance: Male lying in bed, mildly SOB, no acute distress Eyes: No Scleral Icterus Ears/Nose/Mouth/Throat: Mucous Membranes Moist Neck: Trachea Midline Respiratory: Symmetrical Chest Expansion and Respiratory Effort, - - Diminished throughout, difficult to auscultate due to body habitus Cardiovascular: NL Sounds; No Murmurs; No JVD, No Edema Abdominal: NL Sounds; No Tenderness; No Distention Extremities: No Edema Skin: No Rash or Ulcers Neurological: Alert and Oriented x 3, - - Generalized weakness Result Diagrams: 07/29/18 05:00 07/29/18 05:00 Microbiology and Other Data: . Assess/Plan/Problems-Billing Assessment: Mr. Luna is a 73 yo M of AML, CHF, afib, and DM starting treatment on 07/17/18 admitted for weakness and fever on 07/25/18 with neutropenic fever with sepsis of unknown etiology. - Patient Problems (1) CHF (congestive heart failure) Comment: - No overt pulmonary edema today, will not diuresis further today, but needs close monitoring - S/P two rounds of furosemide yesterday with good urine output. - EF 25-30%, no pericardial effusion noted on echocardiogram - Chest xray 07/26 showed pulmonary interstitial edema (2) Neutropenic fever Comment: - With sepsis - Afebrile since 07/26. - Blood and urine cultures negative. CTA chest without evidence of infiltrate, small pericardial effusion only. Echo subsequently ruled out pericardial effusion. - Continue cefepime (3) Elevated LFTs Comment: - Mild, Stable - Suspect due to poor perfusion with acute illness (4) AML (acute myeloblastic leukemia) Comment: - Management per oncology - Anemia with Hgb down to 5.9 on 07/26, total of 4 units PRBC. Hgb 8.1 today. - WBC falling, down to 0.5, ANC 0.3 (5) Afib Comment: - Rate controlled, continue amiodarone - Anticoagulation contraindicated in setting of AML (6) Diabetes Comment: - BGs well controlled - Continue BGs qAC with lispro SSI coverage and lantus (7) Elevated troponin Comment: - Peaked on arrival at 0.7, intermittent chest pain, again pericardial effusion ruled out - Suspect demand ischemia in setting of acute illness, appreciated cardiology consultation (8) ALEXIS (obstructive sleep apnea) Comment: - Continue CPAP when sleeping (9) CKD (chronic kidney disease) Comment: - Stable (10) Constipation Comment: - Resolved, stop lactulose (11) DVT prophylaxis Current Visit: Yes Comment: (12) Full code status Comment: Status and Disposition: Inpatient with disposition per oncology
[2018-07-29] MEDS: Acetaminophen TAB* 325 MG PO PRN (14:05)
[2018-07-29] MEDS: VENETOCLAX 200 MG PO SCH (17:36)
[2018-07-29] MEDS: Insulin GLARGINE(*) 1 UNITS UNIT SUBCUT SCH (17:40)
[2018-07-29] MEDS: LORazepam TAB(*) 0.5 MG PO PRN (21:19)
[2018-07-30] MEDS: Cefepime 2 GM in Dextrose(*) 2 GM/50 ML BAG IV SCH ×2 (02:01→16:48)
[2018-07-30] MEDS: LORazepam TAB(*) 0.5 MG PO PRN ×2 (03:33→21:19)
[2018-07-30] MEDS: Acetaminophen TAB* 325 MG PO PRN ×2 (03:34→21:19)
[2018-07-30] MEDS: Insulin LISPRO* 1 UNITS UNIT SUBCUT SCH ×4 (08:25→20:20)
[2018-07-30 08:46] LABS: Hematocrit 25 % (42-52); Hemoglobin 8.4 g/dL (14.0-18.0); Mean Corpuscular HGB Conc 33 g/dL (31-36); Mean Corpuscular Hemoglobin 31 pg (27-31); Mean Corpuscular Volume 92 fL (80-94); Mean Platelet Volume 8.8 fL (7.4-10.4); Platelet Count 81 10^3/uL (150-450); Red Blood Count 2.73 10^6 /uL (4.18-5.48); Red Cell Distribution Width 21 % (10.5-15)
[2018-07-30 08:50] LABS: Albumin 2.6 g/dL (3.2-5.2); Albumin/Globulin Ratio 0.9 (1-3); BUN/Creatinine Ratio 28.1 (8-20); Calcium 7.8 mg/dL (8.6-10.3); EGFR African American 54.4 (>60); Globulin 2.8 g/dL (2-4); Potassium 4.2 mmol/L (3.5-5.0); Total Bilirubin 1.3 mg/dL (0.2-1.0); Total Protein 5.4 g/dL (6.4-8.9)
[2018-07-30 09:39] LABS: Polychromasia 1+
[2018-07-30 09:40] LABS: White Blood Count 0.6 10^3/uL (3.5-10.8)
[2018-07-30 09:43] LABS: ABS Neutrophils 0.2 10^3/ul (1.5-7.7)
--- NOTE | 2018-07-30 09:45 | PN ---
Progress Note - Progress Note Date of Service: 07/30/18 SOAP: Subjective: [Patient reports feeling off this am. Kind of a fuzzy feeling in his head. Some lightheadedness. Received 2 doses of ativan overnight.] Objective: [ Acetaminophen (Tylenol Tab*) 650 mg PO Q4H PRN PRN Reason: FEVER/PAIN Last Admin: 07/30/18 03:34 Dose: 650 mg Allopurinol (Zyloprim Tab*) 300 mg PO DAILY [facility] Last Admin: 07/29/18 08:25 Dose: 300 mg Amiodarone HCl (Cordarone Tab*) 100 mg PO QAM [facility] Last Admin: 07/29/18 08:26 Dose: 100 mg Dextrose (D50w Syringe 50 Ml*) 12.5 gm IV PUSH .FOR FS < 60 - SS PRN PRN Reason: FS < 60 Guaifenesin (Mucinex*) 600 mg PO BID [facility] Last Admin: 07/29/18 21:19 Dose: 600 mg Heparin Sodium (Porcine) (Heparin Flush Picc/Ml/Cvc(*)) 1 - 3 ml FLUSH 0600, 1800 [facility]; Protocol Last Admin: 07/30/18 05:12 Dose: Not Given Cefepime HCl (Maxipime 2 Gm In Dextrose Duplex (*)) 2 gm in 50 mls @ 100 mls/ hr IV Q12H [facility] Last Admin: 07/30/18 02:01 Dose: 100 mls/hr Insulin Glargine (Lantus(*)) 70 units SUBCUT QPM [facility] Last Admin: 07/29/18 17:40 Dose: 70 unit Insulin Human Lispro (Humalog*) 0 units SUBCUT ACHS [facility]; Protocol Last Admin: 07/30/18 08:25 Dose: Not Given Lorazepam (Ativan Tab(*)) 0.5 mg PO Q6H PRN PRN Reason: ANXIETY Last Admin: 07/30/18 03:33 Dose: 0.5 mg Melatonin (Melatonin) 3 mg PO BEDTIME PRN PRN Reason: SLEEP Last Admin: 07/29/18 21:19 Dose: 3 mg Pto:* (Venetoclax [ (Venclexta] 200 Mg)) 200 mg PO DAILY@1700 [facility] Last Admin: 07/29/18 17:36 Dose: 200 mg Ondansetron HCl (Zofran Inj*) 4 mg IV Q4H PRN PRN Reason: NAUSEA/VOMITING Polyethylene Glycol/Electrolytes (Miralax*) 17 gm PO DAILY [facility] Last Admin: 07/29/18 08:24 Dose: 17 gm Senna (Senokot Tab*) 1 tab PO DAILY [facility] Last Admin: 07/29/18 08:26 Dose: 1 tab Laboratory Results - last 24 hr 07/29/18 07/29/18 07/29/18 11:44 16:15 16:25 RBC Hgb Hct MCV MCH MCHC RDW Plt Count MPV Neut % (Auto) Lymph % (Auto) [place] % (Auto) Eos % (Auto) Baso % (Auto) Absolute Neuts (auto) Absolute Lymphs (auto) Absolute Monos (auto) Absolute Eos (auto) Absolute Basos (auto) Absolute Nucleated RBC Neutrophils % Lymphocytes % Monocytes % Basophils % Nucleated RBC % Nucleated RBCs/100 WBC Normal RBC Morphology Polychromasia Anisocytosis Sodium Potassium Chloride Carbon Dioxide Anion Gap BUN Creatinine Est GFR ( Amer) Est GFR (Non-Af Amer) BUN/Creatinine Ratio Glucose POC Glucose (mg/dL) 118 H 153 H Calcium Magnesium 2.3 Total Bilirubin AST ALT Alkaline Phosphatase Total Protein Albumin Globulin Albumin/Globulin Ratio 07/29/18 07/30/18 07/30/18 20:50 07:12 08:11 RBC 2.73 L Hgb 8.4 L Hct 25 L MCV 92 MCH 31 MCHC 33 RDW 21 H Plt Count 81 L D MPV 8.8 Neut % (Auto) Not Reportable Lymph % (Auto) Not Reportable Twiggs % (Auto) Not Reportable Eos % (Auto) Not Reportable Baso % (Auto) Not Reportable Absolute Neuts (auto) Not Reportable Absolute Lymphs (auto) Not Reportable Absolute Monos (auto) Not Reportable Absolute Eos (auto) Not Reportable Absolute Basos (auto) Not Reportable Absolute Nucleated RBC Not Reportable Neutrophils % 36.0 Lymphocytes % 55.0 Monocytes % 3.0 Basophils % 6.0 Nucleated RBC % Not Reportable Nucleated RBCs/100 WBC 67.0 H Normal RBC Morphology Not Reportable Polychromasia 1+ Anisocytosis 2+ Sodium Potassium Chloride Carbon Dioxide Anion Gap BUN Creatinine Est GFR ( Amer) Est GFR (Non-Af Amer) BUN/Creatinine Ratio Glucose POC Glucose (mg/dL) 149 H 90 Calcium Magnesium Total Bilirubin AST ALT Alkaline Phosphatase Total Protein Albumin Globulin Albumin/Globulin Ratio 07/30/18 08:11 RBC Hgb Hct MCV MCH MCHC RDW Plt Count MPV Neut % (Auto) Lymph % (Auto) Twiggs % (Auto) Eos % (Auto) Baso % (Auto) Absolute Neuts (auto) Absolute Lymphs (auto) Absolute Monos (auto) Absolute Eos (auto) Absolute Basos (auto) Absolute Nucleated RBC Neutrophils % Lymphocytes % Monocytes % Basophils % Nucleated RBC % Nucleated RBCs/100 WBC Normal RBC Morphology Polychromasia Anisocytosis Sodium 139 Potassium 4.2 Chloride 111 Carbon Dioxide 23 Anion Gap 5 BUN 43 H Creatinine 1.53 H Est GFR ( Amer) 54.4 Est GFR (Non-Af Amer) 45.0 BUN/Creatinine Ratio 28.1 H Glucose 83 POC Glucose (mg/dL) Calcium 7.8 L Magnesium Total Bilirubin 1.30 H AST 67 H ALT 244 H Alkaline Phosphatase 60 Total Protein 5.4 L Albumin 2.6 L Globulin 2.8 Albumin/Globulin Ratio 0.9 L Vital Signs Temp Pulse Resp BP Pulse Ox 97.4 F 50 24 100/40 99 07/30/18 07:53 07/30/18 07:53 07/30/18 07:53 07/30/18 07:53 07/30/18 07:53 Exam Gen: Lethargic appearing, acutely ill HEENT: mildly dry MM CV: irregular rate/rhythm Resp: limited exam, no adventitious sounds Abd: soft, nonTTP, active BS Ext: trace to 1+ LE edema Skin: no rashes] [Assessment: 73 yo M w multiple medical comorbidities and newly diagnosed AML on cycle 1 of azacitidine and venetoclax admitted with febrile neutropenia, sepsis with unclear source. Plan: Febrile neutropenia/sepsis: unclear source cultures negative cont cefepime 2g IV q12 hr BP stable, UO appears adequate cont allopurinol through cycle 1 to protect against tumor lysis syndrome AMS: repeat ABG likely ativan effect, otherwise appears stable demand ischemia: stable, no chest pain transaminitis: improving suspect mild shock liver from hypotension cont to monitor closely AML: on AZA and venetoclax, [id number] protocol will not hold no growth factor support transfuse Hb <8, plts <10 counts improving, suspect some recover starting to occur DM: cont lantus and sliding scale, increased to 70 U ALEXIS: cont CPAP while sleeping constipation: cont bowel regimen deconditioning: PT/OT no DVT prophylaxis given thrombocytopenia, but will start Lovenox tomorrow if plts remain >50K FULL CODE]
[2018-07-30] MEDS: Amiodarone TAB* 200 MG PO SCH (10:22)
[2018-07-30] MEDS: Allopurinol TAB* 300 MG PO SCH (10:24)
[2018-07-30] MEDS: guaiFENesin ER TAB 600 MG PO SCH ×2 (10:24→21:19)
[2018-07-30] MEDS: Senna TAB PO SCH (10:24)
[2018-07-30] MEDS: Polyethylene Glycol 3350* 17 GM PACKET PO SCH (10:25)
[2018-07-30] MEDS ORDERED: NS 0.9% 1000 ML** 1,000 ML IV SCH (15:45)
[2018-07-30] MEDS ORDERED: Insulin GLARGINE(*) 1 UNITS UNIT SUBCUT ONE (17:55)
[2018-07-30] MEDS: VENETOCLAX 200 MG PO SCH (18:10)
[2018-07-30] MEDS: Insulin GLARGINE(*) 1 UNITS UNIT SUBCUT SCH (18:16)
[2018-07-30] MEDS: Lidocaine 2% JELLY* 6 ML JELLY TOPICAL PRN (19:44)
[2018-07-31] MEDS: Cefepime 2 GM in Dextrose(*) 2 GM/50 ML BAG IV SCH ×2 (01:41→14:33)
[2018-07-31] MEDS: Lidocaine 2% JELLY* 6 ML JELLY TOPICAL PRN ×2 (05:43→09:24)
[2018-07-31 07:37] LABS: Hematocrit 27 % (42-52); Mean Corpuscular HGB Conc 33 g/dL (31-36); Mean Corpuscular Hemoglobin 31 pg (27-31); Mean Corpuscular Volume 93 fL (80-94); Mean Platelet Volume 8.3 fL (7.4-10.4); Platelet Count 105 10^3/uL (150-450); Red Blood Count 2.94 10^6 /uL (4.18-5.48); Red Cell Distribution Width 22 % (10.5-15); White Blood Count 0.5 10^3/uL (3.5-10.8)
[2018-07-31 07:47] LABS: Albumin 2.5 g/dL (3.2-5.2); Albumin/Globulin Ratio 0.8 (1-3); BUN/Creatinine Ratio 30.8 (8-20); Calcium 7.6 mg/dL (8.6-10.3); EGFR African American 58.8 (>60); EGFR Non-African American 48.6 (>60); Globulin 3.1 g/dL (2-4); Potassium 4.1 mmol/L (3.5-5.0); Total Bilirubin 1.3 mg/dL (0.2-1.0); Total Protein 5.6 g/dL (6.4-8.9)
[2018-07-31] MEDS: Insulin LISPRO* 1 UNITS UNIT SUBCUT SCH ×4 (08:19→21:40)
[2018-07-31] MEDS: Acetaminophen TAB* 325 MG PO PRN ×3 (09:20→21:37)
[2018-07-31] MEDS: Allopurinol TAB* 300 MG PO SCH (09:22)
[2018-07-31] MEDS: Senna TAB PO SCH (09:22)
[2018-07-31] MEDS: Polyethylene Glycol 3350* 17 GM PACKET PO SCH (09:23)
[2018-07-31] MEDS: Amiodarone TAB* 200 MG PO SCH (09:23)
[2018-07-31] MEDS: guaiFENesin ER TAB 600 MG PO SCH ×2 (09:23→21:37)
--- NOTE | 2018-07-31 09:38 | PN ---
Progress Note - Progress Note Date of Service: 07/31/18 SOAP: Subjective: []Continue work of breathing. Nursing notes he does not desaturate however. Using NC as he does not like mask, however breathing through mouth throughout visit. No cough. Biggest complaint today is pain at gray and feeling sensation of needing to urinate and pain with this. Wt. documented this AM up almost 18 lbs. Requested repeat Medications: Acetaminophen (Tylenol Tab*) 650 mg PO Q4H PRN PRN Reason: FEVER/PAIN Last Admin: 07/31/18 09:20 Dose: 650 mg Allopurinol (Zyloprim Tab*) 300 mg PO DAILY [facility] Last Admin: 07/31/18 09:22 Dose: 300 mg Amiodarone HCl (Cordarone Tab*) 100 mg PO QAM [facility] Last Admin: 07/31/18 09:23 Dose: 100 mg Dextrose (D50w Syringe 50 Ml*) 12.5 gm IV PUSH .FOR FS < 60 - SS PRN PRN Reason: FS < 60 Guaifenesin (Mucinex*) 600 mg PO BID [facility] Last Admin: 07/31/18 09:23 Dose: 600 mg Heparin Sodium (Porcine) (Heparin Flush Picc/Ml/Cvc(*)) 1 - 3 ml FLUSH 0600, 1800 [facility]; Protocol Last Admin: 07/31/18 05:43 Dose: 2 ml Cefepime HCl (Maxipime 2 Gm In Dextrose Duplex (*)) 2 gm in 50 mls @ 100 mls/ hr IV Q12H [facility] Last Admin: 07/31/18 01:41 Dose: 100 mls/hr Sodium Chloride (Ns 0.9% 1000 Ml) 1,000 mls @ 50 mls/hr IV .PER RATE [facility] Last Admin: 07/30/18 16:48 Dose: 50 mls/hr Insulin Glargine (Lantus(*)) 70 units SUBCUT QPM [facility] Last Admin: 07/30/18 18:16 Dose: Not Given Insulin Human Lispro (Humalog*) 0 units SUBCUT ACHS [facility]; Protocol Last Admin: 07/31/18 08:19 Dose: Not Given Lidocaine HCl (Lidocaine 2% Jelly*) 1 applic TOPICAL Q2H PRN PRN Reason: gray related pain Last Admin: 07/31/18 09:24 Dose: 1 applic Lorazepam (Ativan Tab(*)) 0.5 mg PO Q6H PRN PRN Reason: ANXIETY Last Admin: 07/30/18 21:19 Dose: 0.5 mg Melatonin (Melatonin) 3 mg PO BEDTIME PRN PRN Reason: SLEEP Last Admin: 07/29/18 21:19 Dose: 3 mg Pto:* (Venetoclax [ (Venclexta] 200 Mg)) 200 mg PO DAILY@1700 [facility] Last Admin: 07/30/18 18:10 Dose: 200 mg Ondansetron HCl (Zofran Inj*) 4 mg IV Q4H PRN PRN Reason: NAUSEA/VOMITING Polyethylene Glycol/Electrolytes (Miralax*) 17 gm PO DAILY [facility] Last Admin: 07/31/18 09:23 Dose: Not Given Senna (Senokot Tab*) 1 tab PO DAILY [facility] Last Admin: 07/31/18 09:22 Dose: 1 tab Objective: [] Vital Signs Temp Pulse Resp BP Pulse Ox 97.1 F 72 20 99/46 100 07/31/18 03:37 07/31/18 03:37 07/31/18 03:37 07/31/18 03:37 07/31/18 03:37 A&Ox3, somewhat sleepy, but answering all questions appropriately EOMI, PERRLA, neuro grossly non-focal KOHLER, good strength = bilat. HRR, paced with PVCs on tele LS clear with poor resp. effort, mouth breathing despite NC +BS, abd. round, obese, soft, without tenderness Gray draining dark, clear, yellow urine Trace pedal edema Pale Laboratory Results - last 24 hr 07/30/18 07/30/18 07/31/18 17:44 19:43 07:11 WBC 0.5 L RBC 2.94 L Hgb 9.0 L Hct 27 L MCV 93 MCH 31 MCHC 33 RDW 22 H Plt Count 105 L MPV 8.3 Neutrophils % Lymphocytes % Monocytes % Basophils % Abs Neuts (Manual) Abs Lymphs (Manual) Abs Monocytes (Manual) Abs Basophils (Manual) Nucleated RBCs/100 WBC Normal RBC Morphology Polychromasia Anisocytosis Patient Temperature ABG pH ABG pH (Temp Correct) ABG pCO2 ABG pCO2 (Temp Corrct ABG pO2 ABG pO2 (Temp Correct ABG HCO3 ABG O2 Saturation ABG Base Excess Respiration Rate O2 Delivery Device Ventilator Type Vent Mode FiO2 Inspiratory Time PEEP Pressure Support Pressure Control EPAP IPAP BiPAP Sodium Potassium Chloride Carbon Dioxide Anion Gap BUN Creatinine Est GFR ( Amer) Est GFR (Non-Af Amer) BUN/Creatinine Ratio Glucose POC Glucose (mg/dL) 171 H 143 H Calcium Total Bilirubin AST ALT Alkaline Phosphatase Total Protein Albumin Globulin Albumin/Globulin Ratio 07/31/18 07:11 WBC RBC Hgb Hct MCV MCH MCHC RDW Plt Count MPV Neutrophils % Lymphocytes % Monocytes % Basophils % Abs Neuts (Manual) Abs Lymphs (Manual) Abs Monocytes (Manual) Abs Basophils (Manual) Nucleated RBCs/100 WBC Normal RBC Morphology Polychromasia Anisocytosis Patient Temperature ABG pH ABG pH (Temp Correct) ABG pCO2 ABG pCO2 (Temp Corrct ABG pO2 ABG pO2 (Temp Correct ABG HCO3 ABG O2 Saturation ABG Base Excess Respiration Rate O2 Delivery Device Ventilator Type Vent Mode FiO2 Inspiratory Time PEEP Pressure Support Pressure Control EPAP IPAP BiPAP Sodium 140 Potassium 4.1 Chloride 111 Carbon Dioxide 23 Anion Gap 6 BUN 44 H Creatinine 1.43 H Est GFR ( Amer) 58.8 Est GFR (Non-Af Amer) 48.6 BUN/Creatinine Ratio 30.8 H Glucose 109 H POC Glucose (mg/dL) Calcium 7.6 L Total Bilirubin 1.30 H AST 65 H ALT 227 H Alkaline Phosphatase 61 Total Protein 5.6 L Albumin 2.5 L Globulin 3.1 Albumin/Globulin Ratio 0.8 L 07/31/18 07:11 B-Natriuretic Peptide 1274 H Intake and Output Last 24 Hours 07/29/18 07/30/18 07/31/18 08/01/18 06:59 06:59 06:59 06:59 Intake Total 655 400 9355 Output Total 1974 Balance -6853 -177 280 Weight 301 lb 11.2 oz 303 lb 8 oz 321 lb 12.8 oz Intake: IV Fluids 18 735 ABX - CEFEPIME 18 NS (0.9%) 735 IVPB 56 ABX - CEFEPIME 56 Oral 274 850 1778 Output: Gray 1974 Other: Estimated Void Medium Selected Entries 07/31/18 08:36 Weight 297 lb 9.6 oz Assessment: []73 yo male with recent diagnosis of AML currently on AZA/Venetoclax, C1D1 07/09 , admitted with febrile neutropenia with no source identified. Suspect his counts will not completely recover due to diagnosis and tx., therefore discharge will be based off of return to baseline. Plan: []1. Febrile neutropenia/sepsis: culture negative - tmax 101.3 07/26/18, no further fevers - cont cefepime 2g IV q12 hr 2. SOB: likely related to body habitus and hx. CHF - no acute hypoxia and therefore resp. cause unlikely - echo without significant pericardial effusion, non-diagnostic for EF however prior EF in 2009 25-30% - demand ischemia on admission r/t hypotension, no overt cardiac event - repeat wt. now - elevated BNP, resume lasix today with 40 mg PO and 20 mg IV - d/c IV fluids 3. AML: on AZA and venetoclax, c1D22 today - per protocol will not hold venetoclax despite cytopenias - no growth factor support - transfuse Hb <8, plts <10 - cont allopurinol through cycle 1 to protect against tumor lysis syndrome ( C2D1 due 08/06) 4. Dysuria: likely irritation from gray - check sterile UA and remove gray - consider pyridium if cont.'d discomfort and UA negative 5. Weakness and deconditioning: multi-factorial - cont. PT/OT - OOB to chair for meals - d/c gray as above will improve OOB activity and may help constipation as well 6. Transaminitis: stabilized - suspect mild shock liver from hypotension - cont. daily labs 7. DM: - cont. lantus @ 70units - cont. sliding scale coverage as well 8. ALEXIS: cont CPAP while sleeping 9. DVT prophylaxis: start Lovenox as plt. >100 FULL CODE
[2018-07-31] MEDS ORDERED: Furosemide TAB* 40 MG PO SCH (11:00)
[2018-07-31] MEDS ORDERED: Furosemide IV* 10 MG/ML 2 ML VIAL (20 MG) IV ONE (12:13)
[2018-07-31] MEDS: Enoxaparin(*) 30 MG/0.3 ML SYR SUBCUT SCH (12:33)
[2018-07-31 14:22] LABS: Urine Appearance Cloudy; Urine Bacteria Absent (Absent); Urine Bilirubin Negative (Negative); Urine Blood 3+ (Negative); Urine Color Amber; Urine Glucose Negative (Negative); Urine Granular Casts Present (Absent); Urine Ketones Negative (Negative); Urine Nitrite Negative (Negative); Urine Protein 1+(30 mg/dL) (Negative); Urine Red Blood Cell 3+(>10/hpf) (Absent); Urine Specific Gravity 1.026 (1.010-1.030); Urine Urobilinogen Negative (Negative); Urine White Blood Cell 3+(>20/hpf) (Absent)
[2018-07-31] MEDS: VENETOCLAX 200 MG PO SCH (16:21)
[2018-07-31] MEDS: Insulin GLARGINE(*) 1 UNITS UNIT SUBCUT SCH (17:31)
[2018-07-31] MEDS: LORazepam TAB(*) 0.5 MG PO PRN (21:36)
[2018-08-01] MEDS: Cefepime 2 GM in Dextrose(*) 2 GM/50 ML BAG IV SCH ×2 (04:09→14:25)
[2018-08-01 06:57] LABS: Albumin 2.5 g/dL (3.2-5.2); Albumin/Globulin Ratio 0.9 (1-3); BUN/Creatinine Ratio 33.6 (8-20); Calcium 7.6 mg/dL (8.6-10.3); EGFR African American 72.7 (>60); EGFR Non-African American 60.1 (>60); Globulin 2.9 g/dL (2-4); Potassium 3.7 mmol/L (3.5-5.0); Total Bilirubin 1.1 mg/dL (0.2-1.0); Total Protein 5.4 g/dL (6.4-8.9)
[2018-08-01 07:05] LABS: Hematocrit 27 % (42-52); Hemoglobin 9.1 g/dL (14.0-18.0); Mean Corpuscular HGB Conc 33 g/dL (31-36); Mean Corpuscular Hemoglobin 31 pg (27-31); Mean Corpuscular Volume 92 fL (80-94); Mean Platelet Volume 8.3 fL (7.4-10.4); Platelet Count 135 10^3/uL (150-450); Red Blood Count 2.97 10^6 /uL (4.18-5.48); Red Cell Distribution Width 21 % (10.5-15); White Blood Count 0.7 10^3/uL (3.5-10.8)
[2018-08-01] MEDS: Insulin LISPRO* 1 UNITS UNIT SUBCUT SCH ×4 (07:47→21:25)
[2018-08-01] MEDS: Allopurinol TAB* 300 MG PO SCH (08:09)
[2018-08-01] MEDS: Senna TAB PO SCH (08:10)
[2018-08-01] MEDS: Polyethylene Glycol 3350* 17 GM PACKET PO SCH (08:10)
[2018-08-01] MEDS: Amiodarone TAB* 200 MG PO SCH (08:10)
[2018-08-01] MEDS: guaiFENesin ER TAB 600 MG PO SCH ×2 (08:10→20:00)
[2018-08-01 09:15] LABS: ABS Neutrophils 0.2 10^3/ul (1.5-7.7); Polychromasia 1+
[2018-08-01] MEDS: Acetaminophen TAB* 325 MG PO PRN ×2 (10:18→20:00)
[2018-08-01] MEDS: Enoxaparin(*) 30 MG/0.3 ML SYR SUBCUT SCH (10:18)
[2018-08-01] MEDS ORDERED: Furosemide TAB* 40 MG PO SCH (11:00)
--- NOTE | 2018-08-01 11:36 | PN ---
Progress Note - Progress Note Date of Service: 08/01/18 SOAP: Subjective: []C/o abd. discomfort this AM, "My stomach is off" and requesting Tums. Tired. Breathing stable. working on rehab paperwork. At home was walking short distances with walker, thus far only OOB to chair. Still c/o dysuria. Medications: Acetaminophen (Tylenol Tab*) 650 mg PO Q4H PRN PRN Reason: FEVER/PAIN Last Admin: 08/01/18 10:18 Dose: 650 mg Allopurinol (Zyloprim Tab*) 300 mg PO DAILY [facility] Last Admin: 08/01/18 08:09 Dose: 300 mg Amiodarone HCl (Cordarone Tab*) 100 mg PO QAM [facility] Last Admin: 08/01/18 08:10 Dose: 100 mg Calcium Carbonate (Tums*) 500 mg PO Q4H PRN PRN Reason: reflux Last Admin: 08/01/18 11:54 Dose: 500 mg Dextrose (D50w Syringe 50 Ml*) 12.5 gm IV PUSH .FOR FS < 60 - SS PRN PRN Reason: FS < 60 Enoxaparin Sodium (Lovenox(*)) 30 mg SUBCUT Q24H [facility] Last Admin: 08/01/18 10:18 Dose: 30 mg Furosemide (Lasix Tab*) 40 mg PO BID [facility] Guaifenesin (Mucinex*) 600 mg PO BID [facility] Last Admin: 08/01/18 08:10 Dose: 600 mg Heparin Sodium (Porcine) (Heparin Flush Picc/Ml/Cvc(*)) 1 - 3 ml FLUSH 0600, 1800 [facility]; Protocol Last Admin: 08/01/18 06:10 Dose: 2 ml Cefepime HCl (Maxipime 2 Gm In Dextrose Duplex (*)) 2 gm in 50 mls @ 100 mls/ hr IV Q12H [facility] Last Admin: 08/01/18 04:09 Dose: 100 mls/hr Insulin Glargine (Lantus(*)) 70 units SUBCUT QPM [facility] Last Admin: 07/31/18 17:31 Dose: 70 unit Insulin Human Lispro (Humalog*) 0 units SUBCUT ACHS [facility]; Protocol Last Admin: 08/01/18 11:54 Dose: 1 units Lidocaine HCl (Lidocaine 2% Jelly*) 1 applic TOPICAL Q2H PRN PRN Reason: gray related pain Last Admin: 07/31/18 09:24 Dose: 1 applic Lorazepam (Ativan Tab(*)) 0.5 mg PO Q6H PRN PRN Reason: ANXIETY Last Admin: 07/31/18 21:36 Dose: 0.5 mg Melatonin (Melatonin) 3 mg PO BEDTIME PRN PRN Reason: SLEEP Last Admin: 07/29/18 21:19 Dose: 3 mg Pto:* (Venetoclax [ (Venclexta] 200 Mg)) 200 mg PO DAILY@1700 [facility] Last Admin: 07/31/18 16:21 Dose: 200 mg Ondansetron HCl (Zofran Inj*) 4 mg IV Q4H PRN PRN Reason: NAUSEA/VOMITING Phenazopyridine HCl (Pyridium 200 Mg (Nf)) 200 mg PO TID PRN PRN Reason: PAIN Polyethylene Glycol/Electrolytes (Miralax*) 17 gm PO DAILY [facility] Last Admin: 08/01/18 08:10 Dose: 17 gm Senna (Senokot Tab*) 1 tab PO DAILY [facility] Last Admin: 08/01/18 08:10 Dose: 1 tab Objective: [] Vital Signs Temp Pulse Resp BP Pulse Ox 97.6 F 76 18 105/48 99 08/01/18 08:11 08/01/18 08:11 08/01/18 08:11 08/01/18 08:11 08/01/18 08:11 A&Ox3, EOMI, neuro grossly non-focal HRR, distant heart sounds LS clear +BS, abd. soft and non-tender, obese Laboratory Results - last 24 hr 07/31/18 07/31/18 07/31/18 11:59 12:00 16:24 WBC RBC Hgb Hct MCV MCH MCHC RDW Plt Count MPV Neut % (Auto) Lymph % (Auto) [place] % (Auto) Eos % (Auto) Baso % (Auto) Absolute Neuts (auto) Absolute Lymphs (auto) Absolute Monos (auto) Absolute Eos (auto) Absolute Basos (auto) Absolute Nucleated RBC Neutrophils % Lymphocytes % Reactive Lymphs % Monocytes % Eosinophils % Basophils % Nucleated RBC % Abs Neuts (Manual) Abs Lymphs (Manual) Abs Monocytes (Manual) Absolute Eos (Manual) Abs Basophils (Manual) Normal RBC Morphology Polychromasia Anisocytosis Sodium Potassium Chloride Carbon Dioxide Anion Gap BUN Creatinine Est GFR ( Amer) Est GFR (Non-Af Amer) BUN/Creatinine Ratio Glucose POC Glucose (mg/dL) 182 H 232 H Calcium Total Bilirubin AST ALT Alkaline Phosphatase B-Natriuretic Peptide Total Protein Albumin Globulin Albumin/Globulin Ratio Urine Color [place] Urine Appearance Cloudy Urine pH 5.0 Ur Specific [place] 1.026 Urine Protein 1+(30 mg/dl) A Urine Ketones Negative Urine Blood 3+ A Urine Nitrate Negative Urine Bilirubin Negative Urine Urobilinogen Negative Ur Leukocyte Esterase Negative Urine WBC (Auto) 3+(>20/hpf) A Urine RBC (Auto) 3+(>10/hpf) A Urine Bacteria Absent Hyaline Casts Present A Granular Casts Present A Urine Glucose Negative 07/31/18 08/01/18 08/01/18 19:32 06:04 06:04 WBC 0.7 L RBC 2.97 L Hgb 9.1 L Hct 27 L MCV 92 MCH 31 MCHC 33 RDW 21 H Plt Count 135 L MPV 8.3 Neut % (Auto) Not Reportable Lymph % (Auto) Not Reportable [place] % (Auto) Not Reportable Eos % (Auto) Not Reportable Baso % (Auto) Not Reportable Absolute Neuts (auto) 0.2 L Absolute Lymphs (auto) Not Reportable Absolute Monos (auto) Not Reportable Absolute Eos (auto) Not Reportable Absolute Basos (auto) Not Reportable Absolute Nucleated RBC Not Reportable Neutrophils % 27.0 Lymphocytes % 69.0 Reactive Lymphs % 2.0 Monocytes % 0.0 Eosinophils % 2.0 Basophils % 0.0 Nucleated RBC % Not Reportable Abs Neuts (Manual) 0.2 L Abs Lymphs (Manual) 0.5 L Abs Monocytes (Manual) 0.0 Absolute Eos (Manual) 0.0 Abs Basophils (Manual) 0.0 Normal RBC Morphology Not Reportable Polychromasia 1+ Anisocytosis 1+ Sodium 140 Potassium 3.7 Chloride 112 H Carbon Dioxide 25 Anion Gap 3 BUN 40 H Creatinine 1.19 H Est GFR ( Amer) 72.7 Est GFR (Non-Af Amer) 60.1 BUN/Creatinine Ratio 33.6 H Glucose 55 L POC Glucose (mg/dL) 261 H Calcium 7.6 L Total Bilirubin 1.10 H AST 37 ALT 178 H Alkaline Phosphatase 57 B-Natriuretic Peptide Total Protein 5.4 L Albumin 2.5 L Globulin 2.9 Albumin/Globulin Ratio 0.9 L Urine Color Urine Appearance Urine pH Ur Specific [place] Urine Protein Urine Ketones Urine Blood Urine Nitrate Urine Bilirubin Urine Urobilinogen Ur Leukocyte Esterase Urine WBC (Auto) Urine RBC (Auto) Urine Bacteria Hyaline Casts Granular Casts Urine Glucose 08/01/18 08/01/18 08/01/18 06:04 07:39 08:09 WBC RBC Hgb Hct MCV MCH MCHC RDW Plt Count MPV Neut % (Auto) Lymph % (Auto) [place] % (Auto) Eos % (Auto) Baso % (Auto) Absolute Neuts (auto) Absolute Lymphs (auto) Absolute Monos (auto) Absolute Eos (auto) Absolute Basos (auto) Absolute Nucleated RBC Neutrophils % Lymphocytes % Reactive Lymphs % Monocytes % Eosinophils % Basophils % Nucleated RBC % Abs Neuts (Manual) Abs Lymphs (Manual) Abs Monocytes (Manual) Absolute Eos (Manual) Abs Basophils (Manual) Normal RBC Morphology Polychromasia Anisocytosis Sodium Potassium Chloride Carbon Dioxide Anion Gap BUN Creatinine Est GFR ( Amer) Est GFR (Non-Af Amer) BUN/Creatinine Ratio Glucose POC Glucose (mg/dL) 54 L 78 Calcium Total Bilirubin AST ALT Alkaline Phosphatase B-Natriuretic Peptide 862 H Total Protein Albumin Globulin Albumin/Globulin Ratio Urine Color Urine Appearance Urine pH Ur Specific [place] Urine Protein Urine Ketones Urine Blood Urine Nitrate Urine Bilirubin Urine Urobilinogen Ur Leukocyte Esterase Urine WBC (Auto) Urine RBC (Auto) Urine Bacteria Hyaline Casts Granular Casts Urine Glucose 08/01/18 11:28 WBC RBC Hgb Hct MCV MCH MCHC RDW Plt Count MPV Neut % (Auto) Lymph % (Auto) [place] % (Auto) Eos % (Auto) Baso % (Auto) Absolute Neuts (auto) Absolute Lymphs (auto) Absolute Monos (auto) Absolute Eos (auto) Absolute Basos (auto) Absolute Nucleated RBC Neutrophils % Lymphocytes % Reactive Lymphs % Monocytes % Eosinophils % Basophils % Nucleated RBC % Abs Neuts (Manual) Abs Lymphs (Manual) Abs Monocytes (Manual) Absolute Eos (Manual) Abs Basophils (Manual) Normal RBC Morphology Polychromasia Anisocytosis Sodium Potassium Chloride Carbon Dioxide Anion Gap BUN Creatinine Est GFR ( Amer) Est GFR (Non-Af Amer) BUN/Creatinine Ratio Glucose POC Glucose (mg/dL) 144 H Calcium Total Bilirubin AST ALT Alkaline Phosphatase B-Natriuretic Peptide Total Protein Albumin Globulin Albumin/Globulin Ratio Urine Color Urine Appearance Urine pH Ur Specific [place] Urine Protein Urine Ketones Urine Blood Urine Nitrate Urine Bilirubin Urine Urobilinogen Ur Leukocyte Esterase Urine WBC (Auto) Urine RBC (Auto) Urine Bacteria Hyaline Casts Granular Casts Urine Glucose Assessment: []73 yo male with recent diagnosis of AML currently on AZA/Venetoclax, C1D1 07/09 , admitted with febrile neutropenia with no source identified. Suspect his counts will not completely recover due to diagnosis and tx., therefore discharge will be based off of return toward baseline, he appears to be improving slowly. Plan: []1. Febrile neutropenia/sepsis: cultures negative - tmax 101.3 07/26/18, no further fevers - cont cefepime 2g IV q12 hr - neutropenia unlikely to resolve with goal of current therapy "bone marrow wash out" 2. CHF - cont. lasix and will resume home 40 mg PO BID dose today 3. AML: on AZA and venetoclax, c1D23 today - per protocol will not hold venetoclax despite cytopenias - no growth factor support - transfuse Hb <8, plts <10 - cont allopurinol through cycle 1 to protect against tumor lysis syndrome ( C2D1 due 08/06, no plan for delay) 4. Dysuria: - start pyridium - culture pending 5. Weakness and deconditioning: multi-factorial - cont. PT/OT - OOB to chair for meals - dispo. to rehab hopefully later this week 6. Transaminitis: markedly improved - suspect mild shock liver from hypotension - cont. daily labs 7. DM: hypoglycemia this AM, asymptomatic - decrease lantus to 65 units - cont. sliding scale coverage 8. ALEXIS: cont CPAP while sleeping 9. DVT prophylaxis: start Lovenox as plt. >100 FULL CODE Dispo: likely in next couple days to rehab
[2018-08-01] MEDS: Calcium Carbonate CHEW TAB* 500 MG (TUMS) PO PRN ×2 (11:54→20:16)
[2018-08-01] MEDS ORDERED: Furosemide IV* 10 MG/ML 2 ML VIAL (20 MG) IV SLOW PU ONE (12:27)
[2018-08-01] MEDS: Phenazopyridine TAB* 100 MG PO PRN (14:24)
[2018-08-01] MEDS: VENETOCLAX 200 MG PO SCH (16:56)
[2018-08-01] MEDS ORDERED: Insulin GLARGINE(*) 1 UNITS UNIT SUBCUT SCH (18:00)
[2018-08-01] MEDS: Furosemide TAB* 40 MG PO SCH ×2 (20:11→20:13)
[2018-08-01] MEDS: Melatonin 3 MG TAB PO PRN (22:07)
[2018-08-01] MEDS: LORazepam TAB(*) 0.5 MG PO PRN (22:07)
[2018-08-02] MEDS: Cefepime 2 GM in Dextrose(*) 2 GM/50 ML BAG IV SCH ×2 (02:03→13:35)
[2018-08-02 04:41] LABS: Hematocrit 28 % (42-52); Hemoglobin 9.6 g/dL (14.0-18.0); Mean Corpuscular HGB Conc 34 g/dL (31-36); Mean Corpuscular Hemoglobin 31 pg (27-31); Mean Corpuscular Volume 92 fL (80-94); Platelet Count 184 10^3/uL (150-450); Red Blood Count 3.08 10^6 /uL (4.18-5.48); Red Cell Distribution Width 22 % (10.5-15); White Blood Count 0.9 10^3/uL (3.5-10.8)
[2018-08-02 04:51] LABS: Albumin 2.6 g/dL (3.2-5.2); Albumin/Globulin Ratio 0.8 (1-3); BUN/Creatinine Ratio 26.7 (8-20); EGFR African American 74.9 (>60); EGFR Non-African American 61.9 (>60); Globulin 3.1 g/dL (2-4); Potassium 3.6 mmol/L (3.5-5.0); Total Bilirubin 1.1 mg/dL (0.2-1.0); Total Protein 5.7 g/dL (6.4-8.9)
[2018-08-02 05:55] LABS: Polychromasia 1+
[2018-08-02 06:26] LABS: ABS Lymphocytes 0.4 10^3/ul (1.0-4.8); ABS Monocytes 0.1 10^3/ul (0-0.8); ABS Neutrophils 0.3 10^3/ul (1.5-7.7); ABS Nucleated RBC 0.9 10^3/ul; Eosinophil % 2.2 %; Lymphocyte % 46.3 %; Nucleated Red Blood Cells % 93.6
[2018-08-02 07:48] LABS: Magnesium 2.4 mg/dL (1.9-2.7)
[2018-08-02] MEDS: guaiFENesin ER TAB 600 MG PO SCH ×2 (07:52→20:41)
[2018-08-02] MEDS: Senna TAB PO SCH (07:52)
[2018-08-02] MEDS: Amiodarone TAB* 200 MG PO SCH (07:52)
[2018-08-02] MEDS: Phenazopyridine TAB* 100 MG PO PRN (07:52)
[2018-08-02] MEDS: Insulin LISPRO* 1 UNITS UNIT SUBCUT SCH ×4 (07:52→20:40)
[2018-08-02] MEDS: Furosemide TAB* 40 MG PO SCH ×2 (07:52→20:40)
[2018-08-02] MEDS: Allopurinol TAB* 300 MG PO SCH (07:52)
[2018-08-02] MEDS: Potassium Chlor TAB* 20 MEQ TAB.ER PO SCH ×2 (07:52→20:40)
[2018-08-02] MEDS: Polyethylene Glycol 3350* 17 GM PACKET PO SCH (07:55)
[2018-08-02] MEDS: LORazepam TAB(*) 0.5 MG PO PRN ×2 (08:59→18:55)
[2018-08-02] MEDS: Enoxaparin(*) 30 MG/0.3 ML SYR SUBCUT SCH (09:00)
[2018-08-02] MEDS: Acetaminophen TAB* 325 MG PO PRN ×2 (13:31→18:51)
--- NOTE | 2018-08-02 14:52 | PN ---
Progress Note - Progress Note Date of Service: 08/02/18 SOAP: Subjective: feels terrible. "i think i am going to ". continues to be SOB though O2 sat stable. mouth breathing. very weak and deconditioned. again quite hypoglycemic this am. Objective: Vital Signs Temp Pulse Resp BP Pulse Ox 96.7 F 76 20 110/49 100 08/02/18 11:24 08/02/18 11:24 08/02/18 11:24 08/02/18 11:24 08/02/18 11:24 lying flat, tired appearing perr eomi op dry CTA bl s1 s2 nl obese nt +Bs 1+ LE edema bl A+O x 3, grossly nonfocal but globally weak Laboratory Results - last 24 hr 08/01/18 08/01/18 08/02/18 16:35 20:01 04:25 WBC 0.9 L RBC 3.08 L Hgb 9.6 L Hct 28 L MCV 92 MCH 31 MCHC 34 RDW 22 H Plt Count 184 MPV 8.0 Neut % (Auto) 36.3 Lymph % (Auto) 46.3 [place] % (Auto) 11.8 Eos % (Auto) 2.2 Baso % (Auto) 3.4 Absolute Neuts (auto) 0.3 L Absolute Lymphs (auto) 0.4 L Absolute Monos (auto) 0.1 Absolute Eos (auto) 0.0 Absolute Basos (auto) 0.0 Absolute Nucleated RBC 0.9 Neutrophils % 38.0 Lymphocytes % 47.0 Monocytes % 14.0 Eosinophils % 1.0 Nucleated RBC % 93.6 Normal RBC Morphology Not Reportable Polychromasia 1+ Anisocytosis 1+ Hem Pathologist Commnt Sodium Potassium Chloride Carbon Dioxide Anion Gap BUN Creatinine Est GFR ( Amer) Est GFR (Non-Af Amer) BUN/Creatinine Ratio Glucose POC Glucose (mg/dL) 234 H 222 H Calcium Magnesium Total Bilirubin AST ALT Alkaline Phosphatase Total Protein Albumin Globulin Albumin/Globulin Ratio 08/02/18 08/02/18 08/02/18 04:25 05:10 07:14 WBC RBC Hgb Hct MCV MCH MCHC RDW Plt Count MPV Neut % (Auto) Lymph % (Auto) [place] % (Auto) Eos % (Auto) Baso % (Auto) Absolute Neuts (auto) Absolute Lymphs (auto) Absolute Monos (auto) Absolute Eos (auto) Absolute Basos (auto) Absolute Nucleated RBC Neutrophils % Lymphocytes % Monocytes % Eosinophils % Nucleated RBC % Normal RBC Morphology Polychromasia Anisocytosis Hem Pathologist Commnt Sodium 141 Potassium 3.6 Chloride 111 Carbon Dioxide 26 Anion Gap 4 BUN 31 H Creatinine 1.16 Est GFR ( Amer) 74.9 Est GFR (Non-Af Amer) 61.9 BUN/Creatinine Ratio 26.7 H Glucose 44 L* POC Glucose (mg/dL) 103 H 149 H Calcium 8.0 L Magnesium 2.4 Total Bilirubin 1.10 H AST 27 ALT 145 H Alkaline Phosphatase 57 Total Protein 5.7 L Albumin 2.6 L Globulin 3.1 Albumin/Globulin Ratio 0.8 L 08/02/18 08/02/18 09:04 11:15 WBC RBC Hgb Hct MCV MCH MCHC RDW Plt Count MPV Neut % (Auto) Lymph % (Auto) [place] % (Auto) Eos % (Auto) Baso % (Auto) Absolute Neuts (auto) Absolute Lymphs (auto) Absolute Monos (auto) Absolute Eos (auto) Absolute Basos (auto) Absolute Nucleated RBC Neutrophils % Lymphocytes % Monocytes % Eosinophils % Nucleated RBC % Normal RBC Morphology Polychromasia Anisocytosis Hem Pathologist Commnt Sodium Potassium Chloride Carbon Dioxide Anion Gap BUN Creatinine Est GFR ( Amer) Est GFR (Non-Af Amer) BUN/Creatinine Ratio Glucose POC Glucose (mg/dL) 117 H 147 H Calcium Magnesium Total Bilirubin AST ALT Alkaline Phosphatase Total Protein Albumin Globulin Albumin/Globulin Ratio Acetaminophen (Tylenol Tab*) 650 mg PO Q4H PRN PRN Reason: FEVER/PAIN Last Admin: 08/02/18 13:31 Dose: 650 mg Allopurinol (Zyloprim Tab*) 300 mg PO DAILY [facility] Last Admin: 08/02/18 07:52 Dose: 300 mg Amiodarone HCl (Cordarone Tab*) 100 mg PO QAM [facility] Last Admin: 08/02/18 07:52 Dose: 100 mg Calcium Carbonate (Tums*) 500 mg PO Q4H PRN PRN Reason: reflux Last Admin: 08/01/18 20:16 Dose: 500 mg Dextrose (D50w Syringe 50 Ml*) 12.5 gm IV PUSH .FOR FS < 60 - SS PRN PRN Reason: FS < 60 Enoxaparin Sodium (Lovenox(*)) 30 mg SUBCUT Q24H [facility] Last Admin: 08/02/18 09:00 Dose: 30 mg Furosemide (Lasix Tab*) 40 mg PO BID [facility] Last Admin: 08/02/18 07:52 Dose: 40 mg Guaifenesin (Mucinex*) 600 mg PO BID [facility] Last Admin: 08/02/18 07:52 Dose: 600 mg Heparin Sodium (Porcine) (Heparin Flush Picc/Ml/Cvc(*)) 1 - 3 ml FLUSH 0600, 1800 [facility]; Protocol Last Admin: 08/02/18 04:18 Dose: 1 ml Cefepime HCl (Maxipime 2 Gm In Dextrose Duplex (*)) 2 gm in 50 mls @ 100 mls/ hr IV Q12H [facility] Last Admin: 08/02/18 13:35 Dose: 100 mls/hr Insulin Glargine (Lantus(*)) 50 units SUBCUT QPM [facility] Insulin Human Lispro (Humalog*) 0 units SUBCUT ACHS [facility]; Protocol Last Admin: 08/02/18 11:52 Dose: 1 units Lidocaine HCl (Lidocaine 2% Jelly*) 1 applic TOPICAL Q2H PRN PRN Reason: gray related pain Last Admin: 07/31/18 09:24 Dose: 1 applic Lorazepam (Ativan Tab(*)) 0.5 mg PO Q6H PRN PRN Reason: ANXIETY Last Admin: 08/02/18 08:59 Dose: 0.5 mg Melatonin (Melatonin) 3 mg PO BEDTIME PRN PRN Reason: SLEEP Last Admin: 08/01/18 22:07 Dose: 3 mg Pto:* (Venetoclax [ (Venclexta] 200 Mg)) 200 mg PO DAILY@1700 [facility] Last Admin: 08/01/18 16:56 Dose: 200 mg Ondansetron HCl (Zofran Inj*) 4 mg IV Q4H PRN PRN Reason: NAUSEA/VOMITING Phenazopyridine HCl (Pyridium Tab*) 200 mg PO TID PRN PRN Reason: PAIN Last Admin: 08/02/18 07:52 Dose: 200 mg Polyethylene Glycol/Electrolytes (Miralax*) 17 gm PO DAILY [facility] Last Admin: 08/02/18 07:55 Dose: Not Given Potassium Chloride (Klor Con Er Tab*) 20 meq PO BID [facility] Last Admin: 08/02/18 07:52 Dose: 20 meq Senna (Senokot Tab*) 1 tab PO DAILY [facility] Last Admin: 08/02/18 07:52 Dose: 1 tab Assessment: 73 yo male with 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 Suspect his counts will not completely recover due to diagnosis and tx., therefore discharge will be based off of return toward baseline. He is quite deconditioned and will likely need STR but can NOT delay tx for AML. Plan: 1. Febrile neutropenia/sepsis: cultures negative - cont cefepime 2g IV q12 hr until therapy - neutropenia unlikely to resolve with goal of current therapy "bone marrow wash out" 2. CHF - cont. lasix 40 mg PO BID 3. AML: on AZA and venetoclax, c1D23 today - per protocol will not hold venetoclax despite cytopenias - no growth factor support - transfuse Hb <8, plts <10 - C2D1 due 08/06, no plan for delay 4. Dysuria: - pyridium - cultures neg x 2 despite pyuria 5. Weakness and deconditioning: multi-factorial - cont. PT/OT - OOB to chair for meals - dispo. to rehab 6. DM: hypoglycemia again this AM, suspect feeling of dying in am related to this - decrease lantus to 50 units - cont. sliding scale coverage 7. ALEXIS: cont CPAP while sleeping 8. DVT prophylaxis: sLovenox as plt. >100 FULL CODE Dispo: likely in next couple days to rehab
[2018-08-02] MEDS: VENETOCLAX 200 MG PO SCH (17:24)
[2018-08-02] MEDS ORDERED: Insulin GLARGINE(*) 1 UNITS UNIT SUBCUT SCH ×2 (18:00)
[2018-08-02] MEDS: Calcium Carbonate CHEW TAB* 500 MG (TUMS) PO PRN (18:51)
[2018-08-03] MEDS: Cefepime 2 GM in Dextrose(*) 2 GM/50 ML BAG IV SCH ×2 (02:23→14:52)
[2018-08-03] MEDS: Acetaminophen TAB* 325 MG PO PRN ×2 (04:14→19:52)
[2018-08-03 04:31] LABS: Hematocrit 26 % (42-52); Hemoglobin 8.6 g/dL (14.0-18.0); Mean Corpuscular HGB Conc 33 g/dL (31-36); Mean Corpuscular Hemoglobin 31 pg (27-31); Mean Corpuscular Volume 93 fL (80-94); Mean Platelet Volume 7.6 fL (7.4-10.4); Platelet Count 168 10^3/uL (150-450); Red Blood Count 2.79 10^6 /uL (4.18-5.48); Red Cell Distribution Width 22 % (10.5-15); White Blood Count 0.7 10^3/uL (3.5-10.8)
[2018-08-03 04:48] LABS: Albumin 2.5 g/dL (3.2-5.2); Albumin/Globulin Ratio 0.9 (1-3); BUN/Creatinine Ratio 22.5 (8-20); Calcium 7.4 mg/dL (8.6-10.3); EGFR Non-African American 59.5 (>60); Globulin 2.9 g/dL (2-4); Potassium 3.5 mmol/L (3.5-5.0); Total Protein 5.4 g/dL (6.4-8.9)
[2018-08-03 04:57] LABS: ABS Lymphocytes 0.2 10^3/ul (1.0-4.8); ABS Neutrophils 0.4 10^3/ul (1.5-7.7); ABS Nucleated RBC 0.3 10^3/ul; Lymphocyte % 30.2 %; Nucleated Red Blood Cells % 54.4
[2018-08-03] MEDS: Insulin LISPRO* 1 UNITS UNIT SUBCUT SCH ×4 (07:36→21:16)
[2018-08-03] MEDS: Potassium Chlor TAB* 20 MEQ TAB.ER PO SCH ×2 (08:26→21:00)
[2018-08-03] MEDS: Polyethylene Glycol 3350* 17 GM PACKET PO SCH (08:26)
[2018-08-03] MEDS: Furosemide TAB* 40 MG PO SCH ×2 (08:27→21:01)
[2018-08-03] MEDS: guaiFENesin ER TAB 600 MG PO SCH ×2 (08:27→21:00)
[2018-08-03] MEDS: Senna TAB PO SCH (08:27)
[2018-08-03] MEDS: Amiodarone TAB* 200 MG PO SCH (08:27)
[2018-08-03] MEDS: Enoxaparin(*) 30 MG/0.3 ML SYR SUBCUT SCH (08:27)
--- NOTE | 2018-08-03 11:06 | PN ---
Progress Note - Progress Note Date of Service: 08/03/18 SOAP: Subjective: [Continues to feel poorly. Dizzy and weak with movement. Symptoms are stable to slightly improved per patient. The weakness/dizziness has been present for the last several months, preceding starting chemotherapy. Respiratory symptoms are stable. Using CPAP while sleeping for ALEXIS. Good urine output, but incontinent.] Objective: [ Vital Signs: Temp Pulse Resp BP Pulse Ox 97.6 F 72 20 102/49 98 08/03/18 08:10 08/03/18 08:10 08/03/18 08:10 08/03/18 08:10 08/03/18 08:10 Acetaminophen (Tylenol Tab*) 650 mg PO Q4H PRN PRN Reason: FEVER/PAIN Last Admin: 08/03/18 04:14 Dose: 650 mg Amiodarone HCl (Cordarone Tab*) 100 mg PO QAM [facility] Last Admin: 08/03/18 08:27 Dose: 100 mg Calcium Carbonate (Tums*) 500 mg PO Q4H PRN PRN Reason: reflux Last Admin: 08/02/18 18:51 Dose: 500 mg Dextrose (D50w Syringe 50 Ml*) 12.5 gm IV PUSH .FOR FS < 60 - SS PRN PRN Reason: FS < 60 Enoxaparin Sodium (Lovenox(*)) 30 mg SUBCUT Q24H [facility] Last Admin: 08/03/18 08:27 Dose: 30 mg Furosemide (Lasix Tab*) 40 mg PO BID [facility] Last Admin: 08/03/18 08:27 Dose: 40 mg Guaifenesin (Mucinex*) 600 mg PO BID [facility] Last Admin: 08/03/18 08:27 Dose: 600 mg Heparin Sodium (Porcine) (Heparin Flush Picc/Ml/Cvc(*)) 1 - 3 ml FLUSH 0600, 1800 [facility]; Protocol Last Admin: 08/03/18 04:15 Dose: 2 ml Cefepime HCl (Maxipime 2 Gm In Dextrose Duplex (*)) 2 gm in 50 mls @ 100 mls/ hr IV Q12H [facility] Last Admin: 08/03/18 02:23 Dose: 100 mls/hr Insulin Glargine (Lantus(*)) 30 units SUBCUT QPM [facility] Last Admin: 08/02/18 17:25 Dose: 30 units Insulin Human Lispro (Humalog*) 0 units SUBCUT ACHS [facility]; Protocol Last Admin: 08/03/18 07:36 Dose: Not Given Lidocaine HCl (Lidocaine 2% Jelly*) 1 applic TOPICAL Q2H PRN PRN Reason: gray related pain Last Admin: 07/31/18 09:24 Dose: 1 applic Lorazepam (Ativan Tab(*)) 0.5 mg PO Q6H PRN PRN Reason: ANXIETY Last Admin: 08/02/18 18:55 Dose: 0.5 mg Melatonin (Melatonin) 3 mg PO BEDTIME PRN PRN Reason: SLEEP Last Admin: 08/01/18 22:07 Dose: 3 mg Pto:* (Venetoclax [ (Venclexta] 200 Mg)) 200 mg PO DAILY@1700 [facility] Last Admin: 08/02/18 17:24 Dose: 200 mg Ondansetron HCl (Zofran Inj*) 4 mg IV Q4H PRN PRN Reason: NAUSEA/VOMITING Phenazopyridine HCl (Pyridium Tab*) 200 mg PO TID PRN PRN Reason: PAIN Last Admin: 08/02/18 07:52 Dose: 200 mg Polyethylene Glycol/Electrolytes (Miralax*) 17 gm PO DAILY [facility] Last Admin: 08/03/18 08:26 Dose: 17 gm Potassium Chloride (Klor Con Er Tab*) 20 meq PO BID [facility] Last Admin: 08/03/18 08:26 Dose: 20 meq Senna (Senokot Tab*) 1 tab PO DAILY [facility] Last Admin: 08/03/18 08:27 Dose: 1 tab Laboratory Results - last 24 hr 08/02/18 08/02/18 08/02/18 04:25 11:15 16:12 WBC RBC Hgb Hct MCV MCH MCHC RDW Plt Count MPV Neut % (Auto) Lymph % (Auto) [place] % (Auto) Eos % (Auto) Baso % (Auto) Absolute Neuts (auto) Absolute Lymphs (auto) Absolute Monos (auto) Absolute Eos (auto) Absolute Basos (auto) Absolute Nucleated RBC Nucleated RBC % Hem Pathologist Commnt Sodium Potassium Chloride Carbon Dioxide Anion Gap BUN Creatinine Est GFR ( Amer) Est GFR (Non-Af Amer) BUN/Creatinine Ratio Glucose POC Glucose (mg/dL) 147 H 94 Calcium Total Bilirubin AST ALT Alkaline Phosphatase Total Protein Albumin Globulin Albumin/Globulin Ratio 08/02/18 08/03/18 08/03/18 20:14 04:25 04:25 WBC 0.7 L RBC 2.79 L Hgb 8.6 L Hct 26 L MCV 93 MCH 31 MCHC 33 RDW 22 H Plt Count 168 MPV 7.6 Neut % (Auto) 63.1 Lymph % (Auto) 30.2 [place] % (Auto) 2.3 Eos % (Auto) 1.0 Baso % (Auto) 3.4 Absolute Neuts (auto) 0.4 L Absolute Lymphs (auto) 0.2 L Absolute Monos (auto) 0.0 Absolute Eos (auto) 0.0 Absolute Basos (auto) 0.0 Absolute Nucleated RBC 0.3 Nucleated RBC % 54.4 Hem Pathologist Commnt Sodium 141 Potassium 3.5 Chloride 106 Carbon Dioxide 29 Anion Gap 6 BUN 27 H Creatinine 1.20 H Est GFR ( Amer) 72.0 Est GFR (Non-Af Amer) 59.5 BUN/Creatinine Ratio 22.5 H Glucose 92 POC Glucose (mg/dL) 149 H Calcium 7.4 L Total Bilirubin 1.00 AST 17 ALT 92 H Alkaline Phosphatase 55 Total Protein 5.4 L Albumin 2.5 L Globulin 2.9 Albumin/Globulin Ratio 0.9 L 08/03/18 07:29 WBC RBC Hgb Hct MCV MCH MCHC RDW Plt Count MPV Neut % (Auto) Lymph % (Auto) [place] % (Auto) Eos % (Auto) Baso % (Auto) Absolute Neuts (auto) Absolute Lymphs (auto) Absolute Monos (auto) Absolute Eos (auto) Absolute Basos (auto) Absolute Nucleated RBC Nucleated RBC % Hem Pathologist Commnt Sodium Potassium Chloride Carbon Dioxide Anion Gap BUN Creatinine Est GFR ( Amer) Est GFR (Non-Af Amer) BUN/Creatinine Ratio Glucose POC Glucose (mg/dL) 68 L Calcium Total Bilirubin AST ALT Alkaline Phosphatase Total Protein Albumin Globulin Albumin/Globulin Ratio Exam: Gen: Ill appearing and lethargic 73 yo male in NAD, closes eyes freq during conversation and is unable to move in bed independently HEENT: MMM CV: RRR, no m/r/g Resp: limited exam, but no adventitious sounds Abd: soft, active BS, nonTTP Ext: 1-2+ LE edema, pitting on the anterior lower leg Skin: multiple areas of ecchymosis] [Assessment: 73 yo male with 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 Suspect his counts will not completely recover due to diagnosis and tx., therefore discharge will be based off of return toward baseline. He is quite deconditioned and will likely need STR but can NOT delay tx for AML. Plan: 1. Febrile neutropenia/sepsis: cultures negative - cont cefepime 2g IV q12 hr until discharge, consider continuing oral abx prophylaxis as outpt, but he was on Levaquin prior to this admission - neutropenia unlikely to resolve with goal of current therapy "bone marrow wash out" 2. CHF - cont. lasix 40 mg PO BID 3. AML: on AZA and venetoclax, c1D25 today - per protocol will not hold venetoclax despite cytopenias - no growth factor support - transfuse Hb <8, plts <10 - C2D1 due 08/06, no plan for delay 4. Dysuria: - improving - cont pyridium - cultures neg x 2 despite pyuria 5. Weakness and deconditioning: multi-factorial - cont. PT/OT - OOB to chair for meals - dispo. to rehab 6. DM: continues to be hypoglycemic despite rapid decrease in Lantus - decrease lantus further to 20 units (home dose 60U) - would like to avoid glucose <100 mg/dl while acutely ill - cont. sliding scale coverage 7. ALEXIS: cont CPAP while sleeping 8. DVT prophylaxis: Lovenox as plt. >100 FULL CODE Dispo: continue inpatient stay through the weekend and evaluate for dc to [facility] early next week
[2018-08-03] MEDS: Insulin GLARGINE(*) 1 UNITS UNIT SUBCUT SCH (18:12)
[2018-08-03] MEDS: VENETOCLAX 200 MG PO SCH (18:13)
[2018-08-03] MEDS: LORazepam TAB(*) 0.5 MG PO PRN (19:44)
[2018-08-03] MEDS: Melatonin 3 MG TAB PO PRN (21:00)
[2018-08-04] MEDS: Cefepime 2 GM in Dextrose(*) 2 GM/50 ML BAG IV SCH ×2 (02:48→15:11)
[2018-08-04] MEDS: LORazepam TAB(*) 0.5 MG PO PRN (04:50)
[2018-08-04 05:22] LABS: Hematocrit 26 % (42-52); Hemoglobin 8.5 g/dL (14.0-18.0); Mean Corpuscular HGB Conc 33 g/dL (31-36); Mean Corpuscular Hemoglobin 31 pg (27-31); Mean Corpuscular Volume 92 fL (80-94); Mean Platelet Volume 8.1 fL (7.4-10.4); Platelet Count 215 10^3/uL (150-450); Red Blood Count 2.77 10^6 /uL (4.18-5.48); Red Cell Distribution Width 22 % (10.5-15)
[2018-08-04 05:50] LABS: Albumin 2.6 g/dL (3.2-5.2); Albumin/Globulin Ratio 0.8 (1-3); BUN/Creatinine Ratio 20.5 (8-20); Calcium 7.5 mg/dL (8.6-10.3); EGFR African American 74.1 (>60); EGFR Non-African American 61.3 (>60); Globulin 3.1 g/dL (2-4); Potassium 3.7 mmol/L (3.5-5.0); Total Bilirubin 1.2 mg/dL (0.2-1.0); Total Protein 5.7 g/dL (6.4-8.9)
[2018-08-04 06:03] LABS: ABS Basophils 0.1 10^3/ul (0-0.2); ABS Lymphocytes 0.2 10^3/ul (1.0-4.8); ABS Neutrophils 0.7 10^3/ul (1.5-7.7); ABS Nucleated RBC 0.3 10^3/ul; Eosinophil % 0.4 %; Lymphocyte % 20.8 %; Nucleated Red Blood Cells % 28.7
[2018-08-04] MEDS: Insulin LISPRO* 1 UNITS UNIT SUBCUT SCH ×4 (09:24→22:31)
[2018-08-04] MEDS: Polyethylene Glycol 3350* 17 GM PACKET PO SCH (10:26)
[2018-08-04] MEDS: Furosemide TAB* 40 MG PO SCH ×2 (10:26→22:31)
[2018-08-04] MEDS: Senna TAB PO SCH (10:26)
[2018-08-04] MEDS: Amiodarone TAB* 200 MG PO SCH (10:27)
[2018-08-04] MEDS: guaiFENesin ER TAB 600 MG PO SCH ×2 (10:27→22:30)
[2018-08-04] MEDS: Enoxaparin(*) 30 MG/0.3 ML SYR SUBCUT SCH (10:27)
[2018-08-04] MEDS: Potassium Chlor TAB* 20 MEQ TAB.ER PO SCH ×2 (10:27→22:31)
--- NOTE | 2018-08-04 10:33 | PN ---
Progress Note - Progress Note Date of Service: 08/04/18 SOAP: Subjective: []Still not feeling well. Has been very fatigued, hurts all over. Very SOB, had difficulty sitting in chair. says his breathing is a little better today. He is eating, no diarrhea. No fevers. No bleeding. Acetaminophen (Tylenol Tab*) 650 mg PO Q4H PRN PRN Reason: FEVER/PAIN Last Admin: 08/03/18 19:52 Dose: 650 mg Amiodarone HCl (Cordarone Tab*) 100 mg PO QAM [facility] Last Admin: 08/03/18 08:27 Dose: 100 mg Azacitidine (Vidaza* Sq Use) 185 mg SUBCUT ONCE ONE Stop: 08/06/18 09:01 Calcium Carbonate (Tums*) 500 mg PO Q4H PRN PRN Reason: reflux Last Admin: 08/02/18 18:51 Dose: 500 mg Dextrose (D50w Syringe 50 Ml*) 12.5 gm IV PUSH .FOR FS < 60 - SS PRN PRN Reason: FS < 60 Enoxaparin Sodium (Lovenox(*)) 30 mg SUBCUT Q24H [facility] Last Admin: 08/03/18 08:27 Dose: 30 mg Furosemide (Lasix Tab*) 40 mg PO BID [facility] Last Admin: 08/03/18 21:01 Dose: 40 mg Guaifenesin (Mucinex*) 600 mg PO BID [facility] Last Admin: 08/03/18 21:00 Dose: 600 mg Heparin Sodium (Porcine) (Heparin Flush Picc/Ml/Cvc(*)) 1 - 3 ml FLUSH 0600, 1800 [facility]; Protocol Last Admin: 08/04/18 04:56 Dose: 2 ml Cefepime HCl (Maxipime 2 Gm In Dextrose Duplex (*)) 2 gm in 50 mls @ 100 mls/ hr IV Q12H [facility] Last Admin: 08/04/18 02:48 Dose: 100 mls/hr Insulin Glargine (Lantus(*)) 20 units SUBCUT QPM [facility] Last Admin: 08/03/18 18:12 Dose: 20 units Insulin Human Lispro (Humalog*) 0 units SUBCUT ACHS [facility]; Protocol Last Admin: 08/04/18 09:24 Dose: Not Given Lidocaine HCl (Lidocaine 2% Jelly*) 1 applic TOPICAL Q2H PRN PRN Reason: gray related pain Last Admin: 07/31/18 09:24 Dose: 1 applic Lorazepam (Ativan Tab(*)) 0.5 mg PO Q6H PRN PRN Reason: ANXIETY Last Admin: 08/04/18 04:50 Dose: 0.5 mg Melatonin (Melatonin) 3 mg PO BEDTIME PRN PRN Reason: SLEEP Last Admin: 08/03/18 21:00 Dose: 3 mg Pto:* (Venetoclax [ (Venclexta] 200 Mg)) 200 mg PO DAILY@1700 [facility] Last Admin: 08/03/18 18:13 Dose: 200 mg Ondansetron HCl (Zofran Inj*) 4 mg IV Q4H PRN PRN Reason: NAUSEA/VOMITING Phenazopyridine HCl (Pyridium Tab*) 200 mg PO TID PRN PRN Reason: PAIN Last Admin: 08/02/18 07:52 Dose: 200 mg Polyethylene Glycol/Electrolytes (Miralax*) 17 gm PO DAILY [facility] Last Admin: 08/03/18 08:26 Dose: 17 gm Potassium Chloride (Klor Con Er Tab*) 20 meq PO BID [facility] Last Admin: 08/03/18 21:00 Dose: 20 meq Senna (Senokot Tab*) 1 tab PO DAILY [facility] Last Admin: 08/03/18 08:27 Dose: 1 tab Objective: [] Vital Signs Temp Pulse Resp BP Pulse Ox 98.9 F 78 26 106/53 98 08/04/18 03:06 08/04/18 03:06 08/04/18 07:00 08/04/18 03:06 08/04/18 03:06 VTAC overnight 9 -13 [employer] runs. 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 He will start cycle 2 on Monday, therapy will not be held for low blood counts and he is very deconditioned. Expect prolonged neutropenia and hospitalization. Plan: 1. Febrile neutropenia/sepsis: cultures negative - cont cefepime 2g IV q12 hr until discharge, had been on Levoquin at time of first fever. - neutropenia unlikely to resolve for several weeks, ANC 700 today. 2. Cardiac - CHF: cont. lasix 40 mg PO BID - VTAC: Case d/w Dr. Agosto and will replete K, check overnight O2 saturation. AICD in place. 3. AML: on AZA and venetoclax, c1D26 today - per protocol will not hold venetoclax despite cytopenias - no growth factor support - transfuse today given sever SOB, plts <10 - C2D1 due 08/06, no plan for delay 4. Dysuria: - improved - cont pyridium - cultures neg x 2 despite pyuria 5. Weakness and deconditioning: multi-factorial - cont. PT/OT - OOB to chair for meals - dispo. to rehab 6. DM: BS stable over past 24 hrs on reduced Lantus - lantus 20 units (home dose 60U) - would like to avoid glucose <100 mg/dl while acutely ill - cont. sliding scale coverage 7. ALEXIS: cont CPAP while sleeping, checking overnight O2 8. DVT prophylaxis: Lovenox as plt. >100 FULL CODE Dispo: continue inpatient stay through the weekend and evaluate for dc to [facility] early next week
[2018-08-04] MEDS: KCL 10 MEQ/50 ML IVPREMIX* 10 MEQ/50 ML BAG IV SCH ×4 (11:16→17:26)
[2018-08-04] MEDS ORDERED: KCL 10 MEQ/50 ML IVPREMIX* 10 MEQ/50 ML BAG ONE ×2 (15:57→17:17)
[2018-08-04] MEDS: Insulin GLARGINE(*) 1 UNITS UNIT SUBCUT SCH (17:26)
[2018-08-04] MEDS: VENETOCLAX 200 MG PO SCH (17:27)
[2018-08-04] MEDS: Acetaminophen TAB* 325 MG PO PRN ×2 (17:27→22:30)
[2018-08-04] MEDS: Melatonin 3 MG TAB PO PRN (22:30)
[2018-08-05] MEDS: Cefepime 2 GM in Dextrose(*) 2 GM/50 ML BAG IV SCH ×2 (03:10→14:54)
[2018-08-05 06:55] LABS: Albumin 2.6 g/dL (3.2-5.2); Albumin/Globulin Ratio 0.8 (1-3); BUN/Creatinine Ratio 20.7 (8-20); Calcium 7.7 mg/dL (8.6-10.3); EGFR African American 78.8 (>60); EGFR Non-African American 65.1 (>60); Globulin 3.3 g/dL (2-4); Potassium 4.2 mmol/L (3.5-5.0); Total Bilirubin 1.2 mg/dL (0.2-1.0); Total Protein 5.9 g/dL (6.4-8.9)
[2018-08-05 07:03] LABS: Hematocrit 28 % (42-52); Hemoglobin 9.3 g/dL (14.0-18.0); Mean Corpuscular HGB Conc 33 g/dL (31-36); Mean Corpuscular Hemoglobin 31 pg (27-31); Mean Corpuscular Volume 93 fL (80-94); Red Blood Count 3.05 10^6 /uL (4.18-5.48); Red Cell Distribution Width 21 % (10.5-15); White Blood Count 1.8 10^3/uL (3.5-10.8)
[2018-08-05 07:49] LABS: Mean Platelet Volume 8.4 fL (7.4-10.4); Platelet Count 245 10^3/uL (150-450)
[2018-08-05 08:08] LABS: ABS Neutrophils 1.4 10^3/ul (1.5-7.7); ABS Neutrophils 1.5 10^3/ul (1.5-7.7); Acanthocytes 2+; Polychromasia 1+
[2018-08-05] MEDS ORDERED: Furosemide IV* 10 MG/ML 2 ML VIAL (20 MG) IV SLOW PU ONE (08:39)
[2018-08-05] MEDS: Enoxaparin(*) 30 MG/0.3 ML SYR SUBCUT SCH (09:38)
[2018-08-05] MEDS: Insulin LISPRO* 1 UNITS UNIT SUBCUT SCH ×4 (09:38→21:35)
[2018-08-05] MEDS: Amiodarone TAB* 200 MG PO SCH (09:39)
[2018-08-05] MEDS: guaiFENesin ER TAB 600 MG PO SCH ×2 (09:39→21:34)
[2018-08-05] MEDS: Potassium Chlor TAB* 20 MEQ TAB.ER PO SCH ×2 (09:39→21:36)
[2018-08-05] MEDS: Senna TAB PO SCH (09:39)
[2018-08-05] MEDS: Polyethylene Glycol 3350* 17 GM PACKET PO SCH (09:39)
[2018-08-05] MEDS: Furosemide TAB* 40 MG PO SCH ×2 (09:39→21:34)
[2018-08-05] MEDS: Magic Mouth Was-BEN/MAAL/LIDO SWISH SPIT SCH ×4 (12:22→21:40)
--- NOTE | 2018-08-05 12:54 | PN ---
Subjective Date of Service: 08/05/18 Interval History: Patient still feeling very poorly. Patient's main concern is his dry mouth. Patient states popcicles are the only thing that helps. Patient states that he has worsened SOB. Patient denies F/C, N/V, abdominal pain, diarrhea, CP. Patient complains of intermittent cough and pain all over which is stable. Family History: Unchanged from Admission Social History: Unchanged from Admission Past Medical History: Unchanged from Admission Objective Active Medications: Acetaminophen (Tylenol Tab*) 650 mg PO Q4H PRN PRN Reason: FEVER/PAIN Last Admin: 08/04/18 22:30 Dose: 650 mg Amiodarone HCl (Cordarone Tab*) 200 mg PO QAM [facility] Last Admin: 08/05/18 09:39 Dose: 200 mg Azacitidine (Vidaza* Sq Use) 185 mg SUBCUT ONCE ONE Stop: 08/06/18 09:01 Calcium Carbonate (Tums*) 500 mg PO Q4H PRN PRN Reason: reflux Last Admin: 08/02/18 18:51 Dose: 500 mg Dextrose (D50w Syringe 50 Ml*) 12.5 gm IV PUSH .FOR FS < 60 - SS PRN PRN Reason: FS < 60 Enoxaparin Sodium (Lovenox(*)) 30 mg SUBCUT Q24H [facility] Last Admin: 08/05/18 09:38 Dose: 30 mg Furosemide (Lasix Tab*) 40 mg PO BID [facility] Last Admin: 08/05/18 09:39 Dose: 40 mg Guaifenesin (Mucinex*) 600 mg PO BID [facility] Last Admin: 08/05/18 09:39 Dose: 600 mg Heparin Sodium (Porcine) (Heparin Flush Picc/Ml/Cvc(*)) 1 - 3 ml FLUSH 0600, 1800 [facility]; Protocol Last Admin: 08/05/18 06:35 Dose: 2 ml Cefepime HCl (Maxipime 2 Gm In Dextrose Duplex (*)) 2 gm in 50 mls @ 100 mls/ hr IV Q12H [facility] Last Admin: 08/05/18 03:10 Dose: 100 mls/hr Insulin Glargine (Lantus(*)) 20 units SUBCUT QPM [facility] Last Admin: 08/04/18 17:26 Dose: 20 units Insulin Human Lispro (Humalog*) 0 units SUBCUT ACHS [facility]; Protocol Last Admin: 08/05/18 12:23 Dose: 8 units Lidocaine HCl (Lidocaine 2% Jelly*) 1 applic TOPICAL Q2H PRN PRN Reason: gray related pain Last Admin: 07/31/18 09:24 Dose: 1 applic Melatonin (Melatonin) 3 mg PO BEDTIME PRN PRN Reason: SLEEP Last Admin: 08/04/18 22:30 Dose: 3 mg Multi-Ingredient Mouthwash/Gargle (Magic Mouth Was-Frank/Maal/Lido*) 5 ml SWISH SPIT QID [facility] Last Admin: 08/05/18 12:22 Dose: 5 ml Pto:* (Venetoclax [ (Venclexta] 200 Mg)) 200 mg PO DAILY@1700 [facility] Last Admin: 08/04/18 17:27 Dose: 200 mg Ondansetron HCl (Zofran Inj*) 4 mg IV Q4H PRN PRN Reason: NAUSEA/VOMITING Phenazopyridine HCl (Pyridium Tab*) 200 mg PO TID PRN PRN Reason: PAIN Last Admin: 08/02/18 07:52 Dose: 200 mg Polyethylene Glycol/Electrolytes (Miralax*) 17 gm PO DAILY [facility] Last Admin: 08/05/18 09:39 Dose: 17 gm Potassium Chloride (Klor Con Er Tab*) 20 meq PO BID [facility] Last Admin: 08/05/18 09:39 Dose: 20 meq Senna (Senokot Tab*) 1 tab PO DAILY [facility] Last Admin: 08/05/18 09:39 Dose: 1 tab Oxygen Devices in Use Now: Nasal Cannula Appearance: Patient is a 72yo male who appears older than stated age and is sitting in the bed in [facility]. Eyes: No Scleral Icterus, PERRLA Ears/Nose/Mouth/Throat: NL Teeth, Lips, Gums, Clear Oropharnyx, Mucous Membranes Moist Neck: NL Appearance and Movements; NL JVP, Trachea Midline Respiratory: Symmetrical Chest Expansion and Respiratory Effort, Clear to Auscultation Cardiovascular: NL Sounds; No Murmurs; No JVD, RRR, No Edema Abdominal: NL Sounds; No Tenderness; No Distention, No Hepatosplenomegaly Lymphatic: No Cervical Adenopathy Extremities: No Edema, No Clubbing, Cyanosis Skin: No Rash or Ulcers, No Nodules or Sclerosis Neurological: Alert and Oriented x 3, NL Sensation, NL Muscle Strength and Tone , - - CN II-XII intact. Result Diagrams: 08/05/18 06:30 08/05/18 06:30 Microbiology and Other Data: . Assess/Plan/Problems-Billing Assessment: Mr. Luna is a 73 yo M of AML, CHF, afib, and DM starting treatment on 07/17/18 admitted for weakness and fever on 07/25/18 with neutropenic fever with sepsis of unknown etiology. All patient's cultures were negative. Patient continues to have severe adverse reactions to chemo. Patient is fluid overloaded and is being diuresed. - Patient Problems (1) Neutropenic fever Current Visit: Yes Status: Acute Code(s): D70.9 - NEUTROPENIA, UNSPECIFIED; R50.81 - FEVER PRESENTING WITH CONDITIONS CLASSIFIED ELSEWHERE SNOMED Code(s) : 743875764 Comment: - With sepsis - Afebrile since 07/26. - Blood and urine cultures negative. CTA chest without evidence of infiltrate, small pericardial effusion only. Echo subsequently ruled out pericardial effusion. - Continue cefepime until D/C (2) AML (acute myeloblastic leukemia) Current Visit: Yes Status: Acute Code(s): C92.00 - ACUTE MYELOBLASTIC LEUKEMIA, NOT HAVING ACHIEVED REMISSION SNOMED Code(s): 36099768 Comment: - Management per oncology, Continue chemo - Anemia with Hgb down to 5.9 on 07/26, total of 5 units PRBC. Hgb 9.3 today. - WBC increasing. - Probable Mucositis in mouth, start Magic Mouthwash. (3) Afib Current Visit: Yes Status: Acute Code(s): I48.91 - UNSPECIFIED ATRIAL FIBRILLATION SNOMED Code(s): 38556919 Comment: - Rate controlled, continue amiodarone - Anticoagulation contraindicated in setting of AML (4) V-tach Current Visit: Yes Status: Acute Code(s): I47.2 - VENTRICULAR TACHYCARDIA SNOMED Code(s): 93371339 Comment: - Non-sustained VT - ICD in place. - Overnight Pulse Oximetry pending - Optimize eletrolytes. - On Amiodarone - Predisposed due to severe HFrEF (5) CHF (congestive heart failure) Current Visit: Yes Status: Acute Code(s): I50.9 - HEART FAILURE, UNSPECIFIED SNOMED Code(s): 35261125 Comment: - No overt pulmonary edema today, will not diuresis further today, but needs close monitoring - S/P two rounds of furosemide yesterday with good urine output. - EF 25-30%, no pericardial effusion noted on echocardiogram - Chest xray 07/26 showed pulmonary interstitial edema - Give extra dose of Lasix IV today due to worsening SOB after transfusion (6) CKD (chronic kidney disease) Current Visit: Yes Status: Acute Code(s): N18.9 - CHRONIC KIDNEY DISEASE, UNSPECIFIED SNOMED Code(s): 517557280 Comment: - Stable (7) Diabetes Current Visit: Yes Status: Acute Code(s): E11.9 - TYPE 2 DIABETES MELLITUS WITHOUT COMPLICATIONS SNOMED Code(s): 56026415 Comment: - BGs well controlled - Continue BGs qAC with lispro SSI coverage and lantus (8) Elevated troponin Current Visit: Yes Status: Acute Code(s): R74.8 - ABNORMAL LEVELS OF OTHER SERUM ENZYMES SNOMED Code(s): 095279018 Comment: - Peaked on arrival at 0.7, intermittent chest pain, again pericardial effusion ruled out - Suspect demand ischemia in setting of acute illness, appreciated cardiology consultation (9) Full code status Current Visit: Yes Status: Acute Code(s): Z78.9 - OTHER SPECIFIED HEALTH STATUS SNOMED Code(s): 015922137 Comment: (10) ALEXIS (obstructive sleep apnea) Current Visit: Yes Status: Acute Code(s): G47.33 - OBSTRUCTIVE SLEEP APNEA ( ADULT) (PEDIATRIC) SNOMED Code(s): 29491258 Comment: - Continue CPAP when sleeping (11) DVT prophylaxis Current Visit: Yes Status: Acute Code(s): Z29.9 - ENCOUNTER FOR PROPHYLACTIC MEASURES, UNSPECIFIED SNOMED Code(s): 025373881 Comment: - Lovenox Status and Disposition: Inpatient with disposition per oncology
--- NOTE | 2018-08-05 13:52 | PN ---
Subjective Date of Service: 08/05/18 - CC: SOB, NXVT Interval History: HPI: Rodolfo Luna is a 73 year old man admitted with weakness and lightheadedness. He has AML and neutropenic fever. NSVT 08/04/18 w/sleep and amiodarone increased. Concern about CPAP if optimized. No notes from RT seen. Pt OOB to chair today, ambulated to BR, SOB at rest now. Medications Active Medications: Acetaminophen (Tylenol Tab*) 650 mg PO Q4H PRN PRN Reason: FEVER/PAIN Last Admin: 08/04/18 22:30 Dose: 650 mg Amiodarone HCl (Cordarone Tab*) 200 mg PO QAM [facility] Last Admin: 08/05/18 09:39 Dose: 200 mg Azacitidine (Vidaza* Sq Use) 185 mg SUBCUT ONCE ONE Stop: 08/06/18 09:01 Calcium Carbonate (Tums*) 500 mg PO Q4H PRN PRN Reason: reflux Last Admin: 08/02/18 18:51 Dose: 500 mg Dextrose (D50w Syringe 50 Ml*) 12.5 gm IV PUSH .FOR FS < 60 - SS PRN PRN Reason: FS < 60 Enoxaparin Sodium (Lovenox(*)) 30 mg SUBCUT Q24H [facility] Last Admin: 08/05/18 09:38 Dose: 30 mg Furosemide (Lasix Tab*) 40 mg PO BID [facility] Last Admin: 08/05/18 09:39 Dose: 40 mg Guaifenesin (Mucinex*) 600 mg PO BID [facility] Last Admin: 08/05/18 09:39 Dose: 600 mg Heparin Sodium (Porcine) (Heparin Flush Picc/Ml/Cvc(*)) 1 - 3 ml FLUSH 0600, 1800 [facility]; Protocol Last Admin: 08/05/18 06:35 Dose: 2 ml Cefepime HCl (Maxipime 2 Gm In Dextrose Duplex (*)) 2 gm in 50 mls @ 100 mls/ hr IV Q12H [facility] Last Admin: 08/05/18 03:10 Dose: 100 mls/hr Insulin Glargine (Lantus(*)) 20 units SUBCUT QPM [facility] Last Admin: 08/04/18 17:26 Dose: 20 units Insulin Human Lispro (Humalog*) 0 units SUBCUT ACHS [facility]; Protocol Last Admin: 08/05/18 12:23 Dose: 8 units Lidocaine HCl (Lidocaine 2% Jelly*) 1 applic TOPICAL Q2H PRN PRN Reason: gray related pain Last Admin: 07/31/18 09:24 Dose: 1 applic Melatonin (Melatonin) 3 mg PO BEDTIME PRN PRN Reason: SLEEP Last Admin: 08/04/18 22:30 Dose: 3 mg Multi-Ingredient Mouthwash/Gargle (Magic Mouth Was-Frank/Maal/Lido*) 5 ml SWISH SPIT QID [facility] Last Admin: 08/05/18 13:05 Dose: Not Given Pto:* (Venetoclax [ (Venclexta] 200 Mg)) 200 mg PO DAILY@1700 [facility] Last Admin: 08/04/18 17:27 Dose: 200 mg Ondansetron HCl (Zofran Inj*) 4 mg IV Q4H PRN PRN Reason: NAUSEA/VOMITING Phenazopyridine HCl (Pyridium Tab*) 200 mg PO TID PRN PRN Reason: PAIN Last Admin: 08/02/18 07:52 Dose: 200 mg Polyethylene Glycol/Electrolytes (Miralax*) 17 gm PO DAILY [facility] Last Admin: 08/05/18 09:39 Dose: 17 gm Potassium Chloride (Klor Con Er Tab*) 20 meq PO BID [facility] Last Admin: 08/05/18 09:39 Dose: 20 meq Senna (Senokot Tab*) 1 tab PO DAILY [facility] Last Admin: 08/05/18 09:39 Dose: 1 tab Objective Vital Signs: Temp Pulse Resp BP Pulse Ox 97.2 F 80 20 119/57 99 08/05/18 02:53 08/05/18 02:53 08/05/18 02:53 08/05/18 02:53 08/05/18 02:53 Intake and Output Last 24 Hours 08/03/18 08/04/18 08/05/18 08/06/18 04:59 04:59 04:59 04:59 Intake Total 1070 742 360 555 Output Total 475 401 0 350 Balance 595 341 360 205 Weight 322 lb 1.6 oz 318 lb 8 oz 307 lb 4.8 oz 306 lb 12.8 oz Intake: IV Fluids 15 82 25 ABX - CEFEPIME 15 62 NS (0.9%) 20 25 IVPB 105 50 50 ABX - CEFEPIME 105 50 50 Oral 950 610 360 480 Output: Urine 475 101 0 350 Gray 300 Other: Estimated Void Medium Medium Estimated Stool Amount Large Medium # Voids 2 1 Oxygen Devices in Use Now: Nasal Cannula Appearance: obese ill appearing gentleman, lying 30 degrees, tachypnic but able to answer questions Eyes: No Scleral Icterus, PERRLA Ears/Nose/Mouth/Throat: Clear Oropharnyx, Mucous Membranes Moist Neck: Trachea Midline - uncertain jvp Respiratory: Symmetrical Chest Expansion and Respiratory Effort, Clear to Auscultation Cardiovascular: RRR, - - distant, no obvious murmur. ICD pocket LEFT unremarkable. Abdominal: No Hepatosplenomegaly - Obese, soft, normal bowel sounds., - Extremities: No Clubbing, Cyanosis, - - 1+ edema Skin: No Rash or Ulcers, - - pale skin Neurological: Alert and Oriented x 3 Lines/Tubes/Other Access: Clean, Dry and Intact PICC Line Laboratory Results: 08/05/18 06:30 08/05/18 06:30 INR (Anticoag Therapy) 1.38 (0.82-1.09) H 07/25/18 13:58 APTT 25.6 seconds (26.0-36.3) L 07/25/18 13:58 Total Bilirubin 1.20 mg/dL (0.2-1.0) H 08/05/18 06:30 Direct Bilirubin 0.40 mg/dL (0.03-0.18) H 07/29/18 05:00 Indirect Bilirubin 0.7 mg/dL (0.3-1.0) 07/29/18 05:00 AST 13 U/L (13-39) 08/05/18 06:30 ALT 49 U/L (7-52) 08/05/18 06:30 Alkaline Phosphatase 48 U/L (34-104) 08/05/18 06:30 B-Natriuretic Peptide 862 pg/mL (<=100) H 08/01/18 06:04 Total Protein 5.9 g/dL (6.4-8.9) L 08/05/18 06:30 Albumin 2.6 g/dL (3.2-5.2) L 08/05/18 06:30 Globulin 3.3 g/dL (2-4) 08/05/18 06:30 Albumin/Globulin Ratio 0.8 (1-3) L 08/05/18 06:30 TSH 1.40 mcIU/mL (0.34-5.60) 07/27/18 05:50 07/25/18 07/25/18 07/25/18 13:58 17:36 20:05 Troponin I 0.75 H* 0.37 H* 0.31 H* 07/26/18 02:07 Troponin I 0.18 H* Diagnostic Imaging: [facility] study Date: 07/26/2018 1. Left ventricle: Not well visualized. The cavity size is normal. Wall thickness is mildly increased. Systolic function is mildly to moderately reduced. 2. Right ventricle: The cavity size is normal. Pacer wire noted in the right ventricle. Systolic function is reduced. 3. Ventricular septum: There is abnormal interventricular septal wall motion consistent with an RV pacemaker. 4. Aortic valve: Not well visualized. There is a bioprosthetic valve. There is no significant regurgitation. The peak systolic velocity is 2.53 m/sec. The mean systolic gradient is 17.0 mm Hg. Doppler velocity/gradient grossly unchanged from 07/2014 suggesting no significant stenosis. 5. Tricuspid valve: Not well visualized. 6. Pericardium, extracardiac: There is no pericardial effusion. Echocardiogram - (08/07/2014) [facility] Moderate LV dysfunction EF 35-40% Bioprosthetic AVR with normal function No AR Mild MR and TR EKG Data: SR, V paced, no VT since last night Assessment/Plan 73 yo male with neurtropenic fevers, AML, CM, VT with BiV ICD and was on low dose amiodarone. NSVT was with sleep on CPAP, 9 beats and 17 beats. No VT last night with increase of amiodarone from 100 to 200 mg/day. VT No new suggestions (see hand written note of 08/04/18 for additional details). Continue amiodarone 200 mg/day for now. SOB: Increased today, doubt this is due to 1 extra 100 mg amiodarone. Ensure getting OOB to chair, using inspirex. Some sputum in kidney bowl. Nutrapenc fever/AML: Per hospitlists and oncology. Low HCT will impact on SOB, CHF.
[2018-08-05] MEDS: Insulin GLARGINE(*) 1 UNITS UNIT SUBCUT SCH (17:40)
[2018-08-05] MEDS: VENETOCLAX 200 MG PO SCH (17:41)
[2018-08-05] MEDS: Acetaminophen TAB* 325 MG PO PRN (21:36)
[2018-08-05] MEDS: Melatonin 3 MG TAB PO PRN (21:36)
[2018-08-06] MEDS: Cefepime 2 GM in Dextrose(*) 2 GM/50 ML BAG IV SCH (03:04)
[2018-08-06] MEDS: LORazepam TAB(*) 0.5 MG PO PRN ×3 (03:51→20:51)
[2018-08-06 06:33] LABS: Hematocrit 28 % (42-52); Hemoglobin 9.1 g/dL (14.0-18.0); Mean Corpuscular HGB Conc 33 g/dL (31-36); Mean Corpuscular Hemoglobin 31 pg (27-31); Mean Corpuscular Volume 93 fL (80-94); Mean Platelet Volume 7.9 fL (7.4-10.4); Platelet Count 253 10^3/uL (150-450); Red Blood Count 2.98 10^6 /uL (4.18-5.48); Red Cell Distribution Width 21 % (10.5-15); White Blood Count 2.4 10^3/uL (3.5-10.8)
[2018-08-06 06:50] LABS: Calcium 7.7 mg/dL (8.6-10.3); EGFR African American 75.6 (>60); EGFR Non-African American 62.5 (>60); Magnesium 1.9 mg/dL (1.9-2.7); Potassium 4.2 mmol/L (3.5-5.0)
[2018-08-06 07:59] LABS: ABS Lymphocytes 0.3 10^3/ul (1.0-4.8); ABS Monocytes 0.2 10^3/ul (0-0.8); ABS Neutrophils 1.9 10^3/ul (1.5-7.7); ABS Nucleated RBC 0.1 10^3/ul; Lymphocyte % 14.5 %; Nucleated Red Blood Cells % 4.7
[2018-08-06 08:00] LABS: Polychromasia 2+
[2018-08-06] MEDS: Polyethylene Glycol 3350* 17 GM PACKET PO SCH (08:55)
[2018-08-06] MEDS: Senna TAB PO SCH (08:56)
[2018-08-06] MEDS: guaiFENesin ER TAB 600 MG PO SCH ×2 (08:56→20:51)
[2018-08-06] MEDS: Amiodarone TAB* 200 MG PO SCH (08:56)
[2018-08-06] MEDS: Potassium Chlor TAB* 20 MEQ TAB.ER PO SCH ×2 (08:56→20:51)
[2018-08-06] MEDS: Insulin LISPRO* 1 UNITS UNIT SUBCUT SCH ×4 (08:56→20:51)
[2018-08-06] MEDS: Furosemide TAB* 40 MG PO SCH ×2 (08:56→20:51)
[2018-08-06] MEDS: Magic Mouth Was-BEN/MAAL/LIDO SWISH SPIT SCH ×4 (08:56→20:59)
[2018-08-06] MEDS ORDERED: AZACITIDINE SUBCUT ONE (09:00)
[2018-08-06] MEDS: Enoxaparin(*) 30 MG/0.3 ML SYR SUBCUT SCH (09:34)
--- NOTE | 2018-08-06 09:51 | PN ---
Progress Note - Progress Note Date of Service: 08/06/18 SOAP: Subjective: []No change. SOB at rest, essentially bed bound, to chair with assistance. Very fatigued. No fevers, not in pain. Has continued edema. Using CPAP. Acetaminophen (Tylenol Tab*) 650 mg PO Q4H PRN PRN Reason: FEVER/PAIN Last Admin: 08/05/18 21:36 Dose: 650 mg Amiodarone HCl (Cordarone Tab*) 200 mg PO QAM [facility] Last Admin: 08/06/18 08:56 Dose: 200 mg Calcium Carbonate (Tums*) 500 mg PO Q4H PRN PRN Reason: reflux Last Admin: 08/02/18 18:51 Dose: 500 mg Dextrose (D50w Syringe 50 Ml*) 12.5 gm IV PUSH .FOR FS < 60 - SS PRN PRN Reason: FS < 60 Enoxaparin Sodium (Lovenox(*)) 30 mg SUBCUT Q24H [facility] Last Admin: 08/06/18 09:34 Dose: 30 mg Furosemide (Lasix Tab*) 40 mg PO BID [facility] Last Admin: 08/06/18 08:56 Dose: 40 mg Guaifenesin (Mucinex*) 600 mg PO BID [facility] Last Admin: 08/06/18 08:56 Dose: 600 mg Heparin Sodium (Porcine) (Heparin Flush Picc/Ml/Cvc(*)) 1 - 3 ml FLUSH 0600, 1800 [facility]; Protocol Last Admin: 08/06/18 06:11 Dose: 2 ml Insulin Glargine (Lantus(*)) 20 units SUBCUT QPM [facility] Last Admin: 08/05/18 17:40 Dose: 20 units Insulin Human Lispro (Humalog*) 0 units SUBCUT ACHS [facility]; Protocol Last Admin: 08/06/18 08:56 Dose: 2 units Lidocaine HCl (Lidocaine 2% Jelly*) 1 applic TOPICAL Q2H PRN PRN Reason: gray related pain Last Admin: 07/31/18 09:24 Dose: 1 applic Lorazepam (Ativan Tab(*)) 0.5 mg PO Q6H PRN PRN Reason: ANXIETY Last Admin: 08/06/18 03:51 Dose: 0.5 mg Melatonin (Melatonin) 3 mg PO BEDTIME PRN PRN Reason: SLEEP Last Admin: 08/05/18 21:36 Dose: 3 mg Multi-Ingredient Mouthwash/Gargle (Magic Mouth Was-Frank/Maal/Lido*) 5 ml SWISH SPIT QID [facility] Last Admin: 08/06/18 08:56 Dose: 5 ml Pto:* (Venetoclax [ (Venclexta] 200 Mg)) 200 mg PO DAILY@1700 [facility] Last Admin: 08/05/18 17:41 Dose: 200 mg Ondansetron HCl (Zofran Inj*) 4 mg IV Q4H PRN PRN Reason: NAUSEA/VOMITING Phenazopyridine HCl (Pyridium Tab*) 200 mg PO TID PRN PRN Reason: PAIN Last Admin: 08/02/18 07:52 Dose: 200 mg Polyethylene Glycol/Electrolytes (Miralax*) 17 gm PO DAILY [facility] Last Admin: 08/06/18 08:55 Dose: 17 gm Potassium Chloride (Klor Con Er Tab*) 20 meq PO BID [facility] Last Admin: 08/06/18 08:56 Dose: 20 meq Senna (Senokot Tab*) 1 tab PO DAILY [facility] Last Admin: 08/06/18 08:56 Dose: 1 tab Objective: [] Vital Signs Temp Pulse Resp BP Pulse Ox 97.4 F 67 20 116/35 97 08/06/18 07:25 08/06/18 07:25 08/06/18 08:00 08/06/18 07:25 08/06/18 07:25 Exam: Gen: Ill appearing and lethargic 73 yo male in NAD, unable to move in bed independently HEENT: MMM, bleeding around lips, on O2 CV: RRR, no m/r/g Resp: limited exam, but no wheezing, could not get to lung base Abd: soft, active BS, nonTTP, obese Ext: 1-2+ LE edema, pitting on the anterior lower leg Skin: multiple areas of ecchymosis] [Assessment: 73 yo male with 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 Today ANC of 1900 and he is starting cycle 2 AA. Remains SOB and very deconditioned. Plan: 1. Febrile neutropenia/sepsis: cultures negative - ANC > 1500 and will hold antibiotics - Follow CBC daily 2. Cardiac. Input from Dr Agosto appreciated. - CHF: cont. lasix 40 mg PO BID - VTAC. Amiodarone at 200 g po daily - Overnight O2, 12s desturation 3. AML: on AZA and venetoclax, c2d1 - per protocol will not hold venetoclax despite cytopenias - no growth factor support 4. Dysuria: - improved - cont pyridium 5. Weakness and deconditioning: multi-factorial - cont. PT/OT - OOB to chair for meals - dispo. to rehab 6. DM: BS stable - lantus 20 units (home dose 60U) - would like to avoid glucose <100 mg/dl while acutely ill - cont. sliding scale coverage 7. ALEXIS: cont CPAP while sleeping, ok to use Ativan at night. 8. DVT prophylaxis: Lovenox as plt. >100 FULL CODE Dispo: continue inpatient stay through the weekend and evaluate for dc to [facility] early next week
[2018-08-06] MEDS: Acetaminophen TAB* 325 MG PO PRN (12:26)
[2018-08-06] MEDS: Calcium Carbonate CHEW TAB* 500 MG (TUMS) PO PRN (16:14)
[2018-08-06] MEDS: VENETOCLAX 200 MG PO SCH (17:16)
[2018-08-06] MEDS: Insulin GLARGINE(*) 1 UNITS UNIT SUBCUT SCH (17:16)
[2018-08-06] MEDS: Melatonin 3 MG TAB PO PRN (20:51)
[2018-08-07 04:25] LABS: Hematocrit 28 % (42-52); Hemoglobin 9.3 g/dL (14.0-18.0); Mean Corpuscular HGB Conc 33 g/dL (31-36); Mean Corpuscular Hemoglobin 31 pg (27-31); Mean Corpuscular Volume 94 fL (80-94); Mean Platelet Volume 7.5 fL (7.4-10.4); Platelet Count 294 10^3/uL (150-450); Red Blood Count 2.99 10^6 /uL (4.18-5.48); Red Cell Distribution Width 21 % (10.5-15); White Blood Count 3.6 10^3/uL (3.5-10.8)
[2018-08-07 04:43] LABS: Albumin 2.6 g/dL (3.2-5.2); Albumin/Globulin Ratio 0.8 (1-3); BUN/Creatinine Ratio 20.2 (8-20); Calcium 7.9 mg/dL (8.6-10.3); EGFR African American 72.7 (>60); EGFR Non-African American 60.1 (>60); Globulin 3.1 g/dL (2-4); Magnesium 1.9 mg/dL (1.9-2.7); Potassium 4.4 mmol/L (3.5-5.0); Total Bilirubin 1.1 mg/dL (0.2-1.0); Total Protein 5.7 g/dL (6.4-8.9)
[2018-08-07] MEDS: Senna TAB PO SCH (08:47)
[2018-08-07] MEDS: Furosemide TAB* 40 MG PO SCH (08:47)
[2018-08-07] MEDS: guaiFENesin ER TAB 600 MG PO SCH ×2 (08:47→21:00)
[2018-08-07] MEDS: Amiodarone TAB* 200 MG PO SCH (08:48)
[2018-08-07] MEDS: Insulin LISPRO* 1 UNITS UNIT SUBCUT SCH ×4 (08:48→21:01)
[2018-08-07] MEDS: Polyethylene Glycol 3350* 17 GM PACKET PO SCH (08:48)
[2018-08-07] MEDS: Potassium Chlor TAB* 20 MEQ TAB.ER PO SCH ×2 (08:48→21:00)
--- NOTE | 2018-08-07 09:27 | PN ---
Progress Note - Progress Note Date of Service: 08/07/18 SOAP: Subjective: []Bringing up more sputum. "I've got a bad rattle. When will that go away?" C/o dizziness this AM, has been on-going intermittently since the beginning of the year. Still c/o difficulty breathing. OOB to chair and bathroom, "I know I have to." Doesn't feel like he is peeing well. Thinks he was told his prostate was enlarge once. Medications: Acetaminophen (Tylenol Tab*) 650 mg PO Q4H PRN PRN Reason: FEVER/PAIN Last Admin: 08/06/18 12:26 Dose: 650 mg Amiodarone HCl (Cordarone Tab*) 200 mg PO QAM [facility] Last Admin: 08/07/18 08:48 Dose: 200 mg Calcium Carbonate (Tums*) 500 mg PO Q4H PRN PRN Reason: reflux Last Admin: 08/06/18 16:14 Dose: 500 mg Dextrose (D50w Syringe 50 Ml*) 12.5 gm IV PUSH .FOR FS < 60 - SS PRN PRN Reason: FS < 60 Enoxaparin Sodium (Lovenox(*)) 30 mg SUBCUT Q24H [facility] Last Admin: 08/06/18 09:34 Dose: 30 mg Furosemide (Lasix Tab*) 40 mg PO BID [facility] Last Admin: 08/07/18 08:47 Dose: 40 mg Guaifenesin (Mucinex*) 600 mg PO BID [facility] Last Admin: 08/07/18 08:47 Dose: 600 mg Heparin Sodium (Porcine) (Heparin Flush Picc/Ml/Cvc(*)) 1 - 3 ml FLUSH 0600, 1800 [facility]; Protocol Last Admin: 08/07/18 04:20 Dose: 2 ml Insulin Glargine (Lantus(*)) 20 units SUBCUT QPM [facility] Last Admin: 08/06/18 17:16 Dose: 20 units Insulin Human Lispro (Humalog*) 0 units SUBCUT ACHS [facility]; Protocol Last Admin: 08/07/18 08:48 Dose: 2 units Lidocaine HCl (Lidocaine 2% Jelly*) 1 applic TOPICAL Q2H PRN PRN Reason: gray related pain Last Admin: 07/31/18 09:24 Dose: 1 applic Lorazepam (Ativan Tab(*)) 0.5 mg PO Q6H PRN PRN Reason: ANXIETY Last Admin: 08/06/18 20:51 Dose: 0.5 mg Melatonin (Melatonin) 3 mg PO BEDTIME PRN PRN Reason: SLEEP Last Admin: 08/06/18 20:51 Dose: 3 mg Multi-Ingredient Mouthwash/Gargle (Magic Mouth Was-Frank/Maal/Lido*) 5 ml SWISH SPIT QID [facility] Last Admin: 08/06/18 20:59 Dose: Not Given Pto:* (Venetoclax [ (Venclexta] 200 Mg)) 200 mg PO DAILY@1700 [facility] Last Admin: 08/06/18 17:16 Dose: 200 mg Ondansetron HCl (Zofran Inj*) 4 mg IV Q4H PRN PRN Reason: NAUSEA/VOMITING Phenazopyridine HCl (Pyridium Tab*) 200 mg PO TID PRN PRN Reason: PAIN Last Admin: 08/02/18 07:52 Dose: 200 mg Polyethylene Glycol/Electrolytes (Miralax*) 17 gm PO DAILY [facility] Last Admin: 08/07/18 08:48 Dose: 17 gm Potassium Chloride (Klor Con Er Tab*) 20 meq PO BID [facility] Last Admin: 08/07/18 08:48 Dose: 20 meq Senna (Senokot Tab*) 1 tab PO DAILY [facility] Last Admin: 08/07/18 08:47 Dose: 1 tab Objective: [] Vital Signs Temp Pulse Resp BP Pulse Ox 97.7 F 89 18 114/52 96 08/07/18 07:18 08/07/18 07:18 08/07/18 07:32 08/07/18 07:18 08/07/18 09:33 A&Ox3, EOMI, KOHLER, neuro grossly non-focal Flat affect, but involved in care HRR, paced LS crackles bilat., white frothy sputum +BS, obese and soft +2 edema LEs Laboratory Results - last 24 hr 08/06/18 08/06/18 08/06/18 11:40 16:14 20:25 WBC RBC Hgb Hct MCV MCH MCHC RDW Plt Count MPV Sodium Potassium Chloride Carbon Dioxide Anion Gap BUN Creatinine Est GFR ( Amer) Est GFR (Non-Af Amer) BUN/Creatinine Ratio Glucose POC Glucose (mg/dL) 294 H 211 H 235 H Calcium Magnesium Total Bilirubin AST ALT Alkaline Phosphatase Total Protein Albumin Globulin Albumin/Globulin Ratio 08/07/18 08/07/18 08/07/18 04:15 04:15 08:07 WBC 3.6 RBC 2.99 L Hgb 9.3 L Hct 28 L MCV 94 MCH 31 MCHC 33 RDW 21 H Plt Count 294 MPV 7.5 Sodium 137 Potassium 4.4 Chloride 99 L Carbon Dioxide 34 H Anion Gap 4 BUN 24 Creatinine 1.19 H Est GFR ( Amer) 72.7 Est GFR (Non-Af Amer) 60.1 BUN/Creatinine Ratio 20.2 H Glucose 189 H POC Glucose (mg/dL) 164 H Calcium 7.9 L Magnesium 1.9 Total Bilirubin 1.10 H AST 14 ALT 33 Alkaline Phosphatase 48 Total Protein 5.7 L Albumin 2.6 L Globulin 3.1 Albumin/Globulin Ratio 0.8 L Intake and Output Last 24 Hours 08/05/18 08/06/18 08/07/18 08/08/18 06:59 06:59 06:59 06:59 Intake Total 913 685 8764 Output Total 350 700 755 Balance 85 39 255 Weight 306 lb 12.8 oz 297 lb 11.2 oz 301 lb 1.6 oz Intake: IV Fluids 25 87 ABX - CEFEPIME 62 NS (0.9%) 25 25 IVPB 50 52 ABX - CEFEPIME 50 52 Oral 891 624 2540 Output: Urine 350 700 635 Gray 120 Other: Estimated Void Small # Bowel Movements 3 1 Estimated Stool Amount Medium Medium Large # Voids 2 Assessment: []73 yo male with 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 Neutropenia now resolved, however he remains very weak related to multiple co-morbidities. Plan: []1. Febrile neutropenia: resolved - Follow CBC daily 2. Cardiac: appreciate cardiology input - CHF: positive fluid balance last couple days (though mild), cont. home dose lasix 40 mg PO BID however additional 20 mg IV as well today, question of optimization of diuresis, will request card input on this - VTAC: Amiodarone at 200 mg po daily, has been paced and intermittently V- paced since increased dose with no further VT - Overnight O2, 12s de-saturation, cont. CPAP 3. AML: C2D2 AZA/Ventoclax today - Azacitidine 75 mg/m2 subq D1-7 q28d - Ventoclax 200 mg daily, per protocol do not hold for cytopenias - no growth factor support 4. Dysuria: - improved with PRN pyridium, however question of retention - check post void residual and if elevated may consider alpha-1 annetta 5. Weakness and deconditioning: multi-factorial - cont. PT/OT - OOB to chair for meals - dispo. to rehab 6. DM: BS stable - lantus 20 units (home dose 60U) - would like to avoid glucose <100 mg/dl while acutely ill - cont. sliding scale coverage 7. ALEXIS: cont CPAP while sleeping, ok to use Ativan at night - request resp. therapy more involved to confirm optimization 8. DVT prophylaxis: Lovenox as plt. >100 FULL CODE Dispo: hopeful for dc to [facility] in next couple days
[2018-08-07] MEDS ORDERED: Furosemide IV* 10 MG/ML 2 ML VIAL (20 MG) IV SLOW PU ONE (09:49)
[2018-08-07] MEDS: Magic Mouth Was-BEN/MAAL/LIDO SWISH SPIT SCH ×4 (10:14→21:01)
[2018-08-07] MEDS: Enoxaparin(*) 30 MG/0.3 ML SYR SUBCUT SCH (10:18)
[2018-08-07] MEDS ORDERED: Furosemide IV* 10 MG/ML 2 ML VIAL (20 MG) IV ONE (10:46)
[2018-08-07] MEDS ORDERED: Polyethylene Glycol 3350* 17 GM PACKET PO PRN (11:03)
[2018-08-07] MEDS ORDERED: AZACITIDINE SUBCUT SCH ×2 (13:00→14:00)
[2018-08-07] MEDS: AZACITIDINE SUBCUT SCH (15:13)
[2018-08-07] MEDS: VENETOCLAX 200 MG PO SCH (17:11)
[2018-08-07] MEDS: Insulin GLARGINE(*) 1 UNITS UNIT SUBCUT SCH (17:11)
[2018-08-07] MEDS: Furosemide IV* 10 MG/ML VIAL (40 MG) IV SCH (21:00)
[2018-08-07] MEDS: LORazepam TAB(*) 0.5 MG PO PRN (21:12)
[2018-08-08 05:02] LABS: Hematocrit 28 % (42-52); Hemoglobin 9.3 g/dL (14.0-18.0); Mean Corpuscular HGB Conc 33 g/dL (31-36); Mean Corpuscular Hemoglobin 31 pg (27-31); Mean Corpuscular Volume 94 fL (80-94); Mean Platelet Volume 7.5 fL (7.4-10.4); Platelet Count 312 10^3/uL (150-450); Red Cell Distribution Width 22 % (10.5-15); White Blood Count 4.1 10^3/uL (3.5-10.8)
[2018-08-08 05:24] LABS: Albumin 2.6 g/dL (3.2-5.2); Albumin/Globulin Ratio 0.8 (1-3); BUN/Creatinine Ratio 18.7 (8-20); EGFR African American 63.4 (>60); EGFR Non-African American 52.4 (>60); Globulin 3.2 g/dL (2-4); Potassium 4.6 mmol/L (3.5-5.0); Total Bilirubin 1.1 mg/dL (0.2-1.0); Total Protein 5.8 g/dL (6.4-8.9)
[2018-08-08 05:54] LABS: ABS Lymphocytes 0.4 10^3/ul (1.0-4.8); ABS Monocytes 0.2 10^3/ul (0-0.8); ABS Neutrophils 3.5 10^3/ul (1.5-7.7); ABS Nucleated RBC 0.1 10^3/ul; Eosinophil % 0.1 %; Lymphocyte % 8.6 %; Nucleated Red Blood Cells % 1.4
[2018-08-08] MEDS: guaiFENesin ER TAB 600 MG PO SCH ×2 (08:45→19:54)
[2018-08-08] MEDS: Acetaminophen TAB* 325 MG PO PRN ×2 (08:45→19:54)
[2018-08-08] MEDS: Senna TAB PO SCH (08:45)
[2018-08-08] MEDS: Amiodarone TAB* 200 MG PO SCH (08:46)
[2018-08-08] MEDS: Insulin LISPRO* 1 UNITS UNIT SUBCUT SCH ×4 (08:46→19:55)
[2018-08-08] MEDS: Polyethylene Glycol 3350* 17 GM PACKET PO SCH (08:46)
[2018-08-08] MEDS: Magic Mouth Was-BEN/MAAL/LIDO SWISH SPIT SCH ×4 (08:46→19:55)
[2018-08-08] MEDS: Furosemide IV* 10 MG/ML VIAL (40 MG) IV SCH (08:46)
[2018-08-08] MEDS: Potassium Chlor TAB* 20 MEQ TAB.ER PO SCH ×2 (08:46→19:54)
[2018-08-08] MEDS: Enoxaparin(*) 30 MG/0.3 ML SYR SUBCUT SCH (10:06)
[2018-08-08] MEDS: Calcium Carbonate CHEW TAB* 500 MG (TUMS) PO PRN (10:06)
--- NOTE | 2018-08-08 10:56 | PN ---
Progress Note - Progress Note Date of Service: 08/08/18 SOAP: Subjective: breathing a little better than yesterday. feels dizzy near constantly (this is not new). still coughing. very weak but did ambulate to bathroom with rolling walker and was able to sit to stand x 2 without assistance. +BM. Objective: Vital Signs Temp Pulse Resp BP Pulse Ox 98.3 F 75 20 109/42 98 08/08/18 07:53 08/08/18 07:53 08/08/18 08:00 08/08/18 07:53 08/08/18 07:53 sitting up in chair, very weak mouth breathing clear bases s1 s2 nl obese nt +Bs 1+ LE edema (less) scattered ecchymoses grossly nonfocal, globally weak Laboratory Results - last 24 hr 08/07/18 08/08/18 08/08/18 19:53 04:55 04:55 WBC 4.1 RBC 3.00 L Hgb 9.3 L Hct 28 L MCV 94 MCH 31 MCHC 33 RDW 22 H Plt Count 312 MPV 7.5 Neut % (Auto) 85.5 Lymph % (Auto) 8.6 [place] % (Auto) 5.6 Eos % (Auto) 0.1 Baso % (Auto) 0.2 Absolute Neuts (auto) 3.5 Absolute Lymphs (auto) 0.4 L Absolute Monos (auto) 0.2 Absolute Eos (auto) 0.0 Absolute Basos (auto) 0.0 Absolute Nucleated RBC 0.1 Nucleated RBC % 1.4 Hem Pathologist Commnt Sodium 137 Potassium 4.6 Chloride 97 L Carbon Dioxide 34 H Anion Gap 6 BUN 25 H Creatinine 1.34 H Est GFR ( Amer) 63.4 Est GFR (Non-Af Amer) 52.4 BUN/Creatinine Ratio 18.7 Glucose 204 H POC Glucose (mg/dL) 160 H Calcium 8.0 L Total Bilirubin 1.10 H AST 17 ALT 28 Alkaline Phosphatase 55 Total Protein 5.8 L Albumin 2.6 L Globulin 3.2 Albumin/Globulin Ratio 0.8 L Acetaminophen (Tylenol Tab*) 650 mg PO Q4H PRN PRN Reason: FEVER/PAIN Last Admin: 08/08/18 08:45 Dose: 650 mg Amiodarone HCl (Cordarone Tab*) 200 mg PO QAM [facility] Last Admin: 08/08/18 08:46 Dose: 200 mg Calcium Carbonate (Tums*) 500 mg PO Q4H PRN PRN Reason: reflux Last Admin: 08/08/18 10:06 Dose: 500 mg Dextrose (D50w Syringe 50 Ml*) 12.5 gm IV PUSH .FOR FS < 60 - SS PRN PRN Reason: FS < 60 Enoxaparin Sodium (Lovenox(*)) 30 mg SUBCUT Q24H [facility] Last Admin: 08/08/18 10:06 Dose: 30 mg Guaifenesin (Mucinex*) 600 mg PO BID [facility] Last Admin: 08/08/18 08:45 Dose: 600 mg Heparin Sodium (Porcine) (Heparin Flush Picc/Ml/Cvc(*)) 1 - 3 ml FLUSH 0600, 1800 [facility]; Protocol Last Admin: 08/08/18 05:00 Dose: 2 ml Azacitidine 185 mg/ IV (Solution) 7.4 mls @ 0 mls/hr SUBCUT Q24HR@1400 [facility] Stop: 08/10/18 14:01 Last Admin: 08/07/18 15:13 Dose: 185 mls/hr Insulin Glargine (Lantus(*)) 20 units SUBCUT QPM [facility] Last Admin: 08/07/18 17:11 Dose: 20 units Insulin Human Lispro (Humalog*) 0 units SUBCUT ACHS [facility]; Protocol Last Admin: 08/08/18 08:46 Dose: 6 units Lidocaine HCl (Lidocaine 2% Jelly*) 1 applic TOPICAL Q2H PRN PRN Reason: gray related pain Last Admin: 07/31/18 09:24 Dose: 1 applic Lorazepam (Ativan Tab(*)) 0.5 mg PO Q6H PRN PRN Reason: ANXIETY Last Admin: 08/07/18 21:12 Dose: 0.5 mg Melatonin (Melatonin) 3 mg PO BEDTIME PRN PRN Reason: SLEEP Last Admin: 08/06/18 20:51 Dose: 3 mg Multi-Ingredient Mouthwash/Gargle (Magic Mouth Was-Frank/Maal/Lido*) 5 ml SWISH SPIT QID [facility] Last Admin: 08/08/18 08:46 Dose: 5 ml Pto:* (Venetoclax [ (Venclexta] 200 Mg)) 200 mg PO DAILY@1700 [facility] Last Admin: 08/07/18 17:11 Dose: 200 mg Ondansetron HCl (Zofran Inj*) 4 mg IV Q4H PRN PRN Reason: NAUSEA/VOMITING Phenazopyridine HCl (Pyridium Tab*) 200 mg PO TID PRN PRN Reason: PAIN Last Admin: 08/02/18 07:52 Dose: 200 mg Polyethylene Glycol/Electrolytes (Miralax*) 17 gm PO DAILY [facility] Last Admin: 08/08/18 08:46 Dose: 17 gm Polyethylene Glycol/Electrolytes (Miralax*) 17 gm PO BEDTIME PRN PRN Reason: CONSTIPATION Potassium Chloride (Klor Con Er Tab*) 20 meq PO BID [facility] Last Admin: 08/08/18 08:46 Dose: 20 meq Senna (Senokot Tab*) 1 tab PO DAILY [facility] Last Admin: 08/08/18 08:45 Dose: 1 tab Assessment: 73 yo male with newly diagnosed AML currently on AZA/Venetoclax, C2D1 08/06/18, admitted with febrile neutropenia with no source identified. Neutropenia now resolved, however he remains very weak related to multiple co-morbidities. Plan: 1. Febrile neutropenia: resolved - Follow CBC daily 2. Cardiac: appreciate cardiology input. VT occurring mainly at night when hypoxic when removing CPAP. Does have AICD as back up so can be discharged from cards standpoint. - CHF: aggressive diuresis yesterday, now back on home dose 40 bid - VTAC: Amiodarone at 200 mg po daily, has been paced and intermittently V- paced since increased dose with no further VT 3. AML: C2D3 AZA/Ventoclax today - Azacitidine 75 mg/m2 subq D1-7 q28d - Ventoclax 200 mg daily, per protocol do not hold for cytopenias - no growth factor support 4. Dysuria: - improved with PRN pyridium, no evidence of retention on bladder scans 5. Weakness and deconditioning: multi-factorial - cont. PT/OT - OOB to chair for meals - dispo. to rehab 6. DM: BS stable - lantus 20 units (home dose 60U) - would like to avoid glucose <100 mg/dl while acutely ill - cont. sliding scale coverage 7. ALEXIS: cont CPAP while sleeping, ok to use Ativan at night--discussed with patient need to use - request resp. therapy more involved to confirm optimization 8. DVT prophylaxis: Lovenox FULL CODE Dispo: hopeful for dc to [facility] in next couple days
--- NOTE | 2018-08-08 11:11 | PN ---
<Raiza Mckenzie - Last Filed: 08/08/18 11:28> Subjective Date of Service: 08/08/18 - Nocturnal NSVT, ALEXIS, pleural effusion Interval History: Rodolfo Luna is a 73 year old man admitted with weakness and lightheadedness. He has AML and neutropenic fever. NSVT 08/04/18 w/sleep and amiodarone increased. 08/05/2018 only did 50 minutes of overnight oximetry, test ended prematurely due to patient ripping off pulse ox and CPAP. He states SOB has improved and urine output has improved since yesterday. Still SOB. No c/o palpitations or chest pain. + dizziness. Medications Active Medications: Acetaminophen (Tylenol Tab*) 650 mg PO Q4H PRN PRN Reason: FEVER/PAIN Last Admin: 08/08/18 08:45 Dose: 650 mg Amiodarone HCl (Cordarone Tab*) 200 mg PO QAM [facility] Last Admin: 08/08/18 08:46 Dose: 200 mg Calcium Carbonate (Tums*) 500 mg PO Q4H PRN PRN Reason: reflux Last Admin: 08/08/18 10:06 Dose: 500 mg Dextrose (D50w Syringe 50 Ml*) 12.5 gm IV PUSH .FOR FS < 60 - SS PRN PRN Reason: FS < 60 Enoxaparin Sodium (Lovenox(*)) 30 mg SUBCUT Q24H [facility] Last Admin: 08/08/18 10:06 Dose: 30 mg Furosemide (Lasix Tab*) 40 mg PO BID [facility] Guaifenesin (Mucinex*) 600 mg PO BID [facility] Last Admin: 08/08/18 08:45 Dose: 600 mg Heparin Sodium (Porcine) (Heparin Flush Picc/Ml/Cvc(*)) 1 - 3 ml FLUSH 0600, 1800 [facility]; Protocol Last Admin: 08/08/18 05:00 Dose: 2 ml Azacitidine 185 mg/ IV (Solution) 7.4 mls @ 0 mls/hr SUBCUT Q24HR@1400 [facility] Stop: 08/10/18 14:01 Last Admin: 08/07/18 15:13 Dose: 185 mls/hr Insulin Glargine (Lantus(*)) 20 units SUBCUT QPM [facility] Last Admin: 08/07/18 17:11 Dose: 20 units Insulin Human Lispro (Humalog*) 0 units SUBCUT [facility]; Protocol Last Admin: 08/08/18 08:46 Dose: 6 units Lidocaine HCl (Lidocaine 2% Jelly*) 1 applic TOPICAL Q2H PRN PRN Reason: gray related pain Last Admin: 07/31/18 09:24 Dose: 1 applic Lorazepam (Ativan Tab(*)) 0.5 mg PO Q6H PRN PRN Reason: ANXIETY Last Admin: 08/07/18 21:12 Dose: 0.5 mg Melatonin (Melatonin) 3 mg PO BEDTIME PRN PRN Reason: SLEEP Last Admin: 08/06/18 20:51 Dose: 3 mg Multi-Ingredient Mouthwash/Gargle (Magic Mouth Was-Frank/Maal/Lido*) 5 ml SWISH SPIT QID [facility] Last Admin: 08/08/18 08:46 Dose: 5 ml Pto:* (Venetoclax [ (Venclexta] 200 Mg)) 200 mg PO DAILY@1700 [facility] Last Admin: 08/07/18 17:11 Dose: 200 mg Ondansetron HCl (Zofran Inj*) 4 mg IV Q4H PRN PRN Reason: NAUSEA/VOMITING Phenazopyridine HCl (Pyridium Tab*) 200 mg PO TID PRN PRN Reason: PAIN Last Admin: 08/02/18 07:52 Dose: 200 mg Polyethylene Glycol/Electrolytes (Miralax*) 17 gm PO DAILY [facility] Last Admin: 08/08/18 08:46 Dose: 17 gm Polyethylene Glycol/Electrolytes (Miralax*) 17 gm PO BEDTIME PRN PRN Reason: CONSTIPATION Potassium Chloride (Klor Con Er Tab*) 20 meq PO BID [facility] Last Admin: 08/08/18 08:46 Dose: 20 meq Senna (Senokot Tab*) 1 tab PO DAILY [facility] Last Admin: 08/08/18 08:45 Dose: 1 tab Objective Vital Signs: Temp Pulse Resp BP Pulse Ox 98.3 F 75 20 109/42 98 08/08/18 07:53 08/08/18 07:53 08/08/18 08:00 08/08/18 07:53 08/08/18 07:53 Oxygen Devices in Use Now: High Flow Heated Nasal Cannula Appearance: obese ill appearing gentleman, lying 45degrees,short of breath with conversation but this has improved since yesterday. Eyes: No Scleral Icterus, PERRLA Ears/Nose/Mouth/Throat: Clear Oropharnyx, Mucous Membranes Moist Neck: Trachea Midline - uncertain jvp due to body habitus. Respiratory: Symmetrical Chest Expansion and Respiratory Effort, Clear to Auscultation Cardiovascular: RRR, - - distant, no obvious murmur. ICD pocket LEFT unremarkable. Abdominal: No Hepatosplenomegaly - Obese, soft, normal bowel sounds., - Extremities: No Clubbing, Cyanosis, - - 1+ edema noted in bilateral pre tibial region Skin: No Rash or Ulcers, - - pale skin Neurological: Alert and Oriented x 3 Lines/Tubes/Other Access: Clean, Dry and Intact PICC Line Laboratory Results: 08/08/18 04:55 08/08/18 04:55 INR (Anticoag Therapy) 1.38 (0.82-1.09) H 07/25/18 13:58 APTT 25.6 seconds (26.0-36.3) L 07/25/18 13:58 Total Bilirubin 1.10 mg/dL (0.2-1.0) H 08/08/18 04:55 Direct Bilirubin 0.40 mg/dL (0.03-0.18) H 07/29/18 05:00 Indirect Bilirubin 0.7 mg/dL (0.3-1.0) 07/29/18 05:00 AST 17 U/L (13-39) 08/08/18 04:55 ALT 28 U/L (7-52) 08/08/18 04:55 Alkaline Phosphatase 55 U/L (34-104) 08/08/18 04:55 B-Natriuretic Peptide 862 pg/mL (<=100) H 08/01/18 06:04 Total Protein 5.8 g/dL (6.4-8.9) L 08/08/18 04:55 Albumin 2.6 g/dL (3.2-5.2) L 08/08/18 04:55 Globulin 3.2 g/dL (2-4) 08/08/18 04:55 Albumin/Globulin Ratio 0.8 (1-3) L 08/08/18 04:55 TSH 1.40 mcIU/mL (0.34-5.60) 07/27/18 05:50 07/25/18 07/25/18 07/25/18 13:58 17:36 20:05 Troponin I 0.75 H* 0.37 H* 0.31 H* 07/26/18 02:07 Troponin I 0.18 H* Laboratory Results - last 24 hr 08/05/18 08/07/18 08/07/18 06:30 11:41 16:08 WBC RBC Hgb Hct MCV MCH MCHC RDW Plt Count MPV Neut % (Auto) Lymph % (Auto) [place] % (Auto) Eos % (Auto) Baso % (Auto) Absolute Neuts (auto) Absolute Lymphs (auto) Absolute Monos (auto) Absolute Eos (auto) Absolute Basos (auto) Absolute Nucleated RBC Nucleated RBC % Hem Pathologist Commnt Sodium Potassium Chloride Carbon Dioxide Anion Gap BUN Creatinine Est GFR ( Amer) Est GFR (Non-Af Amer) BUN/Creatinine Ratio Glucose POC Glucose (mg/dL) 240 H 253 H Calcium Total Bilirubin AST ALT Alkaline Phosphatase Total Protein Albumin Globulin Albumin/Globulin Ratio 08/07/18 08/08/18 08/08/18 19:53 04:55 04:55 WBC 4.1 RBC 3.00 L Hgb 9.3 L Hct 28 L MCV 94 MCH 31 MCHC 33 RDW 22 H Plt Count 312 MPV 7.5 Neut % (Auto) 85.5 Lymph % (Auto) 8.6 [place] % (Auto) 5.6 Eos % (Auto) 0.1 Baso % (Auto) 0.2 Absolute Neuts (auto) 3.5 Absolute Lymphs (auto) 0.4 L Absolute Monos (auto) 0.2 Absolute Eos (auto) 0.0 Absolute Basos (auto) 0.0 Absolute Nucleated RBC 0.1 Nucleated RBC % 1.4 Hem Pathologist Commnt Sodium 137 Potassium 4.6 Chloride 97 L Carbon Dioxide 34 H Anion Gap 6 BUN 25 H Creatinine 1.34 H Est GFR ( Amer) 63.4 Est GFR (Non-Af Amer) 52.4 BUN/Creatinine Ratio 18.7 Glucose 204 H POC Glucose (mg/dL) 160 H Calcium 8.0 L Total Bilirubin 1.10 H AST 17 ALT 28 Alkaline Phosphatase 55 Total Protein 5.8 L Albumin 2.6 L Globulin 3.2 Albumin/Globulin Ratio 0.8 L 08/08/18 07:46 WBC RBC Hgb Hct MCV MCH MCHC RDW Plt Count MPV Neut % (Auto) Lymph % (Auto) [place] % (Auto) Eos % (Auto) Baso % (Auto) Absolute Neuts (auto) Absolute Lymphs (auto) Absolute Monos (auto) Absolute Eos (auto) Absolute Basos (auto) Absolute Nucleated RBC Nucleated RBC % Hem Pathologist Commnt Sodium Potassium Chloride Carbon Dioxide Anion Gap BUN Creatinine Est GFR ( Amer) Est GFR (Non-Af Amer) BUN/Creatinine Ratio Glucose POC Glucose (mg/dL) 261 H Calcium Total Bilirubin AST ALT Alkaline Phosphatase Total Protein Albumin Globulin Albumin/Globulin Ratio Diagnostic Imaging: [facility] study Date: 07/26/2018 1. Left ventricle: Not well visualized. The cavity size is normal. Wall thickness is mildly increased. Systolic function is mildly to moderately reduced. 2. Right ventricle: The cavity size is normal. Pacer wire noted in the right ventricle. Systolic function is reduced. 3. Ventricular septum: There is abnormal interventricular septal wall motion consistent with an RV pacemaker. 4. Aortic valve: Not well visualized. There is a bioprosthetic valve. There is no significant regurgitation. The peak systolic velocity is 2.53 m/sec. The mean systolic gradient is 17.0 mm Hg. Doppler velocity/gradient grossly unchanged from 07/2014 suggesting no significant stenosis. 5. Tricuspid valve: Not well visualized. 6. Pericardium, extracardiac: There is no pericardial effusion. Echocardiogram - (08/07/2014) [facility] Moderate LV dysfunction EF 35-40% Bioprosthetic AVR with normal function No AR Mild MR and TR EKG Data: Telemetry; Paced with underlying AFL. No VT since 08/04/2018. 08/07/2018; Paced underlying AFL rate 94. Assessment/Plan #1 Nocturnal NSVT 08/04/2018 17 beat count at 140 BPM followed by 9 beat count. On 08/05/2018 he had a 10 beat count of monomorphic VT at 10:15 am. He only completed 50 minutes of overnight oximetry according to respiratory therapy note he took off pulse ox and CPAP and refused it. Amiodarone was increased from 100mg/day to now 200mg/day and he has not had recurrent NSVT since 2018. He was decompensated but responded well to IV diuresis. Given know nocturnal desaturation events and non compliance with CPAP this is will contribute to recurrent NSVT. He is aware of the importance of wearing CPAP to avoid future events. He has an BiV ICD in situ. QTc stable #2 Decompensated heart failure with known HFmrEF; breathing effort has improved since IV diuresis yesterday. Lasix converted back to 40mg PO BID. Not on Bblocker or ACEI due to symptomatic hypotension at this time. can evaluate in follow up. #3 h/o AML with neutropenic fevers; Dr Wallace following. #4 h/o ALEXIS with CPAP non compliance. I reviewed at length with the patient the importance of wearing CPAP to avoid structural heart damage, PHTN, valvular heart disease and risk for ICD ouput. He reports a component of anxiety at night that which is why he " rips CPAP off" He is on Ativan already. #5 Disposition pending course will d/w Dr. Agosto. Would reduce Amiodarone back to 100mg/day upon discharge. Attending: Chelo Agosto <Chelo Agosto - Last Filed: 08/08/18 19:50> Medications Active Medications: Acetaminophen (Tylenol Tab*) 650 mg PO Q4H PRN PRN Reason: FEVER/PAIN Last Admin: 08/08/18 08:45 Dose: 650 mg Amiodarone HCl (Cordarone Tab*) 200 mg PO QAM [facility] Last Admin: 08/08/18 08:46 Dose: 200 mg Calcium Carbonate (Tums*) 500 mg PO Q4H PRN PRN Reason: reflux Last Admin: 08/08/18 10:06 Dose: 500 mg Dextrose (D50w Syringe 50 Ml*) 12.5 gm IV PUSH .FOR FS < 60 - SS PRN PRN Reason: FS < 60 Enoxaparin Sodium (Lovenox(*)) 30 mg SUBCUT Q24H [facility] Last Admin: 08/08/18 10:06 Dose: 30 mg Furosemide (Lasix Tab*) 40 mg PO BID [facility] Guaifenesin (Mucinex*) 600 mg PO BID [facility] Last Admin: 08/08/18 08:45 Dose: 600 mg Heparin Sodium (Porcine) (Heparin Flush Picc/Ml/Cvc(*)) 1 - 3 ml FLUSH 0600, 1800 [facility]; Protocol Last Admin: 08/08/18 17:15 Dose: 2 ml Azacitidine 185 mg/ IV (Solution) 7.4 mls @ 0 mls/hr SUBCUT Q24HR@1400 [facility] Stop: 08/10/18 14:01 Last Admin: 08/08/18 15:51 Dose: 1 mls/hr Insulin Glargine (Lantus(*)) 20 units SUBCUT QPM [facility] Last Admin: 08/08/18 17:15 Dose: 20 units Insulin Human Lispro (Humalog*) 0 units SUBCUT ACHS [facility]; Protocol Last Admin: 08/08/18 17:14 Dose: 4 units Lidocaine HCl (Lidocaine 2% Jelly*) 1 applic TOPICAL Q2H PRN PRN Reason: gray related pain Last Admin: 07/31/18 09:24 Dose: 1 applic Lorazepam (Ativan Tab(*)) 0.5 mg PO Q6H PRN PRN Reason: ANXIETY Last Admin: 08/07/18 21:12 Dose: 0.5 mg Melatonin (Melatonin) 3 mg PO BEDTIME PRN PRN Reason: SLEEP Last Admin: 08/06/18 20:51 Dose: 3 mg Multi-Ingredient Mouthwash/Gargle (Magic Mouth Was-Frank/Maal/Lido*) 5 ml SWISH SPIT QID [facility] Last Admin: 08/08/18 17:15 Dose: 5 ml Pto:* (Venetoclax [ (Venclexta] 200 Mg)) 200 mg PO DAILY@1700 [facility] Last Admin: 08/08/18 17:15 Dose: 200 mg Ondansetron HCl (Zofran Inj*) 4 mg IV Q4H PRN PRN Reason: NAUSEA/VOMITING Phenazopyridine HCl (Pyridium Tab*) 200 mg PO TID PRN PRN Reason: PAIN Last Admin: 08/02/18 07:52 Dose: 200 mg Polyethylene Glycol/Electrolytes (Miralax*) 17 gm PO DAILY [facility] Last Admin: 08/08/18 08:46 Dose: 17 gm Polyethylene Glycol/Electrolytes (Miralax*) 17 gm PO BEDTIME PRN PRN Reason: CONSTIPATION Potassium Chloride (Klor Con Er Tab*) 20 meq PO BID [facility] Last Admin: 08/08/18 08:46 Dose: 20 meq Senna (Senokot Tab*) 1 tab PO DAILY [facility] Last Admin: 08/08/18 08:45 Dose: 1 tab Objective Vital Signs: Temp Pulse Resp BP Pulse Ox 97.8 F 74 20 94/65 99 08/08/18 19:33 08/08/18 19:33 08/08/18 19:33 08/08/18 19:33 08/08/18 19:33 Laboratory Results: 08/08/18 04:55 08/08/18 04:55 INR (Anticoag Therapy) 1.38 (0.82-1.09) H 07/25/18 13:58 APTT 25.6 seconds (26.0-36.3) L 07/25/18 13:58 Total Bilirubin 1.10 mg/dL (0.2-1.0) H 08/08/18 04:55 Direct Bilirubin 0.40 mg/dL (0.03-0.18) H 07/29/18 05:00 Indirect Bilirubin 0.7 mg/dL (0.3-1.0) 07/29/18 05:00 AST 17 U/L (13-39) 08/08/18 04:55 ALT 28 U/L (7-52) 08/08/18 04:55 Alkaline Phosphatase 55 U/L (34-104) 08/08/18 04:55 B-Natriuretic Peptide 862 pg/mL (<=100) H 08/01/18 06:04 Total Protein 5.8 g/dL (6.4-8.9) L 08/08/18 04:55 Albumin 2.6 g/dL (3.2-5.2) L 08/08/18 04:55 Globulin 3.2 g/dL (2-4) 08/08/18 04:55 Albumin/Globulin Ratio 0.8 (1-3) L 08/08/18 04:55 TSH 1.40 mcIU/mL (0.34-5.60) 07/27/18 05:50 07/25/18 07/25/18 07/25/18 13:58 17:36 20:05 Troponin I 0.75 H* 0.37 H* 0.31 H* 07/26/18 02:07 Troponin I 0.18 H* Assessment/Plan ADDENDUM: The patient was seen with his . Per , at home his CPAP stays on, she wonders about sundowning, at home lights are on and they are left off here. Pt requests cough drops. Exam: Appears fatigued, chronically ill. Distant BS, clear. A/p As above, continue on increased amiodarone for now. I talked w/nursing about leaving lights on, see if this helps with compliance with CPAP. Reassuring to know he sleeps better at home and CPAP stays on at home due to potential impact on tachyarrhythmias. Cough drop ordered. CHF noted, continue to monitor i/o's, adjust diuretics PRN.
[2018-08-08] MEDS: AZACITIDINE SUBCUT SCH (15:51)
[2018-08-08] MEDS: Insulin GLARGINE(*) 1 UNITS UNIT SUBCUT SCH (17:15)
[2018-08-08] MEDS: VENETOCLAX 200 MG PO SCH (17:15)
[2018-08-08] MEDS: Benzocaine/Menthol LOZ* 1 LOZENGE PO PRN (19:55)
[2018-08-08] MEDS: Furosemide TAB* 40 MG PO SCH (19:55)
[2018-08-09 06:00] LABS: Hematocrit 28 % (42-52); Hemoglobin 9.2 g/dL (14.0-18.0); Mean Corpuscular HGB Conc 33 g/dL (31-36); Mean Corpuscular Hemoglobin 31 pg (27-31); Mean Corpuscular Volume 94 fL (80-94); Mean Platelet Volume 7.5 fL (7.4-10.4); Platelet Count 301 10^3/uL (150-450); Red Blood Count 2.97 10^6 /uL (4.18-5.48); Red Cell Distribution Width 23 % (10.5-15); White Blood Count 3.6 10^3/uL (3.5-10.8)
[2018-08-09 06:17] LABS: Albumin 2.7 g/dL (3.2-5.2); Albumin/Globulin Ratio 0.9 (1-3); Calcium 8.1 mg/dL (8.6-10.3); EGFR African American 61.3 (>60); EGFR Non-African American 50.6 (>60); Globulin 3.1 g/dL (2-4); Potassium 4.4 mmol/L (3.5-5.0); Total Bilirubin 0.9 mg/dL (0.2-1.0); Total Protein 5.8 g/dL (6.4-8.9)
[2018-08-09] MEDS: Acetaminophen TAB* 325 MG PO PRN ×2 (07:34→22:54)
[2018-08-09 07:36] LABS: ABS Eosinophils 0.1 10^3/ul (0-0.6); ABS Neutrophils 2.9 10^3/ul (1.5-7.7); Polychromasia 1+
[2018-08-09] MEDS: Insulin LISPRO* 1 UNITS UNIT SUBCUT SCH ×4 (08:30→22:10)
[2018-08-09] MEDS: Polyethylene Glycol 3350* 17 GM PACKET PO SCH (08:33)
[2018-08-09] MEDS: Amiodarone TAB* 200 MG PO SCH (08:34)
[2018-08-09] MEDS: guaiFENesin ER TAB 600 MG PO SCH ×2 (08:34→19:21)
[2018-08-09] MEDS: Senna TAB PO SCH (08:34)
[2018-08-09] MEDS: Furosemide TAB* 40 MG PO SCH ×2 (08:34→19:21)
[2018-08-09] MEDS: Potassium Chlor TAB* 20 MEQ TAB.ER PO SCH ×2 (08:34→19:21)
[2018-08-09] MEDS: Magic Mouth Was-BEN/MAAL/LIDO SWISH SPIT SCH ×4 (08:36→22:07)
[2018-08-09] MEDS: Enoxaparin(*) 30 MG/0.3 ML SYR SUBCUT SCH (11:00)
--- NOTE | 2018-08-09 13:01 | PN ---
Progress Note - Progress Note Date of Service: 08/09/18 SOAP: Subjective: []No complaints. Less tired seeming per and wonders if he did better with his CPAP last night. Has been working with PT and was able to stand to urinate this AM. Still feels he is too weak to be at home. Medications: Acetaminophen (Tylenol Tab*) 650 mg PO Q4H PRN PRN Reason: FEVER/PAIN Last Admin: 08/09/18 07:34 Dose: 650 mg Amiodarone HCl (Cordarone Tab*) 200 mg PO QAM [facility] Last Admin: 08/09/18 08:34 Dose: 200 mg Calcium Carbonate (Tums*) 500 mg PO Q4H PRN PRN Reason: reflux Last Admin: 08/08/18 10:06 Dose: 500 mg Dextrose (D50w Syringe 50 Ml*) 12.5 gm IV PUSH .FOR FS < 60 - SS PRN PRN Reason: FS < 60 Enoxaparin Sodium (Lovenox(*)) 30 mg SUBCUT Q24H [facility] Last Admin: 08/09/18 11:00 Dose: 30 mg Furosemide (Lasix Tab*) 40 mg PO BID [facility] Last Admin: 08/09/18 08:34 Dose: 40 mg Guaifenesin (Mucinex*) 600 mg PO BID [facility] Last Admin: 08/09/18 08:34 Dose: 600 mg Heparin Sodium (Porcine) (Heparin Flush Picc/Ml/Cvc(*)) 1 - 3 ml FLUSH 0600, 1800 [facility]; Protocol Last Admin: 08/09/18 05:40 Dose: 2 ml Azacitidine 185 mg/ IV (Solution) 7.4 mls @ 0 mls/hr SUBCUT Q24HR@1400 [facility] Stop: 08/10/18 14:01 Last Admin: 08/08/18 15:51 Dose: 1 mls/hr Insulin Glargine (Lantus(*)) 25 units SUBCUT QPM [facility] Insulin Human Lispro (Humalog*) 0 units SUBCUT ACHS [facility]; Protocol Last Admin: 08/09/18 12:42 Dose: 4 units Lidocaine HCl (Lidocaine 2% Jelly*) 1 applic TOPICAL Q2H PRN PRN Reason: gray related pain Last Admin: 07/31/18 09:24 Dose: 1 applic Lorazepam (Ativan Tab(*)) 0.5 mg PO Q6H PRN PRN Reason: ANXIETY Last Admin: 08/07/18 21:12 Dose: 0.5 mg Melatonin (Melatonin) 3 mg PO BEDTIME PRN PRN Reason: SLEEP Last Admin: 08/06/18 20:51 Dose: 3 mg Multi-Ingredient Mouthwash/Gargle (Magic Mouth Was-Frank/Maal/Lido*) 5 ml SWISH SPIT QID [facility] Last Admin: 08/09/18 08:36 Dose: 5 ml Pto:* (Venetoclax [ (Venclexta] 200 Mg)) 200 mg PO DAILY@1700 [facility] Last Admin: 08/08/18 17:15 Dose: 200 mg Ondansetron HCl (Zofran Inj*) 4 mg IV Q4H PRN PRN Reason: NAUSEA/VOMITING Phenazopyridine HCl (Pyridium Tab*) 200 mg PO TID PRN PRN Reason: PAIN Last Admin: 08/02/18 07:52 Dose: 200 mg Polyethylene Glycol/Electrolytes (Miralax*) 17 gm PO DAILY [facility] Last Admin: 08/09/18 08:33 Dose: 17 gm Polyethylene Glycol/Electrolytes (Miralax*) 17 gm PO BEDTIME PRN PRN Reason: CONSTIPATION Potassium Chloride (Klor Con Er Tab*) 20 meq PO BID [facility] Last Admin: 08/09/18 08:34 Dose: 20 meq Senna (Senokot Tab*) 1 tab PO DAILY [facility] Last Admin: 08/09/18 08:34 Dose: 1 tab Throat Lozenges (Chloraseptic Arianne*) 1 arianne PO Q6H PRN PRN Reason: COUGH Last Admin: 08/08/18 19:55 Dose: 1 arianne Objective: [] Vital Signs Temp Pulse Resp BP Pulse Ox 97.4 F 89 20 120/52 98 08/09/18 03:56 08/09/18 03:56 08/09/18 08:00 08/09/18 03:56 08/09/18 03:56 A&Ox3, EOMI, neuro grossly non-focal HRR, S1S2, tele paced LS clear with dim. bases, no crackles +BS, obese and non-tender Laboratory Results - last 24 hr 08/08/18 08/08/18 08/09/18 16:35 19:39 05:45 WBC 3.6 RBC 2.97 L Hgb 9.2 L Hct 28 L MCV 94 MCH 31 MCHC 33 RDW 23 H Plt Count 301 MPV 7.5 Neut % (Auto) Not Reportable Lymph % (Auto) Not Reportable Rich % (Auto) Not Reportable Eos % (Auto) Not Reportable Baso % (Auto) Not Reportable Absolute Neuts (auto) 2.9 Absolute Lymphs (auto) Not Reportable Absolute Monos (auto) Not Reportable Absolute Eos (auto) Not Reportable Absolute Basos (auto) Not Reportable Absolute Nucleated RBC Not Reportable Immature Gran % 8.0 Neutrophils % 72.0 Band Neutrophils % 4.0 Lymphocytes % 6.0 Monocytes % 12.0 Eosinophils % 2.0 Basophils % 0.0 Metamyelocytes % 2.0 Myelocytes % 2.0 H Nucleated RBC % Not Reportable Abs Neuts (Manual) 2.9 Abs Lymphs (Manual) 0.2 L Abs Monocytes (Manual) 0.4 Absolute Eos (Manual) 0.1 Abs Basophils (Manual) 0.0 Nucleated RBCs/100 WBC 4.0 H Normal RBC Morphology Not Reportable Polychromasia 1+ Anisocytosis 2+ Sodium Potassium Chloride Carbon Dioxide Anion Gap BUN Creatinine Est GFR ( Amer) Est GFR (Non-Af Amer) BUN/Creatinine Ratio Glucose POC Glucose (mg/dL) 222 H 254 H Calcium Total Bilirubin AST ALT Alkaline Phosphatase Total Protein Albumin Globulin Albumin/Globulin Ratio 08/09/18 08/09/18 08/09/18 05:45 07:38 11:17 WBC RBC Hgb Hct MCV MCH MCHC RDW Plt Count MPV Neut % (Auto) Lymph % (Auto) Rich % (Auto) Eos % (Auto) Baso % (Auto) Absolute Neuts (auto) Absolute Lymphs (auto) Absolute Monos (auto) Absolute Eos (auto) Absolute Basos (auto) Absolute Nucleated RBC Immature Gran % Neutrophils % Band Neutrophils % Lymphocytes % Monocytes % Eosinophils % Basophils % Metamyelocytes % Myelocytes % Nucleated RBC % Abs Neuts (Manual) Abs Lymphs (Manual) Abs Monocytes (Manual) Absolute Eos (Manual) Abs Basophils (Manual) Nucleated RBCs/100 WBC Normal RBC Morphology Polychromasia Anisocytosis Sodium 137 Potassium 4.4 Chloride 99 L Carbon Dioxide 33 H Anion Gap 5 BUN 29 H Creatinine 1.38 H Est GFR ( Amer) 61.3 Est GFR (Non-Af Amer) 50.6 BUN/Creatinine Ratio 21.0 H Glucose 208 H POC Glucose (mg/dL) 233 H 233 H Calcium 8.1 L Total Bilirubin 0.90 AST 18 ALT 26 Alkaline Phosphatase 54 Total Protein 5.8 L Albumin 2.7 L Globulin 3.1 Albumin/Globulin Ratio 0.9 L Assessment: []73 yo male with 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 Neutropenia now resolved, however he remains very weak related to multiple co-morbidities. Plan: []1. Febrile neutropenia: resolved - Follow CBC daily 2. Cardiac: appreciate cardiology input. VT occurring mainly at night when hypoxic when removing CPAP. Does have AICD as back up so can be discharged from cards standpoint. - CHF: aggressive diuresis yesterday, now back on home dose 40 bid with no further crackles - VTAC: Amiodarone at 200 mg po daily, has been paced and intermittently V- paced since increased dose with no further VT 3. AML: C2D4 AZA/Ventoclax today - Azacitidine 75 mg/m2 subq D1-7 q28d - Ventoclax 200 mg daily, per protocol do not hold for cytopenias - no growth factor support 4. Dysuria: - improved with PRN pyridium, no evidence of retention on bladder scans 5. Weakness and deconditioning: multi-factorial - cont. PT/OT, increase activity and OOB time - dispo. to rehab 6. DM: BS stable - lantus 20 units (home dose 60U) - would like to avoid glucose <100 mg/dl while acutely ill however now running >200 consistently and therefore we will increase to 25 u - cont. sliding scale coverage 7. ALEXIS: cont CPAP while sleeping, ok to use Ativan at night--discussed with patient need to use - request resp. therapy more involved to confirm optimization 8. DVT prophylaxis: Lovenox FULL CODE Dispo: hopeful for dc to [facility] in next couple days
[2018-08-09] MEDS: AZACITIDINE SUBCUT SCH (15:26)
[2018-08-09] MEDS: Insulin GLARGINE(*) 1 UNITS UNIT SUBCUT SCH (19:25)
[2018-08-09] MEDS: VENETOCLAX 200 MG PO SCH (19:30)
[2018-08-09] MEDS ORDERED: Insulin LISPRO* 1 UNITS UNIT SUBCUT ONE (21:38)
[2018-08-09] MEDS: Saline NASAL DROPS 0.65%* 1 DROP BTL BOTH NARES PRN (22:03)
[2018-08-09] MEDS: LORazepam TAB(*) 0.5 MG PO PRN (22:53)
[2018-08-09] MEDS: Melatonin 3 MG TAB PO PRN (22:54)
[2018-08-10] MEDS: Polyethylene Glycol 3350* 17 GM PACKET PO SCH (08:58)
[2018-08-10] MEDS: Insulin LISPRO* 1 UNITS UNIT SUBCUT SCH ×4 (08:58→20:46)
[2018-08-10] MEDS: guaiFENesin ER TAB 600 MG PO SCH ×2 (09:00→20:21)
[2018-08-10] MEDS: Potassium Chlor TAB* 20 MEQ TAB.ER PO SCH ×2 (09:00→20:22)
[2018-08-10] MEDS: Senna TAB PO SCH (09:00)
[2018-08-10] MEDS: Furosemide TAB* 40 MG PO SCH ×2 (09:00→20:22)
[2018-08-10] MEDS: Amiodarone TAB* 200 MG PO SCH (09:00)
[2018-08-10 09:31] LABS: Hematocrit 29 % (42-52); Hemoglobin 9.5 g/dL (14.0-18.0); Mean Corpuscular HGB Conc 33 g/dL (31-36); Mean Corpuscular Hemoglobin 31 pg (27-31); Mean Corpuscular Volume 95 fL (80-94); Mean Platelet Volume 7.9 fL (7.4-10.4); Platelet Count 332 10^3/uL (150-450); Red Blood Count 3.05 10^6 /uL (4.18-5.48); Red Cell Distribution Width 22 % (10.5-15); White Blood Count 4.3 10^3/uL (3.5-10.8)
[2018-08-10 09:54] LABS: Albumin 2.8 g/dL (3.2-5.2); Albumin/Globulin Ratio 0.9 (1-3); Calcium 8.3 mg/dL (8.6-10.3); EGFR Non-African American 47.1 (>60); Globulin 3.2 g/dL (2-4); Potassium 4.7 mmol/L (3.5-5.0); Total Bilirubin 0.9 mg/dL (0.2-1.0)
[2018-08-10 10:23] LABS: ABS Lymphocytes 0.5 10^3/ul (1.0-4.8); ABS Monocytes 0.4 10^3/ul (0-0.8); ABS Neutrophils 3.4 10^3/ul (1.5-7.7); Eosinophil % 0.3 %; Lymphocyte % 10.6 %; Nucleated Red Blood Cells % 0.8
[2018-08-10 10:26] LABS: Polychromasia 1+
[2018-08-10] MEDS: Magic Mouth Was-BEN/MAAL/LIDO SWISH SPIT SCH ×4 (10:30→20:24)
[2018-08-10] MEDS: Enoxaparin(*) 30 MG/0.3 ML SYR SUBCUT SCH (10:30)
--- NOTE | 2018-08-10 11:42 | PN ---
Progress Note - Progress Note Date of Service: 08/10/18 SOAP: Subjective: [Feeling ok this am. Was able to sleep through the night and until 7:30 this morning with CPAP in place. Continues to stand to urinate and was able to walk to the restroom a couple of times with a walker yesterday. His cough is the most bothersome thing. He has to work to clear sputum. No dyspnea at rest. A flutter valve was brought in for him this morning.] Objective: [ Laboratory Results - last 24 hr 08/09/18 08/09/18 08/09/18 11:17 17:46 21:09 WBC RBC Hgb Hct MCV MCH MCHC RDW Plt Count MPV Neut % (Auto) Lymph % (Auto) [place] % (Auto) Eos % (Auto) Baso % (Auto) Absolute Neuts (auto) Absolute Lymphs (auto) Absolute Monos (auto) Absolute Eos (auto) Absolute Basos (auto) Absolute Nucleated RBC Immature Gran % Neutrophils % Band Neutrophils % Lymphocytes % Monocytes % Metamyelocytes % Myelocytes % Nucleated RBC % Normal RBC Morphology Polychromasia Hypochromasia Anisocytosis Sodium Potassium Chloride Carbon Dioxide Anion Gap BUN Creatinine Est GFR ( Amer) Est GFR (Non-Af Amer) BUN/Creatinine Ratio Glucose POC Glucose (mg/dL) 233 H 243 H 259 H Calcium Total Bilirubin AST ALT Alkaline Phosphatase Total Protein Albumin Globulin Albumin/Globulin Ratio 08/10/18 08/10/18 08/10/18 07:55 09:05 09:05 WBC 4.3 RBC 3.05 L Hgb 9.5 L Hct 29 L MCV 95 H MCH 31 MCHC 33 RDW 22 H Plt Count 332 MPV 7.9 Neut % (Auto) 79.4 Lymph % (Auto) 10.6 [place] % (Auto) 8.6 Eos % (Auto) 0.3 Baso % (Auto) 1.1 Absolute Neuts (auto) 3.4 Absolute Lymphs (auto) 0.5 L Absolute Monos (auto) 0.4 Absolute Eos (auto) 0.0 Absolute Basos (auto) 0.0 Absolute Nucleated RBC 0.0 Immature Gran % 8.0 Neutrophils % 76.0 Band Neutrophils % 5.0 Lymphocytes % 12.0 Monocytes % 4.0 Metamyelocytes % 1.0 Myelocytes % 2.0 H Nucleated RBC % 0.8 Normal RBC Morphology Not Reportable Polychromasia 1+ Hypochromasia 1+ Anisocytosis 2+ Sodium 136 Potassium 4.7 Chloride 98 L Carbon Dioxide 32 Anion Gap 6 BUN 28 H Creatinine 1.47 H Est GFR ( Amer) 57.0 Est GFR (Non-Af Amer) 47.1 BUN/Creatinine Ratio 19.0 Glucose 243 H POC Glucose (mg/dL) 192 H Calcium 8.3 L Total Bilirubin 0.90 AST 19 ALT 24 Alkaline Phosphatase 55 Total Protein 6.0 L Albumin 2.8 L Globulin 3.2 Albumin/Globulin Ratio 0.9 L Acetaminophen (Tylenol Tab*) 650 mg PO Q4H PRN PRN Reason: FEVER/PAIN Last Admin: 08/09/18 22:54 Dose: 650 mg Amiodarone HCl (Cordarone Tab*) 200 mg PO QAM [facility] Last Admin: 08/10/18 09:00 Dose: 200 mg Calcium Carbonate (Tums*) 500 mg PO Q4H PRN PRN Reason: reflux Last Admin: 08/08/18 10:06 Dose: 500 mg Dextrose (D50w Syringe 50 Ml*) 12.5 gm IV PUSH .FOR FS < 60 - SS PRN PRN Reason: FS < 60 Enoxaparin Sodium (Lovenox(*)) 30 mg SUBCUT Q24H [facility] Last Admin: 08/10/18 10:30 Dose: 30 mg Furosemide (Lasix Tab*) 40 mg PO BID [facility] Last Admin: 08/10/18 09:00 Dose: 40 mg Guaifenesin (Mucinex*) 600 mg PO BID [facility] Last Admin: 08/10/18 09:00 Dose: 600 mg Heparin Sodium (Porcine) (Heparin Flush Picc/Ml/Cvc(*)) 1 - 3 ml FLUSH 0600, 1800 [facility]; Protocol Last Admin: 08/10/18 05:13 Dose: 2 ml Azacitidine 185 mg/ IV (Solution) 7.4 mls @ 0 mls/hr SUBCUT Q24HR@1400 [facility] Stop: 08/10/18 14:01 Last Admin: 08/09/18 15:26 Dose: 1 mls/hr Insulin Glargine (Lantus(*)) 25 units SUBCUT QPM [facility] Last Admin: 08/09/18 19:25 Dose: 25 units Insulin Human Lispro (Humalog*) 0 units SUBCUT [facility]; Protocol Last Admin: 08/10/18 08:58 Dose: 2 units Lidocaine HCl (Lidocaine 2% Jelly*) 1 applic TOPICAL Q2H PRN PRN Reason: gray related pain Last Admin: 07/31/18 09:24 Dose: 1 applic Lorazepam (Ativan Tab(*)) 0.5 mg PO Q6H PRN PRN Reason: ANXIETY Last Admin: 08/09/18 22:53 Dose: 0.5 mg Melatonin (Melatonin) 3 mg PO BEDTIME PRN PRN Reason: SLEEP Last Admin: 08/09/18 22:54 Dose: 3 mg Multi-Ingredient Mouthwash/Gargle (Magic Mouth Was-Frank/Maal/Lido*) 5 ml SWISH SPIT QID [facility] Last Admin: 08/10/18 10:30 Dose: 5 ml Pto:* (Venetoclax [ (Venclexta] 200 Mg)) 200 mg PO DAILY@1700 [facility] Last Admin: 08/09/18 19:30 Dose: 200 mg Ondansetron HCl (Zofran Inj*) 4 mg IV Q4H PRN PRN Reason: NAUSEA/VOMITING Phenazopyridine HCl (Pyridium Tab*) 200 mg PO TID PRN PRN Reason: PAIN Last Admin: 08/02/18 07:52 Dose: 200 mg Polyethylene Glycol/Electrolytes (Miralax*) 17 gm PO DAILY [facility] Last Admin: 08/10/18 08:58 Dose: 17 gm Polyethylene Glycol/Electrolytes (Miralax*) 17 gm PO BEDTIME PRN PRN Reason: CONSTIPATION Potassium Chloride (Klor Con Er Tab*) 20 meq PO BID [facility] Last Admin: 08/10/18 09:00 Dose: 20 meq Senna (Senokot Tab*) 1 tab PO DAILY [facility] Last Admin: 08/10/18 09:00 Dose: 1 tab Sodium Chloride (Sodium Chloride 0.65% Nasal Drops*) 1 drop BOTH NARES Q4H PRN PRN Reason: CONGESTION Last Admin: 08/09/18 22:03 Dose: 1 drop Throat Lozenges (Chloraseptic Arianne*) 1 arianne PO Q6H PRN PRN Reason: COUGH Last Admin: 08/08/18 19:55 Dose: 1 arianne Vital Signs Temp Pulse Resp BP Pulse Ox 97.4 F 71 18 121/57 100 08/10/18 04:10 08/10/18 04:10 08/10/18 04:10 08/10/18 04:10 08/10/18 04:10 Exam: Gen: Chronically ill appearing 73 yo male in NAD HEENT: MMM, no thrush CV: RRR, no m/r/g Resp: occasional rhonchi Abd: soft, mild TTP Ext: 1-2+ pitting edema] [Assessment: []73 yo male with 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 Neutropenia now resolved, however he remains very weak related to multiple co-morbidities. Plan: []1. Febrile neutropenia: resolved - Follow CBC daily 2. Cardiac: appreciate cardiology input. VT occurring mainly at night when hypoxic when removing CPAP. Does have AICD as back up so can be discharged from cards standpoint. - CHF: aggressively diuresed now back on home diuretic dose. Appears clinically euvolemic to slightly hypervolemic today - VTAC: Amiodarone at 200 mg po daily, has been paced and intermittently V- paced since increased dose with no further VT 3. AML: C2D5 AZA/Ventoclax today - Azacitidine 75 mg/m2 subq D1-7 q28d - Ventoclax 200 mg daily, per protocol do not hold for cytopenias - no growth factor support 4. Dysuria: - improved with PRN pyridium, no evidence of retention on bladder scans 5. Weakness and deconditioning: multi-factorial - cont. PT/OT, increase activity and OOB time - dispo. to rehab 6. DM: BS stable - lantus 25 units (home dose 60U) - increased from 25U yesterday, cont to monitor glucose with goal for FBG ~150 g/dl while acutely ill - cont. sliding scale coverage 7. ALEXIS: - cont CPAP while sleeping, ok to use Ativan at night 8. Cough - likely some atelectasis v pulm edema - use flutter valve and increase mucinex to 1200 mg bid 8. DVT prophylaxis: Lovenox FULL CODE Dispo: hopeful for dc to [facility] early next week, pending insurance auth for swing bed at [facility]
[2018-08-10] MEDS: AZACITIDINE SUBCUT SCH (15:34)
[2018-08-10] MEDS: VENETOCLAX 200 MG PO SCH (17:11)
[2018-08-10] MEDS: Insulin GLARGINE(*) 1 UNITS UNIT SUBCUT SCH (17:17)
[2018-08-10] MEDS: Benzocaine/Menthol LOZ* 1 LOZENGE PO PRN (17:19)
[2018-08-10] MEDS: Saline NASAL DROPS 0.65%* 1 DROP BTL BOTH NARES PRN (20:47)
[2018-08-10] MEDS ORDERED: Insulin LISPRO* 1 UNITS UNIT SUBCUT ONE (21:00)
[2018-08-10] MEDS: LORazepam TAB(*) 0.5 MG PO PRN (21:42)
[2018-08-10] MEDS: Acetaminophen TAB* 325 MG PO PRN (21:42)
[2018-08-11] MEDS: Calcium Carbonate CHEW TAB* 500 MG (TUMS) PO PRN (04:18)
[2018-08-11] MEDS: Acetaminophen TAB* 325 MG PO PRN (04:19)
[2018-08-11 05:52] LABS: Hematocrit 28 % (42-52); Hemoglobin 9.1 g/dL (14.0-18.0); Mean Corpuscular HGB Conc 33 g/dL (31-36); Mean Corpuscular Hemoglobin 31 pg (27-31); Mean Corpuscular Volume 95 fL (80-94); Mean Platelet Volume 7.8 fL (7.4-10.4); Platelet Count 311 10^3/uL (150-450); Red Blood Count 2.91 10^6 /uL (4.18-5.48); Red Cell Distribution Width 22 % (10.5-15); White Blood Count 4.3 10^3/uL (3.5-10.8)
[2018-08-11 06:13] LABS: Albumin 2.8 g/dL (3.2-5.2); BUN/Creatinine Ratio 18.2 (8-20); Calcium 8.2 mg/dL (8.6-10.3); EGFR African American 56.5 (>60); EGFR Non-African American 46.7 (>60); Globulin 2.9 g/dL (2-4); Potassium 4.1 mmol/L (3.5-5.0); Total Bilirubin 0.8 mg/dL (0.2-1.0); Total Protein 5.7 g/dL (6.4-8.9)
[2018-08-11 07:29] LABS: ABS Neutrophils 3.5 10^3/ul (1.5-7.7); ABS Neutrophils 3.6 10^3/ul (1.5-7.7)
[2018-08-11] MEDS: Polyethylene Glycol 3350* 17 GM PACKET PO SCH (07:52)
[2018-08-11] MEDS: guaiFENesin ER TAB 600 MG PO SCH ×2 (07:53→21:15)
[2018-08-11] MEDS: Amiodarone TAB* 200 MG PO SCH (07:53)
[2018-08-11] MEDS: Insulin LISPRO* 1 UNITS UNIT SUBCUT SCH ×4 (07:53→21:14)
[2018-08-11] MEDS: Furosemide TAB* 40 MG PO SCH ×2 (07:53→21:15)
[2018-08-11] MEDS: Senna TAB PO SCH (07:53)
[2018-08-11] MEDS: Potassium Chlor TAB* 20 MEQ TAB.ER PO SCH ×2 (07:54→21:15)
[2018-08-11] MEDS: Magic Mouth Was-BEN/MAAL/LIDO SWISH SPIT SCH ×4 (12:36→21:15)
[2018-08-11] MEDS: Enoxaparin(*) 30 MG/0.3 ML SYR SUBCUT SCH (12:42)
[2018-08-11] MEDS ORDERED: Insulin GLARGINE(*) 1 UNITS UNIT SUBCUT SCH (18:00)
[2018-08-11] MEDS: VENETOCLAX 200 MG PO SCH (18:00)
[2018-08-11 20:30] LABS: Hematocrit 28 % (42-52); Hemoglobin 9.3 g/dL (14.0-18.0); Mean Corpuscular HGB Conc 33 g/dL (31-36); Mean Corpuscular Hemoglobin 31 pg (27-31); Mean Corpuscular Volume 95 fL (80-94); Mean Platelet Volume 7.6 fL (7.4-10.4); Platelet Count 325 10^3/uL (150-450); Red Blood Count 2.98 10^6 /uL (4.18-5.48); Red Cell Distribution Width 22 % (10.5-15); White Blood Count 5.6 10^3/uL (3.5-10.8)
[2018-08-11 21:17] LABS: ABS Lymphocytes 0.6 10^3/ul (1.0-4.8); ABS Monocytes 0.4 10^3/ul (0-0.8); ABS Neutrophils 4.6 10^3/ul (1.5-7.7)
[2018-08-11 21:26] LABS: Polychromasia 1+
[2018-08-12] MEDS: LORazepam TAB(*) 0.5 MG PO PRN ×2 (00:02→22:09)
[2018-08-12 04:55] LABS: ABS Lymphocytes 0.5 10^3/ul (1.0-4.8); ABS Monocytes 0.4 10^3/ul (0-0.8); ABS Neutrophils 5.3 10^3/ul (1.5-7.7); Hematocrit 29 % (42-52); Hemoglobin 9.4 g/dL (14.0-18.0); Mean Corpuscular HGB Conc 32 g/dL (31-36); Mean Corpuscular Hemoglobin 31 pg (27-31); Mean Corpuscular Volume 95 fL (80-94); Platelet Count 312 10^3/uL (150-450); Red Blood Count 3.04 10^6 /uL (4.18-5.48); Red Cell Distribution Width 23 % (10.5-15); White Blood Count 6.3 10^3/uL (3.5-10.8)
[2018-08-12 05:09] LABS: Albumin 2.8 g/dL (3.2-5.2); Albumin/Globulin Ratio 0.9 (1-3); BUN/Creatinine Ratio 16.6 (8-20); Calcium 8.3 mg/dL (8.6-10.3); EGFR African American 57.9 (>60); EGFR Non-African American 47.8 (>60); Globulin 3.2 g/dL (2-4); Total Bilirubin 0.9 mg/dL (0.2-1.0)
[2018-08-12 05:16] LABS: Lymphocyte % 8.3 %; Nucleated Red Blood Cells % 0.2
[2018-08-12] MEDS: Insulin LISPRO* 1 UNITS UNIT SUBCUT SCH ×4 (08:29→21:57)
[2018-08-12] MEDS: Polyethylene Glycol 3350* 17 GM PACKET PO SCH (08:29)
[2018-08-12] MEDS: Amiodarone TAB* 200 MG PO SCH (08:30)
[2018-08-12] MEDS: Potassium Chlor TAB* 20 MEQ TAB.ER PO SCH ×2 (08:30→21:56)
[2018-08-12] MEDS: guaiFENesin ER TAB 600 MG PO SCH ×2 (08:30→21:56)
[2018-08-12] MEDS: Furosemide TAB* 40 MG PO SCH ×2 (08:31→21:56)
[2018-08-12] MEDS: Senna TAB PO SCH (08:31)
[2018-08-12] MEDS: Enoxaparin(*) 30 MG/0.3 ML SYR SUBCUT SCH (10:58)
[2018-08-12] MEDS: Magic Mouth Was-BEN/MAAL/LIDO SWISH SPIT SCH ×5 (10:59→21:58)
[2018-08-12] MEDS: Cephalexin CAP* 250 MG PO SCH ×3 (12:18→21:56)
[2018-08-12] MEDS: Insulin GLARGINE(*) 1 UNITS UNIT SUBCUT SCH (17:20)
[2018-08-12] MEDS: VENETOCLAX 200 MG PO SCH (17:22)
[2018-08-12] MEDS: Benzocaine/Menthol LOZ* 1 LOZENGE PO PRN (17:30)
[2018-08-13] MEDS: LORazepam TAB(*) 0.5 MG PO PRN ×2 (04:22→12:33)
[2018-08-13] MEDS: Phenazopyridine TAB* 100 MG PO PRN (04:23)
[2018-08-13] MEDS: Enoxaparin(*) 30 MG/0.3 ML SYR SUBCUT SCH (08:41)
[2018-08-13] MEDS: Insulin LISPRO* 1 UNITS UNIT SUBCUT SCH ×4 (08:41→21:08)
[2018-08-13] MEDS: Potassium Chlor TAB* 20 MEQ TAB.ER PO SCH ×2 (08:45→21:07)
[2018-08-13] MEDS: guaiFENesin ER TAB 600 MG PO SCH ×2 (08:45→21:17)
[2018-08-13] MEDS: Furosemide TAB* 40 MG PO SCH ×2 (08:45→21:08)
[2018-08-13] MEDS: Senna TAB PO SCH (08:45)
[2018-08-13] MEDS: Amiodarone TAB* 200 MG PO SCH (08:45)
[2018-08-13] MEDS: Cephalexin CAP* 250 MG PO SCH ×4 (08:45→21:08)
[2018-08-13] MEDS: Magic Mouth Was-BEN/MAAL/LIDO SWISH SPIT SCH ×4 (08:50→21:11)
[2018-08-13] MEDS: Polyethylene Glycol 3350* 17 GM PACKET PO SCH (08:50)
--- NOTE | 2018-08-13 09:47 | PN ---
Progress Note - Progress Note Date of Service: 08/13/18 SOAP: Subjective: []Excited for d/c to [facility]. No complaints today. Medications: Acetaminophen (Tylenol Tab*) 650 mg PO Q4H PRN PRN Reason: FEVER/PAIN Last Admin: 08/11/18 04:19 Dose: 650 mg Amiodarone HCl (Cordarone Tab*) 200 mg PO QAM [facility] Last Admin: 08/13/18 08:45 Dose: 200 mg Calcium Carbonate (Tums*) 500 mg PO Q4H PRN PRN Reason: reflux Last Admin: 08/11/18 04:18 Dose: 500 mg Cephalexin HCl (Keflex Cap*) 250 mg PO QID [facility] Last Admin: 08/13/18 08:45 Dose: 250 mg Dextrose (D50w Syringe 50 Ml*) 12.5 gm IV PUSH .FOR FS < 60 - SS PRN PRN Reason: FS < 60 Enoxaparin Sodium (Lovenox(*)) 30 mg SUBCUT Q24H [facility] Last Admin: 08/13/18 08:41 Dose: 30 mg Furosemide (Lasix Tab*) 40 mg PO BID [facility] Last Admin: 08/13/18 08:45 Dose: 40 mg Guaifenesin (Mucinex*) 1,200 mg PO BID [facility] Last Admin: 08/13/18 08:45 Dose: 1,200 mg Heparin Sodium (Porcine) (Heparin Flush Picc/Ml/Cvc(*)) 1 - 3 ml FLUSH 0600, 1800 [facility]; Protocol Last Admin: 08/13/18 05:48 Dose: 1 ml Insulin Glargine (Lantus(*)) 35 units SUBCUT QPM [facility] Last Admin: 08/12/18 17:20 Dose: 35 units Insulin Human Lispro (Humalog*) 0 units SUBCUT ACHS [facility]; Protocol Last Admin: 08/13/18 08:41 Dose: 2 units Lidocaine HCl (Lidocaine 2% Jelly*) 1 applic TOPICAL Q2H PRN PRN Reason: gray related pain Last Admin: 07/31/18 09:24 Dose: 1 applic Lorazepam (Ativan Tab(*)) 0.5 mg PO Q6H PRN PRN Reason: ANXIETY Last Admin: 08/13/18 04:22 Dose: 0.5 mg Melatonin (Melatonin) 3 mg PO BEDTIME PRN PRN Reason: SLEEP Last Admin: 08/09/18 22:54 Dose: 3 mg Multi-Ingredient Mouthwash/Gargle (Magic Mouth Was-Frank/Maal/Lido*) 5 ml SWISH SPIT QID [facility] Last Admin: 08/13/18 08:50 Dose: Not Given Pto:* (Venetoclax [ (Venclexta] 200 Mg)) 200 mg PO DAILY@1700 [facility] Last Admin: 08/12/18 17:22 Dose: 200 mg Ondansetron HCl (Zofran Inj*) 4 mg IV Q4H PRN PRN Reason: NAUSEA/VOMITING Phenazopyridine HCl (Pyridium Tab*) 200 mg PO TID PRN PRN Reason: PAIN Last Admin: 08/13/18 04:23 Dose: 200 mg Polyethylene Glycol/Electrolytes (Miralax*) 17 gm PO DAILY [facility] Last Admin: 08/13/18 08:50 Dose: 17 gm Polyethylene Glycol/Electrolytes (Miralax*) 17 gm PO BEDTIME PRN PRN Reason: CONSTIPATION Potassium Chloride (Klor Con Er Tab*) 20 meq PO BID [facility] Last Admin: 08/13/18 08:45 Dose: 20 meq Senna (Senokot Tab*) 1 tab PO DAILY [facility] Last Admin: 08/13/18 08:45 Dose: 1 tab Sodium Chloride (Sodium Chloride 0.65% Nasal Drops*) 1 drop BOTH NARES Q4H PRN PRN Reason: CONGESTION Last Admin: 08/10/18 20:47 Dose: 1 drop Throat Lozenges (Chloraseptic Arianne*) 1 arianne PO Q6H PRN PRN Reason: COUGH Last Admin: 08/12/18 17:30 Dose: 1 arianne Objective: [] Vital Signs Temp Pulse Resp BP Pulse Ox 98.0 F 66 16 90/51 96 08/13/18 07:19 08/13/18 07:19 08/13/18 08:00 08/13/18 07:19 08/13/18 07:19 A&Ox3, EOMI, KOHLER, neuro grossly non-focal HRR, S1S2, tele paced LS with exp. wheeze, wet cough, frothy sputum +BS, obese, non-tender Laboratory Results - last 24 hr 08/12/18 08/12/1819 11:57 17:02 21:45 POC Glucose (mg/dL) 205 H 272 H 171 H 08/13/18 07:32 POC Glucose (mg/dL) 174 H Assessment: []73 yo male with newly diagnosed AML currently on AZA/Venetoclax, C2D8 today. Prolonged admission r/t febrile neutropenia now resolved with plan for discharge to [facility] tomorrow. Course complicated by severe cardiac disease and obesity. Plan: []1. Febrile neutropenia: resolved - Follow CBC daily 2. Cardiac: appreciate cardiology input, has AICD, cont. CPAP to prevent hypoxic events - CHF: on home diuretic dose. Appears clinically euvolemic to slightly hypervolemic today - VTAC: Amiodarone at 200 mg po daily, has been paced and intermittently V- paced since increased dose with no further VT 3. AML: C2D1 AZA/Ventoclax 08/06/18 - Azacitidine 75 mg/m2 subq D1-5 & 8-9 q28d - Ventoclax 200 mg daily, per protocol do not hold for cytopenias - no growth factor support 4. Weakness and de-conditioning: multi-factorial - cont. PT/OT, increase activity and OOB time 5. DM: BS stable - lantus 25 units (home dose 60U) goal for FBG ~150 g/dl - cont. sliding scale coverage 6. ALEXIS: - cont CPAP while sleeping, ok to use Ativan at night 7. Cough - likely some atelectasis v pulm edema - use flutter valve and mucinex to 1200 mg bid - try neb tx. and if helpful can cont. 8. DVT prophylaxis: Lovenox FULL CODE Dispo: d/c to [facility] tomorrow afternoon
[2018-08-13] MEDS ORDERED: Albuterol 0.5% CONC NEB.SOL* 5 MG/ML 20 ml BOT INH ONE (11:29)
[2018-08-13] MEDS ORDERED: Albuterol 2.5 MG/3 ML NEB.SOL* (0.083%) INH ONE ×2 (11:48→11:50)
[2018-08-13] MEDS: Acetaminophen TAB* 325 MG PO PRN (12:34)
[2018-08-13] MEDS ORDERED: AZACITIDINE SUBCUT SCH (15:00)
[2018-08-13] MEDS: VENETOCLAX 200 MG PO SCH (16:25)
[2018-08-13] MEDS: Insulin GLARGINE(*) 1 UNITS UNIT SUBCUT SCH (17:25)
[2018-08-13] MEDS ORDERED: Alteplase (CATHFLO)* 2 MG VIAL IV ONE (18:45)
[2018-08-14] MEDS: Acetaminophen TAB* 325 MG PO PRN (02:22)
[2018-08-14 06:08] LABS: Hematocrit 29 % (42-52); Hemoglobin 9.5 g/dL (14.0-18.0); Mean Corpuscular HGB Conc 33 g/dL (31-36); Mean Corpuscular Hemoglobin 31 pg (27-31); Mean Corpuscular Volume 96 fL (80-94); Platelet Count 263 10^3/uL (150-450); Red Blood Count 3.06 10^6 /uL (4.18-5.48); Red Cell Distribution Width 24 % (10.5-15); White Blood Count 5.3 10^3/uL (3.5-10.8)
[2018-08-14 06:11] LABS: Albumin 2.9 g/dL (3.2-5.2); Albumin/Globulin Ratio 0.9 (1-3); BUN/Creatinine Ratio 15.6 (8-20); Calcium 8.3 mg/dL (8.6-10.3); EGFR Non-African American 47.1 (>60); Globulin 3.1 g/dL (2-4)
[2018-08-14] MEDS: Polyethylene Glycol 3350* 17 GM PACKET PO SCH (08:09)
[2018-08-14] MEDS: Potassium Chlor TAB* 20 MEQ TAB.ER PO SCH (08:09)
[2018-08-14] MEDS: Amiodarone TAB* 200 MG PO SCH (08:09)
[2018-08-14] MEDS: Furosemide TAB* 40 MG PO SCH (08:09)
[2018-08-14] MEDS: guaiFENesin ER TAB 600 MG PO SCH (08:09)
[2018-08-14] MEDS: Senna TAB PO SCH (08:09)
[2018-08-14] MEDS: Insulin LISPRO* 1 UNITS UNIT SUBCUT SCH ×2 (08:09→13:59)
[2018-08-14] MEDS: Cephalexin CAP* 250 MG PO SCH (08:13)
[2018-08-14] MEDS: Magic Mouth Was-BEN/MAAL/LIDO SWISH SPIT SCH (08:13)
[2018-08-14 08:35] LABS: ABS Lymphocytes 0.5 10^3/ul (1.0-4.8); ABS Monocytes 0.5 10^3/ul (0-0.8); ABS Neutrophils 4.3 10^3/ul (1.5-7.7); Eosinophil % 0.1 %; Lymphocyte % 8.7 %; Nucleated Red Blood Cells % 0.2
[2018-08-14 08:49] LABS: Polychromasia 2+
[2018-08-14] MEDS: Enoxaparin(*) 30 MG/0.3 ML SYR SUBCUT SCH (09:03)
[2018-08-14] MEDS ORDERED: AZACITIDINE SUBCUT ONE (10:00)
[2018-08-14 10:26] VITALS: BP 100/43
--- NOTE | 2018-08-14 12:03 | DS ---
CC: Dr. Lyle * DISCHARGE SUMMARY: DATE OF ADMISSION: 07/25/18. DATE OF DISCHARGE: 08/14/18. PRIMARY CARE PROVIDER: Dr. Lyle. PRIMARY ONCOLOGIST AND ATTENDING PHYSICIAN: Dr. Kimmy Wallace.* (DICTATED BY RIMA VALLE) CONSULTING LEAD PYTHON DEVELOPER: Dr. Gage Hartmann. PRIMARY DISCHARGE DIAGNOSES: 1. Neutropenic fever. 2. Acute myeloid leukemia, not found to be a candidate for induction therapy, admitted cycle 1 day 7 of Venetoclax. 3. Obstructive sleep apnea. 4. Acute on chronic systolic heart failure - now euvolemic discharge. 5. Ventricular tachycardia. 6. Insulin-dependent diabetes. 7. Deconditioning. DISCHARGE MEDICATIONS: 1. Allopurinol 300 mg p.o. daily. 2. Amiodarone 100 mg p.o. daily. 3. Carvedilol 12.5 mg p.o. twice daily. 4. Doxylamine 25 to 50 mg p.o. at bedtime as needed for sleep. 5. Lasix 40 mg p.o. twice daily. 6. Levaquin 500 mg p.o. daily. 7. Lovastatin 40 mg p.o. daily. 8. Multivitamin 1 tablet p.o. daily. 9. MiraLAX 17 g p.o. daily. 10. Potassium chloride 20 mEq p.o. daily. 11. Senna 1 tablet p.o. daily. 12. CoQ10 200 mg p.o. daily. 13. Venetoclax 200 mg p.o. daily. 14. Mucinex 1200 mg p.o. twice daily. 15. Lantus 35 units subcu daily. 16. Lorazepam 0.5 mg p.o. q.6 hours as needed for anxiety. 17. Melatonin 3 mg p.o. at bedtime. HOSPITAL IMAGING: Chest x-ray 07/25/18 shows cardiomegaly and changes consistent with COPD, but no acute infiltrate. CTA of the chest shows no PE or other infiltrate. There is a small pericardial effusion. Chest x-ray 07/26/18 shows cardiomegaly and pulmonary interstitial edema. Chest x-ray 08/07/18 demonstrates mild pulmonary interstitial edema. Transthoracic echocardiogram: Mild to moderately reduced systolic function, but unable to quantify due to poor visualization. Reduced systolic function of the right ventricle with pacer wire noted in place. Bioprosthetic valve in the aortic position showing no significant stenosis. HOSPITAL COURSE: This is a 73-year-old gentleman with a recent diagnosis of AML. He was initially transferred to [facility] at which point, he was felt not to be a candidate for induction therapy and recommendation was to start azacitidine and venetoclax. Patient started azacitidine on 07/09/18, then venetoclax on 07/17/18. He has been very weak since the beginning of the year associated with the diagnosis of AML, but prior to his hospitalization he was so weak that he fell out of his wheelchair prompting his to contact EMS and transporting him to the emergency room. He had had some abdominal cramping and diarrhea at that time, and temperature upon reaching the emergency department was 102.1 degrees Fahrenheit. Chest x-ray was unremarkable. Urine and blood cultures were negative. Initial labs included total white blood cell count of 1000 and ANC of 500, hemoglobin of 8.1 and platelets of 13,000. Creatinine was 1.42, which is near his baseline and initial troponin of 0.75 without complaints of chest pain. Patient was subsequently admitted with a diagnosis of neutropenic fever. He was placed on cefepime for broad-spectrum coverage. His elevated troponin was thought to most likely be demand related and upon trending troponins, it did improve with time and he remained asymptomatic from a cardiac perspective. The patient had intermittent fevers for a total of 24 hours following his initial hospitalization after which he remained afebrile. He was continued on his venetoclax without dose reduction for package insert. Recommendation is to continue with therapy at least through cycle 2 as a form of induction therapy for AML. He remained neutropenic until 08/05/18 at which point, his neutrophil count recovered and is normal at the time of discharge. His platelets steadily improved during his hospitalization and again are normal at the time of discharge. He did not have any major bleeding event and did not require platelets transfusion. He did require; however, a total of 5 units of packed red blood cells over his hospitalization, most recent was 08/04/18 and hemoglobin is 9.5 at the time of discharge. Patient complained primarily throughout his hospitalization with shortness of breath as well as profound fatigue. A CTA was completed, which was negative for PE. Patient has a known history of heart failure and began to have longer runs of ventricular tachycardia. Cardiology was subsequently consulted who performed a transthoracic echocardiogram, which had poor windows that was difficult to quantify his exact systolic function, but left ventricle was at least mildly to moderately reduced. There were no infiltrates on initial chest x-ray, but the patient did develop some pulmonary edema likely due to fluid overload exacerbated by his heart failure. He was diuresed with improvement somewhat in his complaints of dyspnea. Overnight oximetry was performed, which showed frequent desaturations, but he was only able to leave the monitor in place for a short period of time. He has a known history of obstructive sleep apnea and was finding it difficult to leave the CPAP mask in place due to anxiety and feelings of claustrophobia during his hospitalization. With some changes to his bedroom environment and use of Ativan, he was able to improve his compliance with the CPAP and his dyspnea subsequently improved prior to discharge. DISPOSITION AND FOLLOWUP PLAN: The patient is being discharged to [facility] swing status for continued rehabilitation. He is in stable condition. The plan at the time of discharge will be to continue his venetoclax. He did complete his second cycle of azacitidine during this hospitalization with day 1 of cycle 2 being 08/06/18. Anticipate cycle 3 day 1 being 09/03/18. Patient will be seen by seen by Dr. Kimmy Wallace in followup on 08/30/18 at 4:10 p.m. Recommend weekly CBCs during his time at [place] with the plan for eventual discharge to home. RIMA VALLE [id number]/[facility] #: [id number] JOVANI
== END 2018-08-14 13:38 | disposition swing bed (61) | DRG 871 ==
LOC: ED 13:01 → MEDTELE 15:57
PROVIDERS: ADMIT Internal Medicine Hematology & Oncology; ATTEND Internal Medicine Hematology & Oncology
PROC: 5A09357 Assistance with Respiratory Ventilation, Less than 24 Consecutive Hours, Continuous Positive Airway Pressure (ICD-10-PCS; 2018-07-25)
PROC: 30233N1 Transfusion of Nonautologous Red Blood Cells into Peripheral Vein, Percutaneous Approach (ICD-10-PCS; principal; 2018-07-26)
DX: A41.9 Sepsis, unspecified organism (principal); I50.23 Acute on chronic systolic (congestive) heart failure; C91.00 Acute lymphoblastic leukemia not having achieved remission; I42.9 Cardiomyopathy, unspecified; I47.2 Ventricular tachycardia; I24.8 Other forms of acute ischemic heart disease; I31.3 Pericardial effusion (noninflammatory); D70.9 Neutropenia, unspecified; R50.81 Fever presenting with conditions classified elsewhere; J44.9 Chronic obstructive pulmonary disease, unspecified; E66.9 Obesity, unspecified; I48.91 Unspecified atrial fibrillation; G47.33 Obstructive sleep apnea (adult) (pediatric); E11.36 Type 2 diabetes mellitus with diabetic cataract; R74.8 Abnormal levels of other serum enzymes; E78.00 Pure hypercholesterolemia, unspecified; K59.00 Constipation, unspecified; R74.0 Nonspecific elevation of levels of transaminase and lactic acid dehydrogenase [LDH]; D69.6 Thrombocytopenia, unspecified; E11.22 Type 2 diabetes mellitus with diabetic chronic kidney disease; N18.9 Chronic kidney disease, unspecified; R30.0 Dysuria; E11.649 Type 2 diabetes mellitus with hypoglycemia without coma; Z85.828 Personal history of other malignant neoplasm of skin; Z98.52 Vasectomy status; Z95.2 Presence of prosthetic heart valve; Z68.38 Body mass index [BMI] 38.0-38.9, adult; Z79.4 Long term (current) use of insulin; Z95.810 Presence of automatic (implantable) cardiac defibrillator; Z82.3 Family history of stroke
CPT/HCPCS: 36415; 36600; 71045; 71046; 71275; 80048; 80053; 81003; 81015; 82248; 82803; 83605; 83735; 83880; 84443; 84484; 85025; 85027; 85060; 85610; 85730; 86078; 86850; 86900; 86901; 86922; 87040; 87086; 93005; 93306; 94640; 94660; 94762; 97530; 99223; 99232; 99233; 99239; 99284; A9270-GY; G8978-GP-CN; G8979-GP-CL; G8987-GO-CL; G8987-GO-CN; G8988-GO-CI; G8988-GO-CK; J0692; J1650; J1720; J1940; J2997; J3480; J9025; P9016; P9040; Q9967

== ENCOUNTER 2018-09-04 10:03 | Emergency (ER) | payer MEDICARE ==
--- NOTE | 2018-09-04 10:26 | ED ---
HPI Diabetic - HPI Summary HPI Summary: The patient is a 73 y/o M arriving by ambulance to [facility] with a chief complaint of becoming unresponsive secondary to hypoglycemia this morning. He reports hx of DMII for which he is insulin-dependent. He woke up at 0200 and realized that he had not taken his insulin that he is supposed to take at 1800 from the night before. He took the medication and went back to sleep, but he did not eat anything since yesterday around 1600. He was found to unresponsive by his , who called EMS. They administered 150mg Dextrose to which the patient woke up and became alert and oriented. In the ED at 1020, the patient's glucose is 75. He additionally c/o tremulous hands. He denies abd pain. Hx of leukemia, CHF, HLD, HTN, COPD. Surgical hx of pacemaker in 2010, aortic valve replacement with aneurysm repair. Nonsmoker, no EtOH, no substance use. - History Of Current Complaint Chief Complaint: EDDiabeticProb Time Seen by Provider: 09/04/18 10:15 Hx Obtained From: Patient Onset/Duration: Sudden Onset, Lasting Minutes, Still Present Timing: Minutes Severity Initially: Severe Severity Currently: Mild Character: Other - unresponsive initially but now alert Aggravating: Non-compliant - did not take insulin last night, Other - decreased oral intake Alleviating: EMS Treatment - 150mg Dextrose Associated Signs & Symptoms: Decreased Level of Conciousness - resolved Related History: Compliant, DM II, Insulin Requiring - Allergies/Home Medications Allergies/Adverse Reactions: Allergies Allergy/AdvReac Type Severity Reaction Status Date / Time No Known Allergies Allergy Verified 07/23/18 19:52 Home Medications: Home Medications Docusate CAP* [Colace Cap*] 100 mg PO BID 09/04/18 [History Confirmed 09/04/18] Doxylamine Succinate [Unisom Sleep Aid] 25 mg PO BEDTIME PRN 09/04/18 [History Confirmed 09/04/18] Insulin REGULAR(*) 0 - 100 units SUBCUT ACHS 09/04/18 [History Confirmed ] Melatonin (NF) 3 mg PO BEDTIME 09/04/18 [History Confirmed 09/04/18] Sertraline* [Zoloft*] 25 mg PO DAILY 09/04/18 [History Confirmed 09/04/18] PMH/Surg Hx/FS Hx/Imm Hx Endocrine/Hematology History: Reports: Hx Diabetes - Type II Cardiovascular History: Reports: Hx Congestive Heart Failure, Hx Hypercholesterolemia, Hx Hypertension, Hx Pacemaker/ICD - X2, Hx Valvular Heart Disease - aortic valve replacement, Other Cardiovascular Problems/Disorders - HX CARDIOMYOPATHY Denies: Hx Peripheral Vascular Disease Respiratory History: Reports: Hx Chronic Obstructive Pulmonary Disease (COPD), Hx Sleep Apnea - evaluation for 06/2013, Other Respiratory Problems/Disorders - dyspnea, hypoxemia History: Denies: Hx Renal Disease Musculoskeletal History: Reports: Other Musculoskeletal History - obesity Sensory History: Reports: Hx Cataracts - BILATERAL, Hx Contacts or Glasses - GLASSES Denies: Hx Hearing Aid Opthamlomology History: Reports: Hx Cataracts - BILATERAL, Hx Contacts or Glasses - GLASSES - Cancer History Cancer Type, 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 - Surgical History Surgery Procedure, Year, and Place: Pacemaker insertion 2010 [facility] [place], vasectomy , tonsillectomy as a child, Aortic valve replacement 2006 [facility] with aneurysm repair Hx Anesthesia Reactions: No - Immunization History Date of Tetanus Vaccine: Unknown Date of Influenza Vaccine: 2012 Infectious Disease History: No Infectious Disease History: Denies: Traveled Outside the [place] in Last 30 Days - Family History Known Family History: Positive: Cardiac Disease, Other - neg: anaesthesia reaction - Social History Alcohol Use: None Hx Substance Use: No Substance Use Type: Reports: None Hx Tobacco Use: No Smoking Status (MU): Never Smoked Tobacco Do You Chew or Dip Tobacco: No Have You Chewed or Dipped Tobacco in the LAST YEAR: No Have You Smoked in the Last Year: No Review of Systems Positive: Other - tremulous hands Negative: Abdominal Pain Neurological: Other - unresponsiveness (resolved) All Other Systems Reviewed And Are Negative: Yes Physical Exam - Summary Physical Exam Summary: Appearance: Elderly, obese male in no acute distress, Lying in bed comfortably Skin: Warm, dry, no obvious rash Eyes: sclera anicteric, no conjunctival pallor ENT: mucous membranes moist, pharynx appears normal Neck: Supple, nontender Respiratory: Clear to auscultation, no signs of respiratory distress Cardiovascular: Normal S1, S2. No murmurs. Normal distal pulses in tibial and radial bilaterally. Abdomen: Soft, nontender, normal active bowel sounds present Musculoskeletal: Normal, Strength/ROM Intact Neurological: A&Ox3, awake and alert, mentation is normal, speech is fluent and appropriate Psychiatric: affect is normal, does not appear anxious or depressed Triage Information Reviewed: Yes Vital Signs On Initial Exam: Initial Vitals Temp Pulse Resp BP Pulse Ox 97.4 F 72 18 122/40 93 09/04/18 10:10 09/04/18 10:10 09/04/18 10:10 09/04/18 10:10 09/04/18 10:10 Vital Signs Reviewed: Yes Diagnostics - Vital Signs Vital Signs Temp Pulse Resp BP Pulse Ox 09/04/18 10:10 97.4 F 72 18 122/40 93 - Laboratory Lab Statement: Any lab studies that have been ordered have been reviewed, and results considered in the medical decision making process. Re-Evaluation - Re-Evaluation First Eval Re-Evaluation Time: 12:12 Change: Improved Comment: Patient states he is feeling better after eating sandwiches. We discussed discharge home. Diabetic Course/Dx - Course Course Of Treatment: The patient is a 73 y/o M arriving by ambulance to [facility] with a chief complaint of becoming unresponsive secondary to hypoglycemia this morning with improvement of symptoms with 150mg Dextrose administration by EMS. He states he did not have his 1800 insulin until 0200 this morning, and he hasn t eaten since 1600 yesterday. He additionally c/o tremulous hands. He denies abd pain. Hx of leukemia, CHF, HLD, HTN, COPD. Surgical hx of pacemaker in 2010 , aortic valve replacement with aneurysm repair. Nonsmoker, no EtOH, no substance use. Upon physical exam, the patient appears to be an elderly obese male in no acute distress. In the ED course, the patient was given sandwiches because he has not eaten since yesterday afternoon. Blood work reveals first glucose of 75. Second glucose after eating is 110. Since his symptoms have improved, he is able to be discharged home with dx of hypoglycemia associated with DMII and follow up with PCP. He is agreeable with this plan. - Diagnoses Provider Diagnoses: Hypoglycemia associated with type 2 diabetes mellitus Discharge - Sign-Out/Discharge Documenting (check all that apply): Patient Departure - Patient will be discharged home. Patient Received Moderate/Deep Sedation with Procedure: No - Discharge Plan Condition: Stable Disposition: HOME Patient Education Materials: Hypoglycemia in a Person with Diabetes (ED) Referrals: Kimmy Wallace MD [Primary Care Provider] - 3 Days Additional Instructions: Follow up with your primary care provider in 2-3 days. RETURN TO THE EMERGENCY DEPARTMENT FOR ANY NEW OR WORSENING SYMPTOMS. - Billing Disposition and Condition Condition: STABLE Disposition: Home - Attestation Statements Document Initiated by Dilip: Yes Documenting Scribe: Norma Vizcarra Provider For Whom Dilip is Documenting (Include Credential): Dr. Gareth Freeman MD Scribe Attestation: Norma Gonzáles scribed for Dr. Gareth Freeman MD on 09/07/18 at 0413. Scribe Documentation Reviewed: Yes Provider Attestation: The documentation as recorded by the Norma corey accurately reflects the service I personally performed and the decisions made by me, Dr. Gareth Freeman MD Status of Dilip Document: Viewed
--- OUTSIDE RECORDS SUMMARY | 2018-09-04 10:57 | XMS REPORT | Continuity of Care Document ---
:1945 External Reference #:[id number] Author Name Evangelina Meraz Care Team Providers Name Role Phone Philomena Lyle MD Primary Care Physician Unavailable Payers Date Identification Numbers Payment Provider Subscriber Effective: 2009 Policy Number: [id number] [facility] Medicare Solutions Jon Villanueva Group Number: [id number] [address] [address] PayID: [id number] [place] [address] Problems Active Problems Provider Date Paroxysmal ventricular tachycardia Ervin Huff M.D. Onset: 04/04/2013 Primary cardiomyopathy Ervin Huff M.D. Onset: 04/04/2013 Aortic valve disorder Ervin Huff M.D. Onset: 04/04/2013 Congestive heart failure Ervin Huff M.D. Onset: 04/04/2013 Obstructive sleep apnea of adult Carmen Baig DNP, RN, Onset: 07/08/2013 WOOL [facility]ANKER- Chronic combined systolic and Ervin Huff M.D. [...] Medications SIG Qnty Indications Ordering Date Provider Azacitidine 190 mg as 75 mg Nirmal Bettencourt, 07/11/2018 100mg /m2 SQ daily for M.D. Suspension Rec 5 days Basaglar Kwikpen 60 units at 15ml E11.9 Yfn Morton MD 07/10/2018 100Unit/ML bedtime, mdd 70 Solution Pen-Inject units Amiodarone HCL 1/2 by mouth 45tabs Ervin Montero 08/28/2017 200mg every day Melinda Huff Tablets Coreg 1 by mouth twice 180tabs [...] Ondansetron HCL one pill twice a Unknown 4mg Tablets day as needed for nausea Prochlorperazine every 6 hours as Unknown Maleate needed for 10mg Tablets nausea Echinacea 2 cap by mouth Unknown 400mg [...] Yfn Morton, 02/28/2018 - at night 07/10/2018 [id number] Solution Pen-Inject Jardiance 10mg by mouth daily 30tabs E11.65 Yfn Morton 02/28/2018 - 10mg 05/30/2018 Tablets Cefadroxil 2 times a day 6caps Ervin Montero 11/20/2017 - 500mg Refugio M.DVictorino 11/24/2017 Capsules Amiodarone HCL 1 by mouth every 90tabs Ervin Montero 12/02/2016 - 100mg day Refugio, M.DVictorino 08/28/2017 Tablets Amiodarone HCL 1/2 by mouth every Ervin Montero 05/31/2016 - 200mg day Refugio, M.DVictorino 12/02/2016 Tablets Amiodarone HCL 1 by mouth every 90tabs Ervin Montero 10/26/2015 - 100mg day Brand, M.DVictorino 05/31/2016 Tablets Symbicort 2 puff twice a day 30.6gm Flores 09/02/2015 - MD Zonia 11/27/2017 160-4.5mcg/Act Aerosol Ipratropium [place] 1 vial in nebulizer 125ml R06.02 Flores 08/05/2015 - 2 times a day as MD Zonia 11/27/2017 0.02% Solution needed Coreg 1 by mouth twice a 180tabs Ervin Montero 06/18/2013 - 25mg Tablets day Gurvinder HuffVictorino 10/30/2015 Metoprolol Succinate tid 90tabs Ervin D. 05/12/2013 - ER Gurvinder HuffVictorino 06/17/2013 50mg Tablets ER 24HR Amiodarone HCL 1/2 by mouth every 90tabs Ervin D. 07/25/2012 - 200mg day Gurvinder HuffVictorino 10/26/2015 Tablets Metoprolol Succinate 1 tab by mouth 270tabs Ervin Montero 06/12/2012 - ER three times a day Gurvinder HuffVictorino 05/12/2013 50mg Tablets ER 24HR Nitrostat Unknown [...] bid 30tabs Unknown - 5mg Tablets 04/03/2013 Vital Signs Date Vital Result Comment 07/10/2018 [...] Result H/L Range Note CBC Auto Diff 07/25/2018 [facility] Red Blood 2.54 10^6/uL Low 4.18-5.[address] [place] [address] [phone] Hemoglobin 8.1 g/dL Low 14.0-18.0 Hematocrit 23 % Low 42-52 Mean Corpuscular Volume 92 fL N 80-94 Mean Corpuscular Hemoglobin 32 pg High 27-31 Mean Corpuscular HGB Conc 34 g/dL N 31-36 Red Cell Distribution Width 25 % High 10.5-15 White Blood Count 1.0 10^3/uL Low 3.5-10.8 1 Platelet Count 13 10^3/uL Low 150-450 2 Inr/Protime 07/25/2018 [facility] Inr 1.38 High 0.82-1.[address] [place] [address] [phone] Laboratory test 07/25/2018 [facility] Partial 25.6 Low 26.0- 36.[address] [place] [address] PTT [phone] Manual 07/25/2018 [facility] Neutrophil % 51.0 % Differential [address] [place] [address] [phone] Lymphocytes % 32.0 % Monocytes % 10.0 % Eosinophils % 0.0 % Basophil % 7.0 % Nucleated Red Blood Cells/100 48.0 High 0-0 Abs Neutrophils 0.5 10^3/uL Low 1.5-7.7 4 Abs Lymphocytes 0.3 10^3/uL Low 1.0-4.8 Abs Monocytes 0.1 10^3/uL N 0-0.8 Abs Eosinophils 0.0 10^3/uL N 0-0.6 Abs Basophils 0.1 10^3/uL N 0-0.2 Hypochromasia 1+ Polychromasia 1+ Anisocytosis 2+ Laboratory test 07/25/2018 [facility] Lactic Acid 2.0 mmol/L N 0.5-2.[address] [place] [address] [phone] Troponin-I (TnI) 0.75 ng/mL High <0.04 6 Comp Metabolic Panel 07/25/2018 [facility] Sodium 138 mmol/L N 135-145 [place] [address] [phone] Potassium 4.5 mmol/L N 3.5-5.0 Chloride 106 mmol/L N 101-111 Co2 Carbon Dioxide 24 mmol/L N 22-32 Anion Gap 8 mmol/L N 2-11 Glucose 203 mg/dL High 70-100 Blood Urea Nitrogen 24 mg/dL N 6-24 Creatinine 1.42 mg/dL High 0.67-1.17 BUN/Creatinine Ratio 16.9 N 8-20 Calcium 8.5 mg/dL Low 8.6-10.3 Total Protein 6.2 g/dL Low 6.4-8.9 Albumin 3.4 g/dL N 3.2-5.2 Globulin 2.8 g/dL N 2-4 Albumin/Globulin Ratio 1.2 N 1-3 Total Bilirubin 1.30 mg/dL High 0.2-1.0 Alkaline Phosphatase 49 U/L N 34-104 Alt 12 U/L N 7-52 Ast 15 U/L N 13-39 Egfr Non- 49.0 >60 Egfr 59.3 >60 7 Laboratory test 07/25/2018 [facility] Blood Culture SEE RESULT [address] [place] [address] [phone] Urinalysis Profile 07/25/2018 [facility] Urine Color Reina [address] [place] [address] [phone] Urine Appearance Cloudy Urine Specific [place] 1.024 N 1.010-1.030 Urine pH 5.0 N 5-9 Urine Urobilinogen Negative Negative Urine Ketones Negative Negative Urine Protein 2+(100 mg/dL) Abnormal Negative Urine Leukocytes Negative Negative Urine Blood 3+ Abnormal Negative * * Abnormal Negative 9 Urine Nitrite Negative Negative Urine Bilirubin Negative Negative Urine Glucose Negative Negative Urine White Blood Cell 1+(6-10/hpf) Abnormal Absent Urine Red Blood Cell 3+(>10/hpf) Abnormal Absent Urine Bacteria Absent Absent Urine Culture And 07/25/2018 [facility] Urine Culture SEE RESULT [address] [place] [address] [phone] Laboratory test 07/23/2018 [facility] Packed Cells SEE RESULTS [address] BELO <[place] [address] NOTE> [phone] Type & Screen 07/23/2018 [facility] Patient Blood A Positive [address] [place] [address] [phone] Antibody Screen NEGATIVE Laboratory test 07/23/2018 [facility] Pathologist (SEE NOTE) [address] [place] [address] [phone] Manual 07/23/2018 [facility] Immature 9.0 % N 0-[address] [place] [address] [phone] Neutrophil % 34.0 % Band % 7.0 % N 0-8 Lymphocytes % 40.0 % Monocytes % 12.0 % Metamyelocytes % 2.0 % N 0-2 Blast % 5.0 % High 13 Nucleated Red Blood Cells/100 11.0 High 0-0 Polychromasia 1+ Anisocytosis 3+ Tear Drop Cells 1+ Elliptocyte 1+ Abs Neutrophils 0.4 10^3/uL Low 1.5-7.7 Abs Lymphocytes 0.4 10^3/uL Low 1.0-4.8 Abs Monocytes 0.1 10^3/uL N 0-0.8 Comp Metabolic Panel 07/23/2018 [facility] Sodium 137 mmol/L N 135-[address] [place] [address] [phone] Potassium 4.3 mmol/L N 3.5-5.0 Chloride 104 mmol/L N 101-111 Co2 Carbon Dioxide 28 mmol/L N 22-32 Anion Gap 5 mmol/L N 2-11 Glucose 172 mg/dL High 70-100 Blood Urea Nitrogen 25 mg/dL High 6-24 Creatinine 1.36 mg/dL High 0.67-1.17 BUN/Creatinine Ratio 18.4 N 8-20 Calcium 8.8 mg/dL N 8.6-10.3 Total Protein 6.3 g/dL Low 6.4-8.9 Albumin 3.4 g/dL N 3.2-5.2 Globulin 2.9 g/dL N 2-4 Albumin/Globulin Ratio 1.2 N 1-3 Total Bilirubin 0.80 mg/dL N 0.2-1.0 Alkaline Phosphatase 50 U/L N 34-104 Alt 12 U/L N 7-52 Ast 12 U/L Low 13-39 Egfr Non- 51.5 >60 Egfr 62.3 >60 14 CBC Auto 07/23/2018 [facility] White Blood 0.9 10^3/uL Low 3.5 -10.[address] [place] [address] [phone] Red Blood Count 2.20 10^6/uL Low 4.18-5.48 Hemoglobin 7.0 g/dL Low 14.0-18.0 Hematocrit 21 % Low 42-52 Mean Corpuscular Volume 94 fL N 80-94 Mean Corpuscular Hemoglobin 32 pg High 27-31 Mean Corpuscular HGB Conc 34 g/dL N 31-36 Red Cell Distribution Width 26 % High 10.5-15 15 Platelet Count 11 10^3/uL Low 150-450 16 Mean Platelet Volume 12.6 fL High 7.4-10.4 Comp Metabolic Panel 07/16/2018 [facility] Sodium 136 mmol/L N 135-[address] [place] [address] [phone] Potassium 4.8 mmol/L N 3.5-5.0 Chloride 102 mmol/L N 101-111 Co2 Carbon Dioxide 30 mmol/L N 22-32 Anion Gap 4 mmol/L N 2-11 Glucose 268 mg/dL High 70-100 Blood Urea Nitrogen 27 mg/dL High 6-24 Creatinine 1.31 mg/dL High 0.67-1.17 BUN/Creatinine Ratio 20.6 High 8-20 Calcium 8.8 mg/dL N 8.6-10.3 Total Protein 6.2 g/dL Low 6.4-8.9 Albumin 3.4 g/dL N 3.2-5.2 Globulin 2.8 g/dL N 2-4 Albumin/Globulin Ratio 1.2 N 1-3 Total Bilirubin 1.00 mg/dL N 0.2-1.0 Alkaline Phosphatase 41 U/L N 34-104 Alt 12 U/L N 7-52 Ast 14 U/L N 13-39 Egfr Non- 53.8 >60 Egfr 65.1 >60 17 CBC Auto 07/16/2018 [facility] White Blood 2.6 10^3/uL Low 3.5 -10.[address] [place], [place] [id number] [phone] Red Blood Count 2.35 10^6/uL Low 4.18-5.48 Hemoglobin 7.5 g/dL Low 14.0-18.0 Hematocrit 23 % Low 42-52 Mean Corpuscular Volume 97 fL High 80-94 Mean Corpuscular Hemoglobin 32 pg High 27-31 Mean Corpuscular HGB Conc 33 g/dL N 31-36 Red Cell Distribution Width 26 % High 10.5-15 Platelet Count 19 10^3/uL Low 150-450 Mean Platelet Volume 10.4 fL N 7.4-10.4 Manual 07/16/2018 [facility] Immature 13.0 % High 0-[address] [place] [address] [phone] Neutrophil % 40.0 % Band % 10.0 % High 0-8 Lymphocytes % 27.0 % Monocytes % 12.0 % Basophil % 4.0 % Myelocytes % 3.0 % High 0-1 Blast % 4.0 % High 18 Abs Neutrophils 1.4 10^3/uL Low 1.5-7.7 Abs Lymphocytes 0.7 10^3/uL Low 1.0-4.8 Abs Monocytes 0.3 10^3/uL N 0-0.8 Abs Basophils 0.1 10^3/uL N 0-0.2 Polychromasia 1+ Anisocytosis 3+ Nucleated Red Blood Cells/100 9.0 High 0-0 Laboratory test 07/16/2018 [facility] Pathologist (SEE NOTE) [address] [place] [address] [phone] Type & Screen 07/16/2018 [facility] Patient Blood A Positive [address] [place] [address] [phone] Antibody Screen NEGATIVE Laboratory test 07/16/2018 [facility] Packed Cells SEE RESULTS [address] BELO <[place] [address] NOTE> [phone] CBC Auto Diff 07/13/2018 [facility] White Blood 4.4 10^3/uL N 3.5-[address] Count .8 [place] [address] [phone] Red Blood Count 2.62 10^6/uL Low 4.18-5.48 Hemoglobin 8.3 g/dL Low 14.0-18.0 Hematocrit 25 % Low 42-52 Mean Corpuscular Volume 96 fL High 80-94 Mean Corpuscular Hemoglobin 32 pg High 27-31 Mean Corpuscular HGB Conc 33 g/dL N 31-36 Red Cell Distribution Width 27 % High 10.5-15 Platelet Count 14 10^3/uL Low 150-450 21 Mean Platelet Volume 6.5 fL Low 7.4-10.4 Manual 07/13/2018 [facility] Immature 34.0 % High 0-[address] [place] [address] [phone] Neutrophil % 20.0 % Band % 18.0 % High 0-8 Lymphocytes % 22.0 % Monocytes % 13.0 % Eosinophils % 1.0 % Basophil % 1.0 % Variant Lymph % 1.0 % N 0-6 Metamyelocytes % 6.0 % High 0-2 Myelocytes % 8.0 % High 0-1 Promyelocytes % 2.0 % Blast % 8.0 % High 22 Nucleated Red Blood Cells/100 16.0 High 0-0 Polychromasia 2+ Anisocytosis 3+ Abs Neutrophils 2.4 10^3/uL N 1.5-7.7 Abs Lymphocytes 1.0 10^3/uL N 1.0-4.8 Abs Monocytes 0.6 10^3/uL N 0-0.8 Abs Eosinophils 0.0 10^3/uL N 0-0.6 Abs Basophils 0.0 10^3/uL N 0-0.2 Laboratory test 07/13/2018 [facility] Pathologist (SEE NOTE) [address] [place] [address] [phone] Laboratory test 07/11/2018 [facility] Packed Cells SEE RESULTS [address] BELO <[place] [address] NOTE> [phone] Type & Screen 07/11/2018 [facility] Patient Blood A Positive [address] Type [place], [place] [id number] [phone] Antibody Screen NEGATIVE Laboratory test 07/11/2018 [facility] Pathologist (SEE [address] Review NOTE) [place] [address] [phone] Manual 07/11/2018 [facility] Immature 21 % High 0-[address] [place] [address] [phone] Neutrophil % 38 % Band % 9 % High 0-8 Lymphocytes % 14 % Monocytes % 17 % Metamyelocytes % 4 % High 0-2 Myelocytes % 8 % High 0-1 Blast % 10 % High 26 Nucleated Red Blood Cells/100 12 High 0-0 Abs Neutrophils 3.5 10^3/uL N 1.5-7.7 Abs Lymphocytes 0.8 10^3/uL Low 1.0-4.8 Abs Monocytes 1.0 10^3/uL High 0-0.8 Macrocytosis 1+ Anisocytosis 2+ CBC Auto Diff 07/11/2018 [facility] White Blood 6.0 10^3/uL N 3.5-10.[address] [place] [address] [phone] Red Blood Count 2.41 10^6/uL Low 4.18-5.48 Hemoglobin 7.8 g/dL Low 14.0-18.0 Hematocrit 24 % Low 42-52 Mean Corpuscular Volume 100 fL High 80-94 Mean Corpuscular Hemoglobin 33 pg High 27-31 Mean Corpuscular HGB Conc 33 g/dL N 31-36 Red Cell Distribution Width 26 % High 10.5-15 Platelet Count 16 10^3/uL Low 150-450 27 Mean Platelet Volume 6.8 fL Low 7.4-10.4 CBC Auto Diff 07/09/2018 [facility] White Blood 7.6 10^3/uL N 3.5-10.[address] [place] [address] [phone] Red Blood Count 2.65 10^6/uL Low 4.18-5.48 Hemoglobin 8.6 g/dL Low 14.0-18.0 Hematocrit 26 % Low 36-46 Mean Corpuscular Volume 99 fL High 80-94 Mean Corpuscular Hemoglobin 33 pg High 27-31 Mean Corpuscular HGB Conc 33 g/dL N 31-36 Red Cell Distribution Width 26 % High 10.5-15 28 Abs Neutrophils 0.3 10^3/uL Low 1.5-7.7 29 Platelet Count 20 10^3/uL Low 150-450 Mean Platelet Volume 8.1 fL N 7.4-10.4 Manual Differential 07/09/2018 [facility] Immature 19 % High 0 -[address] [place] [address] [phone] Neutrophil % 38 % Band % 6 % N 0-8 Lymphocytes % 13 % Monocytes % 8 % Eosinophils % 1 % Basophil % 11 % Metamyelocytes % 2 % N 0-2 Myelocytes % 9 % High 0-1 Promyelocytes % 2 % Blast % 10 % High 30 Nucleated Red Blood Cells/100 17 High 0-0 RBC Morphology Normal Normal Comp Metabolic Panel 07/09/2018 [facility] Sodium 137 mmol/L N 135-[address] [place] [address] [phone] Potassium 4.1 mmol/L N 3.5-5.0 Chloride 103 [...] Egfr Non- 45.3 >60 Egfr 54.8 >60 31 CBC Auto Diff 07/05/2018 [facility] White Blood 6.3 10^3/uL N 3.5-10.[address] [place] [address] [phone] Red Blood Count 2.77 10^6/uL Low 4.18-5.48 Hemoglobin 9.2 g/dL Low 14.0-18.0 Hematocrit 28 % Low 36-46 Mean Corpuscular Volume 100 fL High 80-94 Mean Corpuscular Hemoglobin 33 pg High 27-31 Mean Corpuscular HGB Conc 33 g/dL N 31-36 Red Cell Distribution Width 25 % High 10.5-15 Platelet Count 24 10^3/uL Low 150-450 32 Mean Platelet Volume 8.1 fL N 7.4-10.4 Manual Differential 07/05/2018 [facility] Immature 18 % High 0 -[address] [place] [address] [phone] Neutrophil % 29 % Band % 8 [...] 10^3/uL High 0-0.2 Comp Metabolic Panel 07/05/2018 [facility] Sodium 141 mmol/L N 135-[address] [place] [address] [phone] Potassium 4.7 mmol/L N 3.5-5.0 Chloride 109 [...] Egfr Non- 47.1 >60 Egfr 57.0 >60 33 Laboratory test 07/05/2018 [facility] Pathologist Review (SEE NOTE) [address] [place] [address] [phone] Hepatitis C 06/28/2018 [facility] HCV Index 0.0 Index Antibody [address] [place] [address] [phone] Hepatitis C Antibody Nonreactive Nonreactive Laboratory 06/28/2018 [facility] Hepatitis Nonreactive Nonreactive 35 test finding [address] [place] [address] Igm [phone] Hepatitis B 06/28/2018 [facility] Hepatitis Not Immune Abnormal Immune Betty AB Titer [address] [place] [address] AB [phone] Hep B Surf AB Level < 3.10 mIU/mL >12 Laboratory test 06/28/2018 [facility] Erythrocyte Sed 49 mm/Hr High 0-[address] [place] [address] [phone] Pathologist Review (SEE NOTE) 36 Hepatitis B Surface Ag Nonreactive Nonreactive 37 Manual Differential 06/28/2018 [facility] Immature 14 % High 0 -[address] [place] [address] [phone] Neutrophil % 35 % Band % 7 % N 0-8 Lymphocytes % 16 % Monocytes % 21 % Eosinophils % 1 % Variant Lymph % 1 % N 0-6 Metamyelocytes % 1 % N 0-2 Myelocytes % 6 % High 0-1 Blast % 10 % High 38 Nucleated Red Blood Cells/100 15 High 0-0 RBC Morphology Normal Normal Abs Neutrophils 2.0 10^3/uL N 1.5-7.7 Abs Lymphocytes 0.7 10^3/uL Low 1.0-4.8 Abs Monocytes 0.9 10^3/uL High 0-0.8 Abs Eosinophils 0.04 10^3/uL N 0-0.6 Retic Count 06/28/2018 [facility] Retic Count 3.5 % High 0.5- 1.5 [address] [place] [address] [phone] Mean Retic Volume 113.1 Immature Retic Fraction 0.35 RBC Retic Count 2.89 10^6/uL Low 4.18-5.48 Corrected Retic Count 2.3 % High 0.5-1.5 Maturation Factor Retic 2.0 Retic Index 1.20 Hematocrit for Retic CNT 29 % Low 36-46 CBC Auto 06/28/2018 [facility] Red Blood 2.89 10^6/uL Low 4.18 -5.[address] [place] [address] [phone] Hemoglobin 9.8 g/dL Low 14.0-18.0 Hematocrit 29 % Low 36-46 Mean Corpuscular Volume 102 fL High 80-94 Mean Corpuscular Hemoglobin 34 pg High 27-31 Mean Corpuscular HGB Conc 33 g/dL N 31-36 Red Cell Distribution Width 22 % High 10.5-15 Abs Neutrophils 2.5 10^3/uL N 1.5-7.7 White Blood Count 4.1 10^3/uL N 3.5-10.8 Platelet Count 28 10^3/uL Low 150-450 39 Mean Platelet Volume 8.1 fL N 7.4-10.4 Laboratory test finding 06/28/2018 [facility] LDH 261 U/L N 140-271 [address] [place] [address] [phone] Vitamin B12 471 pg/mL N 180-914 40 Comp Metabolic Panel 06/28/2018 [facility] Sodium 140 mmol/L N 135-145 [address] [place] [address] [phone] Potassium 4.2 mmol/L N 3.5-5.0 Chloride 104 [...] Egfr Non- 42.4 >60 Egfr 51.3 >60 41 Inr/Protime 06/28/2018 [facility] Inr 2.05 High 0.77-1.[address] [place], [place] [id number] [phone] PML/Regino 06/27/2018 [facility] PML/Regino see [address] [place] [address] <SEE NOTE> [phone] PML/Regino Specimen Type Whole Blood PML/Regino Final Diagnosis See Comment 43 Laboratory test 06/27/2018 [facility] Pathologist (SEE NOTE) [address] [place] [address] [phone] Manual 06/27/2018 [facility] Immature 4 % N 0-[address] [place] [address] [phone] Neutrophil % 23 % Band % 2 % N 0-8 Lymphocytes % 33 % Monocytes % 27 % Basophil % 1 % Variant Lymph % 1 % N 0-6 Myelocytes % 2 % High 0-1 Blast % 11 % High 45 Nucleated Red Blood Cells/100 22 High 0-0 Macrocytosis 1+ Polychromasia 1+ Anisocytosis 2+ Abs Neutrophils 1.3 10^3/uL Low 1.5-7.7 Abs Lymphocytes 1.6 10^3/uL N 1.0-4.8 Abs Monocytes 1.3 10^3/uL High 0-0.8 Abs Basophils 0 10^3/uL N 0-0.2 CBC Auto Diff 06/27/2018 [facility] White Blood 4.8 10^3/uL N 3.5-10.[address] [place] [address] [phone] Red Blood Count 2.98 10^6/uL Low 4.18-5.48 Hemoglobin 9.8 g/dL Low 14.0-18.0 Hematocrit 30 % Low 36-46 Mean Corpuscular Volume 101 fL High 80-94 Mean Corpuscular Hemoglobin 33 pg High 27-31 Mean Corpuscular HGB Conc 33 g/dL N 31-36 Red Cell Distribution Width 22 % High 10.5-15 Platelet Count 26 10^3/uL Low 150-450 46 Mean Platelet Volume 8.2 fL N 7.4-10.4 Laboratory test finding 05/30/2018 [facility] Glucose Random 205 Hemoglobin A1c 9.0 High 5-7 Laboratory test finding 02/28/2018 [facility] Glucose Random 301 Ketones 0.2 Hemoglobin A1c 9.4 High 5-7 Laboratory test 11/20/2017 [facility] Surgical SEE RESULT [address] [place] [address] [phone] Pre Cath Panel 11/17/2017 [facility] Partial 40.7 seconds High 26.0- [address] Thrombo Time 36.3 [place] [address] PTT [phone] CBC Auto Diff 11/17/2017 [facility] White Blood 7.1 10^3/uL N 3.5-[address] Count 0.8 [place] [address] [phone] Red Blood Count 4.94 10^6/uL N 4.00-5.40 [...] Red Blood Cells % 0.3 Inr/Protime 11/17/2017 [facility] Inr 2.55 High 0.77-1.[address] [place] [address] [phone] Basic Metabolic 11/17/2017 [facility] Sodium 138 mmol/L N 135- [address] [place] [address] [phone] Potassium 4.2 mmol/L N 3.5-5.0 Chloride 103 mmol/L N 101-111 Co2 Carbon Dioxide 26 mmol/L N 22-32 Anion Gap 9 mmol/L N 2-11 Glucose 260 mg/dL High 70-100 Blood Urea Nitrogen 27 mg/dL High 6-24 Creatinine 1.56 mg/dL High 0.67-1.17 BUN/Creatinine Ratio 17.3 N 8-20 Calcium 8.7 mg/dL N 8.6-10.3 Egfr Non- 44.1 >60 Egfr 53.4 >60 48 Laboratory test 06/27/2017 [facility] TSH (Thyroid 1.38 N 0.34 -5.[address] Stim Horm) mcIU/[place] [address] [phone] Inr/Protime 05/30/2017 [facility] Inr 2.76 High 0.77-1.[address] [place] [address] [phone] CBC Auto Diff 02/10/2017 [facility] White Blood 8.2 10^3/uL N 3.5-10.[address] [place] [address] [phone] Red Blood Count 4.64 10^6/uL N 4.0-5.4 [...] Cells % 0.1 Comp Metabolic Panel 02/10/2017 [facility] Sodium 138 mmol/L N 133-145 [address] [place] [address] [phone] Potassium 4.5 mmol/L N 3.5-5.0 Chloride 105 [...] Egfr Non- 46.6 >60 Egfr 60.0 >60 50 Lipid Profile 02/10/2017 [facility] Triglycerides 221 mg/dL 51 (Trig/Chol/HDL) [address] [place] [address] [phone] Cholesterol 112 mg/dL 52 HDL Cholesterol 31.5 mg/dL 53 LDL Cholesterol 36 mg/dL 54 Laboratory test 02/10/2017 [facility] Magnesium 2.4 mg/dL N 1.9-2.7 55 finding [address] [place] [address] [phone] Creatine Kinase(CK) 229 U/L High 10-223 56 TSH (Thyroid Stim Horm) 1.96 mcIU/mL N 0.34-5.60 57 Laboratory 11/11/2015 [facility] TSH (Thyroid 1.50 N 0.34- 5.60 58 test finding [address] [facility] [address] Stim Horm) mcIU/[place] [address] [phone] Inr/Protime 11/09/2015 [facility] Inr 2.01 High 0.89-1.11 [address] [place] [address] [phone] Laboratory 08/08/2014 [facility] TSH (Thyroid 1.54 N 0.34- 5.60 test finding [facility] Stimulating ?IU/[place] [address] Horm) [phone] Basic 08/08/2014 [facility] Sodium 136 mmol/L N 133-145 Metabolic [address] [facility] [place] [address] [phone] Potassium 4.3 mmol/L N 3.5-5.0 Chloride 102 mmol/L N 101-111 Co2 Carbon Dioxide 27 mmol/L N 22-32 Anion Gap 7 mmol/L N 2-11 Glucose 209 mg/dL High 70-100 Blood Urea Nitrogen 43 mg/dL High 6-24 Creatinine 2.64 mg/dL High 0.67-1.17 BUN/Creatinine Ratio 16.3 N 8-20 Calcium 9.2 mg/dL N 8.6-10.3 Egfr Non- 24.2 N >60 Egfr 31.2 N >60 59 Laboratory test 04/01/2013 [facility] Inr 2.38 High 0.85-1.06 finding [address] [place], [place] [address] [phone] Laboratory test 10/12/2012 [facility] Free T4 1.16 ng/mL 0.61 -1.24 finding [address] [place], [place] [address] [phone] TSH (Thyroid Stimulating Horm) 1.24 miu/mL 0.34-5.60 MRSA/Vre Screen 01/28/2010 [facility] MRSA/Vre Culture [facility] [address] [place] [address] [phone] 1 White count confirmed by estimate 2 Platelet count confirmed by estimate 3 Standard intensity warfarin therapeutic range: 2.0-3.0 High intensity warfarin therapeutic range: 2.5-3.5 4 Verbal to [id number] by [id number] at 1453 on 07/25/18. Results read back accurately 5 [facility] Severe Sepsis and Septic Shock Management Bundle Measure requires all lactic acids initially measuring >2.0 mmol/L be repeated. 6 Result TnIDx:0.75 Called to [id number] at: 15:05:28 by:[id number] Read back by: [id number] Troponin-I testing on Plasma Separator Tubes (PST) has a known false positive rate of 0.20-0.40%. All positive troponins reflex immediately to secondary confirmatory testing. Using the [employer] DxI 800 Access Immunoassay systems, the 99th percentile upper reference limit was demonstrated to be < 0.03 ng/mL. 7 Because ethnic data is not always readily [...] 15-29 5 Kidney failure <15 (or dialysis) 8 SEE RESULT BELOW Name: JON VILLANUEVA : [address]: Kimmy Wallace MD Acct: [id number] Unit: [id number] AGE: 73 Location: [place] [address] Re07/25/18 SEX: M Status: ADM IN SPEC: [id number] ARYAN: 07/25/[address] [facility] DR: Gareth Freeman MD REQ: [id number] RECD: 07/25/18 STATUS: COMP LAURYN DR: Kimmy Lyle MD _ SOURCE: BLOOD,VENO SPDESC: ORDERED: Blood Cult Procedure Result Reported Site Aerobic Culture Bottle Final 07/30/18- 1412 ML No Growth Day 5 Anaerobic Culture Bottle Final 07/30/18- 1412 ML No Growth Day 5 * ML - Main Lab . END OF REPORT DEPARTMENT OF PATHOLOGY, [address] [place] [address] Mahamed Bailon M.D. Director [facility] # [id number] 9 *Ascorbic acid is present which may interfere with detection of blood. 10 SEE RESULT BELOW Name: JON VILLANUEVA : [address]: Kimmy Wallace MD Acct: [id number] Unit: [id number] AGE: 73 Location: [place] [address] Re07/25/18 SEX: M Status: ADM IN SPEC: [id number] ARYAN: 07/28/[address] [facility] DR: Gareth Freeman MD REQ: [id number] RECD: 07/28/18 STATUS: LOYD CESAR DR: Kimmy Lyle MD _ SOURCE: URINE SPDESC: ORDERED: Urine Culture Procedure Result Reported Site Urine Culture Final 07/30/18- 0838 ML No Growth (<1,000 CFU/mL) * ML - Main Lab . END OF REPORT DEPARTMENT OF PATHOLOGY, [address] [place] [address] Mahamed Bailon M.D. Director [facility] # [id number] 11 SEE RESULTS BELOW [id number] [facility] 07/23/18 1523 12 Pancytopenia with rare circulating blasts noted. Additional studies as clinically warranted. Reviewed by Dr. Bailon 13 Verbal to [id number] by [id number] at 1352 on 07/23/18. Results read back accurately. 14 Because ethnic data is not always [...] 5 Kidney failure <15 (or dialysis) 15 Consistent with Previous Results Reported on 07/16/18 16 Consistent with Previous Results Reported on 07/16/18 17 Because ethnic data is not always readily [...] 15-29 5 Kidney failure <15 (or dialysis) 18 Verbal to [id number] by [id number] at 1431 on 07/16/18. Results read back accurately. 19 Pancytopenia noted. Rare blasts are seen. Clinical correlation and additional studies is warranted. Reviewed by Dr. Bailon 20 SEE RESULTS BELOW [id number] AP PC TRANSFUSED 07/17/18 1054 21 Consistent with Previous Results Reported on 07/11/18 22 Consistent with previous results on 07/11/18. Verbal to [id number] by [id number] at 1432 on 07/13/18. Results read back accurately. 23 Severe thrombocytopenia and mildly macrocytic anemia compatible with treatment effect. Additional studies is warranted. Reviewed by Dr. Bailon 24 SEE RESULTS BELOW [id number] AP PC TRANSFUSED 07/12/18 1342 25 Approximately 10% circulating blasts, compatible with previous. No Caden richard seen. Reviewed by Linda Jean Baptiste MD 26 Verbal to [id number] by [id number] at 1431 on 07/11/18. Results read back accurately. 27 Consistent with Previous Results Reported on 07/09/18 Platelet count confirmed by estimate 28 Consistent with Previous Results Reported on 07/05/18. 29 Consistent with Previous Results Reported on 07/05/18. 30 Verbal to [id number] by [id number] at 1612 on 07/09/18. Results read back accurately. 31 Because ethnic data is not always readily [...] 15-29 5 Kidney failure <15 (or dialysis) 32 Platelet count confirmed by estimate 33 Because ethnic data is not always readily [...] 15-29 5 Kidney failure <15 (or dialysis) 34 Macrocytic anemia with thrombocytopenia and left shifted myeloid elements with circulating blasts up to 10% noted. Findings are consistent with prior results. Additional studies as clinically warranted. Reviewed by Dr. Bailon 35 06/28/18 36 Compatible with previous. Reviewed by Linda Jean Baptiste MD 37 06/28/[address] Wallace by [id number] at 1149 on 06/28/18. Results read back accurately. 39 Platelet count confirmed by estimate 40 Normal Range 180 to 914 Indeterminate Range 145 to 180 Deficient Range <145 41 Because ethnic data is not always readily [...] 15-29 5 Kidney failure <15 (or dialysis) 42 see interpretation 43 Peripheral blood, PML/REGINO mRNA analysis: Negative. No PML/REGINO mRNA transcripts detected. Signing Pathologist: Jonathan Palomino M.D. ADDITIONAL INFORMATION Method Summary - PML/REGINO: PML/REGINO mRNA level was evaluated using quantitative, reverse employment security officer PCR. The analytical sensitivity of this assay has been determined at 0.1% (see [facility] Interpretive Handbook for method details). This [...] developed and its performance characteristics determined by [facility] in a manner consistent with CLIA requirements. This test has not been cleared or approved by the U.S. Food and Drug Administration. Test Performed by: [address] [address] 44 Compatible with previous. Reviewed by Linda Jean Baptiste MD 45 Verbal to [id number] by [id number] at 2021 on 06/27/18. Results read back accurately. 46 Platelet count confirmed by smear estimate. 47 SEE RESULT BELOW Name: JON VILLANUEVA : [address]: Ervin Huff MD Acct: [id number] Unit: [id number] AGE: 72 Location: [facility] Re11/20/17 SEX: M Status: REG [facility] SPEC: [id number] ARYAN: 11/20/17- SUBM DR: Ervin Huff MD REQ: [id number] RECD: 11/20/171521 STATUS: SOUT _ ORDERED: LEVEL 1 FINAL DIAGNOSIS Event monitor: Foreign body (ICD generator) (gross diagnosis) PRE-OPERATIVE DIAGNOSIS Cardiomyopathy GROSS DESCRIPTION The specimen is received fresh with no source identified and a requisition labeled, ICD Generator, and consists of a 7.7 x 4.0 x 1.4 cm neri metallic faculty i on call medical assistant. The following inscription is identified: [facility] Organic Waste Management Model HV9981 -40 High Voltage Can VVED DDDRV S/N [id number]. Per established hospital medical staff protocol, no tissue is submitted. Gross only. Signed by and Reported on: Linda Jean Baptiste MD 11/23/17 1113 END OF REPORT DEPARTMENT OF PATHOLOGY, [address] [place] [address] Mahamed Bailon M.D. Director [facility] # [id number] 48 Because ethnic data is not always readily [...] 15-29 5 Kidney failure <15 (or dialysis) 49 CALL CRITICAL RESULT [id number] 50 Because ethnic data is not always readily [...] 15-29 5 Kidney failure <15 (or dialysis) 51 Desirable: <150 Borderline High: 150-199 High: 200-499 Very High: >500 52 Desirable: <200 Borderline High: 200-239 High: >239 53 Low: <40 Desirable: 40-60 High: >60 54 Desirable: <100 Near Optimal: 100-129 Borderline High: 130-159 High: 160-189 Very High: >189 55 [id number] Copy Result to: ERVIN HUFF ([id number]) 56 [id number] Copy Result to: ERVIN HUFF ([id number]) 57 [id number] Copy Result to: ERVIN HUFF ([id number]) 58 Copy Result to: ERVIN HUFF ([id number]) [facility] [id number] 59 Because ethnic data is not always readily [...] 15-29 5 Kidney failure <15 (or dialysis) 60 NO MRSA ISOLATED Procedures Date Code Description Status 07/26/2018 10751 ECHO Transthorasic Realtime 2D W Doppler & Color Flow Hosp Completed 06/20/2018 85986 Interrogation Implant Cardiovasc Monitor System Incl Completed Analysis Int 06/20/2018 94533 Interrogation Implant Cardiovasc Monitor System Incl Completed Analysis Int 06/20/2018 19502 Icd Eval With Iterative Adjustmt Multiple Lead System Completed 06/20/2018 13905 Icd Eval With Iterative Adjustmt Multiple Lead System Completed 05/25/2018 69220 Icd Eval With Iterative Adjustmt Multiple Lead System Completed 05/25/2018 95550 Icd Eval With Iterative Adjustmt Multiple Lead System Completed 05/25/2018 13343 Interrogation Implant Cardiovasc Monitor System Incl Completed Analysis Int 05/25/2018 65430 Interrogation Implant Cardiovasc Monitor System Incl Completed Analysis Int 04/04/2018 68140 Interrogation Implant Cardiovasc Monitor System Incl Completed Analysis Int 04/04/2018 30576 Interrogation Implant Cardiovasc Monitor System Incl Completed Analysis Int 04/04/2018 43809 Icd Eval With Iterative Adjustmt Multiple Lead System Completed 04/04/2018 23470 Icd Eval With Iterative Adjustmt Multiple Lead System Completed 11/20/2017 87951 Insert/Replace Icd W/Generator Completed 11/01/2017 37557 EKG Tracing & Interpretation Completed 08/25/2017 88849 Icd Eval With Iterative Adjustmt Multiple Lead System Completed 08/25/2017 06908 Icd Eval With Iterative Adjustmt Multiple Lead System Completed 08/25/2017 76358 Interrogation Implant Cardiovasc Monitor System Incl Completed Analysis Int 08/25/2017 89234 Interrogation Implant Cardiovasc Monitor System Incl Completed Analysis Int 06/23/2017 97869 EKG Tracing & Interpretation Completed 05/30/2017 27710 Cardioversion Completed 05/03/2017 67396 Interrogation Implant Cardiovasc Monitor System Incl Completed Analysis Int 05/03/2017 89280 Interrogation Implant Cardiovasc Monitor System Incl Completed Analysis Int 05/03/2017 31790 Icd Eval With Iterative Adjustmt Multiple Lead System Completed 05/03/2017 77236 Icd Eval With Iterative Adjustmt Multiple Lead System Completed 12/22/2016 40706 Interrogation Implant Cardiovasc Monitor System Incl Completed Analysis Int 12/22/2016 07138 Icd Eval With Iterative Adjustmt Multiple Lead System Completed 11/09/2016 73742 EKG Tracing & Interpretation Completed 11/01/2016 29455 Interrogation Implant Cardiovasc Monitor System Incl Completed Analysis Int 11/01/2016 39486 Icd Eval With Iterative Adjustmt Multiple Lead System Completed 06/28/2016 56542 Icd Eval With Inerative Adjustmt Dual Lead System Completed 02/25/2016 00021 Icd Eval With Inerative Adjustmt Dual Lead System Completed 02/01/2016 63924 Icd Check Remote Up To 90 Days Single,Dual,Multiple Lead Completed 02/01/2016 82278 Icd Eval Sing,Dual,Multi Lead Remote Recpt Transm Tech Rev Completed Tech S 01/13/2016 52344 Icd Check Single,Dual Or Multiple In Person W/DR Incl Completed Heart Rhyth 10/26/2015 01862 Interrogation Implant Cardiovasc Monitor System Incl Completed Analysis Int 10/26/2015 00906 Icd Eval With Iterative Adjustmt Multiple Lead System Completed 08/11/2015 75400 Diffusing Capacity Completed 08/11/2015 88845 Plethysmography Determination Lung Volumes & Per Airway Completed Resist 08/11/2015 71642 Pulmonary Function><Bronchodil Completed 07/24/2015 85118 EKG Tracing & Interpretation Completed 07/01/2015 05365 Icd Eval With Iterative Adjustmt Multiple Lead System Completed 07/01/2015 30499 Interrogation Implant Cardiovasc Monitor System Incl Completed Analysis Int 03/02/2015 95552 Interrogation Implant Cardiovasc Monitor System Incl Completed Analysis Int 03/02/2015 48061 Icd Eval With Iterative Adjustmt Multiple Lead System Completed 10/30/2014 84907 Interrogation Implant Cardiovasc Monitor System Incl Completed Analysis Int 10/30/2014 48088 Icd Check Single,Dual Or Multiple In Person W/DR Incl Completed Heart Rhyth 08/07/2014 72884 ECHO Transthoracic, Real-Time 2D With Doppler And Color Completed Flow 08/01/2014 35106 EKG Tracing & Interpretation Completed 07/29/2014 30180 Icd Check Single,Dual Or Multiple In Person W/DR Incl Completed Heart Rhyth 04/22/2014 64591 Icd Eval With Iterative Adjustmt Multiple Lead System Completed 04/22/2014 90671 Interrogation Implant Cardiovasc Monitor System Incl Completed Analysis Int 12/18/2013 22056 Interrogation Implant Cardiovasc Monitor System Incl Completed Analysis Int 12/18/2013 54541 Icd Eval With Iterative Adjustmt Multiple Lead System Completed 07/30/2013 30294 Interrogation Implant Cardiovasc Monitor System Incl Completed Analysis Int 07/30/2013 77288 Icd Check Single,Dual Or Multiple In Person W/DR Incl Completed Heart Rhyth 07/22/2013 89161 Polysomnography Sleep Staging 4+ Parameters W/Cpap Completed 07/08/2013 66079 Polysomnography Sleep Staging 4+ Parameters W/Cpap Completed 04/04/2013 71231 Icd Eval With Iterative Adjustmt Multiple Lead System Completed 12/18/2012 31699 Interrogation Implant Cardiovasc Monitor System Incl Completed Analysis Int 12/18/2012 69074 Icd Eval With Iterative Adjustmt Multiple Lead System Completed 10/12/2012 19833 EKG Tracing & Interpretation Completed 08/31/2012 82723 Icd Eval With Iterative Adjustmt Multiple Lead System Completed 04/11/2012 79551 Icd Eval With Iterative Adjustmt Multiple Lead System Completed 02/01/2012 66759 Icd Eval With Iterative Adjustmt Multiple Lead System Completed 01/30/2012 90654 Interrogation Implant Cardiovasc Monitor System Incl Completed Analysis Int 01/30/2012 55397 Icd Check Single,Dual Or Multiple In Person W/DR Incl Completed Heart Rhyth Encounters Type Date Location Provider Dx Diagnosis Office Visit 07/26/2018 [facility] Gage Hartmann, R07.9 Chest pain, 2:35p Of [employer] DO FACC unspecified R79.89 Other specified abnormal findings of blood chemistry Office Visit 07/10/2018 Gela Morton, E11.9 Type 2 diabetes 1:30p Endocrinology of mellitus without [employer] complications 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 unspecified Katelyn Z95.810 Presence of automatic (implantable) cardiac defibrillator I47.2 Ventricular tachycardia Z95.2 Presence of prosthetic heart valve Office Visit 02/28/2018 10:00a [facility] Coulter Coch, Z79.4 nursing home Endocrinology of Katelyn HOLLAND (current) use of insulin E11.65 Type 2 diabetes mellitus with hyperglycemia I48.92 Unspecified atrial flutter Z68.41 Body mass index (BMI) 40.0-44.9, adult E66.01 Morbid (severe) obesity due to excess calories Office Visit 11/01/2017 Yee Montero I42.9 Cardiomyopathy, 3:15p Cardiology Erin Huff M.D. unspecified [employer] I48.3 Typical atrial flutter Z95.2 Presence of prosthetic heart valve Z95.810 Presence of automatic (implantable) cardiac defibrillator Office Visit 06/23/2017 Yee Montero I42.9 Cardiomyopathy, 8:30a Cardiology Erin Huff M.D. unspecified Katelyn Z95.810 Presence of automatic (implantable) cardiac defibrillator I47.2 Ventricular tachycardia I48.3 Typical atrial flutter Office Visit 05/03/2017 Yee Montero Z95.810 Presence of 9:45a Cardiology Erin Huff M.D. automatic [employer] (implantable) cardiac defibrillator I42.9 Cardiomyopathy, unspecified Z95.2 Presence of prosthetic heart valve I48.92 Unspecified atrial flutter Office Visit 11/09/2016 Yee Montero I42.9 Cardiomyopathy, 11:30a Cardiology Erin Huff M.D. unspecified [employer] Z95.810 Presence of automatic (implantable) cardiac defibrillator I47.2 Ventricular tachycardia Z95.2 Presence of prosthetic heart valve Office Visit 04/15/2016 1:30p Yee Montero I47.2 Ventricular Of Katelyn Huff M.D. tachycardia Z95.2 Presence of prosthetic heart valve I42.9 Cardiomyopathy, unspecified Z95.810 Presence of automatic (implantable) cardiac defibrillator Office Visit 01/13/2016 Yee Montero Z95.810 Presence of 1:30p Cardiology Of [place]inda Huff automatic Katelyn (implantable) cardiac defibrillator I47.2 Ventricular tachycardia Z95.2 Presence of prosthetic heart valve Office Visit 09/03/2015 1:30p Pulmonology And Flores J44.9 Chronic Sleep Services Of MD [place] obstructive [employer] pulmonary disease, unspecified E66.01 Morbid (severe) obesity due to excess calories Office Visit 08/05/2015 11:45a Pulmonology And [place] R06.02 Shortness of Sleep Services Of MD [place] breath [employer] J44.9 Chronic obstructive pulmonary disease, unspecified Office Visit 07/24/2015 Yee Montero Z95.810 Presence of 2:30p Cardiology Of [place] Huff automatic Katelyn (implantable) cardiac defibrillator I47.2 Ventricular tachycardia I35.0 Nonrheumatic aortic (valve) stenosis I48.0 Paroxysmal atrial fibrillation Z95.2 Presence of prosthetic heart valve I42.9 Cardiomyopathy, unspecified Office Visit 01/23/2015 11:45a [facility] Zak Montero I47.2 Ventricular Of Katelyn Huff M.D. tachycardia I35.0 Nonrheumatic aortic (valve) stenosis I50.42 Chronic combined systolic and diastolic hrt fail Office Visit 12/10/2014 Orthopedic Diralexx Bettencourt, M16.12 Unilateral primary 11:00a Services Of Melinda osteoarthritis, left C.M.A. hip Office Visit 08/01/2014 Yee Montero 427.1 Paroxysmal 3:30p Cardiology Of [place] Huff Ventricular [employer] Tachycardia 424.1 Aortic Valve Disorder 425.4 Cardiomyopathy Other Prim Office Visit 04/02/2014 Pulmonology And Carmen 327.23 Obstructive Sleep 11:30a Sleep Services Of BENOIT Baig, RN, Apnea Adult & [facility] WOOL HANKER- Pediatric Office Visit 01/15/2014 [facility] Zak Montero 427.1 Paroxysmal 11:15a Of Katelyn Huff M.D. Ventricular Tachycardia 424.1 Aortic Valve Disorder 428.0 Congestive Heart Failure Unspecified Office Visit 08/09/2013 11:30a Yee Montero 424.1 Aortic Valve Of Katelyn Huff M.D. Disorder 428.0 Congestive Heart Failure Unspecified 427.1 Paroxysmal Ventricular Tachycardia 427.31 Atrial Fibrillation Office Visit 06/14/2013 10:45a Sleep Disorder [place]. 780.59 Sleep Disturbances Center Melinda Hanna Other 794.2 Pulmonary Study Abnormal Office Visit 05/08/2013 10:15a [facility] Montero 425.4 Cardiomyopathy Other Cardiology Of [place]inda Huff Prim [facility] 424.1 Aortic Valve Disorder 427.1 Paroxysmal Ventricular Tachycardia Office Visit 04/04/2013 9:45a [facility] Ervin Montero 427.1 Paroxysmal Of Katelyn Huff M.D. Ventricular Tachycardia 425.4 Cardiomyopathy Other Prim 424.1 Aortic Valve Disorder 428.0 Congestive Heart Failure Unspecified Office Visit 02/26/2013 8:48a [facility] Vergara 428.0 [facility] [place] Unspecified 289.0 Polycythemia Secondary 799.02 Hypoxemia 401.9 Hypertension Unspec Office Visit 10/12/2012 11:30a [facility] Ervin Montero 424.1 Aortic Valve Of Katelyn Huff M.D. Disorder 425.4 Cardiomyopathy Other Prim 427.1 Paroxysmal Ventricular Tachycardia Office Visit 04/11/2012 2:30p [facility] Montero 425.4 Cardiomyopathy Other Cardiology Of Melinda Huff Prim [facility] 424.1 Aortic Valve Disorder Office Visit 02/01/2012 9:15a [facility] Ervin Montero 427.1 Paroxysmal Of Katelyn Huff M.D. Ventricular Tachycardia 780.2 Syncope & Collapse Plan of Treatment Future Appointment(s):09/04/2018 6:20 am - Remote Device Checks at [facility]08/30/2018 9:40 am - Yfn Morton MD at [facility]07/10/2018 - Yfn Morton MDE11.9 Type 2 diabetes mellitus without complicationsNew Medication:Basaglar Kwikpen 100 Unit/ML - 60 units at bedtime, mdd 70 unitsFollow up:2 monthsInstructions:1. Stop Jardiance. 2. Stop Soliqua. 3. Start Lantus/Basaglar 60 units every day at bedtime. 4. Continue glipizide 10mg twice daily. 5. If you are seeing blood glucose over 200, call back for instructions. 6. Check blood glucose in the morning and afternoon before you eat. 7. We will consider addition of mealtime insulin in place of glipizide. 8. Drop off your blood glucose results in 2-3 weeks. 9. Return in 2 months for a follow-up visit.C95.00 Acute leukemia of unspecified cell type not having achieved
[2018-09-04 12:15] VITALS: BP 107/49
== END 2018-09-04 12:25 | disposition home or self-care (01) ==
LOC: ED 10:03
DX: E11.649 Type 2 diabetes mellitus with hypoglycemia without coma (principal); I50.9 Heart failure, unspecified; I11.0 Hypertensive heart disease with heart failure; J44.9 Chronic obstructive pulmonary disease, unspecified; Z79.4 Long term (current) use of insulin; Z79.899 Other long term (current) drug therapy
CPT/HCPCS: 99283

== ENCOUNTER 2018-12-03 14:40 | Observation (INO) | payer MEDICARE ==
[~2018-12-03 14:40] MED LIST changes: -Acetaminophen TAB* 325 MG PO PRN; -Flumazenil* 0.1 MG/ML 5 ML MDV ONE; -Lidocaine 1% INJ* 10 MG/ML 30 ML SDV ONE; -Midazolam* 1 MG/ML 5 ML VIAL (5 MG) ONE; +NS 0.9% 1000 ML** 1,000 ML IV ONE; -Naloxone* 0.4 MG/ML 1 ML VIAL ONE; -ceFAZolin 2 GM in NS 0.9% 100 ml IVPB ONE; -ceFAZolin VIAL 1 GM in NS *SYRINGE * * 10 ML ONE; -fentaNYL* 50 MCG/ML 2 ML VIAL (100 MCG VIAL) ONE
--- NOTE | 2018-12-03 14:42 | ED ---
Neurological HPI - HPI Summary HPI Summary: Horace Fernandez called overhead at 14:33 with ETA 7 minutes. This pt is a 73 y/o male presenting to [facility] for sudden onset of left arm tingling and left arm drift. Roseline Neri NP, reports pt has hx of acute myeloid leukemia and was in her office for a routine follow up. REPORTING MANAGER states that at around 14:20 pt had sudden onset of left arm tingling and upon exam pt had left pronator drift. Pt currently notes his tingling has almost resolved completely. He states at night he has SOB if he sleeps lying flat. Denies slurred speech, visual changes, headache, dizziness. REPORTING MANAGER states pt had blood work today and his INR was 1.5. PMHx includes afib, CHF, DM, AML. - History of Current Complaint Stated Complaint: POSSIBLE CODE HE Time Seen by Provider: 12/03/18 14:40 Hx Obtained From: Patient, Other: - Roseline Neir NP Onset/Duration: Sudden Onset Timing: Sudden Onset Onset Severity: Moderate Current Severity: Mild Neurological Deficit Location: LUE Pain Intensity: 0 Pain Scale Used: 0-10 Numeric Character: Numbness/Tingling - Tingling of LUE Aggravating: Nothing Alleviating: Nothing Associated Signs and Symptoms: Negative: Visual Changes, Headache, Memory Loss, Confusion, Dizziness, Impaired Speech, Fever - Additional Pertinent History Primary Care Physician: [id number] - Allergy/Home Medications Allergies/Adverse Reactions: Allergies Allergy/AdvReac Type Severity Reaction Status Date / Time No Known Allergies Allergy Verified 07/23/18 19:52 Home Medications: Home Medications Acetaminophen [Tylenol Extra Strength] 1,000 mg PO Q8HR PRN 12/03/18 [History Confirmed 12/03/18] Insulin GLARGINE(*) [Lantus(*)] 35 units SUBCUT QAM 12/03/18 [History Confirmed 12/03/18] Phenylephrine/Dm/Acetaminop/GG [Vicks Dayquil Severe Cold-Flu] 1 each PO DAILY PRN 12/03/18 [History Confirmed 12/03/18] Ubidecarenone [Coq-10 Tr] 200 mg PO DAILY 12/03/18 [History Confirmed 12/03/18] Warfarin TAB(*) [Coumadin TAB(*)] 5 mg PO QPM 12/03/18 [History Confirmed ] PMH/Surg Hx/FS Hx/Imm Hx Endocrine/Hematology History: Reports: Hx Diabetes Cardiovascular History: Reports: Hx Atrial Fibrillation, Hx Congestive Heart Failure, Hx Hypercholesterolemia, Hx Hypertension, Hx Pacemaker/ICD - X2, Hx Valvular Heart Disease - aortic valve replacement, Other Cardiovascular Problems /Disorders - HX CARDIOMYOPATHY Denies: Hx Peripheral Vascular Disease Respiratory History: Reports: Hx Chronic Obstructive Pulmonary Disease (COPD), Hx Sleep Apnea - evaluation for 06/2013, Other Respiratory Problems/Disorders - dyspnea, hypoxemia History: Denies: Hx Renal Disease Musculoskeletal History: Reports: Other Musculoskeletal History - obesity Sensory History: Reports: Hx Cataracts - BILATERAL, Hx Contacts or Glasses - GLASSES Denies: Hx Hearing Aid Opthamlomology History: Reports: Hx Cataracts - BILATERAL, Hx Contacts or Glasses - GLASSES - Cancer History Cancer Type, 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 - Surgical History Surgery Procedure, Year, and Place: Pacemaker insertion 2010 [facility], vasectomy , tonsillectomy as a child, Aortic valve replacement 2006 [facility] with aneurysm repair Hx Anesthesia Reactions: No - Immunization History Date of Tetanus Vaccine: Unknown Date of Influenza Vaccine: 2012 - Family History Known Family History: Positive: Other - neg: anaesthesia reaction - Social History Alcohol Use: None Hx Substance Use: No Substance Use Type: Reports: None Hx Tobacco Use: No Smoking Status (MU): Never Smoked Tobacco Have You Smoked in the Last Year: No Review of Systems Negative: Fever Negative: Other - NEGATIVE: visual changes Cardiovascular: Negative Gastrointestinal: Negative Genitourinary: Negative Neurological: Other - POSITIVE: pronator drif of left arm. NEGATIVE: slurred speech, dizziness Positive: Paresthesia - in left arm. Negative: Headache All Other Systems Reviewed And Are Negative: Yes Physical Exam - Summary Physical Exam Summary: VITAL SIGNS: Reviewed. GENERAL: Patient is an elderly and obese male who is lying comfortable in the stretcher. Patient is a little short of breath. HEAD AND FACE: No signs of trauma. No ecchymosis, hematomas or skull depressions. No sinus tenderness. EYES: PERRLA, EOMI x 2, No injected conjunctiva, no nystagmus. No photophobia. EARS: Hearing grossly intact. Ear canals and tympanic membranes are within normal limits. MOUTH: Oropharynx within normal limits. NECK: Supple, trachea is midline, no adenopathy, no JVD, no carotid bruit, no c- spine tenderness, neck with full ROM. No meningeal signs, no Kernig's or brudzinskis signs. CHEST: Symmetric, no tenderness at palpation. LUNGS: Clear to auscultation bilaterally. No wheezing or crackles. CVS: Irregularly irregular rate and rhythm, S1 and S2 present, no murmurs or gallops appreciated. ABDOMEN: Soft, non-tender. No signs of distention. No rebound, no guarding, and no masses palpated. Bowel sounds are normal. EXTREMITIES: Bilateral lower extremity edema 2+. NEURO: Alert and oriented x 3. No acute neurological deficits. Speech is normal and follows commands. SKIN: Dry and warm. GCS: 15 Triage Information Reviewed: Yes Vital Signs Reviewed: Yes Diagnostics - Laboratory Result Diagrams: 12/03/18 15:21 12/03/18 15:21 Lab Statement: Any lab studies that have been ordered have been reviewed, and results considered in the medical decision making process. - Radiology Chest XR Radiology Interpretation Completed By: Radiologist Summary of Radiographic Findings: IMPRESSION: Mild pulmonary vascular congestion and interstitial edema with associated small pleural effusions. Dr. Rand has reviewed this report. - CT Brain CT CT Interpretation Completed By: Radiologist Summary of CT Findings: IMPRESSION: No acute intracranial pathology. Atherosclerosis with chronic small vessel ischemic change. Dr. Rand has reviewed this report. Head and Neck CTA CT Interpretation Completed By: Radiologist Summary of CT Findings: IMPRESSION: 1. Atherosclerosis. 2. Large bilateral pleural effusions. 3. No internal carotid artery stenosis by nasa criteria. 4. No aneurysm, vascular malformation, occlusion, or stenosis of the visualized intracranial circulation. Dr. Rand has reviewed this report. - EKG 15:12 Cardiac Rate: NL - at 79 bpm EKG Comparison: Other - Improved from prior EKG on 10/03/18. Summary of EKG Findings: Pacemaker rhythm at 79 bpm. NIH Scale - NIH Scale Level of Consciousness: Alert/Keenly Responsive Ask Patient the Month and His/Her Age: Both Correct Ask Pt to Open/Close Eyes and Scheduling Specialist/Release Non-Paretic Hand: Both Correctly Best Gaze (Only Horizontal Eye Movement): Normal Visual Field Testing: No Visual Loss Facial Paresis-Pt to Smile & Close Eyes or Grimace Symmetry: Normal/Symmetrical Motor Function - Right Arm: No Drift-Holds 10 Seconds Motor Function - Left Arm: No Drift-Holds 10 Seconds Motor Function - Right Leg: No Drift-Holds 10 Seconds Motor Function - Left Leg: No Drift-Holds 10 Seconds Limb Ataxia-Must be out of Proportion to Weakness Present: Absent Sensory (Use Pinprick to Test Arms/Legs/Trunk/Face): Normal Best Language (Describe Picture, Name Items): No Aphasia Dysarthria (Read Several Words): Normal Extinction and Inattention: No Abnormality Total Score: 0 Course/Dx - Course Course Of Treatment: Horace Fernandez was called overhead at 14:33 with ETA [address] [facility]. Pt arrives to the ED to H1 with Roseline Neri NP, at 14:40. Dr. Rand and Dr. Anderson immediately at bedside. Pt to CT at 14:45. Dr. Graham, radiologist, reports negative CT results at 14:54. Pt returns from CT at 15:10. Assessment/Plan: As per Roseline Neri NP from oncology, the patient started having tingling on the left side of the body including the left upper extremity and left lower extremity at approximately 12:30 PM. Furthermore, she noticed a left-sided weakness in the left upper extremity. Therefore the patient was immediately brought to the emergency department for further workup and management. Before the patient arrived a Horace Fernandez was called. On arrival I did examine the patient and it seems that all his symptoms have subsided. The NIH score is equal to 0 and the GCS is 15. Dr. Anderson at bedside. Dr. Anderson recommends no tpa since patient is on coumadin. He recommends to do a head CT and CTA of head and neck. Head CT impression: No acute intracranial pathology. Atherosclerosis with chronic small vessel ischemic. CTA of head and neck impression: Atherosclerosis. Large bilateral pleural effusions. No internal carotid artery stenosis. No aneurysm, vascular malformation, occlusion or stenosis of the visualized intracranial circulation. Chest x-ray impression: Mild pulmonary vascular congestion and interstitial edema with associated small pleural effusions. Blood work without a significant abnormality except for slight anemia, INR 1.45, glucose 145. Dr. Anderson recommends for the patient to be admitted for further workup and management. Discussed my physical exam and findings with Roseline Neri and she will take the admission under Dr. Womack's services. The patient is hemodynamically stable, alert and oriented 3. - Diagnoses Provider Diagnoses: TIA (transient ischemic attack) During the Visit The Following Alert/Code Occurred: Code Fernandez - called overhead at 14:33 with ETA 7 minutes - Physician Notifications Discussed Care Of Patient With: Roseline Neri Time Discussed With Above Provider: 16:59 Instructed by Provider To: Other - Discussed the case with Roseline Neri NP, who reports pt will be admitted under Dr. Womack's services. - Critical Care Time Critical Care Time: 30-74 min Discharge ED - Sign-Out/Discharge Documenting (check all that apply): Patient Departure - Admit to [facility] Patient Received Moderate/Deep Sedation with Procedure: No - Discharge Plan Condition: Stable Disposition: ADMITTED TO [facility] - Billing Disposition and Condition Condition: STABLE Disposition: Admitted to [facility] - Attestation Statements Document Initiated by Dilip: Yes Documenting Scribe: Perri Hopkins Provider For Whom Scribe is Documenting (Include Credential): Sang Rand MD Scribe Attestation: Perri Gonzáles scribed for Sang Rand MD on 12/03/18 at 2140. Scribe Documentation Reviewed: Yes Provider Attestation: The documentation as recorded by the Perri corey accurately reflects the service I personally performed and the decisions made by Sang taylor MD Status of Scribe Document: Viewed
--- OUTSIDE RECORDS SUMMARY | 2018-12-03 14:46 | XMS REPORT | Continuity of Care Document ---
:1945 External Reference #:[id number] Author Name Italo Huff M.D. (transmitted by agent of provider Lesley Barton) Address [address] [place] [address] Care Team Providers Name Role Phone Philomena Lyle MD - Family Care Team Information [employer] Medicine Italo Huff MD - Cardiovascular Care Team Information [employer] [phone] Disease Kimmy Mccracken MD - Hematology & Care Team Information [employer] Oncology Problems Active Problems Provider Date Paroxysmal ventricular tachycardia Italo Huff M.D. Onset: 04/04/2013 Primary cardiomyopathy Italo Huff M.D. Onset: 04/04/2013 Aortic valve disorder Italo Huff M.D. Onset: 04/04/2013 Congestive heart failure Italo Huff M.D. Onset: 04/04/2013 Obstructive sleep apnea of adult Carmen Baig DNP, RN, Onset: 07/08/2013 [facility] Chronic combined systolic and Italo Huff M.D. Onset: 01/23/2015 diastolic heart failure Dyspnea Flores Brar MD Onset: 08/05/2015 Chronic obstructive lung disease Flores Brar MD Onset: 08/05/2015 Morbid obesity Flores Brar MD Onset: 09/03/2015 Social History Type Date Description Comments Sex Unknown Tobacco Use Start: Unknown Never Smoked Cigarettes Former cigar smoker over 35 years ago, denies smoking pipe, e-cigarettes, or using chewing tobacco. Smoking Status Reviewed: 11/06/18 Never Smoked Cigarettes Former cigar smoker over 35 years ago, denies smoking pipe, e-cigarettes, or using chewing tobacco. ETOH Use Denies alcohol use Tobacco Use Start: Unknown Patient has never smoked Recreational Drug Use Never Used Drugs Exercise Type/Frequency Does not exercise Allergies, Adverse Reactions, Alerts Description No Known Drug Allergies Medications Active Medications SIG Qnty Indications Ordering Date Provider Lantus Solostar 35 units once daily 15ml E11.65 Yfn Morton MD 09/07/2018 in the morning, MDD 100Unit/ML Solution 50 Pen-Inject Glipizide XL take 5mg daily in 30tabs E11.65 Yfn Morton MD 09/07/2018 5mg the morning Tablets ER 24HR Amiodarone HCL 1/2 by mouth every 45tabs Italo DVictorino 08/28/2017 200mg day Melinda Huff Tablets Nebulizer use as directed 1units R06.02 Flores Brar, 08/05/2015 Compressor/Dualfilte r/7' Tubing/Aerosol T/Mthpiece Kit Coreg 1 by mouth twice a 180tabs Italo DVictorino 3.125mg Tablets day. Melinda Huff Venclexta 2 tablets daily Unknown 100mg with meal.(chemo Tablets follow up) Ra Senna as needed for Unknown 8.6mg constipation Capsules Sertraline HCL 1 by mouth every Unknown 25mg day Tablets Miralax take 1 packet daily Unknown [id number] Packet as needed for constipation Allopurinol 1 by mouth every Unknown 300mg day Tablets Vicks Dayquil Cold & as needed Unknown Flu Multi-Symptom Relief Capsules Sleep Aid Melatonin as needed Unknown Acetaminophen 2 tablets every 6 Unknown 500mg hours as needed for Tablets pain Cpap With O2 nightly Unknown Device Multi For Him 50+ 1 po qd Unknown Tablets Lovastatin 1 po qhs 90tabs Unknown 40mg Tablets Coq-10 1 po qd Unknown 200mg Capsules History Medications Azacitidine 190 mg as 75 mg Nirmal Bettencourt, 07/11/2018 - 100mg /m2 SQ daily for M.DVictorino 11/05/2018 Suspension Rec 5 days Basaglar Kwikpen 50 units at in 15ml E11.65 Yfn Morton MD 07/10/2018 - the morning , 09/07/2018 100Unit/ML Solution mdd 70 units Pen-Inject Jardiance take one tablet 30tabs E11.65 Yfn Morton MD 05/30/2018 - 25mg Tablets by mouth daily. 07/09/2018 Immunizations Description No Information Available Vital Signs Date Vital Result Comment 11/06/2018 1:28pm Height 72 inches 6'0" Weight 257.38 lb with shoes Heart Rate 72 /min radial BP Systolic Sitting 148 mmHg Lue reg cuff BP Diastolic Sitting 80 mmHg Lue reg cuff BMI (Body Mass Index) 34.9 kg/m2 09/07/2018 12:15pm Height 72 inches 6'0" Weight 273.00 lb Heart Rate 60 /min BP Systolic Sitting 89 mmHg BP Diastolic Sitting 49 mmHg BMI (Body Mass Index) 37.0 kg/m2 Results Test Date Facility Test Result H/L Range Note CBC Auto Diff 07/25/2018 [facility] Red Blood 2.54 10^6/uL Low 4.18-5.[address] [place] [address] [phone] Hemoglobin 8.1 g/dL Low 14.0-18.0 Hematocrit 23 % Low 42-52 Mean Corpuscular Volume 92 fL Normal 80-94 Mean Corpuscular Hemoglobin 32 pg High 27-31 Mean Corpuscular HGB Conc 34 g/dL Normal 31-36 Red Cell Distribution Width 25 % High 10.5-15 White Blood Count 1.0 10^3/uL Low 3.5-10.8 1 Platelet Count 13 10^3/uL Critical low 150-450 2 Inr/Protime 07/25/2018 [facility] Inr 1.38 High 0.82-1.[address] [place] [address] [phone] Laboratory test 07/25/2018 [facility] Partial 25.6 Low 26.0- 36.[address] [place] [address] PTT [phone] Manual 07/25/2018 [facility] Neutrophil % 51.0 % Differential [address] [place] [address] [phone] Lymphocytes % 32.0 % Monocytes % 10.0 % Eosinophils % 0.0 % Basophil % 7.0 % Nucleated Red Blood Cells/100 48.0 High 0-0 Abs Neutrophils 0.5 10^3/uL Critical low 1.5-7.7 4 Abs Lymphocytes 0.3 10^3/uL Low 1.0-4.8 Abs Monocytes 0.1 10^3/uL Normal 0-0.8 Abs Eosinophils 0.0 10^3/uL Normal 0-0.6 Abs Basophils 0.1 10^3/uL Normal 0-0.2 Hypochromasia 1+ Polychromasia 1+ Anisocytosis 2+ Laboratory test 07/25/2018 [facility] Lactic Acid 2.0 mmol/L Normal 0.5-2.0 [address] [place] [address] [phone] Troponin-I (TnI) 0.75 ng/mL Critical high <0.04 6 Comp Metabolic 07/25/2018 [facility] Sodium 138 mmol/L Normal 135-[address] [place] [address] [phone] Potassium 4.5 mmol/L Normal 3.5-5.0 Chloride 106 mmol/L Normal 101-111 Co2 Carbon Dioxide 24 mmol/L Normal 22-32 Anion Gap 8 mmol/L Normal 2-11 Glucose 203 mg/dL High 70-100 Blood Urea Nitrogen 24 mg/dL Normal 6-24 Creatinine 1.42 mg/dL High 0.67-1.17 BUN/Creatinine Ratio 16.9 Normal 8-20 Calcium 8.5 mg/dL Low 8.6-10.3 Total Protein 6.2 g/dL Low 6.4-8.9 Albumin 3.4 g/dL Normal 3.2-5.2 Globulin 2.8 g/dL Normal 2-4 Albumin/Globulin Ratio 1.2 Normal 1-3 Total Bilirubin 1.30 mg/dL High 0.2-1.0 Alkaline Phosphatase 49 U/L Normal 34-104 Alt 12 U/L Normal 7-52 Ast 15 U/L Normal 13-39 Egfr Non- 49.0 >60 Egfr 59.3 >60 7 Laboratory test 07/25/2018 [facility] Blood Culture SEE RESULT [address] [place] [address] [phone] Urinalysis Profile 07/25/2018 [facility] Urine Color Reina [address] [place] [address] [phone] Urine Appearance Cloudy Urine Specific [place] 1.024 Normal 1.010-1.030 Urine pH 5.0 Normal 5-9 Urine Urobilinogen Negative Negative Urine Ketones Negative Negative Urine Protein 2+(100 mg/dL) Abnormal Negative Urine Leukocytes Negative Negative Urine Blood 3+ Abnormal Negative * * Abnormal Negative 9 Urine Nitrite Negative Negative Urine Bilirubin Negative Negative Urine Glucose Negative Negative Urine White Blood Cell 1+(6-10/hpf) Abnormal Absent Urine Red Blood Cell 3+(>10/hpf) Abnormal Absent Urine Bacteria Absent Absent Urine Culture And 07/25/2018 [facility] Urine Culture SEE RESULT [address] [place] [address] [phone] Laboratory test 07/23/2018 [facility] Packed Cells SEE RESULTS [address] BELO <[place] [address] NOTE> [phone] Type & Screen 07/23/2018 [facility] Patient Blood A Positive [address] [place] [address] [phone] Antibody Screen NEGATIVE Laboratory test 07/23/2018 [facility] Pathologist (SEE [address] Review NOTE) [place] [address] [phone] Manual 07/23/2018 [facility] Immature 9.0 % Normal 0-[address] [place] [address] [phone] Neutrophil % 34.0 % Band % 7.0 % Normal 0-8 Lymphocytes % 40.0 % Monocytes % 12.0 % Metamyelocytes % 2.0 % Normal 0-2 Blast % 5.0 % Critical high 13 Nucleated Red Blood Cells/100 11.0 High 0-0 Polychromasia 1+ Anisocytosis 3+ Tear Drop Cells 1+ Elliptocyte 1+ Abs Neutrophils 0.4 10^3/uL Low 1.5-7.7 Abs Lymphocytes 0.4 10^3/uL Low 1.0-4.8 Abs Monocytes 0.1 10^3/uL Normal 0-0.8 Comp Metabolic 07/23/2018 [facility] Sodium 137 mmol/L Normal 135-[address] [place] [address] [phone] Potassium 4.3 mmol/L Normal 3.5-5.0 Chloride 104 mmol/L Normal 101-111 Co2 Carbon Dioxide 28 mmol/L Normal 22-32 Anion Gap 5 mmol/L Normal 2-11 Glucose 172 mg/dL High 70-100 Blood Urea Nitrogen 25 mg/dL High 6-24 Creatinine 1.36 mg/dL High 0.67-1.17 BUN/Creatinine Ratio 18.4 Normal 8-20 Calcium 8.8 mg/dL Normal 8.6-10.3 Total Protein 6.3 g/dL Low 6.4-8.9 Albumin 3.4 g/dL Normal 3.2-5.2 Globulin 2.9 g/dL Normal 2-4 Albumin/Globulin Ratio 1.2 Normal 1-3 Total Bilirubin 0.80 mg/dL Normal 0.2-1.0 Alkaline Phosphatase 50 U/L Normal 34-104 Alt 12 U/L Normal 7-52 Ast 12 U/L Low 13-39 Egfr Non- 51.5 >60 Egfr 62.3 >60 14 CBC Auto 07/23/2018 [facility] White Blood 0.9 10^3/uL Low 3.5 -10.[address] [place] [address] [phone] Red Blood Count 2.20 10^6/uL Low 4.18-5.48 Hemoglobin 7.0 g/dL Low 14.0-18.0 Hematocrit 21 % Low 42-52 Mean Corpuscular Volume 94 fL Normal 80-94 Mean Corpuscular Hemoglobin 32 pg High 27-31 Mean Corpuscular HGB Conc 34 g/dL Normal 31-36 Red Cell Distribution Width 26 % High 10.5-15 15 Platelet Count 11 10^3/uL Low 150-450 16 Mean Platelet Volume 12.6 fL High 7.4-10.4 Comp Metabolic 07/16/2018 [facility] Sodium 136 mmol/L Normal 135-[address] [place] [address] [phone] Potassium 4.8 mmol/L Normal 3.5-5.0 Chloride 102 mmol/L Normal 101-111 Co2 Carbon Dioxide 30 mmol/L Normal 22-32 Anion Gap 4 mmol/L Normal 2-11 Glucose 268 mg/dL High 70-100 Blood Urea Nitrogen 27 mg/dL High 6-24 Creatinine 1.31 mg/dL High 0.67-1.17 BUN/Creatinine Ratio 20.6 High 8-20 Calcium 8.8 mg/dL Normal 8.6-10.3 Total Protein 6.2 g/dL Low 6.4-8.9 Albumin 3.4 g/dL Normal 3.2-5.2 Globulin 2.8 g/dL Normal 2-4 Albumin/Globulin Ratio 1.2 Normal 1-3 Total Bilirubin 1.00 mg/dL Normal 0.2-1.0 Alkaline Phosphatase 41 U/L Normal 34-104 Alt 12 U/L Normal 7-52 Ast 14 U/L Normal 13-39 Egfr Non- 53.8 >60 Egfr 65.1 >60 17 CBC Auto 07/16/2018 [facility] White Blood 2.6 10^3/uL Low 3.5 -10.[address] [place] [address] [phone] Red Blood Count 2.35 10^6/uL Low 4.18-5.48 Hemoglobin 7.5 g/dL Low 14.0-18.0 Hematocrit 23 % Low 42-52 Mean Corpuscular Volume 97 fL High 80-94 Mean Corpuscular Hemoglobin 32 pg High 27-31 Mean Corpuscular HGB Conc 33 g/dL Normal 31-36 Red Cell Distribution Width 26 % High 10.5-15 Platelet Count 19 10^3/uL Low 150-450 Mean Platelet Volume 10.4 fL Normal 7.4-10.4 Manual 07/16/2018 [facility] Immature 13.0 % High 0-[address] [place] [address] [phone] Neutrophil % 40.0 % Band % 10.0 % High 0-8 Lymphocytes % 27.0 % Monocytes % 12.0 % Basophil % 4.0 % Myelocytes % 3.0 % High 0-1 Blast % 4.0 % Critical high 18 Abs Neutrophils 1.4 10^3/uL Low 1.5-7.7 Abs Lymphocytes 0.7 10^3/uL Low 1.0-4.8 Abs Monocytes 0.3 10^3/uL Normal 0-0.8 Abs Basophils 0.1 10^3/uL Normal 0-0.2 Polychromasia 1+ Anisocytosis 3+ Nucleated Red Blood Cells/100 9.0 High 0-0 Laboratory test 07/16/2018 [facility] Pathologist (SEE NOTE) [address] [place] [address] [phone] Type & Screen 07/16/2018 [facility] Patient Blood A Positive [address] Type [place] [id number] [phone] Antibody Screen NEGATIVE Laboratory test 07/16/2018 [facility] Packed SEE RESULTS [address] Cells BELO <[place] [address] NOTE> [phone] CBC Auto Diff 07/13/2018 [facility] White Blood 4.4 10^3/uL Normal 3.5-[address] Count 0.8 [place] [address] [phone] Red Blood Count 2.62 10^6/uL Low 4.18-5.48 Hemoglobin 8.3 g/dL Low 14.0-18.0 Hematocrit 25 % Low 42-52 Mean Corpuscular Volume 96 fL High 80-94 Mean Corpuscular Hemoglobin 32 pg High 27-31 Mean Corpuscular HGB Conc 33 g/dL Normal 31-36 Red Cell Distribution Width 27 % High 10.5-15 Platelet Count 14 10^3/uL Low 150-450 21 Mean Platelet Volume 6.5 fL Low 7.4-10.4 Manual 07/13/2018 [facility] Immature 34.0 % High 0-[address] [place] [address] [phone] Neutrophil % 20.0 % Band % 18.0 % High 0-8 Lymphocytes % 22.0 % Monocytes % 13.0 % Eosinophils % 1.0 % Basophil % 1.0 % Variant Lymph % 1.0 % Normal 0-6 Metamyelocytes % 6.0 % High 0-2 Myelocytes % 8.0 % High 0-1 Promyelocytes % 2.0 % Blast % 8.0 % Critical high 22 Nucleated Red Blood Cells/100 16.0 High 0-0 Polychromasia 2+ Anisocytosis 3+ Abs Neutrophils 2.4 10^3/uL Normal 1.5-7.7 Abs Lymphocytes 1.0 10^3/uL Normal 1.0-4.8 Abs Monocytes 0.6 10^3/uL Normal 0-0.8 Abs Eosinophils 0.0 10^3/uL Normal 0-0.6 Abs Basophils 0.0 10^3/uL Normal 0-0.2 Laboratory test 07/13/2018 [facility] Pathologist (SEE NOTE) [address] Review ANGELIKA Fraire [phone] Laboratory test 07/11/2018 [facility] Packed Cells SEE RESULTS [address] [place] <[place] [address] NOTE> [phone] Type & Screen 07/11/2018 [facility] Patient Blood A Positive [address] [place] [address] [phone] Antibody Screen NEGATIVE Laboratory test 07/11/2018 [facility] Pathologist (SEE [address] Review NOTE) AN[place]ELIKA Fraire39 [phone] Manual 07/11/2018 [facility] Immature 21 % High 0-[address] [place] [address] [phone] Neutrophil % 38 % Band % 9 % High 0-8 Lymphocytes % 14 % Monocytes % 17 % Metamyelocytes % 4 % High 0-2 Myelocytes % 8 % High 0-1 Blast % 10 % Critical high 26 Nucleated Red Blood Cells/100 12 High 0-0 Abs Neutrophils 3.5 10^3/uL Normal 1.5-7.7 Abs Lymphocytes 0.8 10^3/uL Low 1.0-4.8 Abs Monocytes 1.0 10^3/uL High 0-0.8 Macrocytosis 1+ Anisocytosis 2+ CBC Auto 07/11/2018 [facility] White Blood 6.0 10^3/uL Normal 3.5-10.[address] [place] [address] [phone] Red Blood Count 2.41 10^6/uL Low 4.18-5.48 Hemoglobin 7.8 g/dL Low 14.0-18.0 Hematocrit 24 % Low 42-52 Mean Corpuscular Volume 100 fL High 80-94 Mean Corpuscular Hemoglobin 33 pg High 27-31 Mean Corpuscular HGB Conc 33 g/dL Normal 31-36 Red Cell Distribution Width 26 % High 10.5-15 Platelet Count 16 10^3/uL Low 150-450 27 Mean Platelet Volume 6.8 fL Low 7.4-10.4 CBC Auto 07/09/2018 [facility] White Blood 7.6 10^3/uL Normal 3.5-10.[address] [place] [address] [phone] Red Blood Count 2.65 10^6/uL Low 4.18-5.48 Hemoglobin 8.6 g/dL Low 14.0-18.0 Hematocrit 26 % Low 36-46 Mean Corpuscular Volume 99 fL High 80-94 Mean Corpuscular Hemoglobin 33 pg High 27-31 Mean Corpuscular HGB Conc 33 g/dL Normal 31-36 Red Cell Distribution Width 26 % High 10.5-15 28 Abs Neutrophils 0.3 10^3/uL Low 1.5-7.7 29 Platelet Count 20 10^3/uL Low 150-450 Mean Platelet Volume 8.1 fL Normal 7.4-10.4 Manual Differential 07/09/2018 [facility] Immature 19 % High 0 -[address] [place] [address] [phone] Neutrophil % 38 % Band % 6 % Normal 0-8 Lymphocytes % 13 % Monocytes % 8 % Eosinophils % 1 % Basophil % 11 % Metamyelocytes % 2 % Normal 0-2 Myelocytes % 9 % High 0-1 Promyelocytes % 2 % Blast % 10 % Critical high 30 Nucleated Red Blood Cells/100 17 High 0-0 RBC Morphology Normal Normal Comp Metabolic 07/09/2018 [facility] Sodium 137 mmol/L Normal 135-[address] [place] [address] [phone] Potassium 4.1 mmol/L Normal 3.5-5.0 Chloride 103 mmol/L Normal 101-111 Co2 Carbon Dioxide 29 mmol/L Normal 22-32 Anion Gap 5 mmol/L Normal 2-11 Glucose 178 mg/dL High 70-100 Blood Urea Nitrogen 26 mg/dL High 6-24 Creatinine 1.52 mg/dL High 0.67-1.17 BUN/Creatinine Ratio 17.1 Normal 8-20 Calcium 8.7 mg/dL Normal 8.6-10.3 Total Protein 6.6 g/dL Normal 6.4-8.9 Albumin 3.8 g/dL Normal 3.2-5.2 Globulin 2.8 g/dL Normal 2-4 Albumin/Globulin Ratio 1.4 Normal 1-3 Total Bilirubin 0.80 mg/dL Normal 0.2-1.0 Alkaline Phosphatase 46 U/L Normal 34-104 Alt 15 U/L Normal 7-52 Ast 20 U/L Normal 13-39 Egfr Non- 45.3 >60 Egfr 54.8 >60 31 CBC Auto 07/05/2018 [facility] White Blood 6.3 10^3/uL Normal 3.5-10.[address] [place] [address] [phone] Red Blood Count 2.77 10^6/uL Low 4.18-5.48 Hemoglobin 9.2 g/dL Low 14.0-18.0 Hematocrit 28 % Low 36-46 Mean Corpuscular Volume 100 fL High 80-94 Mean Corpuscular Hemoglobin 33 pg High 27-31 Mean Corpuscular HGB Conc 33 g/dL Normal 31-36 Red Cell Distribution Width 25 % High 10.5-15 Platelet Count 24 10^3/uL Low 150-450 32 Mean Platelet Volume 8.1 fL Normal 7.4-10.4 Manual Differential 07/05/2018 [facility] Immature 18 % High 0 -[address] [place] [address] [phone] Neutrophil % 29 % Band % 8 % Normal 0-8 Lymphocytes % 19 % Monocytes % 12 % Eosinophils % 2 % Basophil % 7 % Variant Lymph % 1 % Normal 0-6 Metamyelocytes % 4 % High 0-2 Myelocytes % 4 % High 0-1 Promyelocytes % 2 % Blast % 12 % Critical high Nucleated Red Blood Cells/100 9 High 0-0 Macrocytosis 1+ Anisocytosis 2+ Abs Neutrophils 3.0 10^3/uL Normal 1.5-7.7 Abs Lymphocytes 1.2 10^3/uL Normal 1.0-4.8 Abs Monocytes 0.7 10^3/uL Normal 0-0.8 Abs Eosinophils 0.1 10^3/uL Normal 0-0.6 Abs Basophils 0.4 10^3/uL High 0-0.2 Comp Metabolic 07/05/2018 [facility] Sodium 141 mmol/L Normal 135-[address] [place] [address] [phone] Potassium 4.7 mmol/L Normal 3.5-5.0 Chloride 109 mmol/L Normal 101-111 Co2 Carbon Dioxide 27 mmol/L Normal 22-32 Anion Gap 5 mmol/L Normal 2-11 Glucose 117 mg/dL High 70-100 Blood Urea Nitrogen 27 mg/dL High 6-24 Creatinine 1.47 mg/dL High 0.67-1.17 BUN/Creatinine Ratio 18.4 Normal 8-20 Calcium 8.8 mg/dL Normal 8.6-10.3 Total Protein 6.3 g/dL Low 6.4-8.9 Albumin 3.7 g/dL Normal 3.2-5.2 Globulin 2.6 g/dL Normal 2-4 Albumin/Globulin Ratio 1.4 Normal 1-3 Total Bilirubin 1.30 mg/dL High 0.2-1.0 Alkaline Phosphatase 41 U/L Normal 34-104 Alt 14 U/L Normal 7-52 Ast 18 U/L Normal 13-39 Egfr Non- 47.1 >60 Egfr 57.0 >60 33 Laboratory test 07/05/2018 [facility] Pathologist Review (SEE NOTE) [address] [place] [address] [phone] Hepatitis C 06/28/2018 [facility] HCV Index 0.[address] [place] [address] [phone] Hepatitis C Antibody Nonreactive Nonreactive Laboratory 06/28/2018 [facility] Hepatitis Nonreactive Nonreactive [address] [place] [address] Igm [phone] Hepatitis B 06/28/2018 [facility] Hepatitis Not Immune Abnormal Immune Betty AB Titer [address] [place] [address] AB [phone] Hep B Surf AB Level < 3.10 mIU/mL >12 Laboratory test 06/28/2018 [facility] Erythrocyte Sed 49 mm/Hr High 0-[address] [place] [address] [phone] Pathologist Review (SEE NOTE) 36 Hepatitis B Surface Ag Nonreactive Nonreactive 37 Manual Differential 06/28/2018 [facility] Immature 14 % High 0 -[address] [place] [address] [phone] Neutrophil % 35 % Band % 7 % Normal 0-8 Lymphocytes % 16 % Monocytes % 21 % Eosinophils % 1 % Variant Lymph % 1 % Normal 0-6 Metamyelocytes % 1 % Normal 0-2 Myelocytes % 6 % High 0-1 Blast % 10 % Critical high 38 Nucleated Red Blood Cells/100 15 High 0-0 RBC Morphology Normal Normal Abs Neutrophils 2.0 10^3/uL Normal 1.5-7.7 Abs Lymphocytes 0.7 10^3/uL Low 1.0-4.8 Abs Monocytes 0.9 10^3/uL High 0-0.8 Abs Eosinophils 0.04 10^3/uL Normal 0-0.6 Retic Count 06/28/2018 [facility] Retic Count 3.5 % High 0.5- 1.5 [address] [place] [address] [phone] Mean Retic Volume 113.1 Immature Retic Fraction 0.35 RBC Retic Count 2.89 10^6/uL Low 4.18-5.48 Corrected Retic Count 2.3 % High 0.5-1.5 Maturation Factor Retic 2.0 Retic Index 1.20 Hematocrit for Retic CNT 29 % Low 36-46 CBC Auto 06/28/2018 [facility] Red Blood 2.89 10^6/uL Low 4.18 -5.48 Diff [address] [facility] [place] [address] [phone] Hemoglobin 9.8 g/dL Low 14.0-18.0 Hematocrit 29 % Low 36-46 Mean Corpuscular Volume 102 fL High 80-94 Mean Corpuscular Hemoglobin 34 pg High 27-31 Mean Corpuscular HGB Conc 33 g/dL Normal 31-36 Red Cell Distribution Width 22 % High 10.5-15 Abs Neutrophils 2.5 10^3/uL Normal 1.5-7.7 White Blood Count 4.1 10^3/uL Normal 3.5-10.8 Platelet Count 28 10^3/uL Low 150-450 39 Mean Platelet Volume 8.1 fL Normal 7.4-10.4 Laboratory test finding 06/28/2018 [facility] LDH 261 U/L Normal 140-271 [address] [place] [address] [phone] Vitamin B12 471 pg/mL Normal 180-914 40 Comp Metabolic 06/28/2018 [facility] Sodium 140 mmol/L Normal 135-145 Panel [address] [place] [address] [phone] Potassium 4.2 mmol/L Normal 3.5-5.0 Chloride 104 mmol/L Normal 101-111 Co2 Carbon Dioxide 29 mmol/L Normal 22-32 Anion Gap 7 mmol/L Normal 2-11 Glucose 195 mg/dL High 70-100 Blood Urea Nitrogen 34 mg/dL High 6-24 Creatinine 1.61 mg/dL High 0.67-1.17 BUN/Creatinine Ratio 21.1 High 8-20 Calcium 9.1 mg/dL Normal 8.6-10.3 Total Protein 6.8 g/dL Normal 6.4-8.9 Albumin 4.0 g/dL Normal 3.2-5.2 Globulin 2.8 g/dL Normal 2-4 Albumin/Globulin Ratio 1.4 Normal 1-3 Total Bilirubin 1.10 mg/dL High 0.2-1.0 Alkaline Phosphatase 46 U/L Normal 34-104 Alt 17 U/L Normal 7-52 Ast 19 U/L Normal 13-39 Egfr Non- 42.4 >60 Egfr 51.3 >60 41 Inr/Protime 06/28/2018 [facility] Inr 2.05 High 0.77-1.[address] [place] [address] [phone] CBC Auto Diff 06/27/2018 [facility] White Blood 4.8 Normal 3.5 -10.8 DRIVE Count 10^3/[place] [address] [phone] Red Blood Count 2.98 10^6/uL Low 4.18-5.48 Hemoglobin 9.8 g/dL Low 14.0-18.0 Hematocrit 30 % Low 36-46 Mean Corpuscular Volume 101 fL High 80-94 Mean Corpuscular Hemoglobin 33 pg High 27-31 Mean Corpuscular HGB Conc 33 g/dL Normal 31-36 Red Cell Distribution Width 22 % High 10.5-15 Platelet Count 26 10^3/uL Low 150-450 42 Mean Platelet Volume 8.2 fL Normal 7.4-10.4 Manual Differential 06/27/2018 [facility] Immature 4 % Normal 0-[address] [place] [address] [phone] Neutrophil % 23 % Band % 2 % Normal 0-8 Lymphocytes % 33 % Monocytes % 27 % Basophil % 1 % Variant Lymph % 1 % Normal 0-6 Myelocytes % 2 % High 0-1 Blast % 11 % Critical high 43 Nucleated Red Blood Cells/100 22 High 0-0 Macrocytosis 1+ Polychromasia 1+ Anisocytosis 2+ Abs Neutrophils 1.3 10^3/uL Low 1.5-7.7 Abs Lymphocytes 1.6 10^3/uL Normal 1.0-4.8 Abs Monocytes 1.3 10^3/uL High 0-0.8 Abs Basophils 0 10^3/uL Normal 0-0.2 Laboratory test 06/27/2018 [facility] Pathologist (SEE NOTE) [address] [place] [address] [phone] PML/Regino 06/27/2018 [facility] PML/Regino Result see interpretati 45 Quantitative PCR [address] <SEE NOTE> [place] [address] [phone] PML/Regino Specimen Type Whole Blood PML/Regino Final Diagnosis See Comment 46 Laboratory test finding 05/30/2018 [facility] Glucose Random 205 Hemoglobin A1c 9.0 High 5-7 1 White count confirmed by estimate 2 Platelet count confirmed by estimate 3 Standard intensity warfarin therapeutic range: 2.0-3.0 High intensity warfarin therapeutic range: 2.5-3.5 4 Verbal to [id number] by [id number] at 1453 on 07/25/18. Results read back accurately 5 [facility] Severe Sepsis and Septic Shock Management Bundle Measure requires all lactic acids initially measuring >2.0 mmol/L be repeated. 6 Result TnIDx:0.75 Called to [id number] at: 15:05:28 by:[id number] Read back by: [id number] Troponin-I testing on Plasma Separator Tubes (PST) has a known false positive rate of 0.20-0.40%. All positive troponins reflex immediately to secondary confirmatory testing. Using the [employer] 800 Access Immunoassay systems, the 99th percentile [...] [address]: Kimmy Wallace MD Acct: [id number] Unit: [id number] AGE: 73 Location: [place] [id number] Re07/25/18 SEX: M Status: ADM IN SPEC: [id number] ARYAN: 07/25/181358 [facility] DR: Gareth Freeman MD REQ: [id number] RECD: 07/25/18 STATUS: LOYD CESAR DR: Kimmy Lyle MD _ SOURCE: BLOOD,VENO SPDESC: ORDERED: Blood Cult Procedure Result Reported Site Aerobic Culture Bottle Final 07/30/18- 1412 ML No Growth Day 5 Anaerobic Culture Bottle Final 07/30/18- 1412 ML No Growth Day 5 * ML - Main Lab . END OF REPORT DEPARTMENT OF PATHOLOGY, [address] [place] [address] Mahamde Bailon M.D. Director [facility] # [id number] 9 *Ascorbic acid is present which may interfere with detection of blood. 10 SEE RESULT BELOW Name: JON VILLANUEVA : [address]: Kimmy Wallace MD Acct: [id number] Unit: [id number] AGE: 73 Location: [address] Re07/25/18 SEX: M Status: ADM IN SPEC: [id number] ARYAN: 07/28/18 [facility] [address]: Gareth Freeman MD REQ: [id number] RECD: 07/28/18 STATUS: LOYD CESAR DR: Kimmy Lyle MD _ SOURCE: URINE SPDESC: ORDERED: Urine Culture Procedure Result Reported Site Urine Culture Final 07/30/18- 0838 ML No Growth (<1,000 CFU/mL) * ML - Main Lab . END OF REPORT DEPARTMENT OF PATHOLOGY, [address] [place] [address] Mahamed Bailon M.D. Director [facility] # [id number] 11 SEE RESULTS BELOW [id number] AP TRANSFUSED 07/23/18 1523 12 Pancytopenia with rare circulating blasts noted. Additional studies as clinically warranted. Reviewed by Dr. Bailon 13 Verbal to [id number] by [id number] at 1352 on 07/23/18. Results read back [...] failure <15 (or dialysis) 18 Verbal to [id number] by [id number] at 1431 on 07/16/18. Results read back accurately. 19 Pancytopenia noted. Rare blasts are seen. Clinical correlation and additional studies is warranted. Reviewed by Dr. Bailon 20 SEE RESULTS BELOW [id number] AP PC TRANSFUSED 07/17/18 1054 21 Consistent with Previous Results Reported on 07/11/18 22 Consistent with previous results on 07/11/18. Verbal to [id number] by [id number] at 1432 on 07/13/18. Results read back accurately. 23 Severe thrombocytopenia and mildly macrocytic anemia compatible with treatment effect. Additional studies is warranted. Reviewed by Dr. Bailon 24 SEE RESULTS BELOW [id number] AP PC TRANSFUSED 07/12/18 1342 25 Approximately 10% circulating blasts, compatible with previous. No Caden richard seen. Reviewed by Linda Jean Baptiste MD 26 Verbal to [id number] by [id number] at 1431 on 07/11/18. Results read back accurately. 27 Consistent with Previous Results Reported on 07/09/18 Platelet count confirmed by estimate 28 Consistent with Previous Results Reported on 07/05/18. 29 Consistent with Previous Results Reported on 07/05/18. 30 Verbal to [id number] by [id number] at 1612 on 07/09/18. Results read back [...] 06/28/[address] Wallace by [id number] at 1149 on 06/28/18. Results read back [...] 5 Kidney failure <15 (or dialysis) 42 Platelet count confirmed by smear estimate. 43 Verbal to [id number] by [id number] at 2021 on 06/27/18. Results read back accurately. 44 Compatible with previous. Reviewed by Linda Jean Baptiste MD 45 see interpretation 46 Peripheral blood, PML/REGINO mRNA analysis: Negative. No PML/REGINO mRNA transcripts detected. Signing Pathologist: Jonathan Palomino M.D. ADDITIONAL INFORMATION Method Summary - PML/REGINO: PML/REGINO mRNA level was evaluated using quantitative, reverse cloth coverer PCR. The analytical sensitivity of this assay has been determined at 0.1% (see [facility] Interpretive Handbook for method details). This [...] developed and its performance characteristics determined by [facility] in a manner consistent with CLIA requirements. This test has not been cleared or approved by the U.S. Food and Drug Administration. Test Performed by: [address] [address] Procedures Date Code Description Status 09/03/2018 69373 Interrogation Device Eval Remote Up To 30 Days Completed Analysis,Rev,RP 09/03/2018 32096 Interrogation Device Eval Remote Up To 30 Days Completed Analysis,Rev,RP 09/03/2018 08335 Icd Eval Sing,Dual,Multi Lead Remote Recpt Transm Tech Rev Completed Tech S 09/03/2018 67713 Icd Eval Sing,Dual,Multi Lead Remote Recpt Transm Tech Rev Completed Tech S 09/03/2018 80794 Icd Check Remote Up To 90 Days Single,Dual,Multiple Lead Completed 09/03/2018 67955 Icd Check Remote Up To 90 Days Single,Dual,Multiple Lead Completed 08/07/2018 48315 EKG, Interpretation Only Completed 07/26/2018 78799 EKG, Interpretation Only Completed 07/26/2018 53397 ECHO Transthorasic Realtime 2D W Doppler & Color Flow Hosp Completed 06/20/2018 34652 Interrogation Implant Cardiovasc Monitor System Incl Completed Analysis Int 06/20/2018 64124 Interrogation Implant Cardiovasc Monitor System Incl Completed Analysis Int 06/20/2018 23826 Icd Eval With Iterative Adjustmt Multiple Lead System Completed 06/20/2018 17955 Icd Eval With Iterative Adjustmt Multiple Lead System Completed 05/25/2018 88828 Interrogation Implant Cardiovasc Monitor System Incl Completed Analysis Int 05/25/2018 64507 Interrogation Implant Cardiovasc Monitor System Incl Completed Analysis Int 05/25/2018 16384 Icd Eval With Iterative Adjustmt Multiple Lead System Completed 05/25/2018 28163 Icd Eval With Iterative Adjustmt Multiple Lead System Completed Medical Devices Description No Information Available Encounters Type Date Location Provider Dx Diagnosis Office Visit 09/07/2018 [place] [facility] Yfn Morton MD E11.65 Type 2 diabetes 12:20p [facility] mellitus with hyperglycemia Z79.4 [employer] (current) use of insulin E11.649 Type 2 diabetes mellitus with hypoglycemia without coma 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 tachycardia R06.02 Shortness of breath R50.9 Fever, unspecified Office Visit 07/29/2018 10:58a [facility] Sherleyleonela Del Rio, I50.9 Heart failure, Assoc,pc N.P. 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 cardiac defibrillator 11/06/2018 I42.9 Cardiomyopathy, unspecified Italo Huff M.D. 11/06/2018 Z95.2 Presence of prosthetic heart valve Italo Huff M.D. 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 09/03/2018 I47.2 Ventricular tachycardia Remote Device Checks 09/03/2018 Z95.810 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 cardiac defibrillator 09/03/2018 Z95.810 Presence of automatic (implantable) Remote Device Checks cardiac defibrillator 09/03/2018 I42.9 Cardiomyopathy, unspecified Italo Huff M.D. 09/03/2018 I42.9 Cardiomyopathy, unspecified Remote Device Checks 08/08/2018 I47.2 Ventricular tachycardia Chelo Agosto M.D. 08/08/2018 I50.9 Heart failure, unspecified Chelo Agosto M.D. 08/08/2018 G47.33 Obstructive sleep apnea (adult) Chelo Agosto M.D. (pediatric) 08/07/2018 R94.31 Abnormal electrocardiogram [ECG] [EKG] Sachin Edmonds M.D. 08/05/2018 D70.9 Neutropenia, unspecified RIMA Luke 08/05/2018 I47.2 Ventricular tachycardia Chelo Agosto M.D. 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, not RIMA Luke having achieved remission 08/05/2018 R06.02 Shortness of breath Chelo Agosto M.D. 08/05/2018 I48.91 Unspecified atrial fibrillation RIMA Luke 08/05/2018 R50.9 Fever, unspecified Chelo Agosto M.D. 08/05/2018 I47.2 Ventricular tachycardia RIMA Luke 08/05/2018 I50.9 Heart failure, unspecified RIMA Luke 08/05/2018 N18.9 Chronic kidney disease, unspecified RIMA Luke 08/05/2018 E11.9 Type 2 diabetes mellitus without RIMA Luke complications 08/05/2018 R79.89 Other specified abnormal findings of RIMA Luke blood chemistry 08/05/2018 G47.33 Obstructive sleep apnea (adult) RIMA Luke (pediatric) 07/29/2018 I50.9 Heart failure, unspecified Sherley Del Rio, N.PVictorino 07/29/2018 D70.9 Neutropenia, unspecified Sherley Del Rio, N.PVictorino 07/29/2018 R94.5 Abnormal results of liver function Sherley Del Rio N.P. studies 07/29/2018 C92.00 Acute myeloblastic leukemia, not Sherley Del Rio N.P. having achieved remission 07/29/2018 I48.91 Unspecified atrial fibrillation Sherley Del Rio N.P. 07/29/2018 E11.9 Type 2 diabetes mellitus without Sherley Del Rio N.P. complications 07/29/2018 R79.89 Other specified abnormal findings of Sherley Del Rio N.P. blood chemistry 07/29/2018 G47.33 Obstructive sleep apnea (adult) Sherley Del Rio N.P. (pediatric) 07/29/2018 N18.9 Chronic kidney disease, unspecified Sherley Del Rio N.P. 07/26/2018 R94.31 Abnormal electrocardiogram [ECG] [EKG] Pernell Mccarty M.D. 07/26/2018 R07.9 Chest pain, unspecified Gage Hartmann, DO [facility] 07/26/2018 R79.89 Other specified abnormal findings of Gage Hartmann, DO [facility] blood chemistry 07/10/2018 E11.9 Type 2 diabetes mellitus without Yfn Morton MD complications 07/10/2018 C95.00 Acute leukemia of unspecified cell Yfn Morton MD type not having achieved 06/20/2018 I42.9 Cardiomyopathy, unspecified Italo Huff M.D. 06/20/2018 I42.9 Cardiomyopathy, unspecified Ica Pacer Schedule 06/20/2018 Z95.810 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 cardiac defibrillator 06/20/2018 Z95.810 Presence of automatic (implantable) Ica Pacer Schedule cardiac defibrillator 05/30/2018 E11.65 Type 2 diabetes mellitus with Yfn Morton MD hyperglycemia 05/30/2018 Z68.41 Body mass index (BMI) 40.0-44.9, adult Yfn Morton MD 05/30/2018 Z79.4 longterm (current) use of insulin Yfn Morton MD 05/30/2018 E11.65 Type 2 diabetes mellitus with Yfn Morton MD hyperglycemia 05/25/2018 I42.9 Cardiomyopathy, unspecified Italo Huff M.D. 05/25/2018 I42.9 Cardiomyopathy, unspecified Ica Pacer Schedule 05/25/2018 I47.2 Ventricular tachycardia Italo Huff M.D. 05/25/2018 I47.2 Ventricular tachycardia Ica Pacer Schedule 05/25/2018 Z95.810 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 cardiac defibrillator 05/25/2018 Z95.810 Presence of automatic (implantable) Ica Pacer Schedule cardiac defibrillator Plan of Treatment Future Appointment(s):01/15/2019 1:00 pm - Italo Huff M.D. at [facility] [place] - Italo Huff M.D.Z95.810 Presence of automatic (implantable) cardiac defibrillatorNew Orders:Cardioversion, Ordered: 11/06/18Follow up:2 [id number] Cardiomyopathy, [id number] Presence of prosthetic heart valve Functional Status Description No Information Available Mental Status Description No Information Available Referrals Description No Information Available
--- OUTSIDE RECORDS SUMMARY | 2018-12-03 14:46 | XMS REPORT | Continuity of Care Document ---
:1945 External Reference #:[id number] Author Name Yfn Morton MD (transmitted by agent of provider Lesley Barton) Address [address] [place] [id number] Care Team Providers Name Role Phone Philomena Lyle MD - Family Care Team Information Sensitized Paper Tester Medicine Italo Huff MD - Cardiovascular Care Team Information Sensitized Paper Tester [phone] Kimmy Mccracken MD - Hematology & Care Team Information Sensitized Paper Tester Oncology Problems Active Problems Provider Date Paroxysmal ventricular tachycardia Italo Huff M.D. Onset: 04/04/2013 Primary cardiomyopathy Italo Huff M.D. Onset: 04/04/2013 Aortic valve disorder Italo Huff M.D. Onset: 04/04/2013 Congestive heart failure Italo Huff M.D. Onset: 04/04/2013 Obstructive sleep apnea of adult Carmen Baig DNP, RN, Onset: 07/08/2013 [facility]- Chronic combined systolic and Italo Huff M.D. [...] or using chewing tobacco. Smoking Status Reviewed: 11/07/18 Never Smoked Cigarettes Former cigar smoker over 35 years ago, denies smoking pipe, e-cigarettes, or using chewing tobacco. ETOH Use Denies alcohol use Tobacco Use Start: Unknown Patient has never smoked Recreational Drug Use Never Used Drugs Exercise Type/Frequency Does not exercise Allergies, Adverse Reactions, Alerts Description No Known Drug Allergies Medications Active Medications SIG Qnty Indications Ordering Date Provider Javier Brionnaostar 35 units once daily 15ml E11.65 Yfn Morton MD 09/07/2018 in the morning(only 100Unit/ML Solution taking if BS is Pen-Inject above 125), MDD 50 Amiodarone HCL 1/2 by mouth every 45tabs Italo DVictorino 08/28/2017 200mg day Melinda Huff Tablets Nebulizer use as directed 1units R06.02 Flores Brar, 08/05/2015 Compressor/Dualfilte r/7' Tubing/Aerosol T/Mthpiece Kit Coumadin 1 tab by mouth Unknown 5mg Tablets every evening or as directed Melatonin ER 1-2 tab at bedtime Unknown 5mg for sleep Tablets ER Coreg 1 by mouth twice a 180tabs Italo Montero 3.125mg Tablets day. Melinda Huff Venclexta 2 [...] po qd Unknown 200mg Capsules History Medications Glipizide XL take 5mg daily 30tabs E11.65 Yfn Morton MD 09/07/2018 - 5mg in the morning 11/07/2018 Tablets ER 24HR Azacitidine 190 mg as 75 mg Nirmal Bettencourt, 07/11/2018 - 100mg /m2 SQ daily for M.D. 11/05/2018 Suspension Rec 5 days Basaglar Kwikpen [...] H/L Range Note CBC Auto Diff 07/25/2018 [facility] Red Blood 2.54 10^6/uL Low 4.18-5.[address] [place] [address] [phone] Hemoglobin 8.1 g/dL Low 14.0-18.0 Hematocrit 23 % Low 42-52 Mean Corpuscular Volume 92 fL Normal 80-94 Mean Corpuscular Hemoglobin 32 pg High 27-31 Mean Corpuscular HGB Conc 34 g/dL Normal 31-36 Red Cell Distribution Width 25 % High 10.5-15 White Blood Count 1.0 10^3/uL Low 3.5-10.8 1 Platelet Count 13 10^3/uL Critical low 150-450 2 Inr/Protime 07/25/2018 [facility] Inr 1.38 High 0.82-1.[address] [place] [address] [phone] Laboratory test 07/25/2018 [facility] Partial 25.6 Low 26.0- 36.[address] [place] [address] PTT [phone] Manual 07/25/2018 [facility] Neutrophil % 51.0 % Differential [address] [place] [address] [phone] Lymphocytes % 32.0 % Monocytes % 10.0 [...] Polychromasia 1+ Anisocytosis 2+ Laboratory test 07/25/2018 [facility] Lactic Acid 2.0 mmol/L Normal 0.5-2.0 [address] [place] [address] [phone] Troponin-I (TnI) 0.75 ng/mL Critical high <0.04 6 Comp Metabolic 07/25/2018 [facility] Sodium 138 mmol/L Normal 135-[address] [place] [address] [phone] Potassium 4.5 mmol/L Normal 3.5-5.0 Chloride 106 [...] Egfr 59.3 >60 7 Laboratory test 07/25/2018 [facility] Blood Culture SEE RESULT [address] [place] [address] [phone] Urinalysis Profile 07/25/2018 [facility] Urine Color Reina [address] [place], [place] [id number] [phone] Urine Appearance Cloudy Urine Specific Knapp 1.024 Normal 1.010-1.030 Urine pH 5.0 Normal [...] Bacteria Absent Absent Urine Culture And 07/25/2018 [facility] Urine Culture SEE RESULT [address] [place], [place] [id number] [phone] Laboratory test 07/23/2018 [facility] Packed Cells SEE RESULTS [address] BELO <[place] [address] NOTE> [phone] Type & Screen 07/23/2018 [facility] Patient Blood A Positive [address] [place] [address] [phone] Antibody Screen NEGATIVE Laboratory test 07/23/2018 [facility] Pathologist (SEE [address] Review NOTE) [place] [address] [phone] Manual 07/23/2018 [facility] Immature 9.0 % Normal 0-[address] [place] [address] [phone] Neutrophil % 34.0 % Band % 7.0 [...] 0.1 10^3/uL Normal 0-0.8 Comp Metabolic 07/23/2018 [facility] Sodium 137 mmol/L Normal 135-[address] [place] [address] [phone] Potassium 4.3 mmol/L Normal 3.5-5.0 Chloride 104 [...] Egfr 62.3 >60 14 CBC Auto 07/23/2018 [facility] White Blood 0.9 10^3/uL Low 3.5 -10.[address] [place] [address] [phone] Red Blood Count 2.20 10^6/uL Low 4.18-5.48 [...] 12.6 fL High 7.4-10.4 Comp Metabolic 07/16/2018 [facility] Sodium 136 mmol/L Normal 135-[address] [place] [address] [phone] Potassium 4.8 mmol/L Normal 3.5-5.0 Chloride 102 [...] Egfr 65.1 >60 17 CBC Auto 07/16/2018 [facility] White Blood 2.6 10^3/uL Low 3.5 -10.[address] [place] [address] [phone] Red Blood Count 2.35 10^6/uL Low 4.18-5.48 Hemoglobin 7.5 g/dL Low 14.0-18.0 Hematocrit 23 % Low 42-52 Mean Corpuscular Volume 97 fL High 80-94 Mean Corpuscular Hemoglobin 32 pg High 27-31 Mean Corpuscular HGB Conc 33 g/dL Normal 31-36 Red Cell Distribution Width 26 % High 10.5-15 Platelet Count 19 10^3/uL Low 150-450 Mean Platelet Volume 10.4 fL Normal 7.4-10.4 Manual 07/16/2018 [facility] Immature 13.0 % High 0-[address] [place] [address] [phone] Neutrophil % 40.0 % Band % 10.0 [...] Cells/100 9.0 High 0-0 Laboratory test 07/16/2018 [facility] Pathologist (SEE NOTE) [address] [place] [address] [phone] Type & Screen 07/16/2018 [facility] Patient Blood A Positive [address] [place] [address] [phone] Antibody Screen NEGATIVE Laboratory test 07/16/2018 [facility] Packed SEE RESULTS [address] Cells BELO <[place] [address] NOTE> [phone] CBC Auto Diff 07/13/2018 [facility] White Blood 4.4 10^3/uL Normal 3.5-[address] Count 0.8 [place] [id number] [phone] Red Blood Count 2.62 10^6/uL Low 4.18-5.48 Hemoglobin 8.3 g/dL Low 14.0-18.0 Hematocrit 25 % Low 42-52 Mean Corpuscular Volume 96 fL High 80-94 Mean Corpuscular Hemoglobin 32 pg High 27-31 Mean Corpuscular HGB Conc 33 g/dL Normal 31-36 Red Cell Distribution Width 27 % High 10.5-15 Platelet Count 14 10^3/uL Low 150-450 21 Mean Platelet Volume 6.5 fL Low 7.4-10.4 Manual 07/13/2018 [facility] Immature 34.0 % High 0-[address] Granulocytes [place] [id number] [phone] Neutrophil % 20.0 % Band % 18.0 [...] 0.0 10^3/uL Normal 0-0.2 Laboratory test 07/13/2018 [facility] Pathologist (SEE NOTE) [address] [place] [address] [phone] Laboratory test 07/11/2018 [facility] Packed Cells SEE RESULTS [address] BELO <[place] [address] NOTE> [phone] Type & Screen 07/11/2018 [facility] Patient Blood A Positive [address] [place] [address] [phone] Antibody Screen NEGATIVE Laboratory test 07/11/2018 [facility] Pathologist (SEE [address] Review NOTE) [place] [address] [phone] Manual 07/11/2018 [facility] Immature 21 % High 0-[address] [place] [address] [phone] Neutrophil % 38 % Band % 9 [...] Macrocytosis 1+ Anisocytosis 2+ CBC Auto 07/11/2018 [facility] White Blood 6.0 10^3/uL Normal 3.5-10.[address] [place] [address] [phone] Red Blood Count 2.41 10^6/uL Low 4.18-5.48 [...] 6.8 fL Low 7.4-10.4 CBC Auto 07/09/2018 [facility] White Blood 7.6 10^3/uL Normal 3.5-10.[address] [place] [address] [phone] Red Blood Count 2.65 10^6/uL Low 4.18-5.48 [...] 8.1 fL Normal 7.4-10.4 Manual Differential 07/09/2018 [facility] Immature 19 % High 0 -[address] [place] [address] [phone] Neutrophil % 38 % Band % 6 % Normal 0-8 Lymphocytes % 13 % Monocytes % 8 % Eosinophils % 1 % Basophil % 11 % Metamyelocytes % 2 % Normal 0-2 Myelocytes % 9 % High 0-1 Promyelocytes % 2 % Blast % 10 % Critical high 30 Nucleated Red Blood Cells/100 17 High 0-0 RBC Morphology Normal Normal Comp Metabolic 07/09/2018 [facility] Sodium 137 mmol/L Normal 135-[address] [place] [address] [phone] Potassium 4.1 mmol/L Normal 3.5-5.0 Chloride 103 [...] Egfr 54.8 >60 31 CBC Auto 07/05/2018 [facility] White Blood 6.3 10^3/uL Normal 3.5-10.[address] [place] [address] [phone] Red Blood Count 2.77 10^6/uL Low 4.18-5.48 [...] 8.1 fL Normal 7.4-10.4 Manual Differential 07/05/2018 [facility] Immature 18 % High 0 -[address] [place] [address] [phone] Neutrophil % 29 % Band % 8 [...] 0.4 10^3/uL High 0-0.2 Comp Metabolic 07/05/2018 [facility] Sodium 141 mmol/L Normal 135-145 Panel [address] [place] [address] [phone] Potassium 4.7 mmol/L Normal 3.5-5.0 Chloride 109 [...] Egfr 57.0 >60 33 Laboratory test 07/05/2018 [facility] Pathologist Review (SEE NOTE) 34 finding [address] [place] [address] [phone] Hepatitis C 06/28/2018 [facility] HCV Index 0.0 Index Antibody [address] [place] [address] [phone] Hepatitis C Antibody Nonreactive Nonreactive Laboratory 06/28/2018 [facility] Hepatitis Nonreactive Nonreactive 35 test finding [address] [place] [address] Igm [phone] Hepatitis B 06/28/2018 [facility] Hepatitis Not Immune Abnormal Immune Betty AB Titer [address] [place] [address] AB [phone] Hep B Surf AB Level < 3.10 mIU/mL >12 Laboratory test 06/28/2018 [facility] Erythrocyte Sed 49 mm/Hr High 0-[address] [place] [address] [phone] Pathologist Review (SEE NOTE) 36 Hepatitis B Surface Ag Nonreactive Nonreactive 37 Manual Differential 06/28/2018 [facility] Immature 14 % High 0 -[address] [place] [address] [phone] Neutrophil % 35 % Band % 7 [...] 0.04 10^3/uL Normal 0-0.6 Retic Count 06/28/2018 [facility] Retic Count 3.5 % High 0.5- 1.5 [address] [place] [address] [phone] Mean Retic Volume 113.1 Immature Retic Fraction 0.35 RBC Retic Count 2.89 10^6/uL Low 4.18-5.48 Corrected Retic Count 2.3 % High 0.5-1.5 Maturation Factor Retic 2.0 Retic Index 1.20 Hematocrit for Retic CNT 29 % Low 36-46 CBC Auto 06/28/2018 [facility] Red Blood 2.89 10^6/uL Low 4.18 -5.[address] [place] [address] [phone] Hemoglobin 9.8 g/dL Low 14.0-18.0 Hematocrit 29 [...] fL Normal 7.4-10.4 Laboratory test finding 06/28/2018 [facility] LDH 261 U/L Normal 140-[address] [place] [address] [phone] Vitamin B12 471 pg/mL Normal 180-914 40 Comp Metabolic 06/28/2018 [facility] Sodium 140 mmol/L Normal 135-145 Panel [address] [place] [address] [phone] Potassium 4.2 mmol/L Normal 3.5-5.0 Chloride 104 [...] >60 Egfr 51.3 >60 41 Inr/Protime 06/28/2018 [facility] Inr 2.05 High 0.77-1.02 [address] [place] [address] [phone] CBC Auto Diff 06/27/2018 [facility] White Blood 4.8 Normal 3.5 -10.8 101 [facility] Count 10^3/[place] [address] [phone] Red Blood Count 2.98 10^6/uL Low 4.18-5.48 [...] 8.2 fL Normal 7.4-10.4 Manual Differential 06/27/2018 [facility] Immature 4 % Normal 0-[address] [place] [address] [phone] Neutrophil % 23 % Band % 2 [...] 0 10^3/uL Normal 0-0.2 Laboratory test 06/27/2018 [facility] Pathologist (SEE NOTE) [address] [place] [address] [phone] PML/Regino 06/27/2018 [facility] PML/Regino Result see interpretati 45 Quantitative PCR [address] <SEE NOTE> [place] [address] [phone] PML/Regino Specimen Type Whole Blood PML/Regino Final Diagnosis See Comment 46 Laboratory test finding 05/30/2018 [facility] Glucose Random 205 Hemoglobin A1c 9.0 High 5-7 1 White count confirmed by estimate 2 Platelet count confirmed by estimate 3 Standard intensity warfarin therapeutic range: 2.0-3.0 High intensity warfarin therapeutic range: 2.5-3.5 4 Verbal to [id number] by [id number] at 1453 on 07/25/18. Results read back accurately 5 [place] Severe Sepsis and Septic Shock Management Bundle Measure requires all lactic acids initially measuring >2.0 mmol/L be repeated. 6 Result TnIDx:0.75 Called to [id number] at: 15:05:28 by:[id number] Read back by: [email or web address] Troponin-I testing on Plasma Separator Tubes (PST) has a known false positive rate of 0.20-0.40%. All positive troponins reflex immediately to secondary confirmatory testing. Using the [employer] DxI 800 Access Immunoassay systems, the 99th [...] [address]: Kimmy Wallace MD Acct: [id number] Unit: [id number] AGE: 73 Location: [place] [address] Re07/25/18 SEX: M Status: ADM IN SPEC: [id number] ARYAN: 07/25/18-1358 [facility] DR: Gareth Freeman MD REQ: [id number] RECD: 07/25/18436 STATUS: COMP [facility] DR: Kimmy Lyle MD _ SOURCE: BLOOD,VENO SPDESC: ORDERED: Blood Cult Procedure Result Reported Site Aerobic Culture Bottle Final 07/30/18- 1412 ML No Growth Day 5 Anaerobic Culture Bottle Final 07/30/18- 1412 ML No Growth Day 5 * ML - Main Lab . END OF REPORT DEPARTMENT OF PATHOLOGY, [address] [place] [address] Mahamed Bailon M.D. Director [facility] # [id number] 9 *Ascorbic acid is present which may interfere with detection of blood. 10 SEE RESULT BELOW Name: JON VILLANUEVA : [address]: Kimmy Wallace MD Acct: [id number] Unit: [id number] AGE: 73 Location: [place] [address] Re07/25/18 SEX: M Status: ADM IN SPEC: [id number] ARYAN: 07/28/18 [facility] DR: Gareth Freeman MD REQ: [id number] RECD: 07/28/18 STATUS: COMP [facility] DR: Kimmy Lyle MD _ SOURCE: URINE SPDESC: ORDERED: Urine Culture Procedure Result Reported Site Urine Culture Final 07/30/18- 0838 ML No Growth (<1,000 CFU/mL) * ML - Main Lab . END OF REPORT DEPARTMENT OF PATHOLOGY, [address] [place] [address] Mahamed Bailon M.D. Director [facility] # [id number] 11 SEE RESULTS BELOW [id number] AP PC TRANSFUSED 07/23/18 1523 12 Pancytopenia with rare circulating blasts noted. Additional studies as clinically warranted. Reviewed by Dr. Bailon 13 Verbal to [id number] by [id number] at 1352 on 07/23/18. Results read back [...] failure <15 (or dialysis) 18 Verbal to [id number] by [id number] at 1431 on 07/16/18. Results read back accurately. 19 Pancytopenia noted. Rare blasts are seen. Clinical correlation and additional studies is warranted. Reviewed by Dr. Bailon 20 SEE RESULTS BELOW [id number] AP PC TRANSFUSED 07/17/18 1054 21 Consistent with Previous Results Reported on 07/11/18 22 Consistent with previous results on 07/11/18. Verbal to [id number] by [id number] at 1432 on 07/13/18. Results read back accurately. 23 Severe thrombocytopenia and mildly macrocytic anemia compatible with treatment effect. Additional studies is warranted. Reviewed by Dr. Bailon 24 SEE RESULTS BELOW [id number] AP PC TRANSFUSED 07/12/18 1342 25 Approximately 10% circulating blasts, compatible with previous. No Caden richard seen. Reviewed by Linda Jean Baptiste MD 26 Verbal to [id number] by [id number] at 1431 on 07/11/18. Results read back accurately. 27 Consistent with Previous Results Reported on 07/09/18 Platelet count confirmed by estimate 28 Consistent with Previous Results Reported on 07/05/18. 29 Consistent with Previous Results Reported on 07/05/18. 30 Verbal to [id number] by [id number] at 1612 on 07/09/18. Results read back [...] 06/28/[address] Wallace by [id number] at 1149 on 06/28/18. Results read back [...] confirmed by smear estimate. 43 Verbal to [id number] by [id number] at 2021 on 06/27/18. Results read back accurately. 44 Compatible with previous. Reviewed by Linda Jean Baptiste MD 45 see interpretation 46 Peripheral blood, PML/REGINO mRNA analysis: Negative. No PML/REGINO mRNA transcripts detected. Signing Pathologist: Jonathan Palomino M.D. ADDITIONAL INFORMATION Method Summary - PML/REGINO: PML/REGINO mRNA level was evaluated using quantitative, reverse coordinator of health services PCR. The analytical sensitivity of this assay has been determined at 0.1% (see [facility] Interpretive Handbook for method details). [...] developed and its performance characteristics determined by [facility] in a manner consistent with CLIA requirements. This test has not been cleared or approved by the U.S. Food and Drug Administration. Test Performed by: [address] [address] Procedures Date Code Description Status 09/03/2018 91689 Interrogation Device Eval Remote Up To [address] Completed Analysis,Rev,RP 09/03/2018 06092 Interrogation Device Eval Remote Up To [address] Completed Analysis,Rev,RP 09/03/2018 72776 Icd Eval Sing,Dual,Multi Lead Remote Recpt Transm Tech Rev Completed Tech S 09/03/2018 96348 Icd Eval Sing,Dual,Multi Lead Remote Recpt Transm Tech Rev Completed Tech S 09/03/2018 52450 Icd Check Remote Up To 90 Days Single,Dual,Multiple Lead Completed 09/03/2018 03772 Icd Check Remote Up To 90 Days Single,Dual,Multiple Lead Completed 08/07/2018 03604 EKG, Interpretation Only Completed 07/26/2018 28339 EKG, Interpretation Only Completed 07/26/2018 74828 ECHO Transthorasic Realtime 2D W Doppler & Color Flow Hosp Completed 06/20/2018 16328 Interrogation Implant Cardiovasc Monitor System Incl Completed Analysis Int 06/20/2018 54745 Interrogation Implant Cardiovasc Monitor System Incl Completed Analysis Int 06/20/2018 54911 Icd Eval With Iterative Adjustmt Multiple Lead System Completed 06/20/2018 58190 Icd Eval With Iterative Adjustmt Multiple Lead System Completed 05/25/2018 99005 Interrogation Implant Cardiovasc Monitor System Incl Completed Analysis Int 05/25/2018 48460 Interrogation Implant Cardiovasc Monitor System Incl Completed Analysis Int 05/25/2018 15679 Icd Eval With Iterative Adjustmt Multiple Lead System Completed 05/25/2018 03082 Icd Eval With Iterative Adjustmt Multiple Lead System Completed Medical Devices Description No Information Available Encounters Type Date Location Provider Dx Diagnosis Office Visit 09/07/2018 [facility] and Yfn Morton MD E11.65 Type 2 diabetes 12:20p Endocrinology of [facility] mellitus with hyperglycemia 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, not having achieved remission I48.91 Unspecified atrial fibrillation I47.2 Ventricular tachycardia I50.9 Heart failure, unspecified N18.9 Chronic kidney disease, unspecified E11.9 Type 2 diabetes mellitus without complications R79.89 Other specified abnormal findings of blood chemistry G47.33 Obstructive sleep apnea (adult) (pediatric) Office Visit 08/05/2018 12:40p [facility] Chelo Agosto, I47.2 Ventricular Of [facility] M.DVictorino tachycardia R06.02 Shortness of breath R50.9 Fever, unspecified Office Visit 07/29/2018 10:58a [facility] Sherleyleonela Del Rio, I50.9 Heart failure, Assoc,pc N.P. 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, not having achieved remission I48.91 Unspecified atrial fibrillation E11.9 Type 2 diabetes mellitus without complications R79.89 Other specified abnormal findings of blood chemistry G47.33 Obstructive sleep apnea (adult) (pediatric) N18.9 Chronic kidney disease, unspecified Office Visit 07/26/2018 2:35p [facility] Gage Hooper R07.9 Chest pain , Of [facility] Hartmann, DO unspecified FACC R79.89 Other specified abnormal findings of blood chemistry Office Visit 07/10/2018 [facility] and Yfn Morton, E11.9 Type 2 diabetes 1:30p Endocrinology of mellitus without [facility] complications 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 cardiac defibrillator 11/06/2018 I42.9 Cardiomyopathy, unspecified Italo Huff M.D. 11/06/2018 Z95.2 Presence of prosthetic heart valve Italo Huff M.D. 09/07/2018 E11.65 Type 2 diabetes mellitus with Yfn Morton MD hyperglycemia 09/07/2018 Z79.4 [facility] (current) use of insulin Yfn Morton MD [...] (pediatric) 07/29/2018 I50.9 Heart failure, unspecified Sherley Quang, N.P. 07/29/2018 D70.9 Neutropenia, unspecified Sherley Quang, N.P. 07/29/2018 R94.5 Abnormal results of liver function Sherley Quang, N.P. 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 having achieved remission 07/29/2018 I48.91 Unspecified atrial fibrillation Sherley Quang, N.P. 07/29/2018 E11.9 Type 2 diabetes mellitus without Sherley Quang, N.P. complications 07/29/2018 R79.89 Other specified abnormal findings of Sherley Quang, N.P. blood chemistry 07/29/2018 G47.33 Obstructive sleep apnea (adult) Sherley Quang, N.P. (pediatric) 07/29/2018 N18.9 Chronic kidney disease, unspecified Sherley Quang, N.P. 07/26/2018 R94.31 Abnormal electrocardiogram [ECG] [EKG] Pernell Mccarty M.D. 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 at [facility] AT [facility] [place]11/07/2018 - Yfn Morton MDE11.65 Type 2 diabetes mellitus with hyperglycemiaInstructions:1. Check A1c with next blood test. 2. Stop Lantus insulin. 3. Check blood glucose once daily in the morning. 4. Your blood glucose goal is less than 140mg/dL. 5. Soak feet and use antifungal cream. 6. Return as needed.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, in remission Functional Status Description No Information Available Mental Status Description No Information Available Referrals Description No Information Available
--- OUTSIDE RECORDS SUMMARY | 2018-12-03 14:46 | XMS REPORT | Continuity of Care Document ---
:1945 External Reference #:[id number] Author Name Edgardo Perez Care Team Providers Name Role Phone Philomena Lyle MD - Family Care Team Information Courier Delivery Driver Medicine Italo Huff MD - Cardiovascular Care Team Information Courier Delivery Driver [phone] Disease Kimmy Mccracken MD - Hematology & Care Team Information Courier Delivery Driver [phone] Oncology Problems Active Problems Provider Date Paroxysmal ventricular tachycardia Italo Huff M.D. Onset: 04/04/2013 Primary cardiomyopathy Italo Huff M.D. Onset: 04/04/2013 Aortic valve disorder Italo Huff M.D. Onset: 04/04/2013 Congestive heart failure Italo Huff M.D. Onset: 04/04/2013 Obstructive sleep apnea of adult Carmen Baig DNP, RN, Onset: 07/08/2013 [facility] Chronic combined systolic and Italo Huff M.D. [...] Solostar 35 units once daily 15ml E11.65 Coulter Praveen, 09/07/2018 in the morning, RUDI HOLLAND 100Unit/ML Solution 50 Pen-Inject Glipizide XL take 5mg daily in 30tabs E11.65 fYn Morton, 09/07/2018 5mg Tablets the morning ER 24HR Azacitidine 190 mg as 75 mg /m2 Dirk Sg, 07/11/2018 100mg SQ daily for 5 days M.DVictorino Suspension Rec Amiodarone HCL 1/2 by mouth every 45tabs Italo DVictorino 08/28/2017 200mg day Melinda Huff Tablets Nebulizer use as directed 1units R06.02 Flores 08/05/2015 Compressor/Dualfilter/ MD Zonia 7' Tubing/Aerosol T/Mthpiece Kit Coreg 1 by mouth twice a 180tabs Italo DVictorino 3.125mg Tablets day. Melinda Huff Venclexta 2 tablets daily Unknown 100mg Tablets with meal.(chemo follow up) Ra Senna as needed for Unknown 8.6mg Capsules constipation Sertraline HCL 1 by mouth every Unknown 25mg day Tablets Miralax take 1 packet daily Unknown [id number] Packet as needed for constipation Allopurinol 1 by mouth every Unknown 300mg Tablets day Vicks Dayquil Cold & as needed Unknown Flu Multi-Symptom Relief Capsules Diphenhydramine HCL one my mouth every Unknown 25mg 6 hours as needed Capsules for sleep Sleep Aid Melatonin as needed Unknown Acetaminophen 2 tablets every 6 Unknown 500mg hours as needed for Tablets pain Cpap With O2 nightly Unknown Device Warfarin Sodium currently no taking 5tabs Valdo, 3mg Philomena Pavon MD Tablets Multi For Him 50+ 1 po qd Unknown Tablets Lovastatin 1 po qhs 90tabs Unknown 40mg Tablets Coq-10 1 po qd Unknown 200mg Capsules History Medications Basaglar Kwikpen 50 units at in 15ml E11.65 Yfn Morton MD 07/10/2018 - the morning , mdd 09/07/2018 100Unit/ML Solution 70 units Pen-Inject Jardiance take one tablet 30tabs E11.65 Yfn Morton MD 05/30/2018 - 25mg by mouth daily. 07/09/2018 Tablets Immunizations Description No Information Available Vital Signs Date Vital Result Comment 09/07/2018 12:15pm Height 72 inches 6'0" Weight 273.00 lb Heart Rate 60 /min BP Systolic Sitting 89 mmHg BP Diastolic Sitting 49 mmHg BMI (Body Mass Index) 37.0 kg/m2 07/10/2018 1:34pm Height 72 inches 6'0" Weight 288.00 lb with shoes Heart Rate 80 /min BP Systolic Sitting 100 mmHg Lue, regular cuff BP Diastolic Sitting 58 mmHg Lue, regular cuff BMI (Body Mass Index) 39.1 kg/m2 Results Test Date Facility Test Result H/L Range Note CBC Auto Diff 07/25/2018 [facility] Red Blood 2.54 10^6/uL Low 4.18-5.[address] [place] [address] [phone] Hemoglobin 8.1 g/dL Low 14.0-18.0 Hematocrit 23 % Low 42-52 Mean Corpuscular Volume 92 fL Normal 80-94 Mean Corpuscular Hemoglobin 32 pg High 27-31 Mean Corpuscular HGB Conc 34 g/dL Normal 31-36 Red Cell Distribution Width 25 % High 10.5-15 White Blood Count 1.0 10^3/uL Low 3.5-10.8 1 Platelet Count 13 10^3/uL Critical low 150-450 2 Inr/Protime 07/25/2018 [facility] Inr 1.38 High 0.82-1.[address] [place] [address] [phone] Laboratory test 07/25/2018 [facility] Partial 25.6 Low 26.0- 36.[address] [address] PTT [phone] Manual 07/25/2018 [facility] Neutrophil % 51.0 % Differential [address] [place] [address] [phone] Lymphocytes % 32.0 % Monocytes % 10.0 [...] Polychromasia 1+ Anisocytosis 2+ Laboratory test 07/25/2018 [facility] Lactic Acid 2.0 mmol/L Normal 0.5-2.0 [address] [place] [address] [phone] Troponin-I (TnI) 0.75 ng/mL Critical high <0.04 6 Comp Metabolic 07/25/2018 [facility] Sodium 138 mmol/L Normal 135-[address] [place] [address] [phone] Potassium 4.5 mmol/L Normal 3.5-5.0 Chloride 106 [...] Egfr 59.3 >60 7 Laboratory test 07/25/2018 [facility] Blood Culture SEE RESULT [address] [place] [address] [phone] Urinalysis Profile 07/25/2018 [facility] Urine Color [place] [address] [place] [address] [phone] Urine Appearance Cloudy Urine Specific [place] 1.024 Normal 1.010-1.030 Urine pH 5.0 Normal [...] Bacteria Absent Absent Urine Culture And 07/25/2018 [facility] Urine Culture SEE RESULT [address] [place] [address] [phone] Laboratory test 07/23/2018 [facility] Packed Cells SEE RESULTS [address] BELO <[place] [address] NOTE> [phone] Type & Screen 07/23/2018 [facility] Patient Blood A Positive [address] [place] [address] [phone] Antibody Screen NEGATIVE Laboratory test 07/23/2018 [facility] Pathologist (SEE [address] Review NOTE) [place] [address] [phone] Manual 07/23/2018 [facility] Immature 9.0 % Normal 0-[address] [place] [address] [phone] Neutrophil % 34.0 % Band % 7.0 [...] 0.1 10^3/uL Normal 0-0.8 Comp Metabolic 07/23/2018 [facility] Sodium 137 mmol/L Normal 135-[address] [place] [address] [phone] Potassium 4.3 mmol/L Normal 3.5-5.0 Chloride 104 [...] Egfr 62.3 >60 14 CBC Auto 07/23/2018 [facility] White Blood 0.9 10^3/uL Low 3.5 -10.[address] [place] [address] [phone] Red Blood Count 2.20 10^6/uL Low 4.18-5.48 [...] 12.6 fL High 7.4-10.4 Comp Metabolic 07/16/2018 [facility] Sodium 136 mmol/L Normal 135-[address] [place] [address] [phone] Potassium 4.8 mmol/L Normal 3.5-5.0 Chloride 102 [...] Egfr 65.1 >60 17 CBC Auto 07/16/2018 [facility] White Blood 2.6 10^3/uL Low 3.5 -10.[address] [place] [address] [phone] Red Blood Count 2.35 10^6/uL Low 4.18-5.48 Hemoglobin 7.5 g/dL Low 14.0-18.0 Hematocrit 23 % Low 42-52 Mean Corpuscular Volume 97 fL High 80-94 Mean Corpuscular Hemoglobin 32 pg High 27-31 Mean Corpuscular HGB Conc 33 g/dL Normal 31-36 Red Cell Distribution Width 26 % High 10.5-15 Platelet Count 19 10^3/uL Low 150-450 Mean Platelet Volume 10.4 fL Normal 7.4-10.4 Manual 07/16/2018 [facility] Immature 13.0 % High 0-[address] [place] [address] [phone] Neutrophil % 40.0 % Band % 10.0 [...] Cells/100 9.0 High 0-0 Laboratory test 07/16/2018 [facility] Pathologist (SEE NOTE) [address] Review [place] [facility] [phone] Type & Screen 07/16/2018 [facility] Patient Blood A Positive [address] [place] [address] [phone] Antibody Screen NEGATIVE Laboratory test 07/16/2018 [facility] Packed SEE RESULTS [address] Cells BELO <SEE [place] [facility] NOTE> [phone] CBC Auto Diff 07/13/2018 [facility] White Blood 4.4 10^3/uL Normal 3.5-[address] Count 0.8 [place] [address] [phone] Red Blood Count 2.62 10^6/uL Low 4.18-5.48 Hemoglobin 8.3 g/dL Low 14.0-18.0 Hematocrit 25 % Low 42-52 Mean Corpuscular Volume 96 fL High 80-94 Mean Corpuscular Hemoglobin 32 pg High 27-31 Mean Corpuscular HGB Conc 33 g/dL Normal 31-36 Red Cell Distribution Width 27 % High 10.5-15 Platelet Count 14 10^3/uL Low 150-450 21 Mean Platelet Volume 6.5 fL Low 7.4-10.4 Manual 07/13/2018 [facility] Immature 34.0 % High 0-[address] [place] [address] [phone] Neutrophil % 20.0 % Band % 18.0 [...] 0.0 10^3/uL Normal 0-0.2 Laboratory test 07/13/2018 [facility] Pathologist (SEE NOTE) [address] [place] [address] [phone] Laboratory test 07/11/2018 [facility] Packed Cells SEE RESULTS [address] BELO <[place] [address] NOTE> [phone] Type & Screen 07/11/2018 [facility] Patient Blood A Positive [address] [place] [address] [phone] Antibody Screen NEGATIVE Laboratory test 07/11/2018 [facility] Pathologist (SEE [address] Review NOTE) [place] [address] [phone] Manual 07/11/2018 [facility] Immature 21 % High 0-[address] [place] [address] [phone] Neutrophil % 38 % Band % 9 [...] Macrocytosis 1+ Anisocytosis 2+ CBC Auto 07/11/2018 [facility] White Blood 6.0 10^3/uL Normal 3.5-10.[address] [place] [address] [phone] Red Blood Count 2.41 10^6/uL Low 4.18-5.48 [...] 6.8 fL Low 7.4-10.4 CBC Auto 07/09/2018 [facility] White Blood 7.6 10^3/uL Normal 3.5-10.[address] [place] [address] [phone] Red Blood Count 2.65 10^6/uL Low 4.18-5.48 [...] 8.1 fL Normal 7.4-10.4 Manual Differential 07/09/2018 [facility] Immature 19 % High 0 -[address] [place] [address] [phone] Neutrophil % 38 % Band % 6 % Normal 0-8 Lymphocytes % 13 % Monocytes % 8 % Eosinophils % 1 % Basophil % 11 % Metamyelocytes % 2 % Normal 0-2 Myelocytes % 9 % High 0-1 Promyelocytes % 2 % Blast % 10 % Critical high 30 Nucleated Red Blood Cells/100 17 High 0-0 RBC Morphology Normal Normal Comp Metabolic 07/09/2018 [facility] Sodium 137 mmol/L Normal 135-[address] [place] [address] [phone] Potassium 4.1 mmol/L Normal 3.5-5.0 Chloride 103 [...] Egfr 54.8 >60 31 CBC Auto 07/05/2018 [facility] White Blood 6.3 10^3/uL Normal 3.5-10.[address] [place] [address] [phone] Red Blood Count 2.77 10^6/uL Low 4.18-5.48 [...] 8.1 fL Normal 7.4-10.4 Manual Differential 07/05/2018 [facility] Immature 18 % High 0 -[address] [place] [address] [phone] Neutrophil % 29 % Band % 8 [...] 0.4 10^3/uL High 0-0.2 Comp Metabolic 07/05/2018 [facility] Sodium 141 mmol/L Normal 135-[address] [place] [address] [phone] Potassium 4.7 mmol/L Normal 3.5-5.0 Chloride 109 [...] Egfr 57.0 >60 33 Laboratory test 07/05/2018 [facility] Pathologist Review (SEE NOTE) [address] [place] [address] [phone] Hepatitis C 06/28/2018 [facility] HCV Index 0.[address] [place], [place] [address] [phone] Hepatitis C Antibody Nonreactive Nonreactive Laboratory 06/28/2018 [facility] Hepatitis Nonreactive Nonreactive [address] [place] [address] Igm [phone] Hepatitis B 06/28/2018 [facility] Hepatitis Not Immune Abnormal Immune Betty AB Titer [address] [place] [address] AB [phone] Hep B Surf AB Level < 3.10 mIU/mL >12 Laboratory test 06/28/2018 [facility] Erythrocyte Sed 49 mm/Hr High 0-[address] [place] [address] [phone] Pathologist Review (SEE NOTE) 36 Hepatitis B Surface Ag Nonreactive Nonreactive 37 Manual Differential 06/28/2018 [facility] Immature 14 % High 0 -[address] [place] [address] [phone] Neutrophil % 35 % Band % 7 [...] 0.04 10^3/uL Normal 0-0.6 Retic Count 06/28/2018 [facility] Retic Count 3.5 % High 0.5- 1.5 [address] [place] [address] [phone] Mean Retic Volume 113.1 Immature Retic Fraction 0.35 RBC Retic Count 2.89 10^6/uL Low 4.18-5.48 Corrected Retic Count 2.3 % High 0.5-1.5 Maturation Factor Retic 2.0 Retic Index 1.20 Hematocrit for Retic CNT 29 % Low 36-46 CBC Auto 06/28/2018 [facility] Red Blood 2.89 10^6/uL Low 4.18 -5.[address] [place] [address] [phone] Hemoglobin 9.8 g/dL Low 14.0-18.0 Hematocrit 29 [...] fL Normal 7.4-10.4 Laboratory test finding 06/28/2018 [facility] LDH 261 U/L Normal 140-[address] [place] [address] [phone] Vitamin B12 471 pg/mL Normal 180-914 40 Comp Metabolic 06/28/2018 [facility] Sodium 140 mmol/L Normal 135-[address] [place] [address] [phone] Potassium 4.2 mmol/L Normal 3.5-5.0 Chloride 104 [...] >60 Egfr 51.3 >60 41 Inr/Protime 06/28/2018 [facility] Inr 2.05 High 0.77-1.[address] [place] [address] [phone] CBC Auto Diff 06/27/2018 [facility] White Blood 4.8 Normal 3.5 -10.[address] Count 10^3/[place] [address] [phone] Red Blood Count 2.98 10^6/uL Low 4.18-5.48 [...] 8.2 fL Normal 7.4-10.4 Manual Differential 06/27/2018 [facility] Immature 4 % Normal 0-[address] [place] [address] [phone] Neutrophil % 23 % Band % 2 [...] 0 10^3/uL Normal 0-0.2 Laboratory test 06/27/2018 [facility] Pathologist (SEE NOTE) [address] [place] [address] [phone] PML/Regino 06/27/2018 [facility] PML/Regino Result see interpretati 45 Quantitative PCR [address] <SEE NOTE> [place], [place] [address] [phone] PML/Regino Specimen Type Whole Blood PML/Regino Final Diagnosis See Comment 46 Laboratory test finding 05/30/2018 [employer] [facility] In House Glucose Random 205 Hemoglobin A1c 9.0 High 5-7 1 White count confirmed by estimate 2 Platelet count confirmed by estimate 3 Standard intensity warfarin therapeutic range: 2.0-3.0 High intensity warfarin therapeutic range: 2.5-3.5 4 Verbal to [id number] by [id number] at 1453 on 07/25/18. Results read back accurately 5 [facility] Severe Sepsis and Septic Shock Management Bundle Measure requires all lactic acids initially measuring >2.0 mmol/L be repeated. 6 Result TnIDx:0.75 Called to [id number] at: 15:05:28 by:[email or web address] Read back by: [id number] Troponin-I testing on Plasma Separator Tubes (PST) has a known false positive rate of 0.20-0.40%. All positive troponins reflex immediately to secondary confirmatory testing. Using the Accumuli SecurityI 800 Access Immunoassay systems, the 99th percentile [...] [address]: Kimmy Wallace MD Acct: [id number] Unit: [id number] AGE: 73 Location: [place] [address] Re07/25/18 SEX: M Status: ADM IN SPEC: [id number] ARYAN: 07/25/181358 [facility] DR: Gareth Freeman MD REQ: [id number] RECD: 07/25/18 STATUS: LOYD CESAR DR: Kimmy Lyle MD _ SOURCE: BLOOD,VENO SPDESC: ORDERED: Blood Cult Procedure Result Reported Site Aerobic Culture Bottle Final 07/30/18- 1412 ML No Growth Day 5 Anaerobic Culture Bottle Final 07/30/18- 1412 ML No Growth Day 5 * ML - Main Lab . END OF REPORT DEPARTMENT OF PATHOLOGY, [address] [place] [address] Mahamed Bailon M.D. Director [facility] # [id number] 9 *Ascorbic acid is present which may interfere with detection of blood. 10 SEE RESULT BELOW Name: JON VILLANUEVA : [address]: Kimmy Wallace MD Acct: [id number] Unit: [id number] AGE: 73 Location: [facility] 434-01 Re07/25/18 SEX: M Status: ADM IN SPEC: [id number] ARYAN: 07/28/[address] [facility] [address]: Gareth Freeman MD REQ: [id number] RECD: 07/28/18 STATUS: LOYD CESAR DR: Kimmy Lyle MD _ SOURCE: URINE SPDESC: ORDERED: Urine Culture Procedure Result Reported Site Urine Culture Final 07/30/18- 0838 ML No Growth (<1,000 CFU/mL) * ML - Main Lab . END OF REPORT DEPARTMENT OF PATHOLOGY, [address] [place] [address] Mahamed Bailon M.D. Director [facility] # [id number] 11 SEE RESULTS BELOW [id number] AP PC TRANSFUSED 07/23/18 1523 12 Pancytopenia with rare circulating blasts noted. Additional studies as clinically warranted. Reviewed by Dr. Bailon 13 Verbal to [id number] by [email or web address] at 1352 on 07/23/18. Results read back [...] failure <15 (or dialysis) 18 Verbal to [id number] by [id number] at 1431 on 07/16/18. Results read back accurately. 19 Pancytopenia noted. Rare blasts are seen. Clinical correlation and additional studies is warranted. Reviewed by Dr. Bailon 20 SEE RESULTS BELOW [id number] AP PC TRANSFUSED 07/17/18 1054 21 Consistent with Previous Results Reported on 07/11/18 22 Consistent with previous results on 07/11/18. Verbal to [id number] by [email or web address] at 1432 on 07/13/18. Results read back accurately. 23 Severe thrombocytopenia and mildly macrocytic anemia compatible with treatment effect. Additional studies is warranted. Reviewed by Dr. Bailon 24 SEE RESULTS BELOW [id number] AP PC TRANSFUSED 07/12/18 1342 25 Approximately 10% circulating blasts, compatible with previous. No Caden richard seen. Reviewed by Linda Jean Baptiste MD 26 Verbal to [id number] by [id number] at 1431 on 07/11/18. Results read back accurately. 27 Consistent with Previous Results Reported on 07/09/18 Platelet count confirmed by estimate 28 Consistent with Previous Results Reported on 07/05/18. 29 Consistent with Previous Results Reported on 07/05/18. 30 Verbal to [id number] by [id number] at 1612 on 07/09/18. Results read back [...] 06/28/[address] Wallace by [id number] at 1149 on 06/28/18. Results read back [...] confirmed by smear estimate. 43 Verbal to [id number] by [id number] at 2021 on 06/27/18. Results read back accurately. 44 Compatible with previous. Reviewed by Linda Jean Baptiste MD 45 see interpretation 46 Peripheral blood, PML/REGINO mRNA analysis: Negative. No PML/REGINO mRNA transcripts detected. Signing Pathologist: Jonathan Palomino M.D. ADDITIONAL INFORMATION Method Summary - PML/REGINO: PML/REGINO mRNA level was evaluated using quantitative, reverse cigarette and filter chief inspector PCR. The analytical sensitivity of this assay has been determined at 0.1% (see [facility] Interpretive Handbook for method details). [...] developed and its performance characteristics determined by [facility] in a manner consistent with CLIA requirements. This test has not been cleared or approved by the U.S. Food and Drug Administration. Test Performed by: [address] [address] Procedures Date Code Description Status 09/03/2018 94226 Interrogation Device Eval Remote Up To 30 Days Completed Analysis,Rev,RP 09/03/2018 74374 Interrogation Device Eval Remote Up To 30 Days Completed Analysis,Rev,RP 09/03/2018 04273 Icd Eval Sing,Dual,Multi Lead Remote Recpt Transm Tech Rev Completed Tech S 09/03/2018 96752 Icd Eval Sing,Dual,Multi Lead Remote Recpt Transm Tech Rev Completed Tech S 09/03/2018 48033 Icd Check Remote Up To 90 Days Single,Dual,Multiple Lead Completed 09/03/2018 96445 Icd Check Remote Up To 90 Days Single,Dual,Multiple Lead Completed 08/07/2018 33412 EKG, Interpretation Only Completed 07/26/2018 63723 EKG, Interpretation Only Completed 07/26/2018 23532 ECHO Transthorasic Realtime 2D W Doppler & Color Flow Hosp Completed 06/20/2018 21546 Interrogation Implant Cardiovasc Monitor System Incl Completed Analysis Int 06/20/2018 67960 Interrogation Implant Cardiovasc Monitor System Incl Completed Analysis Int 06/20/2018 14639 Icd Eval With Iterative Adjustmt Multiple Lead System Completed 06/20/2018 06345 Icd Eval With Iterative Adjustmt Multiple Lead System Completed 05/25/2018 30950 Interrogation Implant Cardiovasc Monitor System Incl Completed Analysis Int 05/25/2018 43730 Interrogation Implant Cardiovasc Monitor System Incl Completed Analysis Int 05/25/2018 08055 Icd Eval With Iterative Adjustmt Multiple Lead System Completed 05/25/2018 50809 Icd Eval With Iterative Adjustmt Multiple Lead System Completed Medical Devices Description No Information Available Encounters Type Date Location Provider Dx Diagnosis Office Visit 09/07/2018 [place] [facility] Yfn Morton MD E11.65 Type 2 diabetes 12:20p Endocrinology of [employer] [facility] mellitus with hyperglycemia Z79.4 watermaster (current) use of insulin E11.649 Type 2 diabetes mellitus with hypoglycemia without coma 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, not having achieved remission I48.91 Unspecified atrial fibrillation I47.2 Ventricular tachycardia I50.9 Heart failure, unspecified N18.9 Chronic kidney disease, unspecified E11.9 Type 2 diabetes mellitus without complications R79.89 Other specified abnormal findings of blood chemistry G47.33 Obstructive sleep apnea (adult) (pediatric) Office Visit 08/05/2018 12:40p [place] [facility] Chelo Surendra, I47.2 Ventricular Of [facility] M.Winston tachycardia R06.02 Shortness of breath R50.9 Fever, unspecified Office Visit 07/29/2018 10:58a [facility] Shreleyleonela Del Rio, I50.9 Heart failure, Assoc,pc N.P. 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, not having achieved remission I48.91 Unspecified atrial fibrillation E11.9 Type 2 diabetes mellitus without complications R79.89 Other specified abnormal findings of blood chemistry G47.33 Obstructive sleep apnea (adult) (pediatric) N18.9 Chronic kidney disease, unspecified Office Visit 07/26/2018 2:35p [place] [facility] Gage Hooper R07.9 Chest pain , Of [facility] Hartmann, DO unspecified FACC R79.89 Other specified abnormal findings of blood chemistry Office Visit 07/10/2018 [place] [facility] Yfn Morton, E11.9 Type 2 diabetes 1:30p Endocrinology of [place] mellitus without [facility] complications 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 07/29/2018 D70.9 Neutropenia, unspecified Sherley Del Rio, N.P. 07/29/2018 R94.5 Abnormal results of liver function Sherley Del Rio N.P. studies 07/29/2018 C92.00 Acute myeloblastic leukemia, not Sherley Del Rio, N.P. having achieved remission 07/29/2018 I48.91 Unspecified atrial fibrillation Sherley Del Rio, N.P. 07/29/2018 E11.9 Type 2 diabetes mellitus without Sherley Del Rio, N.P. complications 07/29/2018 R79.89 Other specified abnormal findings of Sherley Del Rio N.P. blood chemistry 07/29/2018 G47.33 Obstructive sleep apnea (adult) Sherley Del Rio N.P. (pediatric) 07/29/2018 N18.9 Chronic kidney disease, unspecified Sherley Del Rio N.P. 07/26/2018 R94.31 Abnormal electrocardiogram [ECG] [EKG] Pernell Mccarty M.D. 07/26/2018 R07.9 Chest pain, unspecified Gage Hartmann, DO [facility] 07/26/2018 R79.89 Other specified abnormal findings of Gage Hartmann, DO [facility] blood chemistry 07/10/2018 E11.9 Type 2 diabetes [...] 40.0-44.9, adult Yfn Morton MD 05/30/2018 Z79.4 watermaster (current) use of insulin Yfn Morton MD [...] Pacer Schedule cardiac defibrillator Plan of Treatment 09/07/2018 - Yfn Morton MDE11.65 Type 2 diabetes mellitus with hyperglycemiaNew Medication:Lantus Solostar 100 Unit/ML - 35 units once daily in the morning, MDD 50Glipizide XL 5 mg - take 5mg daily in the morningInstructions:1. Reduce Lantus (glargine) insulin to 35 units in the morning. 2. Do not use Lantus insulin if blood glucose is less than 80mg/dL. 3. Restart glipizide XL 5mg once daily in the morning. 4. Check bloodglucose morning and afternoon. 5. Call if you are experience blood glucose less than 80 or more [id number] detention (current) use of mckzwelT71.649 Type 2 diabetes mellitus with hypoglycemia without comaC92.00 Acute myeloblastic leukemia, not having achieved remission Functional Status Description No Information Available Mental Status Description No Information Available Referrals Description No Information Available
[2018-12-03 15:30] LABS: Hematocrit 35 % (42-52); Hemoglobin 11.3 g/dL (14.0-18.0); Mean Corpuscular HGB Conc 33 g/dL (31-36); Mean Corpuscular Hemoglobin 34 pg (27-31); Mean Corpuscular Volume 102 fL (80-94); Mean Platelet Volume 7.9 fL (7.4-10.4); Platelet Count 227 10^3/uL (150-450); Red Blood Count 3.37 10^6 /uL (4.18-5.48); Red Cell Distribution Width 23 % (10-15); White Blood Count 5.8 10^3/uL (3.5-10.8)
[2018-12-03] MEDS ORDERED: Aspirin TAB* 325 MG PO ONE (15:40)
[2018-12-03 15:41] LABS: Activated Partial Thrombo Time 34.9 seconds (26.0-38.0); INR 1.45 (0.82-1.09)
[2018-12-03 15:46] LABS: Troponin I 0.02 ng/mL (<0.04)
[2018-12-03 15:51] LABS: ABS Basophils 0.1 10^3/ul (0-0.2); ABS Lymphocytes 0.5 10^3/ul (1.0-4.8); ABS Monocytes 0.5 10^3/ul (0-0.8); ABS Neutrophils 4.7 10^3/ul (1.5-7.7); Lymphocyte % 8.9 %; Nucleated Red Blood Cells % 0.1
[2018-12-03 15:53] LABS: Polychromasia 2+
[2018-12-03 16:40] LABS: Albumin 3.4 g/dL (3.2-5.2); Albumin/Globulin Ratio 1.1 (1-3); Calcium 8.8 mg/dL (8.6-10.3); EGFR African American 101.7 (>60); HDL Cholesterol 30.6 mg/dL; Potassium 4.5 mmol/L (3.5-5.0); Total Bilirubin 0.7 mg/dL (0.2-1.0); Total Protein 6.4 g/dL (6.4-8.9)
[2018-12-03] MEDS ORDERED: Polyethylene Glycol 3350* 17 GM PACKET PO PRN (17:06)
[2018-12-03] MEDS ORDERED: Melatonin 3 MG TAB PO PRN (17:06)
--- NOTE | 2018-12-03 17:10 | CONS ---
CC: Dr. Wallace * NEUROLOGY CONSULTATION REPORT: DATE OF CONSULTATION: 12/03/18 LOCATION: He is in the emergency room to be admitted. REFERRING PROVIDER: Dr. Rand. CHIEF COMPLAINT: Transient episode of left-sided numbness and weakness. HISTORY OF PRESENT ILLNESS: Rodolfo Luna is a 73-year-old right-handed man who has had his oncology appointment today when he started to develop numbness and tingling of his left hand and arm. It was like "I hit my funny bone." Subsequently, he started to get numbness and tingling of the left leg. The evaluation by the provider in the oncology office called the emergency room and had him transferred over. She repots that he had a prominent left pronator drift. His is present in the emergency room and she corroborates this. He did not notice any numbness of his face. There was no slurred speech. There was no change in vision. His symptoms resolved gradually while in the emergency room where at this point less than an hour after onset, he feels " back to normal." There was no prior history of transient ischemic attack or stroke. He has a chronic atrial fibrillation for which he is on warfarin. His INR today was 1.51. He also has a porcine aortic valve replaced over a decade ago. PAST MEDICAL HISTORY: His past medical history is otherwise notable for history of ventricular tachycardia, a pacemaker, aortic aneurysm repair, ICD placement, class 3 congestive heart failure, type 2 diabetes, sleep apnea, acute myelogenous leukemia. MEDICATIONS: At home consist of: 1. Amiodarone 100 mg p.o. daily. 2. Allopurinol 300 mg p.o. daily. 3. Warfarin 1 mg per day alternating with 2 mg. 4. Insulin. 5. Venclexta. 6. Potassium supplementation. 7. Zofran p.r.n. nausea. ALLERGIES: He does not have any drug allergies. FAMILY HISTORY: Noncontributory. REVIEW OF SYSTEMS: He is a nonsmoker. Does drink alcohol. Intentionally lost 150 pounds over the last couple of years. He was walking for exercise. He has been getting more and more short of breath in the last few weeks. He says there were some potential plans to cardiovert him again. He currently does not have any chest pain, but he is short of breath. He has difficulty lying flat because of increased shortness of breath. There has been no recent trauma. There is no prior history of intracranial or abdominal hemorrhaging. There have been no recent surgeries. PHYSICAL EXAM: On physical examination, he is an obese gentleman, who is short of breath, lying in the emergency room [facility]. Blood pressure is 121/89, temperature 97.6, heart rate is 90 and appears to be in atrial flutter on the monitor, respiratory rate is 26, and oxygen saturation is 95% on 6 L of oxygen by nasal cannula. Heart reveals an irregular rhythm. I do not hear any murmurs. Neck is supple. Oral mucosa is moist and atraumatic. There are no cervical bruits. Lung sounds are depressed inferiorly. He has 1+ ankle edema bilaterally. Neurological Exam: Pupils react equally from 3 down to 2 mm. Eye movements are normal. Visual andres are full to confrontation. Funduscopic exam is normal. Facial musculature is symmetric. Palate and tongue appear normal. Tongue protrudes in the midline and palate rises symmetrically. There is no dysarthria. Hearing is intact bilaterally. Facial sensation to light touch and pin is symmetric. Facial musculature is symmetric. Motor exam reveals normal tone and strength in the upper and lower extremities bilaterally. There is no drift of any limbs. There is a mild sustention tremor in the outstretched hands, there is no rest tremor. [id number] maneuver is normal bilaterally. Finger taps are normal bilaterally. Reflexes are brisk in the upper extremities at the knees, trace at the ankles. Plantar responses are flexor bilaterally. He is alert and oriented and a good historian. Memory is intact and language is fluent. He has adequate attention, concentration, and fund of knowledge. DIAGNOSTIC STUDIES/LAB DATA: Laboratory data includes a CT scan of the brain interpreted as normal. I reviewed the images personally and I agreed. CT angiogram of the brain reveals some calcification in the intracranial vessels but no significant stenosis. I reviewed the images personally as well. Other laboratory data notable for CBC with a hemoglobin of 11.3, hematocrit 35% , white blood cell count is 5.8, MCV is elevated at 102, platelets are normal at 227,000. INR today at 1315 hours is 1.51 and PTT is 25.6. Chemistry profile notable for glucose today of 150, last A1c was 5.6% on . His electrolytes are still pending. IMPRESSION: Impression is that of right middle cerebral artery transient ischemic attack. The most likely mechanism would be cardioembolic from his atrial fibrillation. Warfarin is currently subtherapeutic. I recommend that he be admitted on telemetry. He should have a cardiology evaluation as to whether or not there is anything that needs to be done during this hospitalization. Recommend giving aspirin 325 mg for the time being and augmenting his warfarin to get his INR up over 2.0. He may need an echocardiogram, but I will leave that up to cardiology consultation. Dr. Huff is his usual human resources director. I will follow along with you. [id number]/[facility] #: [id number] JOVANI
[2018-12-03] MEDS: Enoxaparin(*) 100 MG/ML SYR SUBCUT SCH (20:48)
[2018-12-03] MEDS: Carvedilol TAB* 3.125 MG PO SCH (20:49)
[2018-12-03] MEDS ORDERED: Atorvastatin* 10 MG TAB PO SCH (21:00)
[2018-12-04] MEDS: Enoxaparin(*) 100 MG/ML SYR SUBCUT SCH (06:11)
[2018-12-04 06:48] LABS: INR 1.49 (0.82-1.09)
[2018-12-04] MEDS: Carvedilol TAB* 3.125 MG PO SCH (08:34)
[2018-12-04] MEDS ORDERED: Sertraline* 25 MG TAB PO SCH (09:00)
[2018-12-04] MEDS ORDERED: Insulin GLARGINE(*) 1 UNITS UNIT SUBCUT SCH (09:00)
[2018-12-04] MEDS ORDERED: Allopurinol TAB* 300 MG PO SCH (09:00)
[2018-12-04] MEDS ORDERED: Multivitamins/Minerals TAB PO SCH (09:00)
[2018-12-04] MEDS ORDERED: Amiodarone TAB* 200 MG PO SCH (09:00)
--- NOTE | 2018-12-04 10:40 | PN ---
Progress Note - Progress Note Date of Service: 12/04/18 SOAP: Subjective: []Admitted yesterday due to a TIA. Objective: [] Assessment: [] Plan: []
--- NOTE | 2018-12-04 10:42 | ECHO ---
*[facility]* [place] [address] Fax #: [phone] Transthoracic Echocardiogram Patient: Cyndi Luna : 1945 Study Date: 12/04/2018 Age: 73 Gender: M HR: 77 bpm Height: 72 in /182.9 cm BSA: 2.38 m^2 Weight: 259.5 lb /117.9 kg BMI: 35.3 kg/m^2 *Wheel Alignment Mechanic: * Angie Clarke RD *Referring Physician: * Roseline NeriReading Physician: * Italo Huff MD Indications: SOB. TIA. Congestive Heart Failure. History: Atrial fibrillation. Congestive heart failure. Risk factors: Hypertension. Diabetes mellitus. Morbidly obese. Dyslipidemia. Labs, prior tests, procedures, and surgery: Permanent pacemaker system implantation. Valve surgery. Aortic valve replacement with a bioprosthetic valve. Conclusions Summary: - Left ventricle: Systolic function is moderately reduced. The estimated ejection fraction is 35-40%. Moderate diffuse hypokinesis. - Right ventricle: Pacer wire noted in the right ventricle. Systolic function is mildly reduced. Systolic pressure is moderately increased. - Ventricular septum: There is abnormal interventricular septal wall motion consistent with an RV pacemaker. - Mitral valve: There is mild regurgitation. - Aortic valve: There is a bioprosthetic valve. Normal aortic valve replacement function. There is no significant regurgitation. - Tricuspid valve: There is mild-moderate regurgitation. - Pericardium, extracardiac: There is no significant pericardial effusion. - Compared to study of 07/26/18, there is little change Study data: Transthoracic echocardiogram. Procedure: Transthoracic echocardiography was performed. Image quality was poor. The study was technically limited due to restricted patient mobility and body habitus. Complete 2D, spectral Doppler, and color flow Doppler. Location: Bedside. Patient status: Inpatient. Patient room number: 445-2. Rhythm: Paced rhythm. Findings Left ventricle: The cavity size is at the upper limits of normal. Wall thickness is mildly increased. Systolic function is moderately reduced. The estimated ejection fraction is 35-40%. Moderate diffuse hypokinesis. Left ventricular diastolic function parameters are indeterminate. Right ventricle: The cavity size is mildly dilated. Wall thickness is mildly increased. Pacer wire noted in the right ventricle. Systolic function is mildly reduced. Systolic pressure is moderately increased. Ventricular septum: There is abnormal interventricular septal wall motion consistent with an RV pacemaker. Left atrium: The atrium is severely dilated. Right atrium: The atrium is moderately dilated. Pacer wire noted in right atrium. Mitral valve: The leaflets are mildly thickened. There is no evidence of stenosis. There is mild regurgitation. Aortic valve: Not well visualized. There is a bioprosthetic valve. There is no evidence of stenosis. There is no significant regurgitation. Tricuspid valve: The leaflets are normal thickness. There is no evidence of stenosis. There is mild-moderate regurgitation. Pulmonic valve: The leaflets are normal thickness. There is no evidence of stenosis. There is trace to mild regurgitation. Aorta: Aortic root: The aortic root is appears normal. Ascending aorta: The ascending aorta is upper normal in size. Aortic arch: The aortic arch is poorly visualized. Pericardium: A prominent pericardial fat pad is present. There is no significant pericardial effusion. Pulmonary arteries: Poorly visualized. Systolic pressure is moderately increased. Systemic veins: Inferior vena cava: The vessel is dilated. There is (< 50%) respiratory change in the IVC dimension. Measurements Left ventricle Value Ref Aortic valve Value Ref ROBBIN, LAX 5.7 cm 4.2 - 5.8 Thais diam, ED 2.2 cm ----- ESD, LAX (H) 4.8 cm 2.5 - 4.0 Peak v, S 2.55 m/sec ----- FS, LAX (L) 15 % 25 - 43 VTI, S 47.2 cm ----- PW, ED, LAX (H) 1.1 cm 0.6 - 1.0 Mean grad, S 14.0 mm Hg ----- FS (L) 16 % 25 - 43 Peak grad, S 26.0 mm Hg ----- PW, ED (H) 1.1 cm 0.6 - 1.0 LVOT/AV, VTI ratio 0.23 ----- E', lat thais, TDI (L) 8.8 cm/sec >=10.0 SANJANA, VTI 0.73 cm^2 --- -- E/e', lat thais, 16 SANJANA, Vmax 0.38 cm^2 ----- TDI E', med thais, TDI (L) 6.0 cm/sec >=7.0 Mitral valve Value Ref E/e', med thais, 24 Peak E 1.41 m/sec ----- TDI Peak A 0.69 m/sec ----- E', avg, TDI 7.4 cm/sec Decel time 173 ms ----- E/e', avg, TDI (H) 19 <=14 PHT 101 ms --- -- Mean grad, D 3.0 mm Hg ----- LVOT Value Ref Peak grad, D 7.0 mm Hg ----- Diam, S 2.00 cm Peak E/A ratio 2.1 ----- Area 3.1 cm^2 MVA, PHT 2.0 cm^2 ----- Peak gildardo, S 0.31 m/sec VTI, S 11.0 cm Pulmonic valve Value Ref Mean grad, S 1 mm Hg Peak v, S 0.95 m/sec ----- SV 34 ml Peak grad, S 4.0 mm Hg ----- SV/bsa 14 ml/m^2 Tricuspid valve Value Ref Ventricular septum Value Ref TR peak v (H) 2.85 m/sec <=2.8 IVS, ED (H) 1.1 cm 0.6 - 1.0 Peak RV-RA grad, S 32 mm Hg ----- Right ventricle Value Ref Aortic root Value Ref AW thickness, ED (H) 0.8 cm 0.1 - 0.5 Root diam 3.6 cm <4.4 ROBBIN, LAX 3.6 cm ROBBIN minor ax, A4C (H) 4.8 cm 1.9 - 3.5 Ascending aorta Value Ref mid AAo AP diam, S 3.5 cm ----- Pressure, S 47 mm Hg Pulmonary artery Value Ref Left atrium Value Ref Pressure, S 43.0 mm Hg ----- AP dim, ES (H) 4.40 cm 3.00 - 4.00 Inferior vena cava Value Ref ML dim, A4C 6.1 cm Diam 2.4 cm ----- SI dim, A4C 6.3 cm Vol/bsa, ES, 1-p (H) 48 ml/m^2 12 - 37 A4C Vol/bsa, ES, A/L (H) 51 ml/m^2 16 - 34 Right atrium Value Ref SI dim, ES (H) 6.0 cm 3.4 - 5.3 ML dim, ES, A4C (H) 5.4 cm 2.6 - 4.4 SI dim, ES, A4C (H) 6.0 cm 3.4 - 5.3 Estimated RAP 15 mm Hg Legend: (L) and (H) cyndi values outside specified reference range. Prepared and electronically signed by Italo Huff MD 12/04/2018 10:42
--- NOTE | 2018-12-04 10:59 | DS ---
- Discharge Summary Admit OBV: 12/03/18 Discharge: 12/04/18 Discharge Diagnosis: 1. TIA in the setting of subtherapeutic INR: Lovneox bridge initiated 2. CHF: stable echo as per verbal report from Dr. Huff 3. A.Fib: pending cardioversion now delayed d/t need for therapeutic INR x6 weeks, cont. rate control 4. COPD: stable, resp. status driven in part by Jacquelin, resume home inhaler 5. AML: plan Discharge Medications: Medication Instructions Recorded Confirmed Type Amiodarone TAB* [Cordarone Tab*] 100 mg PO QAM 02/26/13 12/03/18 History Carvedilol TAB* [Coreg TAB*] 3.125 mg PO BID 09/03/13 12/03/18 History Allopurinol TAB* [Zyloprim 300 MG 300 mg PO DAILY 07/25/18 12/03/18 History TAB*] Lovastatin (NF) [Mevacor (NF)] 40 mg PO BEDTIME 07/25/18 12/03/18 History Multivitamins/Minerals TAB* 1 tab PO QAM 07/25/18 12/03/18 History [Theragran/minerals TAB*] Polyethylene Glycol 3350* 17 gm PO DAILY PRN 07/25/18 12/03/18 History [Miralax*] Senna TAB 8.6 mg* [Senokot 8.6 mg 1 tab PO DAILY PRN 07/25/18 12/03/18 History TAB*] Melatonin (NF) 1 - 2 mg PO BEDTIME PRN 09/04/18 12/03/18 History Sertraline* [Zoloft*] 25 mg PO DAILY 09/04/18 12/03/18 History Insulin GLARGINE(*) [Lantus(*)] 35 units SUBCUT QAM 12/03/18 12/03/18 History Acetaminophen [Tylenol Extra 500 mg PO Q8HR PRN #0 12/04/18 12/03/18 Rx Strength] Enoxaparin(*) [Lovenox(*)] 100 mg SUBCUT Q12H #30 syringe 12/04/18 Rx Venetoclax [Venclexta] 200 mg PO DAILY WITH MEAL #0 12/04/18 12/03/18 Rx Warfarin TAB(*) [Coumadin TAB(*)] 3 mg PO 1700 #7 tab 12/04/18 Rx Resume home Symbicort inhaler Disposition: Home Condition: Good Activity: Fall Precautions, recommend walker Diet: heart healthy diet Hospital Course: Please see admission note for full H&P, however, briefly Mr. Luna is well known to our service due to his unfortunate diagnosis of AML currently being treated with Venetoclax and Azacitadine. He was seen in the office yesterday for routine follow-up prior to receiving C6D1 when he developed acute onset left sided numbness with pronator drift. He was transferred to the ER where a code perez was initiated. Work-up was negative for acute stroke and carotid stenosis however he was found to have a subtherapeutic INR (A.Fib with valve). His symptoms resolved within approx. 20 min. of onset. Neurology recommended observation and he was admitted to the telemetry unit. Mr. Luna was started on Lovenox to bridge to a therapeutic INR. He has had no further neuro symptoms overnight and no significant telemetry events. Case was discussed with his primary locksmith helper, Dr. Huff. As his echo has not significant changes he has been cleared for d/c home. At this time Mr. Luna is in good condition and very appreciative of plan for d/c home. He will continue his Lovenox with coumadin (dose adjusted based on home dosing of 1 mg alternating with 2 mg over last week due to recent hematuria). He will restart his chemotherapy tomorrow on 12/05 (C6D1) with Venetoclax 200 mg PO Day 1-21 and Azactidine 37.5 mg/m2 sub x7 days [id number]. He will have repeat INRs at least weekly for now. With known A.Fib and a mechanical valve he will require an INR of 2.5-3.5, Dr. Huff has recommended continued rate control of his A.Fib as he will now need an additional 6 weeks prior to any cardioversion.
[2018-12-04 12:35] VITALS: BP 117/74
[2018-12-04] MEDS ORDERED: Warfarin TAB(*) 7.5 MG PO SCH (17:00)
--- NOTE | 2018-12-05 09:45 | CONS ---
CC: Roseline Neri NP; Dr. Edmond Anderson CARDIOLOGY CONSULTATION: DATE OF CONSULT: 12/04/18 INDICATION FOR CONSULTATION: TIA, aortic valve replacement, congestive heart failure. HISTORY OF PRESENT ILLNESS: The patient is a 73-year-old gentleman well known to me with a history o f non-ischemic cardiomyopathy, history of aortic valve replacement, history of biventricular ICD impl antation, who I had been following for many years. Recently, the patient has been in atrial fibrilla tion, but I have unable to cardiovert him because of anticoagulation issues. Yesterday, he was at the chemo suite, when he started having left arm tingling and discomfort consist ent with a TIA. He was admitted to the hospital and had a consultation with Dr. Anderson. His sympto ms resolved very quickly. His INR at that time was 1.5. The patient recently was started back on his Coumadin after a long hia tus when he had severe neutropenia due to his chemotherapy. The patient has been on anticoagulation for about a month, but has not been therapeutic for most of it. In speaking with the patient in the hospital, he has no complaints. He is back to his baseline. He does have significant shortness of b reath and this is likely due to his ongoing atrial fibrillation. PAST MEDICAL HISTORY: Well known to me and reviewed on physical exam. MEDICATIONS: His medications were reviewed. PHYSICAL EXAMINATION: Height is 6 feet, weight 264 pounds, temperature 97.3, heart rate is 90, blood pressure 117/74, respiratory rate is 20, oxygen 96% on 6 L. Carotids are 2+ without bruits. JVD is normal. Thyroid is normal. Cardiac Exam: Distant heart sounds. S1, S2 with a 1/6 systolic ejection murmur. No diastolic murmur. PMI is normal. Lungs have mildly diminished lung sounds. There are no rhonchi. There are no wheezes. Abdomen is obese, soft, nontender, nondistended with normoactive bowel sounds. Extremities show no edema. He has 2+ pulses throughout. DIAGNOSTIC STUDIES/LAB DATA: Chemistries within normal limits. BUN 24, creatinine 0.9, total choles terol 104, LDL cholesterol 54, INR 1.45. CBC within normal limits. Echocardiogram shows moderately reduced LV systolic function, ejection fraction of 30% to 35%. His b ioprosthetic aortic valve is functioning normally. No other significant valvular disease. IMPRESSION: This is a 73-year-old gentleman with a history of aortic valve replacement, nonischemic cardiomyopathy, biventricular ICD, who comes in because of a transient ischemic attack. The patient is undergoing chemotherapy for his leukemia. I think it is very likely that his transient ischemic attack was a result of a thrombus from his left atrium given his atrial fibrillation and subtherapeutic INRs. I do not think the patient needs a transesophageal echocardiogram to evaluate his aortic valve. The patient's aortic valve has been stable for a number of years. There is no evidence of change in his g radients. This was discussed with Roseline Neri, nurse practitioner. [id number]/[facility] #: [id number]
== END 2018-12-04 14:47 | disposition home or self-care (01) ==
LOC: ED 14:40 → MEDTELE 17:00
PROVIDERS: ADMIT Internal Medicine; ATTEND Internal Medicine Hematology & Oncology
DX: G45.9 Transient cerebral ischemic attack, unspecified (principal); J44.9 Chronic obstructive pulmonary disease, unspecified; I50.9 Heart failure, unspecified; Z95.4 Presence of other heart-valve replacement; I48.91 Unspecified atrial fibrillation; E11.9 Type 2 diabetes mellitus without complications; E78.00 Pure hypercholesterolemia, unspecified; I10 Essential (primary) hypertension; Z95.0 Presence of cardiac pacemaker; Z85.828 Personal history of other malignant neoplasm of skin; Z79.01 Long term (current) use of anticoagulants; R94.31 Abnormal electrocardiogram [ECG] [EKG]
CPT/HCPCS: 36415; 70450; 70496; 70498; 71045; 80053; 80061; 83605; 84484; 85025; 85610; 85730; 93005; 93306; 94660; 96372; 99220; 99285; A9270-GY; G0378; J1650; Q9967

== ENCOUNTER 2018-12-31 15:28 | Inpatient (IN) | payer MEDICARE ==
[2018-12-31] MEDS ORDERED: Phytonadione Oral Solution* 5 MG/25 ML UDC PO ONE (15:31)
[2018-12-31] MEDS ORDERED: Furosemide IV* 10 MG/ML VIAL (40 MG) IV ONE (15:31)
[2018-12-31] MEDS ORDERED: Insulin GLARGINE(*) 1 UNITS UNIT SUBCUT PRN (15:46)
[2018-12-31] MEDS ORDERED: Polyethylene Glycol 3350* 17 GM PACKET PO PRN (15:48)
--- OUTSIDE RECORDS SUMMARY | 2018-12-31 17:23 | XMS REPORT | Continuity of Care Document ---
:1945 External Reference #:[id number] Author Name Edgardo Perez Care Team Providers Name Role Phone hPilomena Lyle MD - Family Care Team Information Director Of Professional Services Medicine Italo Huff MD - Cardiovascular Care Team Information Director Of Professional Services Disease Kimmy Mccracken MD - Hematology & Care Team Information Director Of Professional Services Oncology Problems Active Problems Provider Date Paroxysmal ventricular tachycardia Italo Huff M.D. Onset: 04/04/2013 Primary cardiomyopathy Italo Huff M.D. Onset: 04/04/2013 Aortic valve disorder Italo Huff M.D. Onset: 04/04/2013 Congestive heart failure Italo Huff M.D. Onset: 04/04/2013 Obstructive sleep apnea of adult Carmen Baig DNP, RN, Onset: 07/08/2013 [facility] Chronic combined systolic and Italo Huff [...] 1 by mouth twice a 180tabs Italo D. 3.125mg Tablets day. Melinda Huff Venclexta 2 [...] 09/07/2018 100Unit/ML Solution mdd 70 units Pen-Inject Immunizations Description No Information Available Vital Signs [...] Test Result H/L Range Note Laboratory test 12/03/2018 [facility] Point of 150 mg/dL High 70-[address] [facility] [place] [address] [phone] Inr/Protime 12/03/2018 [facility] Inr 1.51 High 0.82-1.[address] [place] [address] [phone] CBC Auto Diff 12/03/2018 [facility] White Blood 6.0 10^3/uL Normal 3.5-10.[address] [place] [address] [phone] Red Blood Count 3.52 10^6/uL Low 4.18-5.48 Hemoglobin 11.6 g/dL Low 14.0-18.0 Hematocrit 36 % Low 42-52 Mean Corpuscular Volume 103 fL High 80-94 Mean Corpuscular Hemoglobin 33 pg High 27-31 Mean Corpuscular HGB Conc 32 g/dL Normal 31-36 Red Cell Distribution Width 23 % High 10-15 Platelet Count 244 10^3/uL Normal 150-450 Mean Platelet Volume 8.0 fL Normal 7.4-10.4 Abs Neutrophils 4.9 10^3/uL Normal 1.5-7.7 Abs Lymphocytes 0.4 10^3/uL Low 1.0-4.8 Abs Monocytes 0.6 10^3/uL Normal 0-0.8 Abs Eosinophils 0.0 10^3/uL Normal 0-0.6 Abs Basophils 0.1 10^3/uL Normal 0-0.2 Abs Nucleated RBC 0.0 10^3/uL Granulocyte % 81.3 % Lymphocyte % 7.4 % Monocyte % 9.9 % Eosinophil % 0.0 % Basophil % 1.4 % Nucleated Red Blood Cells % 0.1 Manual 12/03/2018 [facility] Immature 7.0 % Normal 0-[address] [place] [address] [phone] Neutrophil % 77.0 % Band % 4.0 % Normal 0-8 Lymphocytes % 8.0 % Monocytes % 6.0 % Eosinophils % 0.0 % Basophil % 2.0 % Metamyelocytes % 1.0 % Normal 0-2 Myelocytes % 2.0 % High 0-1 Macrocytosis 1+ Polychromasia 1+ Anisocytosis 1+ Laboratory test 11/09/2018 [facility] Hemoglobin 5.6 % Normal 4.0-5.[address] A1c ([place] [address] HGB) [phone] Inr/Protime 11/09/2018 [facility] Inr 3.25 High 0.82-1.[address] [place] [address] [phone] Urine Culture 07/25/2018 [facility] Urine Culture SEE [address] [place] [address] BELOW [phone] Urinalysis 07/25/2018 [facility] Urine Color [address] [place], [place] [id number] [phone] Urine Appearance Cloudy Urine Specific [place] 1.024 Normal 1.010-1.030 Urine pH 5.0 Normal 5-9 Urine Urobilinogen Negative Negative Urine Ketones Negative Negative Urine Protein 2+(100 mg/dL) Abnormal Negative Urine Leukocytes Negative Negative Urine Blood 3+ Abnormal Negative * * Abnormal Negative 6 Urine Nitrite Negative Negative Urine Bilirubin Negative Negative Urine Glucose Negative Negative Urine White Blood Cell 1+(6-10/hpf) Abnormal Absent Urine Red Blood Cell 3+(>10/hpf) Abnormal Absent Urine Bacteria Absent Absent Laboratory test 07/25/2018 [facility] Blood Culture SEE RESULT [address] [place] [address] [phone] Comp Metabolic 07/25/2018 [facility] Sodium 138 mmol/L Normal 135-[address] [place] [address] [phone] Potassium 4.5 mmol/L Normal 3.5-5.0 Chloride 106 [...] Egfr Non- 49.0 >60 Egfr 59.3 >60 8 Laboratory test 07/25/2018 [facility] Lactic Acid 2.0 mmol/L Normal 0.5-2.[address] [place] [address] [phone] Troponin-I (TnI) 0.75 ng/mL Critical high <0.04 10 Manual Differential 07/25/2018 [facility] Neutrophil % 51.0 % [address] [place] [address] [phone] Lymphocytes % 32.0 % Monocytes % 10.0 % Eosinophils % 0.0 % Basophil % 7.0 % Nucleated Red Blood Cells/100 48.0 High 0-0 Abs Neutrophils 0.5 10^3/uL Critical low 1.5-7.7 11 Abs Lymphocytes 0.3 10^3/uL Low 1.0-4.8 Abs Monocytes 0.1 10^3/uL Normal 0-0.8 Abs Eosinophils 0.0 10^3/uL Normal 0-0.6 Abs Basophils 0.1 10^3/uL Normal 0-0.2 Hypochromasia 1+ Polychromasia 1+ Anisocytosis 2+ Laboratory test 07/25/2018 [facility] Partial 25.6 Low 26.0- 36.[address] Thrombo seconds [place] [address] Time PTT [phone] Inr/Protime 07/25/2018 [facility] Inr 1.38 High 0.82-1.[address] [place] [address] [phone] CBC Auto Diff 07/25/2018 [facility] Red Blood 2.54 Low 4.18- 5.48 DRIVE Count 10^6/uL [place] [address] [phone] Hemoglobin 8.1 g/dL Low 14.0-18.0 Hematocrit 23 % Low 42-52 Mean Corpuscular Volume 92 fL Normal 80-94 Mean Corpuscular Hemoglobin 32 pg High 27-31 Mean Corpuscular HGB Conc 34 g/dL Normal 31-36 Red Cell Distribution Width 25 % High 10.5-15 White Blood Count 1.0 10^3/uL Low 3.5-10.8 13 Platelet Count 13 10^3/uL Critical low 150-450 14 Laboratory test 07/23/2018 [facility] Packed Cells SEE RESULTS [address] BELO <SEE NOTE> [place] [address] [phone] Type & Screen 07/23/2018 [facility] Patient Blood A Positive DRIVE Type [place] [address] [phone] Antibody Screen NEGATIVE Laboratory test 07/23/2018 [facility] Pathologist (SEE [address] Review NOTE) [place] [address] [phone] Manual 07/23/2018 [facility] Immature 9.0 % Normal 0-[address] [place] [address] [phone] Neutrophil % 34.0 % Band % 7.0 % Normal 0-8 Lymphocytes % 40.0 % Monocytes % 12.0 % Metamyelocytes % 2.0 % Normal 0-2 Blast % 5.0 % Critical high 17 Nucleated Red Blood Cells/100 11.0 High 0-0 Polychromasia 1+ Anisocytosis 3+ Tear Drop Cells 1+ Elliptocyte 1+ Abs Neutrophils 0.4 10^3/uL Low 1.5-7.7 Abs Lymphocytes 0.4 10^3/uL Low 1.0-4.8 Abs Monocytes 0.1 10^3/uL Normal 0-0.8 Comp Metabolic 07/23/2018 [facility] Sodium 137 mmol/L Normal 135-[address] [place] [address] [phone] Potassium 4.3 mmol/L Normal 3.5-5.0 Chloride 104 [...] Egfr Non- 51.5 >60 Egfr 62.3 >60 18 CBC Auto 07/23/2018 [facility] White Blood 0.9 10^3/uL Low 3.5 -10.[address] [place] [address] [phone] Red Blood Count 2.20 10^6/uL Low 4.18-5.48 Hemoglobin 7.0 g/dL Low 14.0-18.0 Hematocrit 21 % Low 42-52 Mean Corpuscular Volume 94 fL Normal 80-94 Mean Corpuscular Hemoglobin 32 pg High 27-31 Mean Corpuscular HGB Conc 34 g/dL Normal 31-36 Red Cell Distribution Width 26 % High 10.5-15 19 Platelet Count 11 10^3/uL Low 150-450 20 Mean Platelet Volume 12.6 fL High 7.4-10.4 Comp Metabolic 07/16/2018 [facility] Sodium 136 mmol/L Normal 135-[address] [place] [address] [phone] Potassium 4.8 mmol/L Normal 3.5-5.0 Chloride 102 [...] Egfr Non- 53.8 >60 Egfr 65.1 >60 21 CBC Auto 07/16/2018 [facility] White Blood 2.6 10^3/uL Low 3.5 -10.[address] [place] [address] [phone] Red Blood Count 2.35 10^6/uL Low 4.18-5.48 Hemoglobin 7.5 g/dL Low 14.0-18.0 Hematocrit 23 % Low 42-52 Mean Corpuscular Volume 97 fL High 80-94 Mean Corpuscular Hemoglobin 32 pg High 27-31 Mean Corpuscular HGB Conc 33 g/dL Normal 31-36 Red Cell Distribution Width 26 % High 10.5-15 Platelet Count 19 10^3/uL Low 150-450 Mean Platelet Volume 10.4 fL Normal 7.4-10.4 Manual 07/16/2018 [facility] Immature 13.0 % High 0-[address] [place] [address] [phone] Neutrophil % 40.0 % Band % 10.0 % High 0-8 Lymphocytes % 27.0 % Monocytes % 12.0 % Basophil % 4.0 % Myelocytes % 3.0 % High 0-1 Blast % 4.0 % Critical high 22 Abs Neutrophils 1.4 10^3/uL Low 1.5-7.7 Abs Lymphocytes 0.7 10^3/uL Low 1.0-4.8 Abs Monocytes 0.3 10^3/uL Normal 0-0.8 Abs Basophils 0.1 10^3/uL Normal 0-0.2 Polychromasia 1+ Anisocytosis 3+ Nucleated Red Blood Cells/100 9.0 High 0-0 Laboratory test 07/16/2018 [facility] Pathologist (SEE NOTE) [address] [place] [address] [phone] Type & Screen 07/16/2018 [facility] Patient Blood A Positive [address] [place] [address] [phone] Antibody Screen NEGATIVE Laboratory test 07/16/2018 [facility] Packed Cells SEE RESULTS [address] BELO <[place] [address] NOTE> [phone] Laboratory test 07/13/2018 [facility] Pathologist (SEE NOTE) [address] [place] [address] [phone] Manual 07/13/2018 [facility] Immature 34.0 % High 0-[address] [place] [address] [phone] Neutrophil % 20.0 % Band % 18.0 % High 0-8 Lymphocytes % 22.0 % Monocytes % 13.0 % Eosinophils % 1.0 % Basophil % 1.0 % Variant Lymph % 1.0 % Normal 0-6 Metamyelocytes % 6.0 % High 0-2 Myelocytes % 8.0 % High 0-1 Promyelocytes % 2.0 % Blast % 8.0 % Critical high 26 Nucleated Red Blood Cells/100 16.0 High 0-0 Polychromasia 2+ Anisocytosis 3+ Abs Neutrophils 2.4 10^3/uL Normal 1.5-7.7 Abs Lymphocytes 1.0 10^3/uL Normal 1.0-4.8 Abs Monocytes 0.6 10^3/uL Normal 0-0.8 Abs Eosinophils 0.0 10^3/uL Normal 0-0.6 Abs Basophils 0.0 10^3/uL Normal 0-0.2 CBC Auto 07/13/2018 [facility] White Blood 4.4 10^3/uL Normal 3.5-10.[address] [place] [address] [phone] Red Blood Count 2.62 10^6/uL Low 4.18-5.48 Hemoglobin 8.3 g/dL Low 14.0-18.0 Hematocrit 25 % Low 42-52 Mean Corpuscular Volume 96 fL High 80-94 Mean Corpuscular Hemoglobin 32 pg High 27-31 Mean Corpuscular HGB Conc 33 g/dL Normal 31-36 Red Cell Distribution Width 27 % High 10.5-15 Platelet Count 14 10^3/uL Low 150-450 27 Mean Platelet Volume 6.5 fL Low 7.4-10.4 CBC Auto 07/11/2018 [facility] White Blood 6.0 10^3/uL Normal 3.5-10.[address] [place] [address] [phone] Red Blood Count 2.41 10^6/uL Low 4.18-5.48 Hemoglobin 7.8 g/dL Low 14.0-18.0 Hematocrit 24 % Low 42-52 Mean Corpuscular Volume 100 fL High 80-94 Mean Corpuscular Hemoglobin 33 pg High 27-31 Mean Corpuscular HGB Conc 33 g/dL Normal 31-36 Red Cell Distribution Width 26 % High 10.5-15 Platelet Count 16 10^3/uL Low 150-450 28 Mean Platelet Volume 6.8 fL Low 7.4-10.4 Manual Differential 07/11/2018 [facility] Immature 21 % High 0 -[address] [place] [address] [phone] Neutrophil % 38 % Band % 9 % High 0-8 Lymphocytes % 14 % Monocytes % 17 % Metamyelocytes % 4 % High 0-2 Myelocytes % 8 % High 0-1 Blast % 10 % Critical high 29 Nucleated Red Blood Cells/100 12 High 0-0 Abs Neutrophils 3.5 10^3/uL Normal 1.5-7.7 Abs Lymphocytes 0.8 10^3/uL Low 1.0-4.8 Abs Monocytes 1.0 10^3/uL High 0-0.8 Macrocytosis 1+ Anisocytosis 2+ Laboratory test 07/11/2018 [facility] Pathologist (SEE NOTE) [address] [place] [address] [phone] Type & Screen 07/11/2018 [facility] Patient Blood A Positive [address] [place] [address] [phone] Antibody Screen NEGATIVE Laboratory test 07/11/2018 [facility] Packed SEE RESULTS [address] Cells BELO <[place] [address] NOTE> [phone] Comp Metabolic 07/09/2018 [facility] Sodium 137 mmol/L Normal 135-[address] [place] [address] [phone] Potassium 4.1 mmol/L Normal 3.5-5.0 Chloride 103 [...] Egfr Non- 45.3 >60 Egfr 54.8 >60 32 Manual Differential 07/09/2018 [facility] Immature 19 % High 0 -[address] [place] [address] [phone] Neutrophil % 38 % Band % 6 % Normal 0-8 Lymphocytes % 13 % Monocytes % 8 % Eosinophils % 1 % Basophil % 11 % Metamyelocytes % 2 % Normal 0-2 Myelocytes % 9 % High 0-1 Promyelocytes % 2 % Blast % 10 % Critical high 33 Nucleated Red Blood Cells/100 17 High 0-0 RBC Morphology Normal Normal CBC Auto 07/09/2018 [facility] White Blood 7.6 10^3/uL Normal 3.5-10.[address] [place] [address] [phone] Red Blood Count 2.65 10^6/uL Low 4.18-5.48 Hemoglobin 8.6 g/dL Low 14.0-18.0 Hematocrit 26 % Low 36-46 Mean Corpuscular Volume 99 fL High 80-94 Mean Corpuscular Hemoglobin 33 pg High 27-31 Mean Corpuscular HGB Conc 33 g/dL Normal 31-36 Red Cell Distribution Width 26 % High 10.5-15 34 Abs Neutrophils 0.3 10^3/uL Low 1.5-7.7 35 Platelet Count 20 10^3/uL Low 150-450 Mean Platelet Volume 8.1 fL Normal 7.4-10.4 CBC Auto 07/05/2018 [facility] White Blood 6.3 10^3/uL Normal 3.5-10.[address] [place] [address] [phone] Red Blood Count 2.77 10^6/uL Low 4.18-5.48 Hemoglobin 9.2 g/dL Low 14.0-18.0 Hematocrit 28 % Low 36-46 Mean Corpuscular Volume 100 fL High 80-94 Mean Corpuscular Hemoglobin 33 pg High 27-31 Mean Corpuscular HGB Conc 33 g/dL Normal 31-36 Red Cell Distribution Width 25 % High 10.5-15 Platelet Count 24 10^3/uL Low 150-450 36 Mean Platelet Volume 8.1 fL Normal 7.4-10.4 Manual Differential 07/05/2018 [facility] Immature 18 % High 0 -[address] [place] [address] [phone] Neutrophil % 29 % Band % 8 [...] 0.4 10^3/uL High 0-0.2 Comp Metabolic 07/05/2018 [facility] Sodium 141 mmol/L Normal 135-145 Panel 101 [place] [address] [phone] Potassium 4.7 mmol/L Normal 3.5-5.0 Chloride 109 [...] Egfr Non- 47.1 >60 Egfr 57.0 >60 37 Laboratory test 07/05/2018 [facility] Pathologist Review (SEE NOTE) 38 finding 101 [place] [address] [phone] Hepatitis C 06/28/2018 [facility] HCV Index 0.0 Index Antibody [address] [place] [address] [phone] Hepatitis C Antibody Nonreactive Nonreactive Laboratory 06/28/2018 [facility] Hepatitis Nonreactive Nonreactive [address] [place] [address] Igm [phone] Hepatitis B 06/28/2018 [facility] Hepatitis Not Immune Abnormal Immune Betty AB Titer [address] [place] [address] AB [phone] Hep B Surf AB Level < 3.10 mIU/mL >12 Laboratory test 06/28/2018 [facility] Erythrocyte Sed 49 mm/Hr High 0-[address] [place] [address] [phone] Pathologist Review (SEE NOTE) 40 Hepatitis B Surface Ag Nonreactive Nonreactive 41 Manual Differential 06/28/2018 [facility] Immature 14 % High 0 -[address] [address] [phone] Neutrophil % 35 % Band % 7 % Normal 0-8 Lymphocytes % 16 % Monocytes % 21 % Eosinophils % 1 % Variant Lymph % 1 % Normal 0-6 Metamyelocytes % 1 % Normal 0-2 Myelocytes % 6 % High 0-1 Blast % 10 % Critical high 42 Nucleated Red Blood Cells/100 15 High 0-0 RBC Morphology Normal Normal Abs Neutrophils 2.0 10^3/uL Normal 1.5-7.7 Abs Lymphocytes 0.7 10^3/uL Low 1.0-4.8 Abs Monocytes 0.9 10^3/uL High 0-0.8 Abs Eosinophils 0.04 10^3/uL Normal 0-0.6 Retic Count 06/28/2018 [facility] Retic Count 3.5 % High 0.5- 1.[address] [place] [address] [phone] Mean Retic Volume 113.1 Immature Retic Fraction 0.35 RBC Retic Count 2.89 10^6/uL Low 4.18-5.48 Corrected Retic Count 2.3 % High 0.5-1.5 Maturation Factor Retic 2.0 Retic Index 1.20 Hematocrit for Retic CNT 29 % Low 36-46 CBC Auto 06/28/2018 [facility] Red Blood 2.89 10^6/uL Low 4.18 -5.[address] [place] [address] [phone] Hemoglobin 9.8 g/dL Low 14.0-18.0 Hematocrit 29 % Low 36-46 Mean Corpuscular Volume 102 fL High 80-94 Mean Corpuscular Hemoglobin 34 pg High 27-31 Mean Corpuscular HGB Conc 33 g/dL Normal 31-36 Red Cell Distribution Width 22 % High 10.5-15 Abs Neutrophils 2.5 10^3/uL Normal 1.5-7.7 White Blood Count 4.1 10^3/uL Normal 3.5-10.8 Platelet Count 28 10^3/uL Low 150-450 43 Mean Platelet Volume 8.1 fL Normal 7.4-10.4 Laboratory test finding 06/28/2018 [facility] LDH 261 U/L Normal 140-271 [address] [place] [address] [phone] Vitamin B12 471 pg/mL Normal 180-914 44 Comp Metabolic 06/28/2018 [facility] Sodium 140 mmol/L Normal 135-145 Panel [address] [place] [address] [phone] Potassium 4.2 mmol/L Normal 3.5-5.0 Chloride 104 [...] Egfr Non- 42.4 >60 Egfr 51.3 >60 45 Inr/Protime 06/28/2018 [facility] Inr 2.05 High 0.77-1.02 [address] [place] [address] [phone] CBC Auto Diff 06/27/2018 [facility] White Blood 4.8 Normal 3.5 -10.8 101 Count 10^3/[place] [address] [phone] Red Blood Count 2.98 10^6/uL Low 4.18-5.48 Hemoglobin 9.8 g/dL Low 14.0-18.0 Hematocrit 30 % Low 36-46 Mean Corpuscular Volume 101 fL High 80-94 Mean Corpuscular Hemoglobin 33 pg High 27-31 Mean Corpuscular HGB Conc 33 g/dL Normal 31-36 Red Cell Distribution Width 22 % High 10.5-15 Platelet Count 26 10^3/uL Low 150-450 46 Mean Platelet Volume 8.2 fL Normal 7.4-10.4 Manual Differential 06/27/2018 [facility] Immature 4 % Normal 0-[address] [place] [address] [phone] Neutrophil % 23 % Band % 2 % Normal 0-8 Lymphocytes % 33 % Monocytes % 27 % Basophil % 1 % Variant Lymph % 1 % Normal 0-6 Myelocytes % 2 % High 0-1 Blast % 11 % Critical high 47 Nucleated Red Blood Cells/100 22 High 0-0 Macrocytosis 1+ Polychromasia 1+ Anisocytosis 2+ Abs Neutrophils 1.3 10^3/uL Low 1.5-7.7 Abs Lymphocytes 1.6 10^3/uL Normal 1.0-4.8 Abs Monocytes 1.3 10^3/uL High 0-0.8 Abs Basophils 0 10^3/uL Normal 0-0.2 Laboratory test 06/27/2018 [facility] Pathologist (SEE NOTE) [address] [place] [address] [phone] PML/Regino 06/27/2018 [facility] PML/Regino Result see interpretati 49 Quantitative PCR [address] <SEE NOTE> [place] [address] [phone] PML/Regino Specimen Type Whole Blood PML/Regino Final Diagnosis See Comment [address] Reporter: [id number] 2 Standard intensity warfarin therapeutic range: 2.0-3.0 High intensity warfarin therapeutic range: 2.5-3.5 3 Therapeutic target for the treatment of diabetes mellitus patients is <7% HBA1C, and in selective patients <6.0%. Please refer to [place] [employer] diabetic care guidelines for further information. 4 Standard intensity warfarin therapeutic range: 2.0-3.0 High intensity warfarin therapeutic range: 2.5-3.5 5 SEE RESULT BELOW Name: JON VILLANUEVA : [address]: Kimmy Wallace MD Acct: [id number] Unit: [id number] AGE: 73 Location: [place] [address] Re07/25/18 SEX: M Status: ADM IN SPEC: [id number] ARYAN: 07/28/18 [facility] DR: Gareth Freeman MD REQ: [id number] RECD: 07/28/18 STATUS: COMP OTHR DR: Kimmy Lyle MD _ SOURCE: URINE SPDESC: ORDERED: Urine Culture Procedure Result Reported Site Urine Culture Final 07/30/18- 0838 ML No Growth (<1,000 CFU/mL) * ML - Main Lab . END OF REPORT DEPARTMENT OF PATHOLOGY, [address] [place] [address] Mahamed Bailon M.D. Director [facility] # [id number] 6 *Ascorbic acid is present which may interfere with detection of blood. 7 SEE RESULT BELOW Name: JON VILLANUEVA : [address]: Kimmy Wallace MD Acct: [id number] Unit: [id number] AGE: 73 Location: [place] [address] Re07/25/18 SEX: M Status: ADM IN SPEC: [id number] ARYAN: 07/25/18-1358 [facility] DR: Gareth Freeman MD REQ: [id number] RECD: 07/25/18676 STATUS: LOYD CESAR DR: Kimmy Lyle MD _ SOURCE: BLOOD,VENO SPDESC: ORDERED: Blood Cult Procedure Result Reported Site Aerobic Culture Bottle Final 07/30/18- 1412 ML No Growth Day 5 Anaerobic Culture Bottle Final 07/30/18- 1412 ML No Growth Day 5 * ML - Main Lab . END OF REPORT DEPARTMENT OF PATHOLOGY, [address] [place] [address] Mahamed Bailon M.D. Director [facility] # [id number] 8 Because ethnic data is not always readily [...] 15-29 5 Kidney failure <15 (or dialysis) 9 [facility] Severe Sepsis and Septic Shock Management Bundle Measure requires all lactic acids initially measuring >2.0 mmol/L be repeated. 10 Result TnIDx:0.75 Called to [id number] at: 15:05:28 by:[id number] Read back by: [id number] Troponin-I testing on Plasma Separator Tubes (PST) has a known false positive rate of 0.20-0.40%. All positive troponins reflex immediately to secondary confirmatory testing. Using the [employer] DxI 800 Access Immunoassay systems, the 99th percentile upper reference limit was demonstrated to be < 0.03 ng/mL. 11 Verbal to [id number] by [id number] at 1453 on 07/25/18. Results read back accurately 12 Standard intensity warfarin therapeutic range: 2.0-3.0 High intensity warfarin therapeutic range: 2.5-3.5 13 White count confirmed by estimate 14 Platelet count confirmed by estimate 15 SEE RESULTS BELOW [id number] AP PC TRANSFUSED 07/23/18 1523 16 Pancytopenia with rare circulating blasts noted. Additional studies as clinically warranted. Reviewed by Dr. Bailon 17 Verbal to [id number] by [id number] at 1352 on 07/23/18. Results read back accurately. 18 Because ethnic data is not always readily [...] 15-29 5 Kidney failure <15 (or dialysis) 19 Consistent with Previous Results Reported on 07/16/18 20 Consistent with Previous Results Reported on 07/16/18 21 Because ethnic data is not always [...] 5 Kidney failure <15 (or dialysis) 22 Verbal to [id number] by [id number] at 1431 on 07/16/18. Results read back accurately. 23 Pancytopenia noted. Rare blasts are seen. Clinical correlation and additional studies is warranted. Reviewed by Dr. Bailon 24 SEE RESULTS BELOW [id number] AP PC TRANSFUSED 07/17/18 1054 25 Severe thrombocytopenia and mildly macrocytic anemia compatible with treatment effect. Additional studies is warranted. Reviewed by Dr. Bailon 26 Consistent with previous results on 07/11/18. Verbal to [id number] by [id number] at 1432 on 07/13/18. Results read back accurately. 27 Consistent with Previous Results Reported on 07/11/18 28 Consistent with Previous Results Reported on 07/09/18 Platelet count confirmed by estimate 29 Verbal to [id number] by [id number] at 1431 on 07/11/18. Results read back accurately. 30 Approximately 10% circulating blasts, compatible with previous. No Caden richard seen. Reviewed by Linda Jean Baptiste MD 31 SEE RESULTS BELOW [id number] AP PC TRANSFUSED 07/12/18 1342 32 Because ethnic data is not always [...] 5 Kidney failure <15 (or dialysis) 33 Verbal to [id number] by [id number] at 1612 on 07/09/18. Results read back accurately. 34 Consistent with Previous Results Reported on 07/05/18. 35 Consistent with Previous Results Reported on 07/05/18. 36 Platelet count confirmed by estimate 37 Because ethnic data is not always readily [...] 15-29 5 Kidney failure <15 (or dialysis) 38 Macrocytic anemia with thrombocytopenia and left shifted myeloid elements with circulating blasts up to 10% noted. Findings are consistent with prior results. Additional studies as clinically warranted. Reviewed by Dr. Bailon 39 06/28/18 40 Compatible with previous. Reviewed by Linda Jean Baptiste MD 41 06/28/[address] Wallace by [id number] at 1149 on 06/28/18. Results read back accurately. 43 Platelet count confirmed by estimate 44 Normal Range 180 to 914 Indeterminate Range 145 to 180 Deficient Range <145 45 Because ethnic data is not always readily [...] 15-29 5 Kidney failure <15 (or dialysis) 46 Platelet count confirmed by smear estimate. 47 Verbal to [id number] by [id number] at 2021 on 06/27/18. Results read back accurately. 48 Compatible with previous. Reviewed by Linda Jean Baptiste MD 49 see interpretation 50 Peripheral blood, PML/REGINO mRNA analysis: Negative. No PML/REGINO mRNA transcripts detected. Signing Pathologist: Jonathan Palomino M.D. ADDITIONAL INFORMATION Method Summary - PML/REGINO: PML/REGINO mRNA level was evaluated using quantitative, reverse grommet worker PCR. The analytical sensitivity of this assay has been determined at 0.1% (see [facility] Interpretive Handbook for method details). This [...] developed and its performance characteristics determined by [facility] in a manner consistent with CLIA requirements. This test has not been cleared or approved by the U.S. Food and Drug Administration. Test Performed by: [address] [address] Procedures Date Code Description Status 09/03/2018 25502 Interrogation Device Eval Remote Up To 30 Days Completed Analysis,Rev,RP 09/03/2018 94721 Interrogation Device Eval Remote Up To 30 Days Completed Analysis,Rev,RP 09/03/2018 51982 Icd Eval Sing,Dual,Multi Lead Remote Recpt Transm Tech Rev Completed Tech S 09/03/2018 65346 Icd Eval Sing,Dual,Multi Lead Remote Recpt Transm Tech Rev Completed Tech S 09/03/2018 87009 Icd Check Remote Up To 90 Days Single,Dual,Multiple Lead Completed 09/03/2018 73980 Icd Check Remote Up To 90 Days Single,Dual,Multiple Lead Completed 08/07/2018 27936 EKG, Interpretation Only Completed 07/26/2018 51515 ECHO Transthorasic Realtime 2D W Doppler & Color Flow Hosp Completed 07/26/2018 60951 EKG, Interpretation Only Completed 06/20/2018 95515 Interrogation Implant Cardiovasc Monitor System Incl Completed Analysis Int 06/20/2018 99567 Interrogation Implant Cardiovasc Monitor System Incl Completed Analysis Int 06/20/2018 48664 Icd Eval With Iterative Adjustmt Multiple Lead System Completed 06/20/2018 93529 Icd Eval With Iterative Adjustmt Multiple Lead System Completed Medical Devices Description No Information Available Encounters Type Date Location Provider Dx Diagnosis Office Visit 11/07/2018 Gela Morton MD 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 [facility] [place] (current) use of insulin E11.65 Type 2 diabetes mellitus with hyperglycemia 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, in remission Office Visit 11/06/2018 Yee Montero Z95.810 Presence of 1:15p [facility] automatic Paediatric Surgeon [place] [facility] [place]able) cardiac defibrillator I42.9 Cardiomyopathy, unspecified Z95.2 Presence of prosthetic heart valve I48.1 Persistent atrial fibrillation Office Visit 09/07/2018 Gela Morton, E11.65 Type 2 diabetes 12:20p Endocrinology of mellitus with [facility] hyperglycemia 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 tachycardia R06.02 Shortness of breath R50.9 Fever, unspecified Office Visit 07/29/2018 10:58a [facility] Sherley Del Rio, I50.9 Heart failure, Assoc,pc N.P. 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, not having achieved remission I48.91 Unspecified atrial fibrillation E11.9 Type 2 diabetes mellitus without complications R79.89 Other specified abnormal findings of blood chemistry G47.33 Obstructive sleep apnea (adult) (pediatric) N18.9 Chronic kidney disease, unspecified Office Visit 07/26/2018 2:35p [facility] Gage Hooper R07.9 Chest pain , Of [facility] Hartmann, DO unspecified FACC R79.89 Other specified abnormal findings of blood chemistry Office Visit 07/10/2018 [facility] Yfn Morton, E11.9 Type 2 diabetes 1:30p Endocrinology of mellitus without [facility] complications 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 cardiac defibrillator 11/06/2018 I42.9 Cardiomyopathy, unspecified Italo Huff M.D. 11/06/2018 Z95.2 Presence of prosthetic heart valve Italo Huff M.D. 11/06/2018 I48.1 Persistent atrial fibrillation Italo Huff M.D. 09/07/2018 E11.65 Type 2 diabetes mellitus with Yfn Morton MD hyperglycemia 09/07/2018 Z79.4 half-way (current) use of insulin Yfn Morton MD [...] M.D. 07/26/2018 R07.9 Chest pain, unspecified Gage Hartmann DO [facility] 07/26/2018 R79.89 Other specified abnormal findings of Gage Hartmann DO [facility] blood chemistry 07/10/2018 E11.9 Type 2 diabetes [...] Pacer Schedule cardiac defibrillator Plan of Treatment 11/07/2018 - Yfn Morton MDZ79.4 ferry terminal supervisor (current) use of phqnkbmR33.65 Type 2 diabetes mellitus with hyperglycemiaInstructions:1. Check [...]
[2018-12-31] MEDS: Atorvastatin* 10 MG TAB PO SCH (21:00)
[2018-12-31] MEDS: Senna TAB 8.6 mg* TAB PO SCH (21:00)
[2018-12-31] MEDS: Carvedilol TAB* 3.125 MG PO SCH (21:00)
[2019-01-01] MEDS ORDERED: Influenza VAC *QUAD* 2019-20* 0.5 ML SYRINGE IM ONE (09:00)
[2019-01-01 10:04] LABS: ABS Basophils 0.1 10^3/ul (0-0.2); ABS Lymphocytes 0.3 10^3/ul (1.0-4.8); ABS Monocytes 0.1 10^3/ul (0-0.8); Hematocrit 39 % (42-52); Hemoglobin 12.5 g/dL (14.0-18.0); Lymphocyte % 5.9 %; Mean Corpuscular HGB Conc 32 g/dL (31-36); Mean Corpuscular Hemoglobin 35 pg (27-31); Mean Corpuscular Volume 107 fL (80-94); Mean Platelet Volume 8.3 fL (7.4-10.4); Nucleated Red Blood Cells % 0.3; Platelet Count 149 10^3/uL (150-450); Red Blood Count 3.63 10^6 /uL (4.18-5.48); Red Cell Distribution Width 23 % (10-15); White Blood Count 4.4 10^3/uL (3.5-10.8)
[2019-01-01 10:05] LABS: INR 2.75 (0.82-1.09)
[2019-01-01 10:15] LABS: BUN/Creatinine Ratio 19.4 (8-20); EGFR Non-African American 75.2 (>60); Magnesium 1.9 mg/dL (1.9-2.7); Potassium 4.1 mmol/L (3.5-5.0)
[2019-01-01 10:16] LABS: Albumin 3.3 g/dL (3.2-5.2); Albumin/Globulin Ratio 1.1 (1-3); BUN/Creatinine Ratio 18.8 (8-20); Calcium 8.9 mg/dL (8.6-10.3); EGFR African American 87.9 (>60); EGFR Non-African American 72.6 (>60); Globulin 2.9 g/dL (2-4); Magnesium 1.9 mg/dL (1.9-2.7); Total Bilirubin 0.7 mg/dL (0.2-1.0); Total Protein 6.2 g/dL (6.4-8.9)
[2019-01-01] MEDS: Furosemide IV* 10 MG/ML VIAL (40 MG) IV SCH ×2 (10:22→19:59)
[2019-01-01] MEDS: Senna TAB 8.6 mg* TAB PO SCH ×2 (10:23→19:59)
[2019-01-01] MEDS: Sertraline* 25 MG TAB PO SCH (10:23)
[2019-01-01] MEDS: Carvedilol TAB* 3.125 MG PO SCH ×2 (10:23→19:59)
[2019-01-01] MEDS: Amiodarone TAB* 200 MG PO SCH (10:24)
[2019-01-01] MEDS ORDERED: Magnesium Sulfate 1 GM IV* 1 GM/100 ML BAG IV ONE (10:50)
--- NOTE | 2019-01-01 11:27 | CONS ---
CONSULTATION REPORT: DATE OF CONSULT: 01/01/19 ATTENDING PHYSICIAN: Dr. Italo Huff, Cardiology * (DICTATED BY JAY BAUER NP) REASON FOR CONSULTATION: Persistent AFib with decompensated nonischemic cardiomyopathy. PRIMARY DISTRIBUTION CENTER MANAGER: Dr. Italo Huff. HISTORY OF PRESENT ILLNESS: This is a 73-year-old male patient who follows Dr. Italo Huff of our practice due to notable history of nonischemic cardiomyopathy, LVEF 35% to 40% based on 12/04/18 echocardiogram, persistent AFib since July admission for neutropenic fever, on amiodarone and Coumadin therapy, subtherapeutic INR 12/03/18, AML, obstructive sleep apnea, TIA . The patient states that he chronically suffers from dyspnea on exertion, fatigue , and decreased exercise ability. He states that symptoms escalated approximately 3 to 4 days ago in regards to increased weakness, lethargy, and increased shortness of breath. He states yesterday was "really bad." Apparently, it took him nearly 3 hours to get him to his office visit with [facility]. He states that he has been noticing increased bilateral lower extremity edema and has been very fatigued with increased breathing ability. He denies fever, chills, nausea, vomiting, diarrhea. Denies palpitations, sensation of heart racing, or chest pain. Does report 7-pound weight gain with increased edema. He apparently is compliant with CPAP therapy and uses 6 L of oxygen during daytime hours. He is compliant with medications and states that he was taken off Lasix several months ago; he is not able to recall as to why. He denies any recent illness or infection. Last echocardiogram, according to our medical records, was 12/04/18. Per report , LVEF 35% to 40%, moderate diffuse hypokinesis, peak aortic valve gradient 26, mean aortic valve gradient 14, [id number] mitral insufficiency. PAST MEDICAL HISTORY: 1. Nonischemic cardiomyopathy. 2. Heart failure with moderately reduced ejection fraction. 3. Persistent AFib. 4. Lung cancer. 5. Hyperlipidemia. 6. Diabetes. 7. Obstructive sleep apnea. 8. TIA 01/02/19. 9. AML. 10. Neutropenic fever, July 2018. PAST SURGICAL HISTORY: Includes: 1. Biventricular ICD implanted in 2010 with gen change 11/20/17. 2. Bioprosthetic aortic valve replacement. 3. Tonsillectomy. 4. Vasectomy. HOME MEDICATIONS: According to the admission med record, the patient takes: 1. Amiodarone 100 mg p.o. daily. 2. Glipizide 5 mg a day. 3. Coreg 3.125 mg p.o. b.i.d. 4. Coumadin as directed. 5. Lovastatin 40 mg p.o. q.h.s. 6. Daily multivitamin. 7. Zoloft 25 mg a day. 8. Venetoclax 200 mg daily. 9. Lantus 35 units subcu every morning as needed. 10. Melatonin 1 to 2 mg p.o. q.h.s. p.r.n. FAMILY HISTORY: Not remarkable. SOCIAL HISTORY: The patient is . Denies ever using tobacco products. Denies drinking, with very sedentary lifestyle. He is fairly immobile. REVIEW OF SYSTEMS: All systems have been reviewed, otherwise negative except as mentioned in the HPI. PHYSICAL EXAMINATION: Temperature 97.8, pulse 65, respirations 20, oxygenation 97% on 6 L nasal cannula, blood pressure 129/57. General: The patient was sleeping upon entering room with head out of elevated to 40 degrees. He appears in no apparent distress, on CPAP therapy. He is alert and oriented x3, cooperative with examination. After CPAP was removed and the patient placed on nasal cannula oxygen, he was short of breath with conversation, otherwise no other apparent distress. HEENT: Head is atraumatic, normocephalic. Oral mucosa is moist. Tongue is in midline. Neck: Supple. Trachea midline. Positive JVD. No carotid bruits. Cardiac: Normal S1, S2. Irregular rate and rhythm. No murmur, rub, or gallop noted. Lungs: Auscultated posteriorly. Diffuse inspiratory crackles noted in right middle and lower lobe. Slight inspiratory crackles noted in left lower lobe. Respirations are labored at a rate of 22. No retractions noted. /GI: Abdomen is obese, unable to palpate for hepatomegaly. Normoactive bowel sounds x4, nontender to palpation. Extremities: 2+ bilateral pretibial edema noted. Peripheral Vascular: 3+ brachial pulse palpated bilaterally and symmetrically. 2+ dorsalis pedis pulse palpated bilaterally and symmetrically. Skin: Intact. There is redness noted over the pretibial surface, left greater than right. No ecchymosis, jaundice, or lesions noted. DIAGNOSTIC STUDIES/LAB DATA: Blood work obtained 12/31/18 at outpatient lab: Sodium 141, chloride 102, BUN 21, creatinine 0.96, potassium 4.5, troponin 0.02 , BNP 1024. White count 5.2, hemoglobin 12.4, platelets 174. INR 4.82. Chest x-ray 12/31/18: Per report, findings consistent with congestive heart failure. It appears that he has a left greater than right pleural effusion. ECG: None. Telemetry reviewed: The patient has been AFib, rate 70s to 80s. ASSESSMENT AND PLAN: 1. Decompensated nonischemic cardiomyopathy. LVEF 35% to 40% based on echocardiogram. The patient has been in persistent atrial fibrillation, which is likely contributing to decompensated congestive heart failure. He would benefit from uatsdin of normal sinus rhythm; however, we have been unable to do this due to subtherapeutic INR on 12/04/18 with symptomatology consistent with transient ischemic attack at that time. He will need a BA prior to cardioversion; however, Anesthesia will need to be involved. He is currently decompensated, thus we will initiate IV diuresis, make the patient n.p.o. and plan for potential BA cardioversion 01/02/19. We will continue Coreg therapy, recommend daily weights, strict intake/output, and low-sodium diet. 2. Persistent atrial fibrillation; the patient has been in persistent atrial fibrillation based on his device check since he was admitted in July for neutropenic fever. Unfortunately, we have been unsuccessful in regards to optimizing the patient for BA cardioversion due to subtherapeutic INRs with recent transient ischemic attack 12/03/18. His INR yesterday was 4.8, goal INR is 2 to 3. We will continue Coreg therapy, rates are controlled. Plan is BA cardioversion once compensated due to above #1. He may benefit from DOAC given difficulty controlling INR on Coumadin 3. History of acute myeloid leukemia, defer to primary team. 4. Transient ischemic attack 12/04/18 occurred in the setting of a subtherapeutic INR. INR yesterday was 4.8. 5. Disposition, pending course.Patient full code. Will follow closely. Dr. Italo Huff has personally seen and examined the patient and agrees with the above assessment and plan. We will check the daily BMPs due to aggressive IV diuresis and follow closely. JAY BAUER, TRANSPORT ENGINEER [id number]/[facility] #: [id number] JOVANI
--- NOTE | 2019-01-01 12:30 | PN ---
Progress Note - Progress Note Date of Service: 01/01/19 SOAP: Subjective: [Feeling much better this morning. Appropriately diuressing with lasix. ] Objective: [ Vital Signs: Temp Pulse Resp BP Pulse Ox 97.3 F 69 20 127/65 95 01/01/19 07:53 01/01/19 07:53 01/01/19 08:00 01/01/19 07:53 01/01/19 07:53 Amiodarone HCl (Cordarone Tab*) 100 mg PO QAM [facility] Last Admin: 01/01/19 10:24 Dose: 100 mg Atorvastatin Calcium (Lipitor*) 10 mg PO BEDTIME [facility]; Protocol Last Admin: 12/31/18 21:00 Dose: 10 mg Carvedilol (Coreg Tab*) 3.125 mg PO BID [facility] Last Admin: 01/01/19 10:23 Dose: 3.125 mg Furosemide (Lasix Iv*) 40 mg IV BID [facility] Last Admin: 01/01/19 10:22 Dose: 40 mg Insulin Glargine (Lantus(*)) 35 units SUBCUT QAM PRN PRN Reason: GLUCOSE GREATER THAN > 350 Polyethylene Glycol/Electrolytes (Miralax*) 17 gm PO DAILY PRN PRN Reason: CONSTIPATION Senna (Senokot 8.6 Mg Tab*) 2 tab PO BID [facility] Last Admin: 01/01/19 10:23 Dose: 2 tab Sertraline HCl (Zoloft*) 25 mg PO DAILY [facility] Last Admin: 01/01/19 10:23 Dose: 25 mg Warfarin Sodium (Coumadin Tab(*)) 1 mg PO DAILY@1700 [facility]; Protocol Laboratory Results - last 24 hr 12/31/18 01/01/19 01/01/19 20:40 07:30 09:43 WBC 4.4 RBC 3.63 L Hgb 12.5 L Hct 39 L MCV 107 H MCH 35 H MCHC 32 RDW 23 H Plt Count 149 L MPV 8.3 Neut % (Auto) 89.6 Lymph % (Auto) 5.9 [place] % (Auto) 3.2 Eos % (Auto) 0.0 Baso % (Auto) 1.3 Absolute Neuts (auto) 4.0 Absolute Lymphs (auto) 0.3 L Absolute Monos (auto) 0.1 Absolute Eos (auto) 0.0 Absolute Basos (auto) 0.1 Absolute Nucleated RBC 0.0 Nucleated RBC % 0.3 INR (Anticoag Therapy) Sodium Potassium Chloride Carbon Dioxide Anion Gap BUN Creatinine Est GFR ( Amer) Est GFR (Non-Af Amer) BUN/Creatinine Ratio Glucose POC Glucose (mg/dL) 224 H 135 H Calcium Magnesium Total Bilirubin AST ALT Alkaline Phosphatase Total Protein Albumin Globulin Albumin/Globulin Ratio 01/01/19 01/01/19 01/01/19 09:47 09:47 09:47 WBC RBC Hgb Hct MCV MCH MCHC RDW Plt Count MPV Neut % (Auto) Lymph % (Auto) [place] % (Auto) Eos % (Auto) Baso % (Auto) Absolute Neuts (auto) Absolute Lymphs (auto) Absolute Monos (auto) Absolute Eos (auto) Absolute Basos (auto) Absolute Nucleated RBC Nucleated RBC % INR (Anticoag Therapy) 2.75 H Sodium 144 144 Potassium 4.0 4.1 Chloride 101 101 Carbon Dioxide 39 H 39 H Anion Gap 4 4 BUN 19 19 Creatinine 1.01 0.98 Est GFR ( Amer) 87.9 91.0 Est GFR (Non-Af Amer) 72.6 75.2 BUN/Creatinine Ratio 18.8 19.4 Glucose 117 H 116 H POC Glucose (mg/dL) Calcium 8.9 9.0 Magnesium 1.9 1.9 Total Bilirubin 0.70 AST 15 ALT 16 Alkaline Phosphatase 64 Total Protein 6.2 L Albumin 3.3 Globulin 2.9 Albumin/Globulin Ratio 1.1 01/01/19 11:56 WBC RBC Hgb Hct MCV MCH MCHC RDW Plt Count MPV Neut % (Auto) Lymph % (Auto) [place] % (Auto) Eos % (Auto) Baso % (Auto) Absolute Neuts (auto) Absolute Lymphs (auto) Absolute Monos (auto) Absolute Eos (auto) Absolute Basos (auto) Absolute Nucleated RBC Nucleated RBC % INR (Anticoag Therapy) Sodium Potassium Chloride Carbon Dioxide Anion Gap BUN Creatinine Est GFR ( Amer) Est GFR (Non-Af Amer) BUN/Creatinine Ratio Glucose POC Glucose (mg/dL) 148 H Calcium Magnesium Total Bilirubin AST ALT Alkaline Phosphatase Total Protein Albumin Globulin Albumin/Globulin Ratio Exam: Gen: chronically ill appearing, but relatively well in NAD HEENT: MMM CV: irregular Resp: decreased breath sounds at bases Abd: soft, nonTTP Ext: 1-2+ LE edema] Assessment: [This is a 73 yo male with AML, now PHILIP on repeat BMBx after induction with venetoclax/AZA. He has symptomatic afib and admitted with CHF exacerbation. ] Plan: [1. CHF exacerbation - improved with diuresis - cont Lasix per cardiology] 2. Afib - plan for BA with cardioversion tomorrow - maintain anticoagulation with INR goal 2-3 - supratherapeutic at admission and received 5mg of vitamin K - resume coumadin at 1mg daily 3. h/o TIA with subtherapeutic INR 4. AML - PHILIP - holding venetoclax/AZA at this time, plan to resume at dc 5. IDDM - cont home dose of Lantus (35U daily) Dispo: cont inpatient care, diuresis and cardioversion per cardiology team
[2019-01-01] MEDS ORDERED: Warfarin TAB(*) 1 MG PO SCH (17:00)
[2019-01-01] MEDS: Atorvastatin* 10 MG TAB PO SCH (19:59)
[2019-01-02 05:42] LABS: INR 1.9 (0.82-1.09)
[2019-01-02] MEDS: Sertraline* 25 MG TAB PO SCH (08:34)
[2019-01-02] MEDS: Carvedilol TAB* 3.125 MG PO SCH ×2 (08:35→19:42)
[2019-01-02] MEDS: Amiodarone TAB* 200 MG PO SCH (08:35)
[2019-01-02] MEDS: Senna TAB 8.6 mg* TAB PO SCH ×2 (08:35→19:43)
--- NOTE | 2019-01-02 08:43 | PN ---
<Raiza Mckenzie - Last Filed: 01/02/19 08:38> Subjective Date of Service: 01/02/19 - decompensated chf, AF Interval History: No events last night, patient states breathing has grossly improved. No chest pain, no palpitations, no dizziness. Reports increased urine output Medications Active Medications: Amiodarone HCl (Cordarone Tab*) 100 mg PO QAM [facility] Last Admin: 01/02/19 08:35 Dose: 100 mg Atorvastatin Calcium (Lipitor*) 10 mg PO BEDTIME [facility]; Protocol Last Admin: 01/01/19 19:59 Dose: 10 mg Carvedilol (Coreg Tab*) 3.125 mg PO BID [facility] Last Admin: 01/02/19 08:35 Dose: 3.125 mg Furosemide (Lasix Iv*) 40 mg IV BID [facility] Last Admin: 01/01/19 19:59 Dose: 40 mg Insulin Glargine (Lantus(*)) 35 units SUBCUT QAM PRN PRN Reason: GLUCOSE GREATER THAN > 350 Polyethylene Glycol/Electrolytes (Miralax*) 17 gm PO DAILY PRN PRN Reason: CONSTIPATION Senna (Senokot 8.6 Mg Tab*) 2 tab PO BID [facility] Last Admin: 01/02/19 08:35 Dose: 2 tab Sertraline HCl (Zoloft*) 25 mg PO DAILY [facility] Last Admin: 01/02/19 08:34 Dose: 25 mg Warfarin Sodium (Coumadin Tab(*)) 1 mg PO Q48H [facility]; Protocol Warfarin Sodium (Coumadin Tab(*)) 2 mg PO Q48H [facility]; Protocol Objective Vital Signs: Temp Pulse Resp BP Pulse Ox 97.5 F 74 19 109/47 95 01/02/19 03:15 01/02/19 03:15 01/02/19 03:15 01/02/19 03:15 01/02/19 03:15 Oxygen Devices in Use Now: Nasal Cannula Appearance: lying in bed HOB elevated at 30 degrees. NAD. Appears to be tolerating HOB position. A+Ox3 Ears/Nose/Mouth/Throat: NL Teeth, Lips, Gums, Clear Oropharnyx, Mucous Membranes Moist Neck: NL Appearance and Movements; NL JVP, Trachea Midline Respiratory: - - Diminished but clear throughout . Respirations are non labored. Cardiovascular: - - Normal S1, S2 Irregular rate and rhythm. + aortic murmur, no gallop or rub Extremities: - - trace -1+ pretibial edema bilaterally. Neurological: Alert and Oriented x 3 Lines/Tubes/Other Access: Clean, Dry and Intact Peripheral IV Laboratory Results: 01/01/19 09:43 01/01/19 09:47 INR (Anticoag Therapy) 1.90 (0.82-1.09) H 01/02/19 05:18 Total Bilirubin 0.70 mg/dL (0.2-1.0) 01/01/19 09:47 AST 15 U/L (13-39) 01/01/19 09:47 ALT 16 U/L (7-52) 01/01/19 09:47 Alkaline Phosphatase 64 U/L (34-104) 01/01/19 09:47 Total Protein 6.2 g/dL (6.4-8.9) L 01/01/19 09:47 Albumin 3.3 g/dL (3.2-5.2) 01/01/19 09:47 Globulin 2.9 g/dL (2-4) 01/01/19 09:47 Albumin/Globulin Ratio 1.1 (1-3) 01/01/19 09:47 Laboratory Results - last 24 hr 01/01/19 01/01/19 01/01/19 09:43 09:47 09:47 WBC 4.4 RBC 3.63 L Hgb 12.5 L Hct 39 L MCV 107 H MCH 35 H MCHC 32 RDW 23 H Plt Count 149 L MPV 8.3 Neut % (Auto) 89.6 Lymph % (Auto) 5.9 [place] % (Auto) 3.2 Eos % (Auto) 0.0 Baso % (Auto) 1.3 Absolute Neuts (auto) 4.0 Absolute Lymphs (auto) 0.3 L Absolute Monos (auto) 0.1 Absolute Eos (auto) 0.0 Absolute Basos (auto) 0.1 Absolute Nucleated RBC 0.0 Nucleated RBC % 0.3 INR (Anticoag Therapy) 2.75 H Sodium 144 Potassium 4.0 Chloride 101 Carbon Dioxide 39 H Anion Gap 4 BUN 19 Creatinine 1.01 Est GFR ( Amer) 87.9 Est GFR (Non-Af Amer) 72.6 BUN/Creatinine Ratio 18.8 Glucose 117 H POC Glucose (mg/dL) Calcium 8.9 Magnesium 1.9 Total Bilirubin 0.70 AST 15 ALT 16 Alkaline Phosphatase 64 Total Protein 6.2 L Albumin 3.3 Globulin 2.9 Albumin/Globulin Ratio 1.1 01/01/19 01/01/19 01/01/19 09:47 11:56 16:16 WBC RBC Hgb Hct MCV MCH MCHC RDW Plt Count MPV Neut % (Auto) Lymph % (Auto) [place] % (Auto) Eos % (Auto) Baso % (Auto) Absolute Neuts (auto) Absolute Lymphs (auto) Absolute Monos (auto) Absolute Eos (auto) Absolute Basos (auto) Absolute Nucleated RBC Nucleated RBC % INR (Anticoag Therapy) Sodium 144 Potassium 4.1 Chloride 101 Carbon Dioxide 39 H Anion Gap 4 BUN 19 Creatinine 0.98 Est GFR ( Amer) 91.0 Est GFR (Non-Af Amer) 75.2 BUN/Creatinine Ratio 19.4 Glucose 116 H POC Glucose (mg/dL) 148 H 236 H Calcium 9.0 Magnesium 1.9 Total Bilirubin AST ALT Alkaline Phosphatase Total Protein Albumin Globulin Albumin/Globulin Ratio 01/01/19 01/02/19 01/02/19 21:30 05:18 07:56 WBC RBC Hgb Hct MCV MCH MCHC RDW Plt Count MPV Neut % (Auto) Lymph % (Auto) [place] % (Auto) Eos % (Auto) Baso % (Auto) Absolute Neuts (auto) Absolute Lymphs (auto) Absolute Monos (auto) Absolute Eos (auto) Absolute Basos (auto) Absolute Nucleated RBC Nucleated RBC % INR (Anticoag Therapy) 1.90 H Sodium Potassium Chloride Carbon Dioxide Anion Gap BUN Creatinine Est GFR ( Amer) Est GFR (Non-Af Amer) BUN/Creatinine Ratio Glucose POC Glucose (mg/dL) 158 H 134 H Calcium Magnesium Total Bilirubin AST ALT Alkaline Phosphatase Total Protein Albumin Globulin Albumin/Globulin Ratio Diagnostic Imaging: Patient Name: JON VILLANUEVA Medical Record#: [id number] Ordering Physician: Roseline Neri NP Acct.#: [id number] : 1945 Age: 73 Sex: M Location: [address] [place] [address]/TELEMETRY Exam Date: 12/31/181530 ADM Status: ADM IN Order Information: CHEST AP OR PORT Accession Number: [id number] CPT: 94345 INDICATION: Shortness of breath, congestive heart failure. COMPARISON: Comparison is made with prior study from December 03, 2018. TECHNIQUE: A portable view of the chest was obtained. FINDINGS: The patient is status post sternotomy. There is a multilead transvenous pacemaker defibrillator present. The heart is moderately enlarged and unchanged. There is mild prominence of the interstitial markings and small to moderate size bilateral pleural effusions which appear similar to the prior study. IMPRESSION: FINDINGS MOST CONSISTENT WITH CONGESTIVE HEART FAILURE, UNCHANGED. <Electronically signed by Vijay Alcantara MD in [place]> 01/01/19718 Dictated By: Vijay Alcantara MD Dictated Date/Time: 01/01/19715 Transcribed Date/Time: 01/01/19715 Copy to: CC:Roseline Neri NP; Kimmy Mccracken MD; Italo Huff MD Imaging - [facility] [address] [place] [address] ph [phone]) ph ([phone]) ph ([phone]) This report is only to be considered final once signed by the Provider(s) as displayed in the "<Electronically Signed by >" field (s). Absence of a signature indicates the report is in a draft status and still needs to be finalized. In the event this document was created by someone other than the signing Provider, the individual initiating the document will be listed in the "Entered by:" or "Dictated by:" andres. 1 of 1 EKG Data: Telemetry; AFib rate 70-80's. Occasional PVCs. Assessment/Plan #1 Decompensated SHF; LVEF 35-40$ 12/04/2018. h/o NICM. Recieved IV Lasix 40mg BID yesterday. Patient appears to have been diuresed appropriately. He was able to lay in a supine position with HOB elevated at 25-30 degrees at best and tolerate. While doing this he states at home he is usually unable to do this due to increased SOB. This mornings chemistry is pending will replace K+ and Mag if needed. He is on Coreg therapy. Plan is BA/CV today with anesthesia given AF provokes CHF due to loss of atrial kick. Will follow closely. #2 Persistent AF; Rates are controlled on coreg and amiodarone therapy. Chads Vasc 6 On coumadin with INR goal 2-3. His INR upon presentation 12/31/2018 was supratheurapeutic (4.82) he was given 5mg Vit K on 12/31/2018. INR yesterday was 2.75 Coumadin was re started at 1mg. His INR has been difficult to control. He actually had a TIA 12/04/2018 in the setting of subtherapeutic INR. I spoke with his outpatient pharmacy who states Eliquis 5mg PO BID (90) day supply would cost him 20$. I think it is reasonable to transition patient to Eliquis but will speak with Hematology to get their opinion given patient had a h/o thrombocytopenia. Plan is BA/CV today. #3 h/o AML; Hematology following. #4 h/o ALEXIS; Compliant with CPAP #5 h/o TIA 12/04/2018 while on Coumadin with subtherapeutic INR. #6 Disposition pending course, Patient full code. D/W Dr. Agosto who agrees with above assessment and plan. Consent for BA/CV to be obtain by Dr. Agosto. Patient is aware of risks vs. benfits that include but are not limited to bradycardia, hypotension, CVA, , superficial skin burn. Attending: Chelo Agosto <Chelo Agosto - Last Filed: 01/02/19 09:43> Medications Active Medications: Amiodarone HCl (Cordarone Tab*) 100 mg PO QAM [facility] Last Admin: 01/02/19 08:35 Dose: 100 mg Atorvastatin Calcium (Lipitor*) 10 mg PO BEDTIME [facility]; Protocol Last Admin: 01/01/19 19:59 Dose: 10 mg Carvedilol (Coreg Tab*) 3.125 mg PO BID [facility] Last Admin: 01/02/19 08:35 Dose: 3.125 mg Furosemide (Lasix Iv*) 40 mg IV BID [facility] Last Admin: 01/01/19 19:59 Dose: 40 mg Lactated Ringer's (Lactated Ringers 1000 Ml Bag*) 1,000 mls @ 15 mls/hr IV PER RATE [facility] Insulin Glargine (Lantus(*)) 35 units SUBCUT QAM PRN PRN Reason: GLUCOSE GREATER THAN > 350 Lidocaine/Sodium Bicarbonate (Buffered Lidocaine 1% Syrin*) 0.2 ml INTRADERM ONCE ONE Stop: 01/02/19 09:11 Polyethylene Glycol/Electrolytes (Miralax*) 17 gm PO DAILY PRN PRN Reason: CONSTIPATION Senna (Senokot 8.6 Mg Tab*) 2 tab PO BID [facility] Last Admin: 01/02/19 08:35 Dose: 2 tab Sertraline HCl (Zoloft*) 25 mg PO DAILY [facility] Last Admin: 01/02/19 08:34 Dose: 25 mg Warfarin Sodium (Coumadin Tab(*)) 1 mg PO Q48H [facility]; Protocol Warfarin Sodium (Coumadin Tab(*)) 2 mg PO Q48H [facility]; Protocol Objective Vital Signs: Temp Pulse Resp BP Pulse Ox 97.5 F 74 19 109/47 95 01/02/19 03:15 01/02/19 03:15 01/02/19 03:15 01/02/19 03:15 01/02/19 03:15 Laboratory Results: 01/01/19 09:43 01/02/19 05:15 INR (Anticoag Therapy) 1.90 (0.82-1.09) H 01/02/19 05:18 Total Bilirubin 0.70 mg/dL (0.2-1.0) 01/01/19 09:47 AST 15 U/L (13-39) 01/01/19 09:47 ALT 16 U/L (7-52) 01/01/19 09:47 Alkaline Phosphatase 64 U/L (34-104) 01/01/19 09:47 Total Protein 6.2 g/dL (6.4-8.9) L 01/01/19 09:47 Albumin 3.3 g/dL (3.2-5.2) 01/01/19 09:47 Globulin 2.9 g/dL (2-4) 01/01/19 09:47 Albumin/Globulin Ratio 1.1 (1-3) 01/01/19 09:47 Assessment/Plan The patient was seen and examined by me personally. Exam: Tachypnic, diminished BS in bases bilaterally, upper lung andres good effort S1S1 irregular, no murmurs. ICD pocket old, well healed LE 3 + edema. Pt with PAF, persistent since July, CLL, now with CHF improving with diuresis. Thought is yarsani of NSR could improve/assist in CHF management. BA/CV today planned, explained to the patient issues surrounding INR/ anticoagulation pre and post CV and stroke risk. Some risk of INR dropping further before it rises, will discuss option of Lovenox bridge (or as above convert to NOAC today) with heme/onc. I agree with the above plan.
[2019-01-02 08:58] LABS: BUN/Creatinine Ratio 18.4 (8-20); Calcium 8.9 mg/dL (8.6-10.3); EGFR African American 85.9 (>60); Magnesium 1.9 mg/dL (1.9-2.7); Potassium 4.1 mmol/L (3.5-5.0)
[2019-01-02] MEDS ORDERED: Buffered Lidocaine 1% SYRIN* 1 ML/SYRINGE INTRADERM ONE (09:10)
[2019-01-02] MEDS ORDERED: Lidocaine 2% VISCOUS* 15 ML UDC ONE (09:46)
[2019-01-02] MEDS ORDERED: Lactated Ringers 1000 ML Bag* 1,000 ML IV SCH (10:00)
[2019-01-02] MEDS ORDERED: Famotidine IV* 10 MG/ML 2 ML (20 mg) ONE (10:07)
[2019-01-02] MEDS ORDERED: Lidocaine 4% TOPICAL* 50 ML TOP.SOLN ONE (10:11)
[2019-01-02] MEDS ORDERED: Midazolam* 1 MG/ML 2 ML VIAL (2 MG) ONE (10:14)
[2019-01-02] MEDS: Furosemide IV* 10 MG/ML VIAL (40 MG) IV SCH (10:32)
[2019-01-02] MEDS ORDERED: Propofol* 10 MG/ML 20 ML BTL ONE (10:55)
[2019-01-02] MEDS ORDERED: Lidocaine 2% PF * 5 ML VIAL ONE (10:55)
[2019-01-02] MEDS ORDERED: Phenylephrine 40 MCG/ML SYRINGE ONE (11:11)
[2019-01-02] MEDS ORDERED: VASOPRESSIN 20 UNITS/ML 1 ML VIAL ONE (11:19)
[2019-01-02] MEDS ORDERED: DiMENhydriNATE IV* 50 MG/ML VIAL IV PUSH PRN (11:58)
[2019-01-02] MEDS ORDERED: Naloxone* 0.4 MG/ML 1 ML VIAL IV PRN (11:58)
[2019-01-02] MEDS ORDERED: Ondansetron INJ* 2 MG/ML VIAL IV PRN (11:58)
--- NOTE | 2019-01-02 12:46 | TEE ---
*[facility]* [place] [address] Fax #: [phone] Transesophageal Echocardiogram Patient: Cyndi Luna : 1945 Study Date: 01/02/2019 Age: 73 Gender: M HR: 66 bpm Height: 73 in /185.4 cm BSA: 2.44 m^2 Weight: 268.4 lb /122 kg BMI: 35.5 kg/m^2 *Defense Travel Administrator: Sena Thornton [facility] *Referring Physician: * Italo Huff MD *Reading Physician: * Chelo Agosto MD Indications: Atrial Fibrillation. History: Atrial fibrillation. Congestive heart failure. Risk factors: Hypertension. Diabetes mellitus. Dyslipidemia. Labs, prior tests, procedures, and surgery: Aortic valve replacement with a bioprosthetic valve. Conclusions Summary: - Left ventricle: Systolic function is moderately to severely reduced. The estimated ejection fraction is 25-30%. - Right ventricle: Systolic function is mildly reduced. - Left atrium: The appendage is well visualized. Emptying velocity is normal. There is no evidence of a thrombus in the atrial cavity or appendage. There is moderate spontaneous echo contrast ("smoke") in the cavity and the appendage. - Mitral valve: There is trace to mild regurgitation. - Aortic valve: There is a bioprosthetic valve. Cusp separation is normal. - Tricuspid valve: There is moderate regurgitation. - Aortic arch: The aortic arch is mildly calcified. - Descending aorta: The descending aorta is mildly calcified. - The patient was in atrial fibrillation throughout the study. Study data: Diagnostic Transesophageal Echocardiogram Consent: The risks and benefits of the procedure, including alternatives were discussed with the patient and/or their health care front office representative and written informed consent was obtained. Procedure: Initial setup: The patient was brought to the laboratory in the fasting state.Intravenous access was obtained. Surface ECG leads, heart rate, heart rhythm, blood pressure measurements, pulse oximetric signals, and mainstream end-tidal CO2 tracings were monitored throughout the procedure. Sedation. General anesthesia was administered by anesthesiology staff. History and physical as well as labs were reviewed.. Topical anesthesia was obtained using benzocaine spray. A transesophageal probe was inserted by the attending purchasing contracting clerk. Transesophageal echocardiography was performed, image quality was good, and all standard views were attempted within the limitations of patient tolerance and safety. Multiple 2D, color flow Doppler and spectral Doppler images were obtained. The transesophageal probe was removed. Location: Operating room. Patient status: Inpatient. Patient room number: 438. Study status: Routine. Study completion: The patient tolerated the procedure well. There were no complications. Rhythm: Atrial fibrillation. Findings Left ventricle: The cavity size is normal. Systolic function is moderately to severely reduced. The estimated ejection fraction is 25-30%. Left ventricular diastolic function parameters are indeterminate. Right ventricle: The cavity size is normal. Systolic function is mildly reduced. Left atrium: The atrium is severely dilated. The appendage is well visualized. Emptying velocity is normal. There is no evidence of a thrombus in the atrial cavity or appendage. There is moderate spontaneous echo contrast ("smoke") in the cavity and the appendage. Right atrium: The atrium is moderately dilated. Pacer wire noted in right atrium. Atrial septum: A PFO is not demonstrated by color Doppler. Mitral valve: The leaflets are mildly thickened. There is no evidence of stenosis. There is trace to mild regurgitation. Aortic valve: There is a bioprosthetic valve. The leaflets are normal thickness. Cusp separation is normal. There is no evidence of stenosis. There is no significant regurgitation. Tricuspid valve: The leaflets are normal thickness. There is no evidence of stenosis. There is moderate regurgitation. Pulmonic valve: The leaflets are normal thickness. There is no evidence of stenosis. There is trace regurgitation. Aorta: Aortic root: The aortic root is mildly dilated. Ascending aorta: The ascending aorta is appears normal. Aortic arch: The aortic arch is mildly calcified. Descending aorta: The descending aorta is mildly calcified. Pericardium: There is no significant pericardial effusion. Pulmonary arteries: Not well visualized. Systemic veins: Inferior vena cava: The vessel is dilated. Superior vena cava: The vessel is appears normal. Pulmonary veins: The Pulmonary veins appear dilated. Measurements Aortic valve Value Ref Aortic root Value Ref Adela diam, ED 2.3 cm ---- Root diam 3.9 cm <4.5 Mitral valve Value Ref Ascending aorta Value Ref Peak E 1.08 m/sec ---- AAo AP diam, S 2.9 cm ---- Decel time 193 ms ---- Peak grad, D 4.7 mm Hg ---- Legend: (L) and (H) cyndi values outside specified reference range. Prepared and electronically signed by Chelo Agosto MD 01/02/2019 12:46
--- NOTE | 2019-01-02 13:41 | OP ---
Operative Report - Blank - Operative Report Date of Operation: 01/02/19 - CC SOB/CHF with Afib Note: BA and electrical CV performed under conscious sedation PRELIMINARY REPORT EF 25-30% Succesful CV to NSR. No complications.
--- NOTE | 2019-01-02 14:01 | CARD ---
CC: Dr. Huff; Dr. Womack CARDIOVERSION REPORT: DATE OF PROCEDURE: 01/02/19 PROCEDURE: Electrical cardioversion with BA guidance. The indications, risks, and benefits of the procedure were discussed in depth with the patient. He w as in congestive heart failure at the time of the procedure and anesthesia was used for sedation. Tr ansesophageal echo was performed, which was documented separately, but no thrombus was seen in the le ft atrial appendage. He had good to-and-fro flow, but he did have low formation. The decision was m sourav to proceed with electrical cardioversion. DESCRIPTION OF PROCEDURE: The patient remained under general endotracheal anesthesia. AP patches mo d been applied to the body. He received 150 joules synchronously delivered across the chest wall and went into normal sinus rhythm. There were no complications during this procedure and the patient was hemodynamically stable. CONCLUSION: Successful cardioversion from atrial fibrillation to normal sinus rhythm. No complicati ons. [id number]/[facility] #: [id number]
[2019-01-02] MEDS: Apixaban* 5 MG TAB PO SCH ×2 (14:22→19:42)
--- NOTE | 2019-01-02 15:56 | PN ---
Progress Note - Progress Note Date of Service: 01/02/19 SOAP: Subjective: []Successful BA this AM with Dr. Agosto. Per Dr. Surendra Jiang noted on visualization (representing plt. clumping). Returned to floor @ approx. 1400. Feeling OK. Still winded very easily but legs are "much better" with IV lasix. Has plan for chair lift to get in house and concerned about d/c prior to this being installed Fri. afternoon. Medications: Amiodarone HCl (Cordarone Tab*) 100 mg PO QAM [facility] Last Admin: 01/02/19 08:35 Dose: 100 mg Apixaban (Eliquis*) 5 mg PO BID [facility] Last Admin: 01/02/19 14:22 Dose: 5 mg Atorvastatin Calcium (Lipitor*) 10 mg PO BEDTIME [facility]; Protocol Last Admin: 01/01/19 19:59 Dose: 10 mg Carvedilol (Coreg Tab*) 3.125 mg PO BID [facility] Last Admin: 01/02/19 08:35 Dose: 3.125 mg Insulin Glargine (Lantus(*)) 35 units SUBCUT QAM PRN PRN Reason: GLUCOSE GREATER THAN > 350 Polyethylene Glycol/Electrolytes (Miralax*) 17 gm PO DAILY PRN PRN Reason: CONSTIPATION Senna (Senokot 8.6 Mg Tab*) 2 tab PO BID [facility] Last Admin: 01/02/19 08:35 Dose: 2 tab Sertraline HCl (Zoloft*) 25 mg PO DAILY [facility] Last Admin: 01/02/19 08:34 Dose: 25 mg Objective: [] Vital Signs Temp Pulse Resp BP Pulse Ox 97.6 F 77 22 125/65 94 01/02/19 15:50 01/02/19 15:50 01/02/19 15:50 01/02/19 15:50 01/02/19 15:50 A&Ox3, EOMI, neuro grossly non-focal HRR, Pace SR on tele LS dim. R>L +BS, soft and non-tender +PP=bilat., +1-2 pitting edema to knees Laboratory Results - last 24 hr 01/01/19 01/01/19 01/02/19 16:16 21:30 05:15 INR (Anticoag Therapy) Sodium 145 Potassium 4.1 Chloride 99 L Carbon Dioxide 40 H Anion Gap 6 BUN 19 Creatinine 1.03 Est GFR ( Amer) 85.9 Est GFR (Non-Af Amer) 71.0 BUN/Creatinine Ratio 18.4 Glucose 130 H POC Glucose (mg/dL) 236 H 158 H Calcium 8.9 Magnesium 1.9 01/02/19 01/02/19 01/02/19 05:18 07:56 14:27 INR (Anticoag Therapy) 1.90 H Sodium Potassium Chloride Carbon Dioxide Anion Gap BUN Creatinine Est GFR ( Amer) Est GFR (Non-Af Amer) BUN/Creatinine Ratio Glucose POC Glucose (mg/dL) 134 H 154 H Calcium Magnesium Assessment: []73 yo male with AML, PHILIP on repeat BMBx after induction with venetoclax/AZA, admitted with decompensated acute on chronic CHF secondary to A.Fib now s/p successful cardioversion via BA this AM. Plan: []1. CHF exacerbation: improved with diuresis - repeat BNP and CXR in AM to assess need for IV lasix in AM 2. Afib: s/p cardioversion now in paced SR - will required indefinite anti-coagulation, transition to Eliquis 5 mg PO BID today - h/o TIA with subtherapeutic INR 4. AML: PHILIP - holding venetoclax/AZA at this time, plan to resume after d/c 5. IDDM - cont home dose of Lantus (35U daily) PRN elevated BG (has not been requiring at home with AM fasting BG btw 90-100 following significant wt. loss recommend resuming home FS 3x/wk and if consistently >100 fasting will need to reassess needs) 6. Weakness: PT eval. in AM Dispo: cont. inpt. care post BA with goal of d/c in next 1-2 days
[2019-01-02] MEDS ORDERED: Warfarin TAB(*) 2 MG PO SCH (17:00)
[2019-01-02] MEDS: Atorvastatin* 10 MG TAB PO SCH (19:42)
[2019-01-03 05:20] LABS: Hematocrit 35 % (42-52); Hemoglobin 11.3 g/dL (14.0-18.0); Mean Corpuscular HGB Conc 32 g/dL (31-36); Mean Corpuscular Hemoglobin 34 pg (27-31); Mean Corpuscular Volume 105 fL (80-94); Mean Platelet Volume 7.9 fL (7.4-10.4); Platelet Count 147 10^3/uL (150-450); Red Blood Count 3.34 10^6 /uL (4.18-5.48); Red Cell Distribution Width 22 % (10-15); White Blood Count 3.9 10^3/uL (3.5-10.8)
[2019-01-03 05:26] LABS: INR 2.69 (0.82-1.09)
[2019-01-03 05:36] LABS: Albumin 3.1 g/dL (3.2-5.2); Albumin/Globulin Ratio 1.1 (1-3); BUN/Creatinine Ratio 22.7 (8-20); Calcium 8.6 mg/dL (8.6-10.3); EGFR African American 92.1 (>60); EGFR Non-African American 76.1 (>60); Globulin 2.8 g/dL (2-4); Total Bilirubin 0.7 mg/dL (0.2-1.0); Total Protein 5.9 g/dL (6.4-8.9)
[2019-01-03 06:03] LABS: ABS Neutrophils 3.4 10^3/ul (1.5-7.7); Lymphocyte % 6.8 %; Polychromasia 1+
[2019-01-03 06:04] LABS: ABS Lymphocytes 0.3 10^3/ul (1.0-4.8); ABS Monocytes 0.2 10^3/ul (0-0.8); Eosinophil % 0.1 %; Nucleated Red Blood Cells % 0.1
[2019-01-03] MEDS ORDERED: Furosemide IV* 10 MG/ML VIAL (40 MG) IV ONE ×2 (07:23→12:01)
[2019-01-03] MEDS: Apixaban* 5 MG TAB PO SCH ×2 (07:37→20:35)
--- NOTE | 2019-01-03 07:37 | PN ---
Progress Note - Progress Note Date of Service: 01/03/19 SOAP: Subjective: feels "much better" than 2 days ago. No BM since 12/29 (PRN miralax not administered since 12/31). breathing reportedly better (though visibly still labored) Objective: Vital Signs Temp Pulse Resp BP Pulse Ox 97.8 F 72 20 110/57 92 01/03/19 03:40 01/03/19 03:40 01/03/19 03:40 01/03/19 03:40 01/03/19 03:40 lying flat, tachypneic perr eomi op moist dec bs bases s1 s2 regular obese nt +bs 2+ LE edema, mild erythema bilateral shins A+O x 3 (initially thought it was Monday but easily re-directed) Laboratory Results - last 24 hr 01/02/19 01/02/19 01/02/19 05:15 07:56 14:27 WBC RBC Hgb Hct MCV MCH MCHC RDW Plt Count MPV Neut % (Auto) Lymph % (Auto) [place] % (Auto) Eos % (Auto) Baso % (Auto) Absolute Neuts (auto) Absolute Lymphs (auto) Absolute Monos (auto) Absolute Eos (auto) Absolute Basos (auto) Absolute Nucleated RBC Immature Gran % Neutrophils % Band Neutrophils % Lymphocytes % Reactive Lymphs % Monocytes % Basophils % Nucleated RBC % Normal RBC Morphology Polychromasia Anisocytosis Macrocytosis INR (Anticoag Therapy) Sodium 145 Potassium 4.1 Chloride 99 L Carbon Dioxide 40 H Anion Gap 6 BUN 19 Creatinine 1.03 Est GFR ( Amer) 85.9 Est GFR (Non-Af Amer) 71.0 BUN/Creatinine Ratio 18.4 Glucose 130 H POC Glucose (mg/dL) 134 H 154 H Calcium 8.9 Magnesium 1.9 Total Bilirubin AST ALT Alkaline Phosphatase B-Natriuretic Peptide Total Protein Albumin Globulin Albumin/Globulin Ratio 01/02/19 01/02/19 01/03/19 16:08 20:49 05:07 WBC RBC Hgb Hct MCV MCH MCHC RDW Plt Count MPV Neut % (Auto) Lymph % (Auto) [place] % (Auto) Eos % (Auto) Baso % (Auto) Absolute Neuts (auto) Absolute Lymphs (auto) Absolute Monos (auto) Absolute Eos (auto) Absolute Basos (auto) Absolute Nucleated RBC Immature Gran % Neutrophils % Band Neutrophils % Lymphocytes % Reactive Lymphs % Monocytes % Basophils % Nucleated RBC % Normal RBC Morphology Polychromasia Anisocytosis Macrocytosis INR (Anticoag Therapy) 2.69 H Sodium Potassium Chloride Carbon Dioxide Anion Gap BUN Creatinine Est GFR ( Amer) Est GFR (Non-Af Amer) BUN/Creatinine Ratio Glucose POC Glucose (mg/dL) 123 H 269 H Calcium Magnesium Total Bilirubin AST ALT Alkaline Phosphatase B-Natriuretic Peptide Total Protein Albumin Globulin Albumin/Globulin Ratio 01/03/19 01/03/19 01/03/19 05:07 05:07 05:07 WBC 3.9 RBC 3.34 L Hgb 11.3 L Hct 35 L MCV 105 H MCH 34 H MCHC 32 RDW 22 H Plt Count 147 L MPV 7.9 Neut % (Auto) 86.3 Lymph % (Auto) 6.8 [place] % (Auto) 6.3 Eos % (Auto) 0.1 Baso % (Auto) 0.5 Absolute Neuts (auto) 3.4 Absolute Lymphs (auto) 0.3 L Absolute Monos (auto) 0.2 Absolute Eos (auto) 0.0 Absolute Basos (auto) 0.0 Absolute Nucleated RBC 0.0 Immature Gran % 6.0 Neutrophils % 81.0 Band Neutrophils % 6.0 Lymphocytes % 8.0 Reactive Lymphs % 1.0 Monocytes % 3.0 Basophils % 1.0 Nucleated RBC % 0.1 Normal RBC Morphology Not Reportable Polychromasia 1+ Anisocytosis 1+ Macrocytosis 1+ INR (Anticoag Therapy) Sodium 143 Potassium 4.0 Chloride 99 L Carbon Dioxide 42 H* Anion Gap 2 BUN 22 Creatinine 0.97 Est GFR ( Amer) 92.1 Est GFR (Non-Af Amer) 76.1 BUN/Creatinine Ratio 22.7 H Glucose 149 H POC Glucose (mg/dL) Calcium 8.6 Magnesium Total Bilirubin 0.70 AST 20 ALT 19 Alkaline Phosphatase 63 B-Natriuretic Peptide 852 H Total Protein 5.9 L Albumin 3.1 L Globulin 2.8 Albumin/Globulin Ratio 1.1 Amiodarone HCl (Cordarone Tab*) 100 mg PO QAM [facility] Last Admin: 01/02/19 08:35 Dose: 100 mg Apixaban (Eliquis*) 5 mg PO BID [facility] Last Admin: 01/02/19 19:42 Dose: 5 mg Atorvastatin Calcium (Lipitor*) 10 mg PO BEDTIME [facility]; Protocol Last Admin: 01/02/19 19:42 Dose: 10 mg Carvedilol (Coreg Tab*) 3.125 mg PO BID [facility] Last Admin: 01/02/19 19:42 Dose: 3.125 mg Insulin Glargine (Lantus(*)) 35 units SUBCUT QAM PRN PRN Reason: GLUCOSE GREATER THAN > 350 Phytonadione (Vitamin K Oral Solution*) 5 mg PO ONCE ONE Stop: 01/03/19 07:46 Polyethylene Glycol/Electrolytes (Miralax*) 17 gm PO DAILY PRN PRN Reason: CONSTIPATION Senna (Senokot 8.6 Mg Tab*) 2 tab PO BID [facility] Last Admin: 01/02/19 19:43 Dose: 2 tab Sertraline HCl (Zoloft*) 25 mg PO DAILY [facility] Last Admin: 01/02/19 08:34 Dose: 25 mg Assessment: 73 yo male with AML, PHILIP on repeat BMBx after induction with venetoclax/AZA, admitted with decompensated acute on chronic CHF secondary to A.Fib now s/p successful cardioversion via BA. He was given 10 mg of eliquis yesterday afternoon/evening (2 5mg doses 5 hours apart) and has a therapeutic INR this am (may be partially eliquis effect). Will give 5 mg PO vitamin K and hold am eliquis but administer PM dose. He does still appear to require IV diuresis and will discuss with cardiology adding diuretic to home regimen. Plan: 1. systolic CHF exacerbation: improved with diuresis, though still fluid overloaded today -IV lasix 40 mg this am, d/w cards addition of diuretic to regimen 2. Afib: s/p cardioversion now in paced SR - will required indefinite anti-coagulation, hold am eliquis as above, start tonight - h/o TIA with subtherapeutic INR 4. AML: PHILIP - holding venetoclax/AZA at this time, plan to resume after d/c ' 5. IDDM - cont home dose of Lantus (35U daily) PRN elevated BG (has not been requiring at home with AM fasting BG btw 90-100 following significant wt. loss recommend resuming home FS 3x/wk and if consistently >100 fasting will need to reassess needs) 6. Weakness: PT eval. in AM Dispo: cont. inpt. care post BA with goal of d/c in next 1-2 days
[2019-01-03] MEDS ORDERED: Phytonadione Oral Solution* 5 MG/25 ML UDC PO ONE (07:45)
[2019-01-03] MEDS: Senna TAB 8.6 mg* TAB PO SCH ×2 (08:10→20:34)
[2019-01-03] MEDS: Sertraline* 25 MG TAB PO SCH (08:11)
[2019-01-03] MEDS: Carvedilol TAB* 3.125 MG PO SCH ×2 (08:11→20:35)
[2019-01-03] MEDS: Amiodarone TAB* 200 MG PO SCH (08:11)
--- NOTE | 2019-01-03 09:01 | PN ---
Subjective Date of Service: 01/03/19 Interval History: f/u CHF, Afib s/p cardioversion breathing better after cardioversion but still short of breath and volume overload given 40 mg IV lasix this AM tele sinus rhythm vs. atrial paced, v paced Medications Active Medications: Amiodarone HCl (Cordarone Tab*) 100 mg PO QAM [facility] Last Admin: 01/03/19 08:11 Dose: 100 mg Apixaban (Eliquis*) 5 mg PO BID [facility] Last Admin: 01/03/19 07:37 Dose: Not Given Atorvastatin Calcium (Lipitor*) 10 mg PO BEDTIME [facility]; Protocol Last Admin: 01/02/19 19:42 Dose: 10 mg Carvedilol (Coreg Tab*) 3.125 mg PO BID [facility] Last Admin: 01/03/19 08:11 Dose: 3.125 mg Furosemide (Lasix Iv*) 40 mg IV ONCE ONE Stop: 01/03/19 12:02 Furosemide (Lasix Iv*) 80 mg IV DAILY [facility] Insulin Glargine (Lantus(*)) 35 units SUBCUT QAM PRN PRN Reason: GLUCOSE GREATER THAN > 350 Losartan Potassium (Cozaar Tab*) 25 mg PO DAILY [facility] Polyethylene Glycol/Electrolytes (Miralax*) 17 gm PO DAILY PRN PRN Reason: CONSTIPATION Last Admin: 01/03/19 08:10 Dose: 17 gm Senna (Senokot 8.6 Mg Tab*) 2 tab PO BID [facility] Last Admin: 01/03/19 08:10 Dose: 2 tab Sertraline HCl (Zoloft*) 25 mg PO DAILY [facility] Last Admin: 01/03/19 08:11 Dose: 25 mg Objective Vital Signs: Temp Pulse Resp BP Pulse Ox 97.8 F 72 20 110/57 92 01/03/19 03:40 01/03/19 03:40 01/03/19 03:40 01/03/19 03:40 01/03/19 03:40 Oxygen Devices in Use Now: CPAP Appearance: sitting upright, conversant, not toxic appearing Ears/Nose/Mouth/Throat: NL Teeth, Lips, Gums, Clear Oropharnyx, Mucous Membranes Moist Neck: Trachea Midline, - - uncertain jvp Respiratory: - - mild increased work of breathing, no obvious wheeze or rales Cardiovascular: RRR - rrr, 1/6 sytolic murmr, - Abdominal: - - soft, obese Extremities: - - warm, well perfused, 2+ edema b/l Neurological: Alert and Oriented x 3 Lines/Tubes/Other Access: Clean, Dry and Intact Peripheral IV Laboratory Results: 01/03/19 05:07 01/03/19 05:07 INR (Anticoag Therapy) 2.69 (0.82-1.09) H 01/03/19 05:07 Total Bilirubin 0.70 mg/dL (0.2-1.0) 01/03/19 05:07 AST 20 U/L (13-39) 01/03/19 05:07 ALT 19 U/L (7-52) 01/03/19 05:07 Alkaline Phosphatase 63 U/L (34-104) 01/03/19 05:07 B-Natriuretic Peptide 852 pg/mL (<=100) H 01/03/19 05:07 Total Protein 5.9 g/dL (6.4-8.9) L 01/03/19 05:07 Albumin 3.1 g/dL (3.2-5.2) L 01/03/19 05:07 Globulin 2.8 g/dL (2-4) 01/03/19 05:07 Albumin/Globulin Ratio 1.1 (1-3) 01/03/19 05:07 Diagnostic Imaging: CXR Exam Date: 12/31/18 IMPRESSION: FINDINGS MOST CONSISTENT WITH CONGESTIVE HEART FAILURE, UNCHANGED. Transesophageal Echocardiogram Study Date: 01/02/2019 Conclusions Summary: - Left ventricle: Systolic function is moderately to severely reduced. The estimated ejection fraction is 25-30%. - Right ventricle: Systolic function is mildly reduced. - Left atrium: The appendage is well visualized. Emptying velocity is normal. There is no evidence of a thrombus in the atrial cavity or appendage. There is moderate spontaneous echo contrast ("smoke") in the cavity and the appendage. - Mitral valve: There is trace to mild regurgitation. - Aortic valve: There is a bioprosthetic valve. Cusp separation is normal. - Tricuspid valve: There is moderate regurgitation. - Aortic arch: The aortic arch is mildly calcified. - Descending aorta: The descending aorta is mildly calcified. - The patient was in atrial fibrillation throughout the study. Assessment/Plan 1. Acute on chronic systolic HF exacerbation - NICM - s/p BiV-ICD 2. Atrial fibrillation - s/p BA/CV 01/02/2019 3. Obesity 4. Diabetes 5. Sleep apnea 6. AML 7. S/p bioprosthetic aortic valve - Continue amiodarone - Continue anticoagulation, agree with holding eliquis until INR < 2 with daily monitoring while previously on coumadin - Continue coreg 3.125 mg po bid - Start losartan 25 mg po daily (ordered) - Lasix 40 mg IV given earlier this AM. Given another 40 mg IV later today and 80 mg IV tomorrow AM (ordered). BMP ordered for tomorrow. Will need standing dose of loop diuretic at discharge - DM management per Primary service - Will follow Thank you for allowing me to participate in the cardiovascular care of this patient. Please do not hesitate to contact me with questions or concerns.
[2019-01-03] MEDS: Losartan TAB* 25 MG PO SCH (09:07)
[2019-01-03] MEDS: Acetaminophen TAB* 325 MG PO PRN (16:48)
[2019-01-03] MEDS ORDERED: Warfarin TAB(*) 1 MG PO SCH (17:00)
[2019-01-03] MEDS: Atorvastatin* 10 MG TAB PO SCH (20:35)
[2019-01-04] MEDS: guaiFENesin ER TAB 600 MG PO PRN ×2 (00:31→20:46)
[2019-01-04 06:16] LABS: ABS Lymphocytes 0.3 10^3/ul (1.0-4.8); ABS Monocytes 0.3 10^3/ul (0-0.8); ABS Neutrophils 2.6 10^3/ul (1.5-7.7); Hematocrit 34 % (42-52); Hemoglobin 10.8 g/dL (14.0-18.0); Lymphocyte % 8.8 %; Mean Corpuscular HGB Conc 32 g/dL (31-36); Mean Corpuscular Hemoglobin 34 pg (27-31); Mean Corpuscular Volume 106 fL (80-94); Mean Platelet Volume 7.9 fL (7.4-10.4); Nucleated Red Blood Cells % 0.3; Platelet Count 126 10^3/uL (150-450); Red Blood Count 3.22 10^6 /uL (4.18-5.48); Red Cell Distribution Width 22 % (10-15); White Blood Count 3.2 10^3/uL (3.5-10.8)
[2019-01-04 06:22] LABS: INR 2.01 (0.82-1.09)
[2019-01-04 06:33] LABS: BUN/Creatinine Ratio 21.3 (8-20); Calcium 8.4 mg/dL (8.6-10.3); EGFR African American 95.5 (>60); EGFR Non-African American 78.9 (>60); Potassium 3.6 mmol/L (3.5-5.0)
[2019-01-04] MEDS: KCL 10 MEQ/50 ML IVPREMIX* 10 MEQ/50 ML BAG IV SCH ×2 (06:49→08:31)
[2019-01-04 06:54] LABS: Magnesium 1.8 mg/dL (1.9-2.7)
[2019-01-04] MEDS ORDERED: Magnesium Sulfate IV* 3 GM in NS 0.9% 100 ML* 100 ML IVPB ONE (07:54)
--- NOTE | 2019-01-04 08:04 | PN ---
Subjective Date of Service: 01/04/19 Interval History: f/u CHF, Afib s/p cardioversion continues diuresis breathing continues to improve laying flat on 6 liters 02 no chest pain remains volume overloaded tele sinus rhythm vs. atrial paced, v paced, 18 beat NSVT this AM Medications Active Medications: Acetaminophen (Tylenol Tab*) 650 mg PO Q4H PRN PRN Reason: PAIN - MILD Last Admin: 01/03/19 16:48 Dose: 650 mg Amiodarone HCl (Cordarone Tab*) 100 mg PO QAM [facility] Last Admin: 01/03/19 08:11 Dose: 100 mg Apixaban (Eliquis*) 5 mg PO BID [facility] Last Admin: 01/03/19 20:35 Dose: 5 mg Atorvastatin Calcium (Lipitor*) 10 mg PO BEDTIME [facility]; Protocol Last Admin: 01/03/19 20:35 Dose: 10 mg Carvedilol (Coreg Tab*) 3.125 mg PO BID [facility] Last Admin: 01/03/19 20:35 Dose: 3.125 mg Furosemide (Lasix Iv*) 80 mg IV DAILY [facility] Guaifenesin (Mucinex*) 600 mg PO BID PRN PRN Reason: CONGESTION Last Admin: 01/04/19 00:31 Dose: 600 mg Potassium Chloride (Potassium Chloride 10 Meq/50 Ml Ivpremix*) 10 meq in 50 mls @ 50 mls/hr IV Q2H [facility] Stop: 01/04/19 09:59 Last Admin: 01/04/19 06:49 Dose: 50 mls/hr Magnesium Sulfate 3 gm/ Sodium (Chloride) 106 mls @ 53 mls/hr IVPB ONCE ONE Stop: 01/04/19 09:53 Insulin Glargine (Lantus(*)) 35 units SUBCUT QAM PRN PRN Reason: GLUCOSE GREATER THAN > 350 Losartan Potassium (Cozaar Tab*) 25 mg PO DAILY [facility] Last Admin: 01/03/19 09:07 Dose: 25 mg Polyethylene Glycol/Electrolytes (Miralax*) 17 gm PO DAILY PRN PRN Reason: CONSTIPATION Last Admin: 01/03/19 08:10 Dose: 17 gm Potassium Chloride (Klor Con Er Tab*) 20 meq PO DAILY [facility] Senna (Senokot 8.6 Mg Tab*) 2 tab PO BID [facility] Last Admin: 01/03/19 20:34 Dose: 2 tab Sertraline HCl (Zoloft*) 25 mg PO DAILY [facility] Last Admin: 01/03/19 08:11 Dose: 25 mg Torsemide (Demadex*) 20 mg PO Q24HR [facility] Objective Vital Signs: Temp Pulse Resp BP Pulse Ox 97.5 F 82 16 98/50 91 01/04/19 03:15 01/04/19 03:15 01/04/19 03:15 01/04/19 03:15 01/04/19 03:15 Oxygen Devices in Use Now: CPAP Appearance: laying flat, not acutely distressed Ears/Nose/Mouth/Throat: NL Teeth, Lips, Gums Neck: Trachea Midline, - - uncertain jvp Respiratory: Symmetrical Chest Expansion and Respiratory Effort, - - no obvoius rales Cardiovascular: RRR - rrr, 1/6 sytolic murmr, - Abdominal: - - soft, obese Extremities: - - warm, well perfused, 2+ edema b/l Neurological: Alert and Oriented x 3 Lines/Tubes/Other Access: Clean, Dry and Intact Peripheral IV Laboratory Results: 01/04/19 05:27 01/04/19 05:27 INR (Anticoag Therapy) 2.01 (0.82-1.09) H 01/04/19 05:27 Total Bilirubin 0.70 mg/dL (0.2-1.0) 01/03/19 05:07 AST 20 U/L (13-39) 01/03/19 05:07 ALT 19 U/L (7-52) 01/03/19 05:07 Alkaline Phosphatase 63 U/L (34-104) 01/03/19 05:07 B-Natriuretic Peptide 852 pg/mL (<=100) H 01/03/19 05:07 Total Protein 5.9 g/dL (6.4-8.9) L 01/03/19 05:07 Albumin 3.1 g/dL (3.2-5.2) L 01/03/19 05:07 Globulin 2.8 g/dL (2-4) 01/03/19 05:07 Albumin/Globulin Ratio 1.1 (1-3) 01/03/19 05:07 mg 1.8 Diagnostic Imaging: CXR Exam Date: 12/31/18 IMPRESSION: FINDINGS MOST CONSISTENT WITH CONGESTIVE HEART FAILURE, UNCHANGED. Transesophageal Echocardiogram Study Date: 01/02/2019 Conclusions Summary: - Left ventricle: Systolic function is moderately to severely reduced. The estimated ejection fraction is 25-30%. - Right ventricle: Systolic function is mildly reduced. - Left atrium: The appendage is well visualized. Emptying velocity is normal. There is no evidence of a thrombus in the atrial cavity or appendage. There is moderate spontaneous echo contrast ("smoke") in the cavity and the appendage. - Mitral valve: There is trace to mild regurgitation. - Aortic valve: There is a bioprosthetic valve. Cusp separation is normal. - Tricuspid valve: There is moderate regurgitation. - Aortic arch: The aortic arch is mildly calcified. - Descending aorta: The descending aorta is mildly calcified. - The patient was in atrial fibrillation throughout the study. Assessment/Plan 1. Acute on chronic systolic HF exacerbation - NICM - s/p BiV-ICD 2. Atrial fibrillation - s/p BA/CV 01/02/2019 3. Obesity 4. Diabetes 5. Sleep apnea 6. AML 7. S/p bioprosthetic aortic valve 8. NSVT - Continue amiodarone - Continue anticoagulation - Continue coreg 3.125 mg po bid - Continue losartan 25 mg po daily - Continue 80 mg IV lasix daily. Start oral transition (both for now) with torsemide 20 mg po daily later today (ordered) - K+ being replaced - Replace magnesium (ordered) - DM management per Primary service Thank you for allowing me to participate in the cardiovascular care of this patient. Please do not hesitate to contact me with questions or concerns.
[2019-01-04] MEDS: Sertraline* 25 MG TAB PO SCH (08:31)
[2019-01-04] MEDS: Senna TAB 8.6 mg* TAB PO SCH ×2 (08:31→20:46)
[2019-01-04] MEDS: Furosemide IV* 10 MG/ML 10 ML VIAL (100 MG) IV SCH (08:31)
[2019-01-04] MEDS: Amiodarone TAB* 200 MG PO SCH (08:31)
[2019-01-04] MEDS: Potassium Chlor TAB* 20 MEQ TAB.ER PO SCH (08:32)
[2019-01-04] MEDS: Losartan TAB* 25 MG PO SCH (08:32)
[2019-01-04] MEDS: Apixaban* 5 MG TAB PO SCH ×2 (08:32→20:44)
[2019-01-04] MEDS: Carvedilol TAB* 3.125 MG PO SCH ×2 (08:32→20:43)
[2019-01-04] MEDS ORDERED: Bisacodyl SUPP* 10 MG SUPP PR ONE (10:49)
[2019-01-04] MEDS ORDERED: Magnesium CITRATE* 300 ML BTL PO ONE (10:49)
--- NOTE | 2019-01-04 11:05 | PN ---
Progress Note - Progress Note Date of Service: 01/04/19 SOAP: Subjective: [Feeling better. Reports that he finds it much easier to speak. He was able to walk 10-15 feet yesterday, but resistent to work with PT this morning. Had extended period of VT this am, he was asx and resolved spontaneously. ] Objective: [ Vital Signs: Temp Pulse Resp BP Pulse Ox 98.4 F 79 18 114/55 92 01/04/19 07:15 01/04/19 07:15 01/04/19 08:00 01/04/19 07:15 01/04/19 08:00 Acetaminophen (Tylenol Tab*) 650 mg PO Q4H PRN PRN Reason: PAIN - MILD Last Admin: 01/03/19 16:48 Dose: 650 mg Amiodarone HCl (Cordarone Tab*) 100 mg PO QAM [facility] Last Admin: 01/04/19 08:31 Dose: 100 mg Apixaban (Eliquis*) 5 mg PO BID [facility] Last Admin: 01/04/19 08:32 Dose: 5 mg Atorvastatin Calcium (Lipitor*) 10 mg PO BEDTIME [facility]; Protocol Last Admin: 01/03/19 20:35 Dose: 10 mg Bisacodyl (Dulcolax Supp*) 10 mg HI ONCE ONE Stop: 01/04/19 10:50 Carvedilol (Coreg Tab*) 3.125 mg PO BID [facility] Last Admin: 01/04/19 08:32 Dose: 3.125 mg Furosemide (Lasix Iv*) 80 mg IV DAILY [facility] Last Admin: 01/04/19 08:31 Dose: 80 mg Guaifenesin (Mucinex*) 600 mg PO BID PRN PRN Reason: CONGESTION Last Admin: 01/04/19 00:31 Dose: 600 mg Insulin Glargine (Lantus(*)) 35 units SUBCUT QAM PRN PRN Reason: GLUCOSE GREATER THAN > 350 Losartan Potassium (Cozaar Tab*) 25 mg PO DAILY [facility] Last Admin: 01/04/19 08:32 Dose: 25 mg Magnesium Citrate (Citrate Of Magnesia*) 150 ml PO ONCE ONE Stop: 01/04/19 10:50 Magnesium Oxide (Magox 400 Tab*) 400 mg PO DAILY [facility] Polyethylene Glycol/Electrolytes (Miralax*) 17 gm PO DAILY [facility] Potassium Chloride (Klor Con Er Tab*) 20 meq PO DAILY [facility] Last Admin: 01/04/19 08:32 Dose: 20 meq Senna (Senokot 8.6 Mg Tab*) 2 tab PO BID [facility] Last Admin: 01/04/19 08:31 Dose: 2 tab Sertraline HCl (Zoloft*) 25 mg PO DAILY [facility] Last Admin: 01/04/19 08:31 Dose: 25 mg Torsemide (Demadex*) 20 mg PO Q24HR [facility] Laboratory Results - last 24 hr 01/03/19 01/03/19 01/03/19 11:08 16:13 19:55 WBC RBC Hgb Hct MCV MCH MCHC RDW Plt Count MPV Neut % (Auto) Lymph % (Auto) [place] % (Auto) Eos % (Auto) Baso % (Auto) Absolute Neuts (auto) Absolute Lymphs (auto) Absolute Monos (auto) Absolute Eos (auto) Absolute Basos (auto) Absolute Nucleated RBC Nucleated RBC % INR (Anticoag Therapy) Sodium Potassium Chloride Carbon Dioxide Anion Gap BUN Creatinine Est GFR ( Amer) Est GFR (Non-Af Amer) BUN/Creatinine Ratio Glucose POC Glucose (mg/dL) 239 H 212 H 234 H Calcium Magnesium 01/04/19 01/04/19 01/04/19 05:27 05:27 05:27 WBC 3.2 L RBC 3.22 L Hgb 10.8 L Hct 34 L MCV 106 H MCH 34 H MCHC 32 RDW 22 H Plt Count 126 L MPV 7.9 Neut % (Auto) 81.1 Lymph % (Auto) 8.8 Ocean % (Auto) 9.0 Eos % (Auto) 0.0 Baso % (Auto) 1.1 Absolute Neuts (auto) 2.6 Absolute Lymphs (auto) 0.3 L Absolute Monos (auto) 0.3 Absolute Eos (auto) 0.0 Absolute Basos (auto) 0.0 Absolute Nucleated RBC 0.0 Nucleated RBC % 0.3 INR (Anticoag Therapy) 2.01 H Sodium 143 Potassium 3.6 Chloride 98 L Carbon Dioxide 40 H Anion Gap 5 BUN 20 Creatinine 0.94 Est GFR ( Amer) 95.5 Est GFR (Non-Af Amer) 78.9 BUN/Creatinine Ratio 21.3 H Glucose 174 H POC Glucose (mg/dL) Calcium 8.4 L Magnesium 1.8 L 01/04/19 07:46 WBC RBC Hgb Hct MCV MCH MCHC RDW Plt Count MPV Neut % (Auto) Lymph % (Auto) [place] % (Auto) Eos % (Auto) Baso % (Auto) Absolute Neuts (auto) Absolute Lymphs (auto) Absolute Monos (auto) Absolute Eos (auto) Absolute Basos (auto) Absolute Nucleated RBC Nucleated RBC % INR (Anticoag Therapy) Sodium Potassium Chloride Carbon Dioxide Anion Gap BUN Creatinine Est GFR ( Amer) Est GFR (Non-Af Amer) BUN/Creatinine Ratio Glucose POC Glucose (mg/dL) 169 H Calcium Magnesium Exam: Gen: chronically ill appearing, but relatively well in NAD, accompanied by his HEENT: MMM CV: RRR, no m/r/g Resp: decreased breath sounds at bases Abd: soft, nonTTP Ext: 1+ LE edema] Assessment: [This is a 73 yo male with AML, now PHILIP on repeat BMBx after induction with venetoclax/AZA. He has symptomatic afib and admitted with CHF exacerbation. ] Plan: [1. CHF exacerbation - improved with diuresis - cont diuresis per cardiology with plans to transition to po torsemide 2. Afib - s/p BA with CV now biventricularly paced with underlying SR - cont carvedilol/amiodarone per cardiology 3. VT - repleting Mg - start po K/Mg supp - cont patient monitor 4. h/o TIA with subtherapeutic INR 5. Anticoagulation - transitioned from Coumadin to Eliquis due to difficulty regulating INR 6. AML - PHILIP - holding venetoclax/AZA at this time, plan to resume at dc 7. IDDM - cont home dose of Lantus (35U daily) 8. Constipation - cont Miralax/senna - give 1/2 bottle mag citrate today with dulcolax suppository as it has been > 5d without a BM Dispo: cont inpatient care, anticipate dc home tomorrow. Cont to work with PT. Chair lift to be installed at home today
[2019-01-04] MEDS: Magnesium Oxide TAB* 400 MG PO SCH (11:09)
[2019-01-04] MEDS: Torsemide TAB* 20 MG PO SCH (12:36)
[2019-01-04] MEDS: Atorvastatin* 10 MG TAB PO SCH (20:43)
[2019-01-04] MEDS: Acetaminophen TAB* 325 MG PO PRN (23:15)
[2019-01-05 06:05] LABS: INR 1.83 (0.82-1.09)
[2019-01-05 06:18] LABS: Albumin/Globulin Ratio 1.1 (1-3); BUN/Creatinine Ratio 22.8 (8-20); Calcium 8.5 mg/dL (8.6-10.3); EGFR African American 97.9 (>60); EGFR Non-African American 80.9 (>60); Globulin 2.7 g/dL (2-4); Magnesium 2.1 mg/dL (1.9-2.7); Potassium 3.9 mmol/L (3.5-5.0); Total Bilirubin 0.9 mg/dL (0.2-1.0); Total Protein 5.7 g/dL (6.4-8.9)
[2019-01-05 06:21] LABS: ABS Lymphocytes 0.3 10^3/ul (1.0-4.8); ABS Monocytes 0.5 10^3/ul (0-0.8); ABS Neutrophils 3.8 10^3/ul (1.5-7.7); Hematocrit 38 % (42-52); Hemoglobin 11.9 g/dL (14.0-18.0); Lymphocyte % 6.6 %; Mean Corpuscular HGB Conc 32 g/dL (31-36); Mean Corpuscular Hemoglobin 33 pg (27-31); Mean Corpuscular Volume 106 fL (80-94); Nucleated Red Blood Cells % 0.1; Platelet Count 140 10^3/uL (150-450); Red Blood Count 3.57 10^6 /uL (4.18-5.48); Red Cell Distribution Width 22 % (10-15); White Blood Count 4.7 10^3/uL (3.5-10.8)
--- NOTE | 2019-01-05 07:35 | DS ---
- Discharge Summary ADMIT DATE:12/31/2018 DISCHARGE DATE:01/05/2019 DISCHARGE DIAGNOSIS: 1. Acute systolic heart failure exacerbation 2. afib w RVR sp cardioversion 3. AML in remission DISCHARGE CONDITION: stable DISCHARGE ACTIVITY: as tolerated DISCHARGE DIET: diabetic, cardiac DISCHARGE MEDICATIONS: Home Medications Medication Instructions Recorded Confirmed Type Amiodarone TAB* [Cordarone Tab*] 100 mg PO QAM 02/26/13 12/31/18 History Carvedilol TAB* [Coreg TAB*] 3.125 mg PO BID 09/03/13 12/31/18 History Lovastatin (NF) [Mevacor (NF)] 40 mg PO BEDTIME 07/25/18 12/31/18 History Multivitamins/Minerals TAB* 1 tab PO QAM 07/25/18 12/31/18 History [Theragran/minerals TAB*] Senna TAB 8.6 mg* [Senokot 8.6 mg 1 tab PO DAILY PRN 07/25/18 12/31/18 History TAB*] Melatonin (NF) 1 - 2 mg PO BEDTIME PRN 09/04/18 12/31/18 History Sertraline* [Zoloft*] 25 mg PO DAILY 09/04/18 12/31/18 History Insulin GLARGINE(*) [Lantus(*)] 35 units SUBCUT QAM PRN 12/03/18 12/31/18 History Venetoclax [Venclexta] 200 mg PO DAILY WITH MEAL #0 12/04/18 12/31/18 Rx TO START 01/07 Apixaban* [Eliquis*] 5 mg PO BID #60 tab 01/04/19 Rx Magnesium Oxide TAB* [MagOx 400 400 mg PO DAILY #30 tab 01/04/19 Rx TAB*] Potassium Chlor TAB* [Potassium 20 meq PO DAILY #30 tab.er 01/04/19 Rx Chlor TAB 20 MEQ*] Torsemide TAB* [Demadex 20 MG*] 20 mg PO Q24HR #30 tab 01/04/19 Rx DISCHARGE FOLLOW UP: 1.01/07 1PM FOR CHEMOTHERAPY 2.Dr. Huff 2-3 weeks HOSPITAL COURSE: Rodolfo is a 73 yo M w PMH of AML currently in remission on venetoclax/azacitidine , with a PMH of systolic heart failure and afib, previously cardioverted though relapsed, with relatively recent TIA while subtherapeutic on coumadin, who came in to my office on 12/31 in acute systolic heart failure and afib with RVR. He was also supratherapeutic on his coumadin. He was admitted to the hospital and seen in consultaiton by cardiology. He was given vitamin K and when therapeutic taken for BA and cardioversion. He was aggressively diuresed with IV lasix, and started on PO torsemide. Given his difficulty maintaining a therapeutic INR, and at the recommendation of cardiology, he was transitioned to eliquis. He has not had profound thrombocytopenia since his initial diagnosis and so this was felt to be safe from a hematologic standpoint. He did have a prolonged, though asymptomatic, run of VT in the setting of hypokalemia and hypomagnesemia, and these electrolytes were aggressively replaced prior to discharge. He will be discharged home and resume his planned chemotherapy on Monday (resulting in a 1 week delay). He will follow up with cardiology as an outpatient. >30 mins spent, >50% in face to face counseling and coordination of care.
[2019-01-05] MEDS ORDERED: Polyethylene Glycol 3350* 17 GM PACKET PO SCH (09:00)
[2019-01-05] MEDS: Senna TAB 8.6 mg* TAB PO SCH (09:26)
[2019-01-05] MEDS: Amiodarone TAB* 200 MG PO SCH (09:26)
[2019-01-05] MEDS: Furosemide IV* 10 MG/ML 10 ML VIAL (100 MG) IV SCH (09:26)
[2019-01-05] MEDS: Sertraline* 25 MG TAB PO SCH (09:26)
[2019-01-05] MEDS: Torsemide TAB* 20 MG PO SCH (09:26)
[2019-01-05] MEDS: Carvedilol TAB* 3.125 MG PO SCH (09:26)
[2019-01-05] MEDS: Apixaban* 5 MG TAB PO SCH (09:27)
[2019-01-05] MEDS: Magnesium Oxide TAB* 400 MG PO SCH (09:27)
[2019-01-05] MEDS: Losartan TAB* 25 MG PO SCH (09:27)
[2019-01-05] MEDS: Potassium Chlor TAB* 20 MEQ TAB.ER PO SCH (09:27)
[2019-01-05 13:06] VITALS: BP 96/44
== END 2019-01-05 15:20 | disposition home health service (06) | DRG 292 ==
LOC: MEDTELE 17:18
PROVIDERS: ADMIT Internal Medicine Hematology & Oncology; ATTEND Internal Medicine Hematology & Oncology
PROC: 5A2204Z Restoration of Cardiac Rhythm, Single (ICD-10-PCS; 2019-01-02)
PROC: B246ZZ4 Ultrasonography of Right and Left Heart, Transesophageal (ICD-10-PCS; principal; 2019-01-02 09:00)
DX: I50.23 Acute on chronic systolic (congestive) heart failure (principal); C94 Other leukemias of specified cell type; C92.00 Acute myeloblastic leukemia, not having achieved remission; I47.2 Ventricular tachycardia; E88.42 MERRF syndrome; I48.19 Other persistent atrial fibrillation; G45.9 Transient cerebral ischemic attack, unspecified; I42.8 Other cardiomyopathies; E78.5 Hyperlipidemia, unspecified; E11.9 Type 2 diabetes mellitus without complications; G47.33 Obstructive sleep apnea (adult) (pediatric); E66.9 Obesity, unspecified; E87.6 Hypokalemia; K59.00 Constipation, unspecified; J44.9 Chronic obstructive pulmonary disease, unspecified; Z86.73 Personal history of transient ischemic attack (TIA), and cerebral infarction without residual deficits; Z68.34 Body mass index [BMI] 34.0-34.9, adult; Z79.01 Long term (current) use of anticoagulants; Z79.4 Long term (current) use of insulin; Z79.899 Other long term (current) drug therapy; Z95.2 Presence of prosthetic heart valve; Z95.810 Presence of automatic (implantable) cardiac defibrillator; I08.1 Rheumatic disorders of both mitral and tricuspid valves
CPT/HCPCS: 36415; 71045; 80048; 80053; 83735; 83880; 85025; 85610; 90686; 92960; 93005; 93312; 93325; 99222; 99232; 99239; A9270-GY; G8978-GP-CJ; G8979-GP-CI; J1940; J2250; J2704; J3475; J3480

== ENCOUNTER 2019-03-27 23:16 | Inpatient (IN) | payer MEDICARE ==
--- OUTSIDE RECORDS SUMMARY | 2019-03-27 23:27 | XMS REPORT | Continuity of Care Document ---
:1945 External Reference #:[id number] Author Name Italo Huff M.D. (transmitted by agent of provider Roseline Slade) Address [address] [place] [address] Care Team Providers Name Role Phone Philomena Lyle MD - Family Care Team Information Operations Clerk Medicine Italo Huff MD - Cardiovascular Care Team Information Operations Clerk Disease Kimmy Mccracken MD - Hematology & Care Team Information Operations Clerk Oncology Problems Active Problems Provider Date Paroxysmal ventricular tachycardia Italo Huff M.D. Onset: 04/04/2013 Primary cardiomyopathy Italo Huff M.D. Onset: 04/04/2013 Aortic valve disorder Italo Huff M.D. Onset: 04/04/2013 Congestive heart failure Italo Huff M.D. Onset: 04/04/2013 Obstructive sleep apnea of adult Carmen Baig DNP, RN, Onset: 07/08/2013 [facility] Chronic combined systolic and Italo Huff M.D. [...] or using chewing tobacco. Smoking Status Reviewed: 02/06/19 Never Smoked Cigarettes Former cigar smoker over 35 years ago, denies smoking pipe, e-cigarettes, or using chewing tobacco. ETOH Use Denies alcohol use Tobacco Use Start: Unknown Patient has never smoked Recreational Drug Use Never Used Drugs Exercise Type/Frequency Does not exercise Allergies, Adverse Reactions, Alerts Description No Known Drug Allergies Medications Active Medications SIG Qnty Indications Ordering Date Provider Eliqumarcus 1 by mouth twice a Unknown 01/07/2019 5mg Tablets day Miralax 17 grams by mouth Unknown 01/07/2019 Powder every day as needed Torsemide 1/2 tab by mouth Unknown 01/07/2019 20mg every day Tablets Potassium Chloride 1 by mouth every Unknown 01/07/2019 ER day 20Meq Tablets ER Magnesium Oxide -MG 1 by mouth once Unknown 01/07/2019 Supplement daily 400mg Capsules Symbicort prn Unknown 01/07/2019 Amiodarone HCL 1/2 by mouth every 45tabs Italo D. 08/28/2017 200mg day Melinda Huff Tablets Nebulizer use as directed 1units R06.02 Flores Brar, 08/05/2015 Compressor/Dualfilte r/7' Tubing/Aerosol T/Mthpiece Kit Melatonin ER 1-2 tab at bedtime Unknown 5mg for sleep Tablets ER Coreg 1 by mouth twice a 180tabs Italo D. 3.125mg Tablets day. Melinda Huff Venclexta 2 tablets daily Unknown 100mg with meal.(chemo Tablets follow up) Ra Senna as needed for Unknown 8.6mg constipation Capsules Sertraline HCL 1 by mouth every Unknown 25mg day Tablets Acetaminophen 2 tablets every 6 Unknown 500mg hours as needed for Tablets pain Cpap With O2 nightly Unknown Device Multi For Him 50+ 1 po qd Unknown Tablets Lovastatin 1 po qhs 90tabs Unknown 40mg Tablets Coq-10 1 po qd Unknown 200mg Capsules History Medications Lantus Solostar 35 units once daily 15ml E11.65 Yfn Morton, 09/07/2018 - in the morning(only 01/07/2019 100Unit/ML Solution taking if BS is Pen-Inject above 125), MDD 50 Glipizide XL take 5mg daily in 30tabs E11.65 Yfn Morton, 09/07/2018 - 5mg the morning 11/07/2018 Tablets ER 24HR Immunizations Description No Information Available Vital Signs Date Vital Result Comment 02/06/2019 3:48pm Height 72 inches 6'0" Weight 238.50 lb with shoes Heart Rate 75 /min BP Systolic Sitting 102 mmHg Rue large cuff BP Diastolic Sitting 60 mmHg Rue large cuff Respiratory Rate 13 /min BMI (Body Mass Index) 32.3 kg/m2 Ejection Fraction 35-40% ECHO 12/04/2018 01/08/2019 2:08pm Height 72 inches 6'0" Heart Rate 72 /min R. radial, regular BP Systolic Sitting 110 mmHg deferred due to limited mobility BP Diastolic Sitting 62 mmHg deferred due to limited mobility O2 % BldC Oximetry 94 % 6 L NC Results Test Acquired Date Facility Test Result H/L Range Note Basic Metabolic 01/22/2019 [facility] Sodium 141 mmol/L Normal 135-[address] [place] [address] [phone] Potassium 4.3 mmol/L Normal 3.5-5.0 Chloride 104 mmol/L Normal 101-111 Co2 Carbon Dioxide 31 mmol/L Normal 22-32 Anion Gap 6 mmol/L Normal 2-11 Glucose 169 mg/dL High 70-100 Blood Urea Nitrogen 23 mg/dL Normal 6-24 Creatinine 1.14 mg/dL Normal 0.67-1.17 BUN/Creatinine Ratio 20.2 High 8-20 Calcium 9.1 mg/dL Normal 8.6-10.3 Egfr Non- 63.1 >60 Egfr 76.4 >60 1 CBC Auto 12/31/2018 [facility] White Blood 5.2 10^3/uL Normal 3.5-10.[address] [place] [address] [phone] Red Blood Count 3.72 10^6/uL Low 4.18-5.48 Hemoglobin 12.4 g/dL Low 14.0-18.0 Hematocrit 40 % Low 42-52 Mean Corpuscular Volume 106 fL High 80-94 Mean Corpuscular Hemoglobin 33 pg High 27-31 Mean Corpuscular HGB Conc 31 g/dL Normal 31-36 Red Cell Distribution Width 23 % High 10-15 2 Platelet Count 174 10^3/uL Normal 150-450 Mean Platelet Volume 8.2 fL Normal 7.4-10.4 Abs Neutrophils 4.8 10^3/uL Normal 1.5-7.7 Abs Lymphocytes 0.3 10^3/uL Low 1.0-4.8 Abs Monocytes 0.1 10^3/uL Normal 0-0.8 Abs Eosinophils 0.0 10^3/uL Normal 0-0.6 Abs Basophils 0.0 10^3/uL Normal 0-0.2 Abs Nucleated RBC 0.0 10^3/uL Granulocyte % 92.0 % Lymphocyte % 5.5 % Monocyte % 1.5 % Eosinophil % 0.1 % Basophil % 0.9 % Nucleated Red Blood Cells % 0.2 Inr/Protime 12/31/2018 [facility] Inr 4.82 High 0.82-1.[address] [place] [address] [phone] Comp Metabolic 12/31/2018 [facility] Sodium 141 mmol/L Normal 135-[address] [place] [address] [phone] Potassium 4.5 mmol/L Normal 3.5-5.0 Chloride 102 mmol/L Normal 101-111 Co2 Carbon Dioxide 32 mmol/L Normal 22-32 Anion Gap 7 mmol/L Normal 2-11 Glucose 233 mg/dL High 70-100 Blood Urea Nitrogen 21 mg/dL Normal 6-24 Creatinine 0.96 mg/dL Normal 0.67-1.17 BUN/Creatinine Ratio 21.9 High 8-20 Calcium 9.3 mg/dL Normal 8.6-10.3 Total Protein 6.7 g/dL Normal 6.4-8.9 Albumin 3.5 g/dL Normal 3.2-5.2 Globulin 3.2 g/dL Normal 2-4 Albumin/Globulin Ratio 1.1 Normal 1-3 Total Bilirubin 0.70 mg/dL Normal 0.2-1.0 Alkaline Phosphatase 74 U/L Normal 34-104 Alt 19 U/L Normal 7-52 Ast 19 U/L Normal 13-39 Egfr Non- 77.0 >60 Egfr 93.2 >60 4 Laboratory test 12/31/2018 [facility] Troponin-I 0.02 <0.04 [address] (TnI) ng/mL [place] [id number] [phone] Inr/Protime 12/10/2018 [facility] Inr 3.39 High 0.82-1.[address] [place], [place] [id number] [phone] Laboratory test 12/03/2018 [facility] Point of Care 150 mg/dL High 70-100 [address] [place] [address] [phone] Inr/Protime 12/03/2018 [facility] Inr 1.51 High 0.82-1.[address] [place] [address] [phone] CBC Auto Diff 12/03/2018 [facility] White Blood 6.0 Normal 3.5 -10.[address] Count 10^3/[place] [address] [phone] Red Blood Count 3.52 10^6/uL Low 4.18-5.48 [...] Red Blood Cells % 0.1 Manual 12/03/2018 [facility] Immature 7.0 % Normal 0-[address] [place] [address] [phone] Neutrophil % 77.0 % Band % 4.0 % Normal 0-8 Lymphocytes % 8.0 % Monocytes % 6.0 % Eosinophils % 0.0 % Basophil % 2.0 % Metamyelocytes % 1.0 % Normal 0-2 Myelocytes % 2.0 % High 0-1 Macrocytosis 1+ Polychromasia 1+ Anisocytosis 1+ Laboratory test 11/09/2018 [facility] Hemoglobin A1c 5.6 % Normal 4.0-5.[address] (Glyco HGB) [place] [address] [phone] Inr/Protime 11/09/2018 [facility] Inr 3.25 High 0.82-1.[address] [place] [address] [phone] 1 Because ethnic data is not always readily [...] 15-29 5 Kidney failure <15 (or dialysis) 2 Consistent with Previous Results Reported on 12/13/18 3 Standard intensity warfarin therapeutic range: 2.0-3.0 High intensity warfarin therapeutic range: 2.5-3.5 4 Because ethnic data is not always [...] 5 Kidney failure <15 (or dialysis) 5 Troponin-I testing on Plasma Separator Tubes (PST) has a known false positive rate of 0.20-0.40%. All positive troponins reflex immediately to secondary confirmatory testing. Using the [employer] Access Immunoassay systems, the 99th percentile upper reference limit was demonstrated to be < 0.03 ng/mL. 6 Standard intensity warfarin therapeutic range: 2.0-3.0 High intensity warfarin therapeutic range: 2.5-3.5 7 Hearing Aid Specialist: [id number] 8 Standard intensity warfarin therapeutic range: 2.0-3.0 High intensity warfarin therapeutic range: 2.5-3.5 9 Therapeutic target for the treatment of diabetes mellitus patients is <7% HBA1C, and in selective patients <6.0%. Please refer to [place] [employer] diabetic care guidelines for further information. 10 Standard intensity warfarin therapeutic range: 2.0-3.0 High intensity warfarin therapeutic range: 2.5-3.5 Procedures Date Code Description Status 02/06/2019 14445 Icd Eval With Iterative Adjustmt Multiple Lead System Completed 02/06/2019 24127 EKG Tracing & Interpretation Completed 01/22/2019 77671 Moderate Sedation Services; Same Phys Intl 15 Mins; PT >= Completed 5 Years 01/22/2019 01438 Cardioversion Completed 01/02/2019 13562 Color Flow Doppler/Interp & Reprt Completed 01/02/2019 88588 Pulse Wave/Continuous-Interp.RPT Completed 01/02/2019 66698 Echocardiography, Transesophageal, Real Time W/Image 2D Completed W/W/O M-M 01/02/2019 08716 Cardioversion Completed 12/04/2018 27608 ECHO Transthorasic Realtime 2D W Doppler & Color Flow Hosp Completed 09/03/2018 08135 Interrogation Device Eval Remote Up To 30 Days Completed Analysis,Rev,RP 09/03/2018 48679 Interrogation Device Eval Remote Up To 30 Days Completed Analysis,Rev,RP 09/03/2018 03921 Icd Eval Sing,Dual,Multi Lead Remote Recpt Transm Tech Rev Completed Tech S 09/03/2018 04210 Icd Eval Sing,Dual,Multi Lead Remote Recpt Transm Tech Rev Completed Tech S 09/03/2018 57457 Icd Check Remote Up To 90 Days Single,Dual,Multiple Lead Completed 09/03/2018 61681 Icd Check Remote Up To 90 Days Single,Dual,Multiple Lead Completed 08/07/2018 02845 EKG, Interpretation Only Completed Medical Devices Description No Information Available Encounters Type Date Location Provider Dx Diagnosis Office Visit 02/06/2019 [facility] Italo Montero I42.9 Cardiomyopathy, 4:00p Of Katelyn Huff M.D. unspecified Z95.810 Presence of automatic (implantable) cardiac defibrillator I48.91 Unspecified atrial fibrillation Z95.2 Presence of prosthetic heart valve Office Visit 01/08/2019 1:45p [facility] Italo Montero R06.02 Shortness of Of Digital Product Manager AT [facility] Melinda Huff breath I42.9 Cardiomyopathy, unspecified I48.91 Unspecified atrial fibrillation Z95.2 Presence of prosthetic heart valve Office Visit 01/04/2019 12:24p [facility] Gage S. I50.23 Acute on chronic Of Digital Product Manager Hartmann, DO systolic FACC (congestive) heart failure I42.9 Cardiomyopathy, unspecified I48.91 Unspecified atrial fibrillation Z95.810 Presence of automatic (implantable) cardiac defibrillator Office Visit 01/03/2019 12:25p [facility] Gage S. I50.23 Acute on chronic Of Digital Product Manager Hartmann, DO systolic FACC (congestive) heart failure I42.9 Cardiomyopathy, unspecified I48.91 Unspecified atrial fibrillation Z95.2 Presence of prosthetic heart valve Z95.810 Presence of automatic (implantable) cardiac defibrillator Office Visit 01/01/2019 [place] Raiza I42.9 Cardiomyopathy, 3:16p Cardiology Of Thchas, TYRE RETREADER unspecified Digital Product Manager I48.19 Other persistent atrial fibrillation I50.9 Heart failure, unspecified Z86.73 Prsnl hx of TIA (TIA), and cereb infrc w/o resid deficits Office Visit 12/04/2018 2:57p [facility] Italo Montero R06.02 Shortness of Of Katelyn Huff M.D. 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, in remission Office Visit 11/06/2018 [place] Italo Montero Z95.810 Presence of 1:15p Cardiology Of Melinda Huff automatic Digital Product Manager AT [facility] (implantable) cardiac defibrillator I42.9 Cardiomyopathy, unspecified Z95.2 Presence of prosthetic heart valve I48.1 Persistent atrial fibrillation Office Visit 09/07/2018 [facility] Yfn Morton, E11.65 Type 2 diabetes 12:20p Endocrinology of MD mellitus with [facility] hyperglycemia Z79.4 penitentiary (current) use of insulin E11.649 Type 2 diabetes mellitus with hypoglycemia without coma 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 02/06/2019 I42.9 Cardiomyopathy, unspecified [facility] Pacer Schedule 02/06/2019 Z95.810 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 cardiac defibrillator 02/06/2019 Z95.810 Presence of automatic (implantable) Ica Pacer Schedule cardiac defibrillator 02/06/2019 I48.91 Unspecified atrial fibrillation Italo Huff M.D. 02/06/2019 Z95.2 Presence of prosthetic heart valve Italo Huff M.D. 01/22/2019 I48.91 Unspecified atrial fibrillation Italo Huff M.D. 01/08/2019 R06.02 Shortness of breath Italo Huff M.D. 01/08/2019 I42.9 Cardiomyopathy, unspecified Italo Huff M.D. 01/08/2019 I48.91 Unspecified atrial fibrillation Italo Huff M.D. 01/08/2019 Z95.2 Presence of prosthetic heart valve Italo Huff M.D. 01/04/2019 I50.23 Acute on chronic systolic (congestive) Gage S. Hartmann, DO FACC heart failure 01/04/2019 I42.9 Cardiomyopathy, unspecified Gage S. Hartmann, DO FACC 01/04/2019 I48.91 Unspecified atrial fibrillation Gage S. Hartmann, DO FACC 01/04/2019 Z95.810 Presence of automatic (implantable) Gage S. Hartmann, DO FAC cardiac defibrillator 01/03/2019 I50.23 Acute on chronic systolic (congestive) Gage S. Hartmann, DO FACC heart failure 01/03/2019 I42.9 Cardiomyopathy, unspecified Gage S. Hartmann, DO FACC 01/03/2019 I48.91 Unspecified atrial fibrillation Gage S. Hartmann, DO FACC 01/03/2019 Z95.2 Presence of prosthetic heart valve Gage S. Hartmann, DO FACC 01/03/2019 Z95.810 Presence of automatic (implantable) Gage S. Hartmann, DO FACC cardiac defibrillator 01/02/2019 I48.91 Unspecified atrial fibrillation Chelo Agosto M.D. 01/01/2019 I42.9 Cardiomyopathy, unspecified Raiza Thuman, TYRE RETREADER 01/01/2019 I48.19 Other persistent atrial fibrillation Raiza Thuman, TYRE RETREADER 01/01/2019 I50.9 Heart failure, unspecified Raiza Thuman, TYRE RETREADER 01/01/2019 Z86.73 Personal history of transient ischemic Raiza Thuman, TYRE RETREADER attack (TIA), and cerebral infarction without residual deficits 12/04/2018 R06.02 Shortness of breath Italo Huff M.D. 12/04/2018 G45.9 Transient cerebral ischemic attack, Italo Huff M.D. unspecified 12/04/2018 I42.9 Cardiomyopathy, unspecified Italo Huff M.D. 12/04/2018 Z95.2 Presence of prosthetic heart valve Italo Huff M.D. 12/04/2018 I48.91 Unspecified atrial fibrillation Italo Huff M.D. 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 Plan of Treatment Future Appointment(s):08/07/2019 3:30 pm - Italo Huff M.D. at [facility]08/07/2019 3:00 pm - [facility] Pacer Schedule at [facility]02/06/2019 - Italo Huff M.D.I42.9 Cardiomyopathy, unspecifiedFollow up:6 hfovdvZ47.810 Presence of automatic (implantable) cardiac rtbqokvwfufjuQ03.91 Unspecified atrial dtditjcdyosuI28.2 Presence of prosthetic heart valve Functional Status Description No Information Available Mental Status Description No Information Available Referrals Description No Information Available
--- OUTSIDE RECORDS SUMMARY | 2019-03-27 23:27 | XMS REPORT | Continuity of Care Document ---
:1945 External Reference #:[id number] Author Name Irvin Allen M.D. Address [address] [place] [address] Care Team Providers Name Role Phone Philomena Lyle M.D. - Family Care Team Information Home Care And Home Health Aides Teacher [phone] Medicine Italo Huff M.D. - Cardiovascular Care Team Information Home Care And Home Health Aides Teacher Disease Karyna Morton M.D. - Endocrinology, Care Team Information Home Care And Home Health Aides Teacher [phone] Diabetes & Metabolism Kimmy Mccracken M.D. - Hematology & Care Team Information Home Care And Home Health Aides Teacher Oncology Problems Active Problems Provider Date Sleep apnea Onset: Type 2 diabetes mellitus Onset: Essential hypertension Onset: Atrial fibrillation Onset: Arthritis Onset: Hypercholesterolemia Onset: Nonproliferative diabetic retinopathy Sirena Agustin O.D. Onset: 2014 Pseudophakia Sirena Agustin O.D. Onset: 09/29/2014 Tear film insufficiency Sirena Agustin O.D. Onset: 09/29/2014 Vitreous degeneration Sirena Agustin O.D. Onset: 10/02/2015 Pseudophakia Sirena Agustin O.D. Onset: 10/02/2015 Other secondary cataract, right eye Sirena Agustin O.D. Onset: 2017 Leukemia Onset: Social History Type Date Description Comments Sex Unknown ETOH Use Denies alcohol use Tobacco Use Start: Unknown Patient has never smoked Recreational Drug Use Denies Drug Use Smoking Status Reviewed: 02/26/19 Patient has never smoked Allergies, Adverse Reactions, Alerts Description No Known Drug Allergies Medications Active Medications SIG Qnty Indications Ordering Provider Date Carvedilol Unknown 12.5mg Tablets Glipizide Unknown 10mg Tablets Amiodarone HCL Unknown 100mg Tablets Lovastatin Unknown 40mg Tablets Multi Vitamin Daily Unknown Tablets Coq-10 Unknown 200mg Capsules ER Eliquis Unknown 5mg Tablets Sertraline HCL Take One Tablet Unknown 25mg By Mouth Every Tablets Day Torsemide Take One Tablet Unknown 20mg Tablets By Mouth Every 24 Hours Venclexta Unknown 100mg Tablets Claritin 1 per day as Unknown 10mg Capsules needed Senna Unknown 8.6mg Tablets Melatonin once every night Unknown 10mg Capsules Magnesium Oxide Take One Tablet Unknown By Mouth Every 400(241.3Mg) mg Day Tablets Potassium Chloride Take One Tablet Unknown Shannan ER By Mouth Every 20Meq Tablets ER Day Immunizations Description No Information Available Vital Signs Date Vital Result Comment 02/21/2018 1:23pm BP Systolic 135 mmHg BP Diastolic 75 mmHg Heart Rate 78 /min Respiratory Rate 16 /min 11/15/2017 2:39pm BP Systolic 142 mmHg BP Diastolic 88 mmHg Heart Rate 72 /min Respiratory Rate 18 /min Results Description No Information Available Procedures Description No Information Available Medical Devices Description No Information Available Encounters Description No Information Available Assessments Date Code Description Provider 02/26/2019 E11.9 Type 2 diabetes mellitus without Irvin Allen M.D. complications Plan of Treatment 02/26/2019 - Irvin Allen M.D.E11.9 Type 2 diabetes mellitus without complicationsComments:Smoking can increase the risk of developing or worsening any eye related disease, as well as affect your overall health. If you are a smoker, we strongly recommend that you quit.If you are not a smoker, we strongly recommend that you do not start. You have diabetes. I do not detect any changes in both of your retinas from diabetes at this time. Proper control of your diabetes is important for the health of your eyes. Changes in your eyes from diabetes can happen without symptoms, so it is important that you have your eyes examined.Follow up:1 Year Follow Up DFE You can expect to have your eyes dilated at your next visit. If Dr. Allen orders any additional testing, it may require extra time. We recommend that you bring sunglasses, as dilation drops often make you light sensitive until they wear off. We always recommend you bring someone to drive you home if you are uncomfortable driving with your eyes dilated. If you have any questions before your next visit, feel free to call our office at . Functional Status Description No Information Available Mental Status Description No Information Available Referrals Description No Information Available
--- OUTSIDE RECORDS SUMMARY | 2019-03-27 23:27 | XMS REPORT | Continuity of Care Document ---
:1945 External Reference #:[id number] Author Name Italo Huff M.D. (transmitted by agent of provider Dorota Isabel) Address [address] [place] [address] Care Team Providers Name Role Phone Philomena Lyle MD - Family Care Team Information Performance Improvement Specialist Medicine Italo Huff MD - Cardiovascular Care Team Information Performance Improvement Specialist Disease Kimmy Mccracken MD - Hematology & Care Team Information Performance Improvement Specialist [phone] Oncology Problems Active Problems Provider Date Paroxysmal ventricular tachycardia Italo Huff M.D. Onset: 04/04/2013 Primary cardiomyopathy Italo Huff M.D. Onset: 04/04/2013 Aortic valve disorder Italo Huff M.D. Onset: 04/04/2013 Congestive heart failure Italo Huff M.D. Onset: 04/04/2013 Obstructive sleep apnea of adult Carmen Baig DNP, RN, Onset: 07/08/2013 [facility] Chronic combined systolic and Italo Huff [...] or using chewing tobacco. Smoking Status Reviewed: 01/08/19 Never Smoked Cigarettes Former cigar smoker over 35 years ago, denies smoking pipe, e-cigarettes, or using chewing tobacco. ETOH Use Denies alcohol use Tobacco Use Start: Unknown Patient has never smoked Recreational Drug Use Never Used Drugs Exercise Type/Frequency Does not exercise Allergies, Adverse Reactions, Alerts Description No Known Drug Allergies Medications Active Medications SIG Qnty Indications Ordering Date Provider Eliquis 1 by mouth twice a Unknown 01/07/2019 [...] Available Vital Signs Date Vital Result Comment 01/08/2019 2:08pm Height 72 inches 6'0" Heart Rate 72 /min R. radial, regular BP Systolic Sitting 110 mmHg deferred due to limited mobility BP Diastolic Sitting 62 mmHg deferred due to limited mobility O2 % BldC Oximetry 94 % 6 L NC 11/06/2018 1:28pm Height 72 inches 6'0" Weight 257.38 lb with shoes Heart Rate 72 /min radial BP Systolic Sitting 148 mmHg Lue reg cuff BP Diastolic Sitting 80 mmHg Lue reg cuff BMI (Body Mass Index) 34.9 kg/m2 Results Test Acquired Date Facility Test Result H/L Range Note Basic Metabolic 01/22/2019 [facility] Sodium 141 mmol/L Normal 135-[address] [place] [address] [phone] Potassium 4.3 mmol/L Normal 3.5-5.0 Chloride 104 mmol/L Normal 101-111 Co2 Carbon Dioxide 31 mmol/L Normal 22-32 Anion Gap 6 mmol/L Normal 2-11 Glucose 169 mg/dL High 70-100 Blood Urea Nitrogen 23 mg/dL Normal 6-24 Creatinine 1.14 mg/dL Normal 0.67-1.17 BUN/Creatinine Ratio 20.2 High 8-20 Calcium 9.1 mg/dL Normal 8.6-10.3 Egfr Non- 63.1 >60 Egfr 76.4 >60 1 CBC Auto 12/31/2018 [facility] White Blood 5.2 10^3/uL Normal 3.5-10.[address] [place] [address] [phone] Red Blood Count 3.72 10^6/uL Low 4.18-5.48 [...] Red Blood Cells % 0.2 Inr/Protime 12/31/2018 [facility] Inr 4.82 High 0.82-1.[address] [place] [address] [phone] Comp Metabolic 12/31/2018 [facility] Sodium 141 mmol/L Normal 135-[address] [place] [address] [phone] Potassium 4.5 mmol/L Normal 3.5-5.0 Chloride 102 [...] Egfr 93.2 >60 4 Laboratory test 12/31/2018 [facility] Troponin-I 0.02 <0.04 [address] (TnI) ng/[place] [address] [phone] Inr/Protime 12/10/2018 [facility] Inr 3.39 High 0.82-1.[address] [place] [address] [phone] Laboratory test 12/03/2018 [facility] Point of Care 150 mg/dL High 70-100 [address] [place] [address] [phone] Inr/Protime 12/03/2018 [facility] Inr 1.51 High 0.82-1.[address] [place] [address] [phone] CBC Auto Diff 12/03/2018 [facility] White Blood 6.0 Normal 3.5 -10.[address] Count 10^3/[place] [address] [phone] Red Blood Count 3.52 10^6/uL Low 4.18-5.48 [...] Red Blood Cells % 0.1 Manual 12/03/2018 [facility] Immature 7.0 % Normal 0-[address] [place] [address] [phone] Neutrophil % 77.0 % Band % 4.0 % Normal 0-8 Lymphocytes % 8.0 % Monocytes % 6.0 % Eosinophils % 0.0 % Basophil % 2.0 % Metamyelocytes % 1.0 % Normal 0-2 Myelocytes % 2.0 % High 0-1 Macrocytosis 1+ Polychromasia 1+ Anisocytosis 1+ Laboratory test 11/09/2018 [facility] Hemoglobin A1c 5.6 % Normal 4.0-5.6 [address] (Glyco HGB) [place] [address] [phone] Inr/Protime 11/09/2018 [facility] Inr 3.25 High 0.82-1.[address] [place] [address] [phone] 1 Because ethnic data is not always [...] immediately to secondary confirmatory testing. Using the [employer] DxI 800 Access Immunoassay systems, the 99th percentile upper reference limit was demonstrated to be < 0.03 ng/mL. 6 Standard intensity warfarin therapeutic range: 2.0-3.0 High intensity warfarin therapeutic range: 2.5-3.5 7 Sailing Instructor: [id number] 8 Standard intensity warfarin therapeutic range: 2.0-3.0 High intensity warfarin therapeutic range: 2.5-3.5 9 Therapeutic target for the treatment of diabetes mellitus patients is <7% HBA1C, and in selective patients <6.0%. Please refer to [place] [employer] diabetic care guidelines for further information. 10 Standard intensity warfarin therapeutic range: 2.0-3.0 High intensity warfarin therapeutic range: 2.5-3.5 Procedures Date Code Description Status 01/22/2019 32421 Moderate Sedation Services; Same Phys Intl 15 Mins; PT >= Completed 5 Years 01/22/2019 83722 Cardioversion Completed 01/02/2019 22151 Color Flow Doppler/Interp & Reprt Completed 01/02/2019 00123 Pulse Wave/Continuous-Interp.RPT Completed 01/02/2019 08018 Echocardiography, Transesophageal, Real Time W/Image 2D Completed W/W/O M-M 01/02/2019 92700 Cardioversion Completed 12/04/2018 33716 ECHO Transthorasic Realtime 2D W Doppler & Color Flow Hosp Completed 09/03/2018 29092 Interrogation Device Eval Remote Up To 30 Days Completed Analysis,Rev,RP 09/03/2018 60322 Interrogation Device Eval Remote Up To 30 Days Completed Analysis,Rev,RP 09/03/2018 55111 Icd Eval Sing,Dual,Multi Lead Remote Recpt Transm Tech Rev Completed Tech S 09/03/2018 63007 Icd Eval Sing,Dual,Multi Lead Remote Recpt Transm Tech Rev Completed Tech S 09/03/2018 22265 Icd Check Remote Up To 90 Days Single,Dual,Multiple Lead Completed 09/03/2018 52729 Icd Check Remote Up To 90 Days Single,Dual,Multiple Lead Completed 08/07/2018 08306 EKG, Interpretation Only Completed Medical Devices Description No Information Available Encounters Type Date Location Provider Dx Diagnosis Office Visit 01/08/2019 [place] Zak Montero R06.02 Shortness of 1:45p Of Oil Changer AT [facility] Melinda Huff breath I42.9 Cardiomyopathy, unspecified I48.91 Unspecified atrial fibrillation Z95.2 Presence of prosthetic heart valve Office Visit 01/04/2019 12:24p [facility] Gage Hooper I50.23 Acute on chronic Of Oil Changer Hartmann, DO systolic FACC (congestive) heart failure I42.9 Cardiomyopathy, unspecified I48.91 Unspecified atrial fibrillation Z95.810 Presence of automatic (implantable) cardiac defibrillator Office Visit 01/03/2019 12:25p [facility] Gage Hooper I50.23 Acute on chronic Of Oil Changer Hartmann, DO systolic FACC (congestive) heart failure I42.9 Cardiomyopathy, unspecified I48.91 Unspecified atrial fibrillation Z95.2 Presence of prosthetic heart valve Z95.810 Presence of automatic (implantable) cardiac defibrillator Office Visit 01/01/2019 [place] Raiza I42.9 Cardiomyopathy, 3:16p Cardiology Erin Mckenzie NP unspecified [facility] I48.19 Other persistent atrial fibrillation I50.9 Heart failure, unspecified Z86.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 tachycardia R06.02 Shortness of breath R50.9 Fever, unspecified Assessments Date Code Description Provider 01/22/2019 I48.91 Unspecified atrial fibrillation Italo Huff M.D. 01/08/2019 R06.02 Shortness of breath Italo Huff M.D. 01/08/2019 I42.9 Cardiomyopathy, unspecified Italo Huff M.D. 01/08/2019 I48.91 Unspecified atrial fibrillation Italo Huff M.D. 01/08/2019 Z95.2 Presence of prosthetic heart valve Italo Huff M.D. 01/04/2019 I50.23 Acute on chronic systolic (congestive) Gage Hartmann, DO [facility] heart failure 01/04/2019 I42.9 Cardiomyopathy, unspecified Gage Hartmann, DO FAC 01/04/2019 I48.91 Unspecified atrial fibrillation Gage Hartmann, DO FACC 01/04/2019 Z95.810 Presence of automatic (implantable) Gage Hartmann, DO [facility] cardiac defibrillator 01/03/2019 I50.23 Acute on chronic systolic (congestive) Gage Hartmann, DO [facility] heart failure 01/03/2019 I42.9 Cardiomyopathy, unspecified Gage Hartmann, DO FACC 01/03/2019 I48.91 Unspecified atrial fibrillation Gage Hartmann, DO FACC 01/03/2019 Z95.2 Presence of prosthetic heart valve Gage Hartmann, DO FACC 01/03/2019 Z95.810 Presence of automatic (implantable) Gage Hartmann, DO [facility] cardiac defibrillator 01/02/2019 I48.91 Unspecified atrial fibrillation Chelo Agosto M.D. 01/01/2019 I42.9 Cardiomyopathy, unspecified Raiza Thuman, [employer] 01/01/2019 I48.19 Other persistent atrial fibrillation Raiza Thuman, FINISHER [employer] 01/01/2019 I50.9 Heart failure, unspecified Raiza Thuman, FINISHER [employer] 01/01/2019 Z86.73 Personal history of transient ischemic Raiza Thuman, FINISHER [employer] attack (TIA), and cerebral infarction without residual deficits 12/04/2018 R06.02 Shortness of breath Italo Huff M.D. 12/04/2018 G45.9 Transient cerebral ischemic attack, Italo Huff M.D. unspecified 12/04/2018 I42.9 Cardiomyopathy, unspecified Italo Huff M.D. 12/04/2018 Z95.2 Presence of prosthetic heart valve Italo Huff M.D. 12/04/2018 I48.91 Unspecified atrial fibrillation Italo Huff M.D. 11/07/2018 Z79.4 care home (current) use of insulin Yfn Morton MD [...] with Yfn Morton MD hyperglycemia 09/07/2018 Z79.4 brass sorter (current) use of insulin Yfn Morton MD [...] M.D. 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, not having RIMA Luke achieved remission 08/05/2018 R06.02 Shortness of breath [...] Obstructive sleep apnea (adult) RIMA Luke (pediatric) Plan of Treatment Future Appointment(s):02/06/2019 3:30 pm - Ica Pacer Schedule at [facility]01/08/2019 - Italo Huff M.D.R06.02 Shortness of mogmmlQ96.9 Cardiomyopathy, rplltfgosvfK55.91 Unspecified atrial fibrillationFollow up:1 month with PO check on same dayRecommendations:Increase Amiodarone to 200 mg (one full pill) oknilY07.2 Presence of prosthetic heart valve Functional Status Description No Information Available Mental Status Description No Information Available Referrals Description No Information Available
--- OUTSIDE RECORDS SUMMARY | 2019-03-27 23:27 | XMS REPORT | Continuity of Care Document ---
:1945 External Reference #:[id number] Author Name Italo Huff M.D. (transmitted by agent of provider Dorota Isabel) Address [address] [place] [address] Care Team Providers Name Role Phone Philomena Lyle MD - Family Care Team Information Credit Control Administrator Medicine Italo Huff MD - Cardiovascular Care Team Information Credit Control Administrator Disease Kimmy Mccracken MD - Hematology & Care Team Information Credit Control Administrator [phone] Oncology Problems Active Problems Provider Date Paroxysmal ventricular tachycardia Italo Huff M.D. Onset: 04/04/2013 Primary cardiomyopathy Italo Huff M.D. Onset: 04/04/2013 Aortic valve disorder Italo Huff M.D. Onset: 04/04/2013 Congestive heart failure Italo Huff M.D. Onset: 04/04/2013 Obstructive sleep apnea of adult Carmen Baig DNP, RN, Onset: 07/08/2013 [facility] Chronic combined systolic and Italo Huff [...] Result H/L Range Note Basic Metabolic 01/22/2019 [facility] Sodium 141 mmol/L Normal 135-[address] [place] [address] [phone] Potassium 4.3 mmol/L Normal 3.5-5.0 Chloride 104 mmol/L Normal 101-111 Co2 Carbon Dioxide 31 mmol/L Normal 22-32 Anion Gap 6 mmol/L Normal 2-11 Glucose 169 mg/dL High 70-100 Blood Urea Nitrogen 23 mg/dL Normal 6-24 Creatinine 1.14 mg/dL Normal 0.67-1.17 BUN/Creatinine Ratio 20.2 High 8-20 Calcium 9.1 mg/dL Normal 8.6-10.3 Egfr Non- 63.1 >60 Egfr 76.4 >60 1 CBC Auto 12/31/2018 [facility] White Blood 5.2 10^3/uL Normal 3.5-10.[address] [place] [address] [phone] Red Blood Count 3.72 10^6/uL Low 4.18-5.48 [...] Red Blood Cells % 0.2 Inr/Protime 12/31/2018 [facility] Inr 4.82 High 0.82-1.[address] [place] [address] [phone] Comp Metabolic 12/31/2018 [facility] Sodium 141 mmol/L Normal 135-[address] [place] [address] [phone] Potassium 4.5 mmol/L Normal 3.5-5.0 Chloride 102 [...] Egfr 93.2 >60 4 Laboratory test 12/31/2018 [facility] Troponin-I 0.02 <0.04 [address] (TnI) ng/[place] [address] [phone] Inr/Protime 12/10/2018 [facility] Inr 3.39 High 0.82-1.[address] [place] [address] [phone] Laboratory test 12/03/2018 [facility] Point of Care 150 mg/dL High 70-100 [address] [place] [address] [phone] Inr/Protime 12/03/2018 [facility] Inr 1.51 High 0.82-1.[address] [place] [address] [phone] CBC Auto Diff 12/03/2018 [facility] White Blood 6.0 Normal 3.5 -10.[address] Count 10^3/[place] [address] [phone] Red Blood Count 3.52 10^6/uL Low 4.18-5.48 [...] Red Blood Cells % 0.1 Manual 12/03/2018 [facility] Immature 7.0 % Normal 0-[address] [place] [address] [phone] Neutrophil % 77.0 % Band % 4.0 % Normal 0-8 Lymphocytes % 8.0 % Monocytes % 6.0 % Eosinophils % 0.0 % Basophil % 2.0 % Metamyelocytes % 1.0 % Normal 0-2 Myelocytes % 2.0 % High 0-1 Macrocytosis 1+ Polychromasia 1+ Anisocytosis 1+ Laboratory test 11/09/2018 [facility] Hemoglobin A1c 5.6 % Normal 4.0-5.6 [address] (Glyco HGB) [place] [address] [phone] Inr/Protime 11/09/2018 [facility] Inr 3.25 High 0.82-1.[address] [place] [address] [phone] 1 Because ethnic data is not always [...] immediately to secondary confirmatory testing. Using the [employer] DxI 800 Access Immunoassay systems, the 99th percentile upper reference limit was demonstrated to be < 0.03 ng/mL. 6 Standard intensity warfarin therapeutic range: 2.0-3.0 High intensity warfarin therapeutic range: 2.5-3.5 7 Wood Cabinet Finisher: [id number] 8 Standard intensity warfarin therapeutic range: 2.0-3.0 High intensity warfarin therapeutic range: 2.5-3.5 9 Therapeutic target for the treatment of diabetes mellitus patients is <7% HBA1C, and in selective patients <6.0%. Please refer to [place] [employer] diabetic care guidelines for further information. 10 Standard intensity warfarin therapeutic range: 2.0-3.0 High intensity warfarin therapeutic range: 2.5-3.5 Procedures Date Code Description Status 01/22/2019 46315 Moderate Sedation Services; Same Phys Intl 15 Mins; PT >= Completed 5 Years 01/22/2019 70175 Cardioversion Completed 01/02/2019 40044 Color Flow Doppler/Interp & Reprt Completed 01/02/2019 96869 Pulse Wave/Continuous-Interp.RPT Completed 01/02/2019 22403 Echocardiography, Transesophageal, Real Time W/Image 2D Completed W/W/O M-M 01/02/2019 28873 Cardioversion Completed 12/04/2018 18232 ECHO Transthorasic Realtime 2D W Doppler & Color Flow Hosp Completed 09/03/2018 47820 Interrogation Device Eval Remote Up To 30 Days Completed Analysis,Rev,RP 09/03/2018 96784 Interrogation Device Eval Remote Up To 30 Days Completed Analysis,Rev,RP 09/03/2018 30952 Icd Eval Sing,Dual,Multi Lead Remote Recpt Transm Tech Rev Completed Tech S 09/03/2018 16954 Icd Eval Sing,Dual,Multi Lead Remote Recpt Transm Tech Rev Completed Tech S 09/03/2018 53581 Icd Check Remote Up To 90 Days Single,Dual,Multiple Lead Completed 09/03/2018 39260 Icd Check Remote Up To 90 Days Single,Dual,Multiple Lead Completed 08/07/2018 47287 EKG, Interpretation Only Completed Medical Devices Description No Information Available Encounters Type Date Location Provider Dx Diagnosis Office Visit 01/08/2019 [place] Zak Montero R06.02 Shortness of 1:45p Of Well Head Pumper [place] [facility] Melinda Huff breath I42.9 Cardiomyopathy, unspecified I48.91 Unspecified atrial fibrillation Z95.2 Presence of prosthetic heart valve Office Visit 01/04/2019 12:24p [facility] Gage Hooper I50.23 Acute on chronic Of Well Head Pumper Hartmann, DO systolic FACC (congestive) heart failure I42.9 Cardiomyopathy, unspecified I48.91 Unspecified atrial fibrillation Z95.810 Presence of automatic (implantable) cardiac defibrillator Office Visit 01/03/2019 12:25p [facility] Gage Hooper I50.23 Acute on chronic Of Well Head Pumper Hartmann, DO systolic FACC (congestive) heart failure I42.9 Cardiomyopathy, unspecified I48.91 Unspecified atrial fibrillation Z95.2 Presence of prosthetic heart valve Z95.810 Presence of automatic (implantable) cardiac defibrillator Office Visit 01/01/2019 [place] Raiza I42.9 Cardiomyopathy, 3:16p Cardiology Erin Mckenzie NP unspecified [facility] I48.19 Other persistent atrial fibrillation I50.9 Heart failure, unspecified Z86.73 Prsnl hx of TIA (TIA), and cereb infrc w/o resid deficits Office Visit 12/04/2018 2:57p [place] Zak Montero R06.02 Shortness of Of Katelyn Huff M.D. 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 tachycardia R06.02 Shortness of breath R50.9 [...] on chronic systolic (congestive) Gage Hartmann, DO [facility] heart failure 01/04/2019 I42.9 Cardiomyopathy, unspecified Gage Hartmann, DO FAC 01/04/2019 I48.91 Unspecified atrial fibrillation Gage Hartmann, DO FACC 01/04/2019 Z95.810 Presence of automatic (implantable) Gage Hartmann, DO [facility] cardiac defibrillator 01/03/2019 I50.23 Acute on chronic systolic (congestive) Gage Hartmann, DO [facility] heart failure 01/03/2019 I42.9 Cardiomyopathy, unspecified Gage Hartmann, DO FACC 01/03/2019 I48.91 Unspecified atrial fibrillation Gage Hartmann, DO FACC 01/03/2019 Z95.2 Presence of prosthetic heart valve Gage Hartmann, DO FACC 01/03/2019 Z95.810 Presence of automatic (implantable) Gage Hartmann, DO [facility] cardiac defibrillator 01/02/2019 I48.91 Unspecified atrial fibrillation Chelo Agosto M.D. 01/01/2019 I42.9 Cardiomyopathy, unspecified Raiza Thuman, PROGRESS CLERK 01/01/2019 I48.19 Other persistent atrial fibrillation Raiza Thuman, PROGRESS CLERK 01/01/2019 I50.9 Heart failure, unspecified Raiza Thuman, PROGRESS CLERK 01/01/2019 Z86.73 Personal history of transient ischemic Raiza Thuman, PROGRESS CLERK attack (TIA), and cerebral infarction without residual deficits 12/04/2018 R06.02 Shortness of breath Italo Huff M.D. 12/04/2018 G45.9 Transient cerebral ischemic attack, Italo Huff M.D. unspecified 12/04/2018 I42.9 Cardiomyopathy, unspecified Italo Huff M.D. 12/04/2018 Z95.2 Presence of prosthetic heart valve Italo Huff M.D. 12/04/2018 I48.91 Unspecified atrial fibrillation Italo Huff M.D. 11/07/2018 Z79.4 [facility] (current) use of insulin Yfn Morton MD [...] with Yfn Morton MD hyperglycemia 09/07/2018 Z79.4 terminal supervisor (current) use of insulin Yfn Morton MD [...] 3:30 pm - Ica Pacer Schedule at [place] [facility]01/08/2019 - Italo Huff M.D.R06.02 Shortness of nxwsaeO68.9 Cardiomyopathy, csszzjftkubK55.91 Unspecified atrial fibrillationFollow up:1 month with PO check on same dayRecommendations:Increase Amiodarone to 200 mg (one full pill) xpojzQ10.2 Presence of prosthetic heart valve Functional Status Description No Information Available Mental Status Description No Information Available Referrals Description No Information Available
[2019-03-28 00:15] LABS: ALT 18 U/L (7-52); AST 18 U/L (13-39); Albumin 3.6 g/dL (3.2-5.2); Albumin/Globulin Ratio 1.3 (1-3); Alkaline Phosphatase 89 U/L (34-104); Anion Gap 6 mmol/L (2-11); BUN/Creatinine Ratio 23.8 (8-20); Blood Urea Nitrogen 29 mg/dL (6-24); C Reactive Protein 24.35 mg/L (<8.01); CO2 Carbon Dioxide 31 mmol/L (22-32); Calcium 8.6 mg/dL (8.6-10.3); Chloride 102 mmol/L (101-111); EGFR African American 70.5 (>60); EGFR Non-African American 58.2 (>60); Globulin 2.8 g/dL (2-4); Glucose 223 mg/dL (70-100); Potassium 4.5 mmol/L (3.5-5.0); Sodium 139 mmol/L (135-145); Total Protein 6.4 g/dL (6.4-8.9)
--- NOTE | 2019-03-28 00:15 | ED ---
HPI Chest Pain - HPI Summary HPI Summary: Patient complains of sudden onset left-sided chest pain at rest located at the inferior aspect of left breast starting at 6 PM. Pain described as constant, new onset, no radiation, throbbing, baseline of 2/10 going to 4/10 with deep inhalation. Denies trauma, fever, cough, sore throat, SOB, N/V/V abdominal pain , change in urine, change in BM. Patient on 3 L O2 27. Vision on Eliquis. Pain is worse with deep inhalation. Medical history COPD, AML, A. fib, DM, CHF , CK D, prosthetic valve, cardiomyopathy, ICD. - History of Current Complaint Chief Complaint: EDChestPainROMI Time Seen by Provider: 03/27/19 23:27 Hx Obtained From: Patient Onset/Duration: Started Hours Ago Timing: Constant Initial Severity: Moderate Current Severity: Moderate Pain Intensity: 4 Pain Scale Used: 0-10 Numeric Chest Pain Location: Left Anterior Chest Pain Radiates: No Character: Dull/Aching Aggravating Factor(s): Nothing Alleviating Factor(s): Nothing Associated Signs and Symptoms: Positive: Chest Pain - Additional Pertinent History Primary Care Physician: [id number] - Allergy/Home Medications Allergies/Adverse Reactions: Allergies Allergy/AdvReac Type Severity Reaction Status Date / Time No Known Allergies Allergy Verified 03/27/19 23:24 PMH/Surg Hx/FS Hx/Imm Hx Endocrine/Hematology History: Reports: Hx Diabetes Cardiovascular History: Reports: Hx Atrial Fibrillation, Hx Congestive Heart Failure, Hx Hypercholesterolemia, Hx Hypertension, Hx Pacemaker/ICD - X2, Hx Valvular Heart Disease, Other Cardiovascular Problems/Disorders - HX CARDIOMYOPATHY Denies: Hx Angina, Hx Peripheral Vascular Disease Respiratory History: Reports: Hx Chronic Obstructive Pulmonary Disease (COPD), Hx Sleep Apnea - evaluation for 06/2013, Other Respiratory Problems/Disorders - dyspnea, hypoxemia History: Denies: Hx Renal Disease Musculoskeletal History: Reports: Other Musculoskeletal History - obesity Sensory History: Reports: Hx Cataracts - BILATERAL, Hx Contacts or Glasses Denies: Hx Hearing Aid Opthamlomology History: Reports: Hx Cataracts - BILATERAL, Hx Contacts or Glasses EENT History: Denies: Hx Deafness - Cancer History Cancer Type, 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 - Surgical History Surgery Procedure, Year, and Place: Pacemaker insertion 2010 [facility], vasectomy , tonsillectomy as a child, Aortic valve replacement 2006 [facility] with aneurysm repair Hx Anesthesia Reactions: No - Immunization History Date of Tetanus Vaccine: utd Date of Influenza Vaccine: utd Infectious Disease History: No Infectious Disease History: Denies: Traveled Outside the [place] in Last 30 Days - Family History Known Family History: Positive: Other - neg: anaesthesia reaction - Social History Alcohol Use: None Hx Substance Use: No Substance Use Type: Reports: None Hx Tobacco Use: No Smoking Status (MU): Never Smoked Tobacco Have You Smoked in the Last Year: No Review of Systems Constitutional: Negative Eyes: Negative ENT: Negative Positive: Chest Pain Respiratory: Negative Gastrointestinal: Negative Genitourinary: Negative Musculoskeletal: Negative Skin: Negative Neurological: Negative Psychological: Normal All Other Systems Reviewed And Are Negative: Yes Physical Exam - Summary Physical Exam Summary: Chest pain reproducible. Tenderness along left side below left breast. No ecchymosis, erythema, deformity, swelling noted. Lung sounds diminished on left side. No peripheral edema Triage Information Reviewed: Yes Vital Signs On Initial Exam: Initial Vitals Temp Pulse Resp BP Pulse Ox 99.1 F 98 20 127/65 92 03/27/19 23:20 03/27/19 23:20 03/27/19 23:20 03/27/19 23:20 03/27/19 23:20 Vital Signs Reviewed: Yes Appearance: Positive: Well-Appearing Skin: Positive: Warm Head/Face: Positive: Normal Head/Face Inspection Eyes: Positive: Normal Neck: Positive: Supple Respiratory/Lung Sounds: Positive: Other Cardiovascular: Positive: IRR Abdomen Description: Positive: Nontender Musculoskeletal: Positive: Normal Neurological: Positive: Normal Psychiatric: Positive: Normal AVPU Assessment: Alert - [place] Coma Scale Best Eye Response: 4 - Spontaneous Best Motor Response: 6 - Obeys Commands Best Verbal Response: 5 - Oriented Coma Scale Total: 15 Procedures - Sedation Patient Received Moderate/Deep Sedation with Procedure: No Diagnostics - Vital Signs Vital Signs Temp Pulse Resp BP Pulse Ox 03/27/19 23:20 99.1 F 98 20 127/65 92 - Laboratory Result Diagrams: 03/27/19 23:41 03/27/19 23:41 Lab Statement: Any lab studies that have been ordered have been reviewed, and results considered in the medical decision making process. Chest Pain Course/Dx - Course Course Of Treatment: Patient complains of sudden onset left-sided chest pain at rest located at the inferior aspect of left breast starting at 6 PM. Pain described as constant, new onset, no radiation, throbbing, baseline of 2/10 going to 4/10 with deep inhalation. Denies trauma, fever, cough, sore throat, SOB, N/V/V abdominal pain, change in urine, change in BM. Patient on 3 L O2 27. Vision on Eliquis. Pain is worse with deep inhalation. Medical history COPD, AML, A. fib, DM, CHF, CK D, prosthetic valve, cardiomyopathy, ICD. 92% O2 at 2 L. Vital signs otherwise within normal limits. EKG paced rhythm, heart rate 77, similar to prior EKG. Chest x-ray positive for left lower lobe infiltrate. WBC 16.1. Troponin 0.04. CRP 24. Creatinine 1.22. BNP 582. Heart score 6. Admitted to hospitalist for pneumonia and elevated troponin. - Diagnoses Provider Diagnoses: Pneumonia, Elevated troponin Discharge ED - Sign-Out/Discharge Documenting (check all that apply): Patient Departure - Discharge Plan Condition: Stable Disposition: ADMITTED TO [facility] - Billing Disposition and Condition Condition: STABLE Disposition: Admitted to [facility]
[2019-03-28 00:23] LABS: Polychromasia 1+; Troponin I 0.04 ng/mL (<0.03)
[2019-03-28 00:24] LABS: ABS Lymphocytes 0.5 10^3/ul (1.0-4.8); ABS Neutrophils 14.6 10^3/ul (1.5-7.7); Eosinophil % 0.1 %; Hematocrit 37 % (42-52); Lymphocyte % 3.3 %; Mean Corpuscular HGB Conc 33 g/dL (31-36); Mean Corpuscular Hemoglobin 34 pg (27-31); Mean Corpuscular Volume 105 fL (80-94); Mean Platelet Volume 7.4 fL (7.4-10.4); Platelet Count 68 10^3/uL (150-450); Red Blood Count 3.52 10^6 /uL (4.18-5.48); Red Cell Distribution Width 21 % (10-15); White Blood Count 16.1 10^3/uL (3.5-10.8)
[2019-03-28 00:34] LABS: TSH (Thyroid Stimulating Horm) 3.12 mcIU/mL (0.34-5.60)
[2019-03-28] MEDS ORDERED: cefTRIAXone(*) 1 GM in NS 0.9% 50 ML* 50 ML IVPB ONE (01:02)
[2019-03-28] MEDS ORDERED: Ondansetron INJ* 2 MG/ML VIAL ONE (01:26)
[2019-03-28] MEDS ORDERED: Morphine INJ* 2 MG/ML 1 ML SYRINGE (TWO MG - NEW SYRINGE VERSION) ONE (03:40)
[2019-03-28] MEDS ORDERED: Aspirin 81 mg CHEW TAB* 81 MG TAB.CHEW ONE (03:42)
[2019-03-28] MEDS ORDERED: Acetaminophen TAB* 325 MG ONE (04:02)
--- NOTE | 2019-03-28 05:03 | HP ---
CC: Dr. Kimmy Mccracken; Dr. Italo Huff; Dr. Lyle * HISTORY AND PHYSICAL: DATE OF ADMISSION: 03/28/19 PRIMARY CARE PHYSICIAN: Dr. Lyle. PRIMARY DESKTOP SUPPORT MANAGER: Dr. Huff. PRIMARY ONCOLOGIST: Dr. Mccracken. CHIEF COMPLAINT: Chest pain. HISTORY OF PRESENT ILLNESS: This is a 74-year-old male with past medical history of aortic valve disorder, congestive heart failure, atrial fibrillation status post cardioversion, ischemic cardiomyopathy with an ICD placement, who now presents to the emergency room because of chest pain. The patient reports that the chest pain started all of a sudden, was not associated with any activity, it started around 6 p.m. last night and made him very uncomfortable, chest pain was rated at 6/10, mostly located on the left side, associated with some shortness of breath. The patient reports that when he takes a deep breath there is chest pain, and he is also having a nonproductive cough for the past 2 to 3 days. He reports that he does have a history of leukemia, his last chemotherapy was about a week ago, he does not have any nausea or vomiting. He does have chronic COPD with home oxygen at 3 L. PAST MEDICAL HISTORY: 1. COPD on home oxygen at 3 L. 2. Obstructive sleep apnea, uses CPAP at 3.5 cm water setting. 3. Congestive heart failure. 4. Aortic valve disorder. 5. Atrial fibrillation with cardioversion about 4 to 6 weeks ago, ischemic cardiomyopathy with an ICD placement, also has a pacemaker placement. 6. History of leukemia with last chemotherapy about a week ago, the patient also takes oral chemotherapy Venclexta 100 mg 2 tabs daily. Other medical history does include diabetes mellitus type 2, obesity, ventricular tachycardia. PAST SURGICAL HISTORY: Includes: 1. Cardiac catheterization in June 2006. 2. Aortic valve replacement in February 2007, bioprosthetic valve. 3. Ascending aorta repair. 4. History of cardioversion. 5. Aneurysmal repair. MEDICATIONS: Home medications include: 1. Amiodarone 200 mg daily. 2. Eliquis 5 mg b.i.d. 3. Coreg 3.125 mg b.i.d. 4. Claritin as needed. 5. Coenzyme Q10 200 mg daily. 6. Glipizide 5 mg in the morning. 7. Lovastatin 40 mg at bedtime. 8. Magnesium 400 mg daily. 9. Melatonin 5 mg as needed for sleep aid. 10. Vitamin 50 plus. 11. Potassium 1 tablet daily. 12. Senna as needed. 13. Sertraline 25 mg daily. 14. Torsemide 1 tablet daily. 15. Venclexta 200 mg daily in the evening for his chemotherapy. ALLERGIES: Include no known drug allergies. FAMILY HISTORY: Father: Cancer, however, unsure what kind. Mother: Stroke. The patient also has 1 sibling. SOCIAL HISTORY: The patient lives with his . He used to be a guzman. He has never smoked. He used to use cigars in the past, however. He does not use any alcohol. PHYSICAL EXAMINATION GENERAL: This is a well developed male, lying in bed, in no acute distress. VITAL SIGNS: His blood pressure is 144/82, heart rate of 72, respiratory rate of 14, saturation of 97% on 3 L nasal cannula. HEENT: Pupils are equal round, reactive to light, atraumatic, normocephalic. NECK: Supple with no JVD. He does not have any cervical lymphadenopathy. RESPIRATORY: There is mild tachypnea with decreased air entry at the left lower lung base. There is no wheezing, rales, or rhonchi. HEART: Irregularly irregular. There is no chest wall tenderness, with no murmurs, rubs or gallops. ABDOMEN: Normoactive bowel sounds. Abdomen is soft, nontender, nondistended. EXTREMITIES: There is no lower extremity edema. Dorsalis pedis is 2+ bilaterally. NEUROLOGICAL: The patient is awake, alert, oriented x3. Tongue is midline. There is no facial droop. There is no asymmetry facially. He is moving all 4 extremities without any difficulty. DIAGNOSTIC STUDIES/LAB DATA: White blood cell count 16.1, hemoglobin of 12.0, hematocrit of 36.9, platelets 68. Sodium of 139, potassium of 4.5, chloride of 102, glucose of 223, AST of 18, magnesium 2.0, BUN 29, creatinine 1.22. Troponin is 0.04 as well as a repeat is 0.04. EKG reveals atrial fibrillation with no acute ST elevation. Of note, our computer system is down and I cannot evaluate if there has been any significant change since the past EKG. Chest x-ray according to the emergency room physician, there is a pneumonia noted on the left lower lobe. Unfortunately, due to our computer system being down we are checking this. IMPRESSION AND PLAN: 1. Pneumonia. The patient was hospitalized recently within the last 3 months. We will start the patient on Zosyn, DuoNeb as needed every 4 hours for shortness of breath and wheezing. 2. Chest pain: This could be demand related chest pain as well as demand related ischemia given that the troponin is 0.04, we will give the patient aspirin 162 mg x1 dose, check repeat troponin at 6 o'clock as well as a repeat EKG. I do not want to start any further heparin drip or Lovenox because the patient is on Eliquis as well his platelets are running low at 68. 3. History of chronic obstructive pulmonary disease: Continue home supplemental oxygen and home medications. 4. History of congestive heart failure: Continue home regimen. 5. He is full code status. 6. History of leukemia: Continue his home chemotherapy dose. [id number]/[facility] #: [id number] MTDD
[2019-03-28] MEDS ORDERED: Ondansetron INJ* 2 MG/ML VIAL IV PRN (05:26)
[2019-03-28] MEDS ORDERED: Albuterol/Ipratropium NEB.SOL* Albuterol 2.5 MG/Ipratropium 0.5 MG 3 ML INH PRN (05:27)
[2019-03-28] MEDS ORDERED: Zosyn per Pharmacy* NOTE FOLLOW UP PRN (05:28)
[2019-03-28] MEDS ORDERED: Dextrose 50% VIAL 50 ml IV PUSH PRN (05:45)
[2019-03-28] MEDS ORDERED: ZOSYN 3.375 GM Q8H per EXTENDED INFUSION IVPB SCH ×2 (06:00)
[2019-03-28] MEDS ORDERED: Zosyn 3.375 GM IV - ED ONCE IVPB ONE ×2 (06:00)
[2019-03-28] MEDS ORDERED: Temazepam CAP* 15 MG PO ONE (06:00)
[2019-03-28] MEDS ORDERED: Aspirin 81 mg CHEW TAB* 81 MG TAB.CHEW PO ONE (06:00)
--- NOTE | 2019-03-28 07:53 | PN ---
Progress Note - Progress Note Date of Service: 03/28/19 SOAP: Subjective: developed acute onset of left sided pleuritic chest pain at 6 pm last night. hurts to breathe deeply. denies fever. mild cough. pain persistent, nothing makes it better except shallower breaths. no clear sick contacts. Objective: Vital Signs Temp Pulse Resp BP Pulse Ox 97.3 F 74 20 125/55 96 03/28/19 07:36 03/28/19 07:36 03/28/19 07:36 03/28/19 07:36 03/28/19 07:36 lying flat in nad perr eomi op moist dec bs LLL, unable to take deep breath irr irr vs. ectopy soft nt +bs no le edema A+O x 3, nonfocal Laboratory Results - last 24 hr 03/27/19 03/27/19 03/27/19 23:41 23:41 23:42 WBC 16.1 H RBC 3.52 L Hgb 12.0 L Hct 37 L MCV 105 H MCH 34 H MCHC 33 RDW 21 H Plt Count 68 L MPV 7.4 Neut % (Auto) 90.5 Lymph % (Auto) 3.3 Miller % (Auto) 5.9 Eos % (Auto) 0.1 Baso % (Auto) 0.2 Absolute Neuts (auto) 14.6 H Absolute Lymphs (auto) 0.5 L Absolute Monos (auto) 1.0 H Absolute Eos (auto) 0.0 Absolute Basos (auto) 0.0 Absolute Nucleated RBC 0.0 Nucleated RBC % 0.0 Polychromasia 1+ Anisocytosis 2+ Macrocytosis 1+ Sodium 139 Potassium 4.5 Chloride 102 Carbon Dioxide 31 Anion Gap 6 BUN 29 H Creatinine 1.22 H Est GFR ( Amer) 70.5 Est GFR (Non-Af Amer) 58.2 BUN/Creatinine Ratio 23.8 H Glucose 223 H Calcium 8.6 Magnesium 2.0 Total Bilirubin 0.50 AST 18 ALT 18 Alkaline Phosphatase 89 Troponin I 0.04 H* C-Reactive Protein 24.35 H B-Natriuretic Peptide 582 H Total Protein 6.4 Albumin 3.6 Globulin 2.8 Albumin/Globulin Ratio 1.3 Lipase 10 L TSH 3.12 Acetaminophen (Tylenol Tab*) 650 mg PO Q6H PRN PRN Reason: MILD-MODERATE PAIN Albuterol/Ipratropium (Duoneb (Albuterol 2.5 Mg/Ipratropium 0.5 Mg)) 1 neb INH Q4H PRN PRN Reason: SOB/WHEEZING Amiodarone HCl (Cordarone Tab*) 200 mg PO DAILY [facility] Apixaban (Eliquis*) 5 mg PO BID [facility] Carvedilol (Coreg Tab*) 3.125 mg PO BID [facility] Dextrose (Dextrose 50% Vial 50 Ml*) 25 ml IV PUSH .FOR FS < 60 - SS PRN PRN Reason: FS < 60 Glipizide (Glucotrol Xl*) 5 mg PO DAILY [facility] Piperacillin Sod/Tazobactam (Sod 3.375 gm/ Sodium Chloride) 100 mls @ 25 mls/ hr IVPB Q8H [facility] Insulin Human Lispro (Humalog*) 0 units SUBCUT AC [facility]; Protocol Morphine Sulfate (Morphine Inj (Syringe))*) 1 mg IV Q4H PRN PRN Reason: PAIN/CHEEST PAIN Nft: Venetoclax (200mg Tablet) 1 dose PO QPM [facility] Ondansetron HCl (Zofran Inj*) 4 mg IV Q6H PRN PRN Reason: NAUSEA/VOMITING Pharmacy Consult (Zosyn Per Pharmacy*) 1 note FOLLOW UP . PRN PRN Reason: PER PROTOCOL Sertraline HCl (Zoloft*) 25 mg PO DAILY [facility] Torsemide (Torsemide) 10 mg PO DAILY [facility] Assessment: 74 yo M w AML on AZA and venetoclax, clinically PHILIP, with CAD, CHF and afib, p/ w acute onset of left sided pleuritic chest pain with CXR suggestive of LLL PNA. He did have a mildly positive troponin, which is likely demand ischemia, however will track troponins closely. He is well known to the cardiology service. Plan: PNA: agree with zosyn for now, likely healthcare associated. I do think it is reasonable to check flu swab given prevalence in the community and exposure risk -hold venetoclax with active infection ARF: likely prerenal azotemia gentle hydration (1L only, hold torsemide today) CHF/CAD/Afib: appears to be in paced rhythm cont amio, coreg and eliquis hold eliquis if plts <50 DM: cont diabetic diet, glipizide and sliding scale full code eliquis DVT prophylaxis
[2019-03-28] MEDS ORDERED: NS 0.9% 1000 ML** 1,000 ML IV SCH (08:00)
[2019-03-28] MEDS ORDERED: Perflutren Lipid Microsphere* 3 ML VIAL ONE (08:05)
[2019-03-28] MEDS ORDERED: Torsemide TAB 10 MG PO SCH (09:00)
[2019-03-28] MEDS: glipiZIDE TAB.XL* 5 MG PO SCH (09:25)
[2019-03-28] MEDS: Insulin LISPRO* 1 UNITS UNIT SUBCUT SCH ×3 (09:33→17:35)
[2019-03-28] MEDS: Sertraline* 25 MG TAB PO SCH (09:34)
[2019-03-28] MEDS: ZOSYN 3.375 GM Q8H per EXTENDED INFUSION IVPB SCH ×4 (09:34→17:36)
[2019-03-28] MEDS: Amiodarone TAB* 200 MG PO SCH (09:34)
[2019-03-28] MEDS: Apixaban* 5 MG TAB PO SCH ×2 (09:34→20:13)
[2019-03-28] MEDS: Carvedilol TAB* 3.125 MG PO SCH ×2 (09:34→20:13)
[2019-03-28 10:49] LABS: Troponin I 0.03 ng/mL (<0.03)
[2019-03-28 11:56] LABS: Influenza A Molecular NEGATIVE (Negative); Influenza B Molecular NEGATIVE (Negative)
[2019-03-28 13:30] LABS: Troponin I 0.05 ng/mL (<0.03)
[2019-03-28] MEDS: Morphine INJ* 2 MG/ML 1 ML SYRINGE (TWO MG - NEW SYRINGE VERSION) IV PRN ×2 (15:57→20:10)
[2019-03-28] MEDS ORDERED: VENETOCLAX 200 MG PO SCH (18:00)
[2019-03-28] MEDS: Acetaminophen TAB* 325 MG PO PRN (20:14)
--- NOTE | 2019-03-28 21:25 | ECHO ---
*[facility]* [place] [address] Fax #: [phone] Transthoracic Echocardiogram Patient: Cyndi Luna : 1945 Study Date: 03/28/2019 Age: 74 Gender: M HR: 73 bpm Height: 72 in /182.9 cm BSA: 2.31 m^2 Weight: 241.5 lb /109.8 kg BMI: 32.8 kg/m^2 *Jewelry Sales Representative: * Angie Clarke [facility] *Referring Physician: * Marci Farias *Reading Physician: * Sachin Edmonds MD Indications: Chest Pain, unspecified. History: Atrial fibrillation. Congestive heart failure. Risk factors: Hypertension. Diabetes mellitus. Obese. Dyslipidemia. Labs, prior tests, procedures, and surgery: Permanent pacemaker system implantation. Valve surgery. Aortic valve replacement. Conclusions Summary: - Left ventricle: The cavity size is at the upper limits of normal. Wall thickness is mildly increased. Systolic function is moderately to severely reduced. The estimated ejection fraction is 30-35%. Systolic function is improved from the previous study. - Right ventricle: The cavity size is moderately to severely dilated. Systolic function is moderately to severely reduced. Systolic pressure is moderately increased. - Ventricular septum: There is septal flattening of the interventricular septum consistent with RV volume or pressure overload. There is abnormal interventricular septal wall motion consistent with an RV pacemaker. - Left atrium: The atrium is moderately dilated. - Right atrium: The atrium is moderately to severely dilated. - Mitral valve: The findings are consistent with mild stenosis. There is trace to mild regurgitation. - Aortic valve: There is a bioprosthetic valve. The findings are consistent with possible low gradient prosthetic vavle stenosis. DI .25 - Tricuspid valve: There is moderate regurgitation. - Aortic root: The aortic root is mildly dilated. - Ascending aorta: The ascending aorta is moderately dilated. - Pericardium, extracardiac: There is a left pleural effusion. - Pulmonary arteries: Systolic pressure is moderately increased. Pulmonary artery pressure has increased from the previous study. Study data: Transthoracic echocardiogram. Procedure: Transthoracic echocardiography was performed. Image quality was poor. The study was technically limited due to body habitus. Intravenous Definity , 3 mlswas administered. Complete 2D, spectral Doppler, and color flow Doppler. Location: Bedside. Patient status: Inpatient. Patient room number: 448-01. The previous study was not available, so comparison is made to the report of December 2018. Rhythm: Paced rhythm. Findings Left ventricle: The cavity size is at the upper limits of normal. Wall thickness is mildly increased. Systolic function is moderately to severely reduced. The estimated ejection fraction is 30-35%. Systolic function is improved from the previous study. Regional wall motion abnormalities: Hypokinesis of the basal-midinferolateral myocardium. Hypokinesis of the mid-apicalanterolateral and inferior myocardium. Akinesis of the basal inferior and basal-mid inferolateral myocardium; hypokinesis of the mid anteroseptal, mid inferoseptal, basal-mid anterolateral, and apical lateral myocardium; moderate hypokinesis of the mid-apical inferior and apical myocardium. Left ventricular diastolic function parameters are indeterminate. Right ventricle: The cavity size is moderately to severely dilated. Pacer wire noted in the right ventricle. Systolic function is moderately to severely reduced. Systolic pressure is moderately increased. Ventricular septum: There is septal flattening of the interventricular septum consistent with RV volume or pressure overload. There is abnormal interventricular septal wall motion consistent with an RV pacemaker. Left atrium: The atrium is moderately dilated. Right atrium: The atrium is moderately to severely dilated. Mitral valve: The Mitral valve annulus appears calcified. The leaflets are mildly thickened. The findings are consistent with mild stenosis. There is trace to mild regurgitation. Aortic valve: Not well visualized. There is a bioprosthetic valve. \ Aortic valve appearance has not changed in comparison with the previous study. The findings are consistent with possible low gradient prosthetic vavle stenosis. DI .25 There is no significant regurgitation. Tricuspid valve: The leaflets are normal thickness. There is no evidence of stenosis. There is moderate regurgitation. Pulmonic valve: The leaflets are normal thickness. There is no evidence of stenosis. There is trace regurgitation. Aorta: Aortic root: The aortic root is mildly dilated. Ascending aorta: The ascending aorta is moderately dilated. Aortic arch: The aortic arch is appears normal. Pericardium: A prominent pericardial fat pad is present. There is no significant pericardial effusion. There is a left pleural effusion. Pulmonary arteries: The main pulmonary artery is normal-sized. Systolic pressure is moderately increased. Pulmonary artery pressure has increased from the previous study. Systemic veins: Inferior vena cava: The vessel is normal in size. There is (< 50%) respiratory change in the IVC dimension. Measurements Left ventricle Value Ref Aortic valve continued Value Ref ROBBIN, LAX 5.8 cm 4.2 - 5.8 Thais diam/bsa, ED 0.9 cm/m^2 ----- ESD, LAX (H) 4.9 cm 2.5 - 4.0 Peak v, S 2.5 m/sec ----- FS, LAX (L) 17 % 25 - 43 VTI, S 61.0 cm ----- PW, ED, LAX (H) 1.1 cm 0.6 - 1.0 Mean grad, S 15.0 mm Hg ----- FS (L) 17 % 25 - 43 Peak grad, S 25.0 mm Hg ----- PW, ED (H) 1.1 cm 0.6 - 1.0 LVOT/AV, VTI ratio 0.25 ----- E', lat thais, TDI (L) 3.7 cm/sec >=10.0 SANJANA, VTI 0.77 cm^2 ----- E/e', lat thais, 31 SANJANA, Vmax 0.80 cm^2 --- -- TDI E', med thais, TDI (L) 5.0 cm/sec >=7.0 Mitral valve Value Ref E/e', med thais, 23 Peak E 1.13 m/sec --- -- TDI Peak A 0.94 m/sec ----- E', avg, TDI 4.4 cm/sec Decel time 225 ms --- -- E/e', avg, TDI (H) 26 <=14 PHT 104 ms ----- Mean grad, D 4.0 mm Hg ----- LVOT Value Ref Peak grad, D 9.0 mm Hg ----- Diam, S 2.00 cm Peak E/A ratio 1.2 ----- Area 3.1 cm^2 MVA, PHT 2.1 cm^2 ----- Peak gildardo, S 0.64 m/sec VTI, S 15.0 cm Pulmonic valve Value Ref Mean grad, S 1 mm Hg Peak v, S 0.75 m/sec ----- SV 47 ml Peak grad, S 2.0 mm Hg ----- SV/bsa 20 ml/m^2 Tricuspid valve Value Ref Ventricular septum Value Ref TR peak v (H) 3.3 m/sec <=2.8 IVS, ED (H) 1.2 cm 0.6 - 1.0 Peak RV-RA grad, S 44 mm Hg ----- Right ventricle Value Ref Aortic root Value Ref AW thickness, ED (H) 0.9 cm 0.1 - 0.5 Root diam 4.0 cm <4.4 ROBBIN, LAX 3.8 cm ROBBIN minor ax, A4C (H) 5.3 cm 1.9 - 3.5 Ascending aorta Value Ref mid AAo AP diam, S 4.7 cm ----- Pressure, S 52 mm Hg Aortic arch Value Ref Left atrium Value Ref Arch diam 1.9 cm ----- AP dim, ES (H) 5.70 cm 3.00 - 4.00 Decending aorta Value Ref ML dim, A4C 5.8 cm Timothy peak gildardo 0.47 m/sec ----- SI dim, A4C 7.0 cm Vol/bsa, ES, 1-p (H) 46 ml/m^2 12 - 37 Pulmonary artery Value Ref A4C Pressure, S 50.0 mm Hg ----- Vol/bsa, ES, A/L (H) 45 ml/m^2 16 - 34 Inferior vena cava Value Ref Right atrium Value Ref Diam 1.8 cm ----- SI dim, ES (H) 7.0 cm 3.4 - 5.3 ML dim, ES, A4C (H) 6.0 cm 2.6 - 4.4 Estimated RAP 8 mm Hg Aortic valve Value Ref Thais diam, ED 2.2 cm Legend: (L) and (H) cyndi values outside specified reference range. Prepared and electronically signed by Sachin Edmonds MD 03/28/2019 21:24
[2019-03-29] MEDS: Acetaminophen TAB* 325 MG PO PRN (02:05)
[2019-03-29] MEDS: ZOSYN 3.375 GM Q8H per EXTENDED INFUSION IVPB SCH ×6 (02:06→17:35)
[2019-03-29 05:38] LABS: ABS Lymphocytes 0.4 10^3/ul (1.0-4.8); ABS Monocytes 0.6 10^3/ul (0-0.8); ABS Neutrophils 10.2 10^3/ul (1.5-7.7); Hematocrit 30 % (42-52); Hemoglobin 10.1 g/dL (14.0-18.0); Lymphocyte % 3.8 %; Mean Corpuscular HGB Conc 34 g/dL (31-36); Mean Corpuscular Hemoglobin 35 pg (27-31); Mean Corpuscular Volume 102 fL (80-94); Mean Platelet Volume 7.6 fL (7.4-10.4); Platelet Count 53 10^3/uL (150-450); Red Blood Count 2.92 10^6 /uL (4.18-5.48); Red Cell Distribution Width 21 % (10-15); White Blood Count 11.3 10^3/uL (3.5-10.8)
[2019-03-29 05:49] LABS: BUN/Creatinine Ratio 21.4 (8-20); EGFR African American 85.7 (>60); EGFR Non-African American 70.8 (>60)
[2019-03-29] MEDS: Sertraline* 25 MG TAB PO SCH (08:47)
[2019-03-29] MEDS: glipiZIDE TAB.XL* 5 MG PO SCH (08:47)
[2019-03-29] MEDS: Carvedilol TAB* 3.125 MG PO SCH ×2 (08:47→20:45)
[2019-03-29] MEDS: Amiodarone TAB* 200 MG PO SCH (08:47)
[2019-03-29] MEDS: Apixaban* 5 MG TAB PO SCH ×2 (08:50→20:46)
[2019-03-29 08:52] LABS: Urine Appearance Clear; Urine Bilirubin Negative (Negative); Urine Blood Negative (Negative); Urine Color Yellow; Urine Glucose Negative (Negative); Urine Ketones Negative (Negative); Urine Nitrite Negative (Negative); Urine Protein Negative (Negative); Urine Specific Gravity 1.025 (1.010-1.030); Urine Urobilinogen Negative (Negative)
--- NOTE | 2019-03-29 10:22 | PN ---
Progress Note - Progress Note Date of Service: 03/29/19 SOAP: Subjective: [Feels slightly better today. Chest pain improving but persistent. Dyspnea improving, back to baseline O2 needs. Afebrile.] Objective: [ Vital Signs: Temp Pulse Resp BP Pulse Ox 97.9 F 76 16 119/56 95 03/28/19 23:55 03/28/19 23:55 03/29/19 00:04 03/28/19 23:55 03/29/19 00:26 Acetaminophen (Tylenol Tab*) 650 mg PO Q6H PRN PRN Reason: MILD-MODERATE PAIN Last Admin: 03/29/19 02:05 Dose: 650 mg Albuterol/Ipratropium (Duoneb (Albuterol 2.5 Mg/Ipratropium 0.5 Mg)) 1 neb INH Q4H PRN PRN Reason: SOB/WHEEZING Amiodarone HCl (Cordarone Tab*) 200 mg PO DAILY [facility] Last Admin: 03/29/19 08:47 Dose: 200 mg Apixaban (Eliquis*) 5 mg PO BID [facility] Last Admin: 03/29/19 08:50 Dose: 5 mg Carvedilol (Coreg Tab*) 3.125 mg PO BID [facility] Last Admin: 03/29/19 08:47 Dose: 3.125 mg Dextrose (Dextrose 50% Vial 50 Ml*) 25 ml IV PUSH .FOR FS < 60 - SS PRN PRN Reason: FS < 60 Glipizide (Glucotrol Xl*) 5 mg PO DAILY [facility] Last Admin: 03/29/19 08:47 Dose: 5 mg Piperacillin Sod/Tazobactam (Sod 3.375 gm/ Sodium Chloride) 100 mls @ 25 mls/ hr IVPB 0200,1000,1800 [facility] Last Admin: 03/29/19 02:06 Dose: 25 mls/hr Insulin Human Lispro (Humalog*) 0 units SUBCUT [facility]; Protocol Last Admin: 03/28/19 17:35 Dose: 4 unit Morphine Sulfate (Morphine Inj (Syringe))*) 1 mg IV Q4H PRN PRN Reason: PAIN/CHEEST PAIN Last Admin: 03/28/19 20:10 Dose: 1 mg Ondansetron HCl (Zofran Inj*) 4 mg IV Q6H PRN PRN Reason: NAUSEA/VOMITING Pharmacy Consult (Zosyn Per Pharmacy*) 1 note FOLLOW UP . PRN PRN Reason: PER PROTOCOL Sertraline HCl (Zoloft*) 25 mg PO DAILY [facility] Last Admin: 03/29/19 08:47 Dose: 25 mg Laboratory Results - last 24 hr 03/27/19 03/28/19 03/28/19 23:41 10:04 10:23 WBC RBC Hgb Hct MCV MCH MCHC RDW Plt Count MPV Neut % (Auto) Lymph % (Auto) [place] % (Auto) Eos % (Auto) Baso % (Auto) Absolute Neuts (auto) Absolute Lymphs (auto) Absolute Monos (auto) Absolute Eos (auto) Absolute Basos (auto) Absolute Nucleated RBC Nucleated RBC % Hem Pathologist Commnt Sodium Potassium Chloride Carbon Dioxide Anion Gap BUN Creatinine Est GFR ( Amer) Est GFR (Non-Af Amer) BUN/Creatinine Ratio Glucose POC Glucose (mg/dL) Calcium Troponin I 0.03 H* Urine Color Urine Appearance Urine pH Ur Specific [place] Urine Protein Urine Ketones Urine Blood Urine Nitrate Urine Bilirubin Urine Urobilinogen Ur Leukocyte Esterase Urine Glucose Influenza A (Rapid) Negative Influenza B (Rapid) Negative 03/28/19 03/28/19 03/28/19 11:25 12:52 16:35 WBC RBC Hgb Hct MCV MCH MCHC RDW Plt Count MPV Neut % (Auto) Lymph % (Auto) [place] % (Auto) Eos % (Auto) Baso % (Auto) Absolute Neuts (auto) Absolute Lymphs (auto) Absolute Monos (auto) Absolute Eos (auto) Absolute Basos (auto) Absolute Nucleated RBC Nucleated RBC % Hem Pathologist Commnt Sodium Potassium Chloride Carbon Dioxide Anion Gap BUN Creatinine Est GFR ( Amer) Est GFR (Non-Af Amer) BUN/Creatinine Ratio Glucose POC Glucose (mg/dL) 210 H 213 H Calcium Troponin I 0.05 H* Urine Color Urine Appearance Urine pH Ur Specific [place] Urine Protein Urine Ketones Urine Blood Urine Nitrate Urine Bilirubin Urine Urobilinogen Ur Leukocyte Esterase Urine Glucose Influenza A (Rapid) Influenza B (Rapid) 03/28/19 03/29/19 03/29/19 20:27 05:07 05:07 WBC 11.3 H RBC 2.92 L Hgb 10.1 L Hct 30 L MCV 102 H MCH 35 H MCHC 34 RDW 21 H Plt Count 53 L MPV 7.6 Neut % (Auto) 90.9 Lymph % (Auto) 3.8 [place] % (Auto) 5.1 Eos % (Auto) 0.0 Baso % (Auto) 0.2 Absolute Neuts (auto) 10.2 H Absolute Lymphs (auto) 0.4 L Absolute Monos (auto) 0.6 Absolute Eos (auto) 0.0 Absolute Basos (auto) 0.0 Absolute Nucleated RBC 0.0 Nucleated RBC % 0.0 Hem Pathologist Commnt Sodium 139 Potassium 4.0 Chloride 106 Carbon Dioxide 28 Anion Gap 5 BUN 22 Creatinine 1.03 Est GFR ( Amer) 85.7 Est GFR (Non-Af Amer) 70.8 BUN/Creatinine Ratio 21.4 H Glucose 163 H POC Glucose (mg/dL) 201 H Calcium 8.0 L Troponin I Urine Color Urine Appearance Urine pH Ur Specific [place] Urine Protein Urine Ketones Urine Blood Urine Nitrate Urine Bilirubin Urine Urobilinogen Ur Leukocyte Esterase Urine Glucose Influenza A (Rapid) Influenza B (Rapid) 03/29/19 03/29/19 08:10 08:45 WBC RBC Hgb Hct MCV MCH MCHC RDW Plt Count MPV Neut % (Auto) Lymph % (Auto) [place] % (Auto) Eos % (Auto) Baso % (Auto) Absolute Neuts (auto) Absolute Lymphs (auto) Absolute Monos (auto) Absolute Eos (auto) Absolute Basos (auto) Absolute Nucleated RBC Nucleated RBC % Hem Pathologist Commnt Sodium Potassium Chloride Carbon Dioxide Anion Gap BUN Creatinine Est GFR ( Amer) Est GFR (Non-Af Amer) BUN/Creatinine Ratio Glucose POC Glucose (mg/dL) 208 H Calcium Troponin I Urine Color Yellow Urine Appearance Clear Urine pH 5.0 Ur Specific [place] 1.025 Urine Protein Negative Urine Ketones Negative Urine Blood Negative Urine Nitrate Negative Urine Bilirubin Negative Urine Urobilinogen Negative Ur Leukocyte Esterase Negative Urine Glucose Negative Influenza A (Rapid) Influenza B (Rapid) Exam: Gen: chronically ill appearing 74 yo male in NAD HEENT: nasal cannula in place, MMM CV: RRR, no m/r/g Resp: reduced BS in L posterior lung andres, no w/c/r Abd: soft and nonTTP Ext: trace LE edema] [Assessment: 74 yo M w AML on AZA and venetoclax, clinically PHILIP, with CAD, CHF and afib, p/ w acute onset of left sided pleuritic chest pain with CXR suggestive of LLL PNA. He did have a mildly positive troponin, which is likely demand ischemia. Clinically improving. Plan: PNA: improving - cont zosyn ARF: improved, back to baseline - likely prerenal azotemia - resume usual diuretics given CHF Demand ischemia with h/o CHF/CAD/Afib: - no evidence of an acute coronary event - appears to be primarily paced rhythm - no dysrhythmias since admission - cont amio, coreg and eliquis - hold eliquis if plts <50 AML: -PHILIP -hold venetoclax with active infection DM: - cont diabetic diet, glipizide and sliding scale full code eliquis DVT prophylaxis Dispo: anticipate dc home over the weekend at some point. Asked him to attempt to increase mobility around his room today to help decide timing for discharge
[2019-03-29] MEDS: Torsemide TAB 10 MG PO SCH (10:59)
[2019-03-29] MEDS: Insulin LISPRO* 1 UNITS UNIT SUBCUT SCH ×3 (10:59→16:44)
[2019-03-29] MEDS ORDERED: Dextrose 50% Syringe 50 ML* 25 GM/50 ML SYRINGE IV PUSH PRN (12:46)
[2019-03-29] MEDS ORDERED: diPHENhydraMINE PO* 25 MG PO PRN (21:27)
[2019-03-30] MEDS: ZOSYN 3.375 GM Q8H per EXTENDED INFUSION IVPB SCH ×4 (01:51→10:41)
[2019-03-30] MEDS: Apixaban* 5 MG TAB PO SCH (09:07)
[2019-03-30] MEDS: Sertraline* 25 MG TAB PO SCH (09:07)
[2019-03-30] MEDS: Amiodarone TAB* 200 MG PO SCH (09:07)
[2019-03-30] MEDS: Torsemide TAB 10 MG PO SCH (09:07)
[2019-03-30] MEDS: Carvedilol TAB* 3.125 MG PO SCH (09:07)
[2019-03-30] MEDS: glipiZIDE TAB.XL* 5 MG PO SCH (09:07)
[2019-03-30] MEDS: Insulin LISPRO* 1 UNITS UNIT SUBCUT SCH ×2 (09:08→12:25)
[2019-03-30 09:58] LABS: ABS Lymphocytes 0.4 10^3/ul (1.0-4.8); ABS Monocytes 0.3 10^3/ul (0-0.8); ABS Neutrophils 10.4 10^3/ul (1.5-7.7); Eosinophil % 0.2 %; Hematocrit 31 % (42-52); Hemoglobin 10.2 g/dL (14.0-18.0); Lymphocyte % 3.2 %; Mean Corpuscular HGB Conc 33 g/dL (31-36); Mean Corpuscular Hemoglobin 34 pg (27-31); Mean Corpuscular Volume 104 fL (80-94); Mean Platelet Volume 7.5 fL (7.4-10.4); Nucleated Red Blood Cells % 0.1; Platelet Count 71 10^3/uL (150-450); Red Blood Count 2.97 10^6 /uL (4.18-5.48); Red Cell Distribution Width 21 % (10-15); White Blood Count 11.1 10^3/uL (3.5-10.8)
[2019-03-30 10:04] LABS: BUN/Creatinine Ratio 20.8 (8-20); Calcium 8.4 mg/dL (8.6-10.3); EGFR African American 82.9 (>60); EGFR Non-African American 68.5 (>60); Potassium 3.9 mmol/L (3.5-5.0)
[2019-03-30 16:49] VITALS: BP 111/46
--- NOTE | 2019-03-30 19:52 | DS ---
DISCHARGE SUMMARY: DATE OF ADMISSION: 03/28/19 DATE OF DISCHARGE: 03/30/19 PRIMARY CARE PROVIDER: Not listed. PRIMARY ONCOLOGIST: Dr. Kimmy Mccracken. ATTENDING PHYSICIAN: Dr. Kimmy Mccracken.* (DICTATED BY RIMA VALLE) DISCHARGING PROVIDER: RIMA Valle. PRIMARY DISCHARGE DIAGNOSES: 1. Pneumonia. 2. Demand ischemia. 3. Acute renal insufficiency secondary to hypovolemia. 4. Acute myeloid leukemia - no evidence of disease on recent bone marrow biopsy - venetoclax held due to active infection. 5. Diabetes. DISCHARGE MEDICATIONS: 1. Amiodarone 200 mg p.o. daily. 2. Eliquis 5 mg p.o. twice daily. 3. Carvedilol 3.25 mg p.o. twice daily. 4. CoQ-10 200 mg p.o. daily. 5. Lovastatin 40 mg p.o. daily. 6. Magnesium oxide 1 capsule p.o. daily. 7. Melatonin 1 tablet p.o. nightly. 8. Potassium chloride 20 mEq p.o. daily. 9. Senna 1 tablet p.o. twice daily. 10. Zoloft 25 mg p.o. daily. 11. Torsemide 10 mg p.o. daily. 12. Venetoclax - currently held due to acute infection. 13. Augmentin 875/125 one tablet p.o. twice daily x7 days. HOSPITAL IMAGING: Chest x-ray, 03/27/19 shows left lower lobe consolidation. HOSPITAL COURSE: This is a 74-year-old gentleman, well known to the oncology group with acute myeloid leukemia, currently with no evidence of disease, on maintenance therapy with venetoclax and azacitidine. He was brought to the hospital by EMS with complaints of chest pain and generalized lethargy. His chest pain seemed to start rather suddenly, was associated with some shortness of breath but does report that he was rather lethargic for a couple of days leading up to this. In the emergency department, he had a chest x-ray which demonstrated dense left lower lobe consolidation. Initial troponin was 0.04 and on serial checks peaked at 0.05. This was felt to represent demand ischemia. Creatinine was initially elevated at 1.22 with his baseline closer to 1. The patient was subsequently treated for pneumonia, thought to be healthcare associated, with Zosyn. His diuretic was initially held and he was gently hydrated. He remained afebrile throughout his hospital stay. He had an initial leukocytosis consisting primarily of neutrophils that improved throughout his hospital stay. The patient symptomatically improved with his chest pain nearly resolved at the time of discharge. He was able to ambulate a short distance to the bathroom and back without significant shortness of breath or chest pain. DISPOSITION AND FOLLOWUP PLAN: The patient is being discharged to home in stable condition where he lives with his . He will continue to hold venetoclax through the remainder of the cycle and follow up with oncology group later this week. He was discharged with 7 additional days of Augmentin. RIMA VALLE [id number] #: [id number] MTDD
== END 2019-03-30 14:00 | disposition home or self-care (01) | DRG 194 ==
LOC: ED 23:16 → MEDTELE 03-28 06:14
PROVIDERS: ADMIT Internal Medicine; ATTEND Internal Medicine Hematology & Oncology
DX: J18.9 Pneumonia, unspecified organism (principal); J44.0 Chronic obstructive pulmonary disease with (acute) lower respiratory infection; C92.00 Acute myeloblastic leukemia, not having achieved remission; I24.8 Other forms of acute ischemic heart disease; N17.9 Acute kidney failure, unspecified; I48.91 Unspecified atrial fibrillation; I25.5 Ischemic cardiomyopathy; E78.00 Pure hypercholesterolemia, unspecified; I50.9 Heart failure, unspecified; G47.33 Obstructive sleep apnea (adult) (pediatric); I25.10 Atherosclerotic heart disease of native coronary artery without angina pectoris; E11.9 Type 2 diabetes mellitus without complications; I11.0 Hypertensive heart disease with heart failure; Y95 Nosocomial condition; E86.1 Hypovolemia; E66.9 Obesity, unspecified; Z68.33 Body mass index [BMI] 33.0-33.9, adult; Z98.42 Cataract extraction status, left eye; Z95.2 Presence of prosthetic heart valve; Z98.41 Cataract extraction status, right eye; Z85.828 Personal history of other malignant neoplasm of skin; Z95.0 Presence of cardiac pacemaker; Z99.81 Dependence on supplemental oxygen; Z79.01 Long term (current) use of anticoagulants; Z79.899 Other long term (current) drug therapy
CPT/HCPCS: 36415; 71046; 80048; 80053; 81003; 83690; 83735; 83880; 84443; 84484; 85025; 85060; 86140; 87040; 93005; 93306; 94660; 99284; A9270-GY; C8929; J2270; J2405; J2543